=== PATIENT | male | born 1960 | race Caucasian/White ===

== ENCOUNTER 2024-12-07 17:51 | Emergency (ER) | payer OTHER, SELFPAY ==
--- NOTE | 2024-12-07 17:55 | ED_ITS ---
HPI - Dental/Oral General Chief complaint: Dental/Oral Stated complaint: tooth pain/face swollen/cough Time Seen by Provider: 12/07/24 17:55 Source: patient Mode of arrival: ambulatory Limitations: no limitations History of Present Illness HPI Narrative: Patient is a pleasant 64-year-old male presenting with complaint of left upper dental pain. Additional sx reported include swelling to the L. side of his neck, Lips, L. side of his face. He reports sudden onset yesterday with rapid progression. Tx initiated [employer]IEF includes [place] (prescribed for previous dx) without improvement in pain. Reports appt with dentist tomorrow morning. No additional complaints. Teeth map: 2 1. fracture, TTP Related Data Allergies Allergy/AdvReac Type Severity Reaction Status Date / Time Penicillins Allergy Unknown Verified 10/10/14 11:35 TAPE AdvReac Unknown Uncoded 07/02/15 08:12 Review of Systems 2 Review of Systems: All systems reviewed & are unremarkable except as noted in HPI and below PMFSH Family History Family History Father Malignant neoplasm of prostate Grandparent Family history of heart disease in male family member before age 55 Social History Social History Smoking status: Former smoker Smoking end date: 07/06/96 Alcohol intake: never Exam 2 Narrative: GENERAL: Well-appearing, well-nourished, and in no acute distress. HEAD: notable swelling with associated erythema to the L. mandible, L. cheek/L. maxillary sinus, L. anterior aspect of neck EYES: EOMI. No redness or drainage. Conjunctivae normal. ENT: Mucous membranes pink and moist. Nares clear. No rhinorrhea. TMs normal bilaterally. Throat normal. Uvula midline. there is no trismus. NECK: Normal AROM. Supple. CHEST: No respiratory distress. Clear to auscultation. HEART: Regular rate EXTREMITIES: Normal range of motion. No edema. SKIN: Warm, dry. Capillary refill normal. Normal skin turgor. NEURO: No focal deficits. Alert and oriented x3. Gait steady. PSYCH: Normal affect. No signs of depression or anxiety. Course Course Level of Care: Express Care Visit Vital Signs Vital signs: Vital Signs Temperature 99.3 F 12/07/24 18:04 Pulse Rate 96 12/07/24 18:04 Respiratory Rate 18 12/07/24 18:04 Blood Pressure 164/83 H 12/07/24 18:04 Pulse Oximetry 98 12/07/24 18:04 Oxygen Delivery Room Air 12/07/24 18:04 Temperature 99.3 F 12/07/24 18:04 Pulse Rate 96 12/07/24 18:04 Respiratory Rate 18 12/07/24 18:04 Blood Pressure 164/83 H 12/07/24 18:04 Pulse Oximetry 98 12/07/24 18:04 Oxygen Delivery Room Air 12/07/24 18:04 MDM - Dental/Oral MDM Narrative Medical decision making narrative: Given the patient's sudden onset and rapid progression of sx, I recommended he be transferred to ER via POV. Pt agreed and requested to be transferred to [place] [facility]. Differential Diagnosis Differential diagnosis: Likely gingival abscess, dental caries, toothache, dental abscess, fracture of tooth, aphthous ulcer and other (deep space infection) Medical Records Attestation: I reviewed the patient's medical records. Discharge Plan Discharge Clinical Impression: Toothache, Dental caries, Facial swelling, Neck swelling Patient Disposition: Acute Care Hospital Condition: Stable Instructions: Antibiotic Form Patient Language: Ukrainian Follow-up/Referrals: UNKNOWN,DOCTOR [Primary Care Provider] - Time of Disposition: 18:14
[2024-12-07 18:04] VITALS: BP 164/83; PULSE 96; RESP 18; TEMP 37.4; O2SAT 98
== END 2024-12-07 18:20 | disposition short-term general hospital (02) ==
PROVIDERS: Emergency Provider Registered Nurse
DX: K08.89 Other specified disorders of teeth and supporting structures (principal); K02.9 Dental caries, unspecified; R22.0 Localized swelling, mass and lump, head; R22.1 Localized swelling, mass and lump, neck; Z87.891 Personal history of nicotine dependence
CPT/HCPCS: 99212; G0463

== ENCOUNTER 2024-12-07 18:28 | Emergency (ER) | payer OTHER, SELFPAY ==
--- OUTSIDE RECORDS SUMMARY | 2024-12-07 18:30 | XMS_ITS | Data Portability ---
Author Organization [facility],, Main Office Address [address] [place] [address] [place] [phone] Assessment No assessment recorded. Plan of Treatment Reminders Order Date Submit Date Provider Last Modified By Organization Details Last Modified Time Details Appointments None record ed. Lab None record ed. Referral None record ed. Procedures None record ed. Surgeries None record ed. Imaging None record ed. Medication Orders None record ed. Patient TargetsNo targets recorded. Patient InstructionsNo instructions recorded. Reason for Referral None Reported. Problems Name Problem SNOMED Code Status Onset Date Resolution Date Notes Provider Name and Address Organization Details Recorded Time Pain of toe of left foot 5651118746669 08 Active 2021 Becky Shook DPM [address] [place] [address],[address] [place] [address], [phone], [facility], 2 16:48:18 Onycholysis 47303334 Active 2021 Becky Shook DPM [address] [place] [address],[address], [place], [address], [facility], 2 16:48:20 Onychomycos is of toenails 842368165 Active 2021 Becky Shook DPM [address] [facility],[address], [address], [facility], 2 16:48:20 Problem Notes None recorded. Procedures Surgical History Date Name Laterality Status Provider Name and Address Organization Details Recorded Time 2 Nail Avulsion completed Becky Shook, DPM [address] [facility],[address], [place], [address], [facility], 08/20/2021 16:47:25 colonoscopy completed [facility], 07/18/2021 09:59:25 procedure on ankle completed [facility], 07/18/2021 09:59:36 Foot Surgery completed [facility], 07/18/2021 09:59:42 Imaging Results None recorded. Procedure Notes None recorded. Medical Equipment None Reported. Allergies Allergen ID Allergen Name Allergen Category Reaction Reaction Severity Criticality Documentation Date Start Date Code Code System Note Provider Name and Address Organization Details Recorded Time 2508 Product containin g penicilli n (product) medicatio n Not available Not available Not available 07/18/2021 86220 8001 SNOMED [facility], 2 09:57:00 2509 Substance with sulfonami de structure and antibacte rial mechanism of action (substanc e) medicatio n Not available Not available Not available 07/18/2021 96166 8003 SNOMED [facility], 2 09:57:04 2510 lisinopri l medicatio n Not available Not available Not available 07/18/2021 78916 RxNorm [facility], 2 09:57:11 2511 adhesive tape environme nt,medica tion Not available Not available Not available 07/18/2021 52440 UNK [facility], 2 09:57:18 Medications Name Sig Start Date Stop Date Status Note LastModified by Organization Details LastModified Time prednisone 10 mg tablet 07/18 completed Not Available Not Available Not Available cetirizine 10 mg tablet TAKE 1 TABLET BY MOUTH ONCE DAILY active Not Available Not Available No t Available famotidine 40 mg tablet active Not Available Not Available No t Available prednisone 20 mg tablet 07/18 completed Not Available Not Available Not Available omeprazole 40 mg capsule,delay ed release active Not Available Not Available N ot Available tramadol 50 mg tablet 07/18 completed Not Available Not Available Not Available hydrocodone 7.5 mg-acetaminop hen 325 mg tablet 07/18 completed Not Available Not Available Not Available cephalexin 500 mg capsule 07/18 completed Not Available Not Available Not Available esomeprazole magnesium 40 mg capsule,delay ed release active Not Available Not Available N ot Available metoclopramid e 10 mg tablet active Not Available Not Available Not Available Trelegy Ellipta 200 mcg-62.5 mcg-25 mcg powder for inhalation active Not Available Not Available N ot Available Vitals Date Recorded Body height Body mass index (BMI) Body weight Heart rate Oxygen saturation Oxygen saturation in Arterial blood by Pulse oximetry Body temperature Systolic blood pressure Diastolic blood pressure Provider Name and Address Organization Details Last Updated DateTime 198.12 cm 34.1 kg/m2 630831. 75 g 108 /min 93 % 93 % 98.1 [degF] 149 mm[Hg] 94 mm[Hg] Ashlyeziyad Paris [facility], 09:56:30 Social History Question Answer Notes LastModified by [employer] ion Details LastModified Time Tobacco Smoking Status Former Smoker Ashley Paris [facility], 07/18/2021 09:59:16 What Was The Date Of Your Most Recent Tobacco Screening? 07/18/2021 [email or web address] Information not available 07/18/2021 At What Age Did You Start Smoking Tobacco? 20 Information not available 07/18/2021 Sex: Unknown Functional Status Question Answer Note LastModified by Organizat ion Details LastModified Time Do you or have you ever used any other forms of tobacco or nicotine? No [email or web address] Information not available 07/18/2021 What is your level of alcohol consumption? None [email or web address] Information not available 07/18/2021 Are you currently employed? Yes [email or web address] Information not available 07/18/2021 What is your occupation? [employer] [email or web address] Information not available 07/18/2021 Mental Status None recorded. Family History Relationship Description Onset Age of this Age Resolved Age Notes LastModified by Organization Details LastModified Time Unspecified Relation Arthritis [email or web address] Not available 09:58:17 Unspecified Relation Family history of malignant neoplasm [email or web address] Not available 07/06 09:58:24 Unspecified Relation Hypertensive disorder [email or web address] Not available 07/06 09:58:31 Unspecified Relation Heart disease [email or web address] Not available 07/06 09:58:37 Medical History Condition Response Coronary Artery Disease N Gout N Emphysema N Depression Y COPD N Lung Disease N Pacemaker N Edema N Deep Vein Thrombosis N Varicose Veins N Arthritis Y Restless Leg Syndrome Y Blood Clot N Cancer Y Stroke Y Leg or Foot Ulcers N Circulation Problems N Raynaud's Disease N High Cholesterol Y Liver Disease N Rheumatoid Arthritis N Fibromyalgia N Foot Deformity N Kidney Disease N Anxiety Y Artificial Joints N Thyroid Problems N Psoriatic Arthritis N Anemia N Back Pain Y Mental Illness Y Diabetes N Bleeding Disorder N Seizures/Epilepsy N AIDS/HIV N Asthma Y Allergies N Peripheral Vascular Disease N Artificial Heart Valve N Hepatitis N Neuropathy N Heart Disease Y Pulmonary Embolism N Hypertension Y Osteoporosis N Past Encounters Encounter ID Performer Location Encounter Start Date Encounter Closed Date Diagnosis/Indication Diagnosis SNOMED-CT Code Diagnosis ICD10 Code Diagnosis Note [id number] Becky Shook DPM Main Office [address] [place] [address],[facility] [address], [place] [address] 07/18/2021 09:26:55 07/18/2021 10:20:49 Pain of toe of left foot 7574058501 39705 M79.675 The toenail its etiology, options for care, treatment plan, and prognosis were discussed with the patient. In detail, I explained conservati ve and surgical options of care. The patient elected to have the toenail surgically corrected today and understand s the risks of procedure including, but not limited to recurrence of the ingrown toenail, infection, worsening of condition, loss of entire toenail, loss of digit. Answered all of patient's questions. Wound care directions were reviewed with the patient and a handout for post procedure care was dispensed. The patient voiced understand ing of the condition, home care, and expected healing, and was happy with this treatment plan and is to return to the office in 6 weeks or sooner as needed. Onycholysis 22681874 L60 .1 Onychomyco sis of toenails 221510749 B35.1 Health Concerns Section Related Observation LastModified by Organization Detai ls LastModified Time None Recorded Concern Status LastModified by Organization Details LastModified Time None Recorded Advance Directives Directive None Recorded Payers Encounter Date Sequence Insurance Name Policy Number Policy Mary Covered Member ID Mary Member ID Guarantor Name 07/18/2021 1 [employer] [id number] 1 Guicho Barnes [id number] Guicho Barnes Notes Date Note Type Note Provider Name and Address Organization Details Recorded Time 07/18/2021 text/html Patient presents to the office today for an painful fungal and loose nail to the left hallux which has not responded to self treatment including soaks, trimming at home, and local care. The toenail has been painful, red, and ingrown for several months. The pain is throbbing, aching and stabbing in nature and is worsened by shoe wear and direct pressure. They have had a similar condition previously treated. Outside reports reviewed: Office notes and historical medical records Becky Shook, DPM [address] [facility],[address], [place], [address], [facility], 08/20/2021 16:48:46
--- OUTSIDE RECORDS SUMMARY | 2024-12-07 18:30 | XMS_ITS | Continuity of Care Document ---
Author Organization [facility] Address [address] [place] [address] Phone Care Team Providers Care Degree Clerk Name Role Phone Unavailable Unavailable Unavailable Procedures Procedure Date Comprehensive Oral Evaluation-New/Est Pt Intra-Oral - Complete Series Of Radiogra phic Images Comprehensive Oral Evaluation-New/Est Pt Intra-Oral - Complete Series Of Radiogra phic Images Dental Panoramic Radiographic Image Surgical extr erupted tooth Advance Directives Directive Yes / No Effective Date File Name No Information Encounters Encounter Description Practice Location Reason(s) For Visit Diagnoses Date Provider Providers Copied on Encounter [facility], [address], [place], [place], [id number] , tel: [phone] [facility] Encounter for dental exam and cleaning w abnormal findings 0 No Information Referring Provider: Jose Juan French, [address], [place], [address] . tel:[phone] [facility], [address], [place], [place], [address] , tel: [phone] [facility] Encounter for dental exam and cleaning w abnormal findingsEncounter for dental exam and cleaning w/o abnormal findings 0 No Information [facility], [address], [place], [place], [id number] , tel: [phone] [facility] Encounter for dental exam and cleaning w abnormal findings 0 No Information Family History Family Member Type Diagnosis Age At Onset No Information Payers Payer name Insurance type Covered libertarian ID Rubi moreno(s) D [facility] Claims [id number] Social History Type Description Quantity Date Captured Comments Sex Male Smoking Status No Information Chief Complaint And Reason For Visit No Information Reason For Referral Reason For Referral No Information History Of Present Illness Encounter Date Complaint History Of Prese nt Illness No Information Functional Status Date Functional Assessmen t No Information Instructions Date Instruction Additional Infor mation No Information Assessments Type Assessment Date No Information Patient Care Teams Name Effective Dates (start - stop) Status Members No Information
--- OUTSIDE RECORDS SUMMARY | 2024-12-07 18:30 | XMS_ITS | Continuity of Care Document ---
Author Name [facility] Organization [facility] Care Team Providers Care Trick Rodeo Rider Name Role Phone [facility] Unavailable Unavailable Problems Combined list of problems from Department of Defense and [facility] Affairs facilities. It does not include entries that were removed or entered in error. Problem Status Onset Date Problem Type Date of Resolution Comments Source Acute non-ST segment elevation myocardial infarction Active Condition [facility] Anxiety disorder Active Condition Feb 26, 2016 Entered By: TANESHA GARCIA Comment: May complicate management [facility] Benign essential hypertension (SNOMED CT 5299303) Active Condition Feb 26, 2016 Entered By: TANESHA GARCIA Comment: CV risk factor. May complicate management [facility] Cerebral arteriosclerosis Active Condition Feb 25 6 Entered By: TANESHA GARCIA Comment: CV risk factor. May complicate management [facility] Chronic bipolar II disorder, most recent episode major depressive Active Condition [facility] Chronic pain Active Condition Feb 26, 2016 Entered By: TANESHA GARCIA Comment: Multiple sites. May be multifactorial. May complicate management [facility] Chronic post-traumatic stress disorder Active Condition [facility] Chronic sinusitis Active Condition [facility] Cough (SCT 95805200) Active Condition [facility] Erectile dysfunction Active Condition Feb 26, 2016 Entered By: TANESHA GARCIA Comment: May be multifactorial. CV risk factor. May complicate management [facility] Ex-tobacco user Active Condition Feb 26, 2016 Entered By: TANESHA GARCIA Comment: CV risk factor. May complicate management [facility] Exposure to potentially hazardous substance (SCT 612785149934193) Active Condition Oct 20 4 Entered By: CARRIE NAPOLES Comment: Entered automatically through [employer] Problem List documentation program [facility] Gastroesophageal reflux disease Active Condition Feb 26, 2016 Entered By: TANESHA GARCIA Comment: May complicate management [facility] Generalized anxiety disorder Active Condition [facility] Hearing loss ([facility] 76928996) - Unspecified hearing loss (ICD-9-CM 389.9) Active Condition Feb 26, 2016 Entered By: TANESHA GARCIA Comment: May complicate management [facility] History of alcohol abuse Active Condition Feb 26, 2016 Entered By: TANESHA GARCIA Comment: CV risk factor. May complicate management [facility] History of repair of inguinal hernia Active Condition [facility] History of repair of rotator cuff Active Condition [facility] Hyperlipidemia (SNOMED CT 30154083) Active Condition Feb 26, 2016 Entered By: TANESHA GARCIA Comment: CV risk factor. May complicate management [facility] Hypersomnia Active Condition Feb 26, 2016 Entered By: TANESHA GARCIA Comment: May complicate management [facility] Insomnia Active Condition Feb 25 16 Entered By: TANESHA GARCIA Comment: May complicate management [facility] Lack of exercise Active Condition Feb 26, 2016 Entered By: TANESHA GARCIA Comment: CV risk factor. May complicate management [facility] Obesity Active Condition Feb 25 Entered By: TANESHA GARCIA Comment: CV risk factor. May complicate management [facility] Obstructive sleep apnea syndrome Active Condition Feb 26, 2016 Entered By: TANESHA GARCIA Comment: CV risk factor. May complicate management [facility] Patellofemoral osteoarthritis Active Condition [facility] Recurrent major depression Active Condition Feb 26, 2016 Entered By: TANESHA GARCIA Comment: CV risk factor. May complicate management [facility] Sensorineural hearing loss of bilateral ears Active Condition [facility] Sensory symptoms Active Condition Feb 26, 2016 Entered By: TANESHA GARCIA Comment: Chanell. TIA v conversion disorder v factitious disorder v m [facility] Social anxiety disorder Active Condition Feb 26, 2016 Entered By: MITHEN,TANESHA A Comment: May complicate management [facility] Stereotypic movement disorder Active Condition Feb 25 Entered By: TANESHA GARCIA Comment: Told he has RLS, but he has no symptoms consistent with RLS [facility] TIA (SNOMED CT [id number]) Active Condition Oct 24, 2011 Entered By: PHILLIP CASTELLON Comment: Had 3 episodes in 2005, no residual symptomsFeb 26, 2016 Entered By: TANESHA GARCIA Comment: Possible. CV risk factor. May complicate management [facility] Vitamin D deficiency Active Condition Feb 26, 2016 Entered By: TANESHA GARCIA Comment: CV risk factor. May complicate management [facility] ACQ NOSE DEFORMITY Inactive Condition 10/24/2011 [facility] Allergic rhinitis due to other allergen (ICD-9-CM 477.8) Inactive Condition 02/25/2016 [facility] Cellulitis and abscess of unspecified sites (ICD-9-CM 682.9) Inactive Condition 10/24/2011 [facility] Diarrhea * (ICD-9-CM 787.91) Inactive Condition 10/24/2011 [facility] FOREIGN BODY HEAD Inactive Condition 10/24/2011 [facility] HEADACHE Inactive Condition 10/24/2011 [facility] JAW DISEASE NOS Inactive Condition 10/24/2011 [facility] LUMBAGO Inactive Condition 02/25/2016 [facility] NASAL SINUS DIS NEC Inactive Condition 10/24/2011 [facility] NON-HEALING SURGICAL WOUND Inactive Condition 10/24/2011 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 ORAL SOFT TISSUE DIS NEC Inactive Condition 10/24/2011 [facility] Other and unspecified disc disorder of lumbar region (ICD-9-CM 722.93) Inactive Condition 02/25/2016 Aug 28, 2011 Entered By: AUSTYN ANSARI Comment: HX OF SURGERY [facility] OTHER SP. PRE-OP EXAM Inactive Condition 10/24/2011 [facility] Personal History of Tobacco Use (ICD-9-CM V15.82) Inactive Condition 02/25/2016 Oct 23 Entered By: PHILLIP CASTELLON Comment: quit 12 years ago [facility] Prostatitis * (ICD-9-CM 601.9) Inactive Condition 02/25/2016 [facility] SKIN DISORDER NOS Inactive Condition 10/24/2011 [facility] Upper Respiratory Infections (ICD-9-CM 465.9) Inactive Condition 10/24/2011 [facility] Diagnosis: ICD-10-CM L82.1 Other seborrheic keratosis Active Diagnosis [facility] Diagnosis: ICD-10-CM M79.2 Neuralgia and neuritis, unspecified Active Diagnosis [facility] Diagnosis: ICD-10-CM Z02.9 Encounter for administrative examinations, unspecified Active Diagnosis [facility] Diagnosis: ICD-10-CM F51.02 Adjustment insomnia Active Diagnosis [facility] Diagnosis: ICD-10-CM R06.00 Dyspnea, unspecified Active Diagnosis [facility] Diagnosis: ICD-10-CM E66.9 Obesity, unspecified Active Diagnosis [facility] Diagnosis: ICD-10-CM I10 Essential (primary) hypertension Active Diagnosis [facility] Diagnosis: ICD-10-CM F33.41 Major depressive disorder, recurrent, in partial remission Active Diagnosis [facility] Diagnosis: ICD-10-CM L60.2 Onychogryphosis Active Diagnosis [facility] Diagnosis: ICD-10-CM Z56.9 Unspecified problems related to employment Active Diagnosis [facility] Diagnosis: ICD-10-CM L60.0 Ingrowing nail Active Diagnosis [facility] Diagnosis: ICD-10-CM I26.99 Other pulmonary embolism without acute cor pulmonale Active Diagnosis [facility] Diagnosis: ICD-10-CM Z01.818 Encounter for other preprocedural examination Active Diagnosis [facility] Diagnosis: ICD-10-CM Z71.2 Person consulting for explanation of exam or test findings Active Diagnosis [facility] Diagnosis: ICD-10-CM R22.1 Localized swelling, mass and lump, neck Active Diagnosis [facility] Luis Enrique [facility] Diagnosis: ICD-10-CM R29.898 Oth symptoms and signs involving the musculoskeletal system Active Diagnosis [facility] Diagnosis: ICD-10-CM G45.3 Amaurosis fugax Active Diagnosis [facility] Diagnosis: ICD-10-CM Z13.5 Encounter for screening for eye and ear disorders Active Diagnosis [facility] NATALIO [facility] Diagnosis: ICD-10-CM E66.811 Obesity, class 1 Active Diagnosis [facility] Diagnosis: ICD-10-CM H90.3 Sensorineural hearing loss, bilateral Active Diagnosis [facility] Diagnosis: ICD-10-CM J20.9 Acute bronchitis, unspecified Active Diagnosis [facility] Diagnosis: ICD-10-CM Z85.828 Personal history of other malignant neoplasm of skin Active Diagnosis [facility] Diagnosis: ICD-10-CM E78.5 Hyperlipidemia, unspecified Active Diagnosis [facility] Diagnosis: ICD-10-CM F40.10 Social phobia, unspecified Active Diagnosis [facility] Diagnosis: ICD-10-CM E66.8 Other obesity Active Diagnosis [facility] Diagnosis: ICD-10-CM D23.5 Other benign neoplasm of skin of trunk Active Diagnosis [facility] Medications Combined list of outpatient medications from Department of Defense and [facility] Affairs facilities.Medications provided include 1) outpatient medications from the last 15 months, and 2) patient-reported medications. Medication Details Route Status Patient Instructions Prescription Expires Prescription Number Last Dispense Date Ordering Provider Order Date Order Qty Source ALBUTEROL SO4 90MCG/ACTUA T (CFC-F) INHL,ORAL,8 .5GM INHALE 2 PUFFS BY ORAL INHALATI ON FOUR TIMES A DAY NEEDED SHAKE WELL. RINSE MOUTHPIE CE FREQUENT LY TO PREVENT CLOGGING . RESPIR ATORY (INHAL ATION) DISCONT INUED BY PROVIDE R 06/09/2025 [id number] 5 REJI LERMA 2023 3 [facility] AMLODIPINE BESYLATE 10MG TAB TAKE ONE TABLET BY MOUTH ONCE A DAY FOR HEART/BL OOD PRESSURE ORAL SUSPEND ED 06/09/2025 [id number] 5 REJI LERMA 2024 90 [facility] AMLODIPINE BESYLATE 10MG TAB TAKE ONE TABLET BY MOUTH ONCE A DAY FOR HEART/BL OOD PRESSURE ORAL DISCONT INUED 08/17/2024 [id number] 4 RODRIGO MOJICA 2023 90 [facility] APIXABAN 5MG TAB TAKE ONE TABLET BY MOUTH TWICE A DAY ORAL ACTIVE GAVIN MOLINA 2022 [facility] ARIPIPRAZOL E 5MG TAB TAKE ONE AND ONE-HALF TABLETS BY MOUTH ONCE A DAY FOR BIPOLAR DISORDER ORAL ACTIVE 10/07/2025 [id number] 5 MARIA GUADALUPE CESPEDES FRACISCO 2024 135 [facility] N ARIPIPRAZOL E 5MG TAB TAKE ONE AND ONE-HALF TABLETS BY MOUTH ONCE A DAY FOR BIPOLAR DISORDER ORAL DISCONT INUED 07/09/2025 [id number] 5 MARIA GUADALUPE CESPEDES FRACISCO 2024 135 [facility] DIVISIO N ARIPIPRAZOL E 5MG TAB TAKE ONE AND ONE-HALF TABLETS BY MOUTH ONCE A DAY FOR BIPOLAR DISORDER ORAL DISCONT INUED 12/15/2024 [id number] 4 MARIA GUADALUPE CESPEDES 2023 135 [facility] ATENOLOL 100MG TAB TAKE ONE-HALF TABLET BY MOUTH ONCE A DAY ORAL ACTIVE REJI LERMA 2023 [facility] ATORVASTATI N CA 40MG TAB TAKE ONE-HALF TABLET BY MOUTH EVERY EVENING ORAL ACTIVE 06/09/2025 [id number] 5 REJI LERMA 2023 45 [facility] AZITHROMYCI N 500MG TAB TAKE ONE TABLET BY MOUTH ONCE A DAY FOR COPD EXACERBA TION TAKE UNTIL GONE. DO NOT TAKE WITH ALUMINUM OR MAGNESIU M ANTACIDS . ORAL ACTIVE 12/25/2024 [id number] 5 JARAGEOVANNA Mercado M 2024 3 [facility] BENZONATATE 200MG CAP TAKE ONE CAPSULE BY MOUTH THREE TIMES A DAY NEEDED ORAL 07/18/2024 [id number] 4 REJI LERMA 2023 120 [facility] BUDESONIDE 160/GLYCOPY R 9/FORMOTER 4.8MCG/ACT INHL,ORAL,1 0.7GM INHALE 2 PUFFS INHALATI ON TWICE A DAY DIRECTED INHALA TION ACTIVE REJI LERMA 2023 [facility] BUPROPION 90MG/NALTRE XONE HCL 8MG TAB,SA TAKE 2 TABLETS BY MOUTH TWICE A DAY FOR WEIGHT LOSS ORAL DISCONT INUED BY PROVIDE R 05/11/2025 [id number] 5 HOLDEN DECKER IGNACIO 2024 120 [facility] DIVISIO N BUPROPION 90MG/NALTRE XONE HCL 8MG TAB,SA TAKE 1 TABLET BY MOUTH ONCE A DAY FOR 7 DAYS, THEN TAKE 1 TABLET TWICE A DAY FOR 7 DAYS, THEN TAKE 2 TABLETS EVERY MORNING AND TAKE 1 TABLET EVERY EVENING FOR 7 DAYS, THEN TAKE 2 TABLETS TWICE A DAY FOR WEIGHT LOSS ORAL DISCONT INUED 05/11/2025 [id number] 4 HOLDEN DECKER IGNACIO 2023 120 [facility] DIVISIO N BUSPIRONE HCL 15MG TAB TAKE TWO TABLETS BY MOUTH TWICE A DAY FOR ANXIETY DO NOT TAKE WITH GRAPEFRU IT JUICE ORAL ACTIVE 10/07/2025 [id number] 5 MARIA GUADALUPE CESPEDES 2024 360 [facility] DIVISIO N BUSPIRONE HCL 15MG TAB TAKE TWO TABLETS BY MOUTH TWICE A DAY FOR ANXIETY DO NOT TAKE WITH GRAPEFRU IT JUICE ORAL DISCONT INUED 12/15/2024 [id number] 5 MARIA GUADALUPE CESPEDES 2023 360 [facility] BUSPIRONE HCL 15MG TAB TAKE TWO TABLETS BY MOUTH THREE TIMES A DAY FOR ANXIETY DO NOT TAKE WITH GRAPEFRU IT JUICE ORAL DISCONT INUED (EDIT) 12/08/2024 [id number] 4 MARIA GUADALUPE CESPEDES 2023 540 [facility] BUSPIRONE HCL 15MG TAB TAKE TWO TABLETS BY MOUTH THREE TIMES A DAY FOR ANXIETY FOR ANXIETY DO NOT TAKE WITH GRAPEFRU IT JUICE ORAL DISCONT INUED 12/08/2024 [id number] 4 MARIA GUADALUPE CESPDEES 2023 180 [facility] CHOLECALCIF FAUSTINO 125MCG (5,000UNIT) CAP,ORAL TAKE 1 CAPSULE BY MOUTH ONCE A DAY ORAL ACTIVE MARYANN ALBRIGHT 2014 [facility] DIVISIO N CLOMIPHENE CITRATE 50MG TAB TAKE ONE TABLET BY MOUTH EVERY OTHER DAY ORAL ACTIVE GAVIN MOLINA 2022 [facility] CPD-NALTREX ONE 4.5MG (LOW DOSE) CAP TAKE 1 CAPSULE BY MOUTH ONCE A DAY FOR NEUROPAT HY ORAL ACTIVE 12/03/2025 [id number] 5 KEARA ROSE 2024 30 [facility] DIVISIO N CYANOCOBALA MIN 1000MCG TAB TAKE ONE TABLET BY MOUTH ONCE A DAY ORAL ACTIVE REJI LERMA 2023 [facility] DULOXETINE HCL 60MG CAP,EC TAKE TWO CAPSULES BY MOUTH AT BEDTIME FOR MOOD, ANXIETY AND PAIN ORAL SUSPEND ED 10/07/2025 [id number] 5 MARIA GUADALUPE CESPEDES 2024 180 [facility] DIVISIO N DULOXETINE HCL 60MG CAP,EC TAKE TWO CAPSULES BY MOUTH AT BEDTIME FOR MOOD, ANXIETY AND PAIN ORAL DISCONT INUED 02/02/2025 [id number] 5 MARIA GUADALUPE CESPEDES 2023 180 [facility] DIVISIO N DULOXETINE HCL 60MG CAP,EC TAKE TWO CAPSULES BY MOUTH AT BEDTIME FOR MOOD, ANXIETY AND PAIN ORAL DISCONT INUED 02/07/2024 [id number] 4 MARIA GUADALUPE CESPEDES 2022 180 [facility] DIVLISA N FAMOTIDINE 40MG TAB TAKE ONE TABLET BY MOUTH ONCE A DAY TO LOWER STOMACH ACID ORAL ACTIVE 06/09/2025 [id number] 5 REJI LERMA 2024 90 [facility] FAMOTIDINE 40MG TAB TAKE ONE TABLET BY MOUTH ONCE A DAY TO LOWER STOMACH ACID ORAL DISCONT INUED 08/17/2024 [id number] 4 RODRIGO MOJICA 2023 90 [facility] FERROUS SO4 325MG TAB TAKE ONE TABLET BY MOUTH ONCE A DAY FOR IRON SUPPLEME NTATION. ORAL SUSPEND ED 06/09/2025 [id number] 5 REJI LERMA 2023 100 [facility] FERROUS SO4 325MG TAB TAKE ONE TABLET BY MOUTH ONCE A DAY FOR IRON SUPPLEME NTATION. ORAL DISCONT INUED 06/12/2024 [id number] GAVIN MOLINA 2022 100 [facility] FINASTERIDE 5MG TAB TAKE ONE TABLET BY MOUTH ONCE A DAY FOR PROSTATE . SWALLOW WHOLE, DO NOT CRUSH, SPLIT, OR CHEW. ORAL ACTIVE 06/09/2025 [id number] 5 REJI LERMA 2024 90 [facility] FINASTERIDE 5MG TAB TAKE ONE TABLET BY MOUTH ONCE A DAY FOR PROSTATE . SWALLOW WHOLE, DO NOT CRUSH, SPLIT, OR CHEW. ORAL DISCONT INUED 08/17/2024 [id number] 4 RODRIGO MOJICA 2023 90 [facility] GABAPENTIN 100MG CAP TAKE 1 CAPSULE BY MOUTH EVERY EVENING ORAL ACTIVE GEOVANNA JARA M 2024 [facility] HYDROXYZINE HCL 50MG TAB TAKE 1-2 TABLETS BY MOUTH AT BEDTIME NEEDED FOR MIDDLE INSOMNIA *MAY CAUSE DROWSINE SS* OK TO TAKE ADDITION AL 50MG DOSE LATER IN THE NIGHT IF INSOMNIA PERSISTS ORAL ACTIVE 10/07/2025 [id number] 5 MARIA GUADALUPE CESPEDES 2024 180 [facility] DIV[facility] N HYDROXYZINE HCL 50MG TAB TAKE 1-2 TABLETS BY MOUTH AT BEDTIME NEEDED FOR MIDDLE INSOMNIA *MAY CAUSE DROWSINE SS* OK TO TAKE ADDITION AL 50MG DOSE LATER IN THE NIGHT IF INSOMNIA PERSISTS ORAL DISCONT INUED 02/02/2025 [id number] 5 MARIA GUADALUPE CESPEDES 2023 180 [facility] DIVISIO N HYDROXYZINE HCL 50MG TAB TAKE 1-2 TABLETS BY MOUTH AT BEDTIME NEEDED FOR MIDDLE INSOMNIA *MAY CAUSE DROWSINE SS* OK TO TAKE ADDITION AL 50MG DOSE LATER IN THE NIGHT IF INSOMNIA PERSISTS ORAL DISCONT INUED 04/10/2024 [id number] 4 MARIA GUADALUPE CESPEDES 2023 180 [facility] HYDROXYZINE HCL 50MG TAB TAKE 1-2 TABLETS BY MOUTH AT BEDTIME NEEDED FOR MIDDLE INSOMNIA *MAY CAUSE DROWSINE SS* OK TO TAKE ADDITION AL 50MG DOSE LATER IN THE NIGHT IF INSOMNIA PERSISTS ORAL DISCONT INUED 08/27/2024 [id number] 4 MARIA GUADALUPE CESPEDES 2023 60 [facility] LIDOCAINE 5% PATCH APPLY 1 PATCH TO SKIN SITE ONCE A DAY APPLY PATCH AND PRESS FIRMLY FOR 10-15 SECONDS. KEEP ON FOR 12 HOURS THEN REMOVE PATCH FOR 12 HOURS. TRANSD ERMAL ACTIVE 09/14/2025 [id number] 5 BRENDA GARCIA EI 2024 30 [facility] MODAFINIL 200MG TAB TAKE ONE TABLET BY MOUTH TWICE A DAY FOR ALERTNES S ORAL ACTIVE 04/08/2025 [id number] 5 MARIA GUADALUPE CESPEDES 2024 60 [facility] DIVISIO N MODAFINIL 200MG TAB TAKE ONE TABLET BY MOUTH TWICE A DAY FOR ALERTNES S ORAL DISCONT INUED 01/08/2025 [id number] 5 MARIA GUADALUPE CESPEDES 2024 60 [facility] DIVIS[facility] N MODAFINIL 200MG TAB TAKE ONE TABLET BY MOUTH TWICE A DAY FOR ALERTNES S ORAL DISCONT INUED 08/04/2024 [id number] 4 MARIA GUADALUPE CESPEDES 2023 60 [facility] DIVIS[facility] N MODAFINIL 200MG TAB TAKE ONE TABLET BY MOUTH TWICE A DAY FOR ALERTNES S ORAL 12/13/2023 [id number] 4 MARIA GUADALUPE CESPEDES 2022 60 [facility] N OLOPATADINE HCL 0.2% SOLN,OPH INSTILL 1 DROP IN BOTH EYES ONCE A DAY FOR ALLERGIC CONJUNCT IVITIS OPHTHA LMIC ACTIVE 08/06/2025 [id number] 5 TARAH PATRICIA 2024 7.5 [facility] DIV[facility] N PANTOPRAZOL E NA 40MG TAB,EC TAKE ONE TABLET BY MOUTH EVERY MORNING BEFORE A MEAL ORAL ACTIVE REJI LERMA 2023 [facility] PRAVASTATIN NA 40MG TAB TAKE ONE TABLET BY MOUTH EVERY EVENING FOR HIGH CHOLESTE ROL ORAL DISCONT INUED BY PROVIDE R 12/11/2024 [id number] REJI LERMA 2023 90 [facility] PRAZOSIN HCL 2MG CAP TAKE ONE CAPSULE BY MOUTH AT BEDTIME FOR NIGHTMAR ES MAY CAUSE DIZZINES S OR DROWSINE SS. ORAL ACTIVE 10/07/2025 [id number] 5 MARIA GUADALUPE CESPEDES 2024 90 [facility] DIVISIO N PRAZOSIN HCL 2MG CAP TAKE ONE CAPSULE BY MOUTH AT BEDTIME FOR NIGHTMAR ES MAY CAUSE DIZZINES S OR DROWSINE SS. ORAL DISCONT INUED 02/02/2025 [id number] 5 MARIA GUADALUPE CESPEDES 2023 90 [facility] DIVIS[facility] N PRAZOSIN HCL 2MG CAP TAKE ONE CAPSULE BY MOUTH AT BEDTIME FOR NIGHTMAR ES MAY CAUSE DIZZINES S OR DROWSINE SS. ORAL DISCONT INUED 02/07/2024 [id number] 4 MARIA GUADALUPE CESPEDES 2022 90 [facility] DIVIS[facility] N PREDNISONE 20MG TAB TAKE TWO TABLETS BY MOUTH EVERY MORNING FOR COPD EXACERBA TION TAKE WITH FOOD OR MILK. ORAL ACTIVE 12/25/2024 [id number] 5 GEOVANNA JARA M 2024 5 [facility] QUETIAPINE FUMARATE 100MG TAB TAKE TWO AND ONE-HALF TABLETS BY MOUTH AT BEDTIME ORAL DISCONT INUED BY PROVIDE R 11/23/2025 [id number] 5 MARIA GUADALUPE CESPEDES 2024 225 [facility] DIVISIO N QUETIAPINE FUMARATE 100MG TAB TAKE ONE TABLET BY MOUTH AT BEDTIME ORAL DISCONT INUED (EDIT) 09/22/2024 [id number] 4 MARIA GUADALUPE CESPEDES 2023 30 [facility] QUETIAPINE FUMARATE 200MG TAB TAKE ONE-HALF TABLET BY MOUTH AT BEDTIME ORAL DISCONT INUED (EDIT) 09/18/2024 [id number] 4 MARIA GUADALUPE CESPEDES 2023 15 [facility] QUETIAPINE FUMARATE 400MG TAB TAKE ONE-HALF TABLET BY MOUTH AT BEDTIME FOR BIPOLAR DISORDER ORAL DISCONT INUED (EDIT) 10/07/2025 [id number] 5 MARIA GUADALUPE CESPEDES 2024 45 [facility] N QUETIAPINE FUMARATE 400MG TAB TAKE ONE-HALF TABLET BY MOUTH AT BEDTIME FOR BIPOLAR DISORDER ORAL DISCONT INUED 02/03/2025 [id number] 5 MARIA GUADALUPE CESPEDES 2023 45 [facility] QUETIAPINE FUMARATE 400MG TAB TAKE ONE-HALF TABLET BY MOUTH AT BEDTIME ORAL DISCONT INUED (EDIT) 11/03/2024 [id number] 4 MARIA GUADALUPE CESPEDES 2023 15 [facility] QUETIAPINE FUMARATE 400MG TAB TAKE ONE-HALF TABLET BY MOUTH AT BEDTIME ORAL DISCONT INUED (EDIT) 09/15/2024 [id number] 4 MARIA GUADALUPE CESPEDES 2023 15 [facility] RAMELTEON 8MG TAB TAKE ONE TABLET BY MOUTH EVERY EVENING FOR INSOMNIA 30 MINUTES PRIOR TO BEDTIME ORAL ACTIVE 12/01/2025 [id number] 5 MARIA GUADALUPE CESPEDES 2024 30 [facility] ROSUVASTATI N CA 20MG TAB TAKE ONE-HALF TABLET BY MOUTH EVERY EVENING FOR HIGH CHOLESTE ROL ORAL DISCONT INUED BY THEO R 01/27/2025 [id number] 4 BRENDA GARCIA EI 2023 45 [facility] SEMAGLUTIDE (WT LOSS) 0.25MG/0.5M L INJ,SOLN,PE N,0.5ML INJECT 0.25MG UNDER THE SKIN EVERY WEEK FOR WEIGHT LOSS SUBCUT ANEOUS ACTIVE 11/12/2025 [id number] 5 HOLDEN DECKER IGNACIO 2024 4 [facility] DIVISIO N SEMAGLUTIDE (WT LOSS) 0.25MG/0.5M L INJ,SOLN,PE N,0.5ML INJECT 0.25MG UNDER THE SKIN EVERY WEEK FOR WEIGHT LOSS SUBCUT ANEOUS DISCONT INUED 10/30/2024 [id number] 5 HOLDEN DECKER IGNACIO 2024 4 [facility] DIVISIO N SEMAGLUTIDE (WT LOSS) 0.5MG/0.5ML INJ,SOLN,PE N,0.5ML INJECT 0.5MG UNDER THE SKIN EVERY WEEK FOR WEIGHT LOSS AFTER COMPLETI NG 0.25MG DOSE. CONTACT PROVIDER NEEDED FOR DOSE INCREASE SUBCUT ANEOUS DISCONT INUED (EDIT) 10/01/2025 [id number] 5 HOLDEN DECKER IGNACIO 2024 4 [facility] DIVISIO N SEMAGLUTIDE (WT LOSS) 1MG/0.5ML INJ,SOLN,PE N,0.5ML INJECT 1MG UNDER THE SKIN EVERY WEEK FOR WEIGHT LOSS CONTAC T PROVIDER NEEDED FOR DOSE INCREASE SUBCUT ANEOUS DISCONT INUED BY PROVIDE R 11/11/2025 [id number] 5 HOLDEN DECKER IGNACIO 2024 4 [facility] DIVISIO N SPIRONOLACT ONE 25MG TAB TAKE ONE TABLET BY MOUTH ONCE A DAY ORAL ACTIVE GAVIN MOLINA 2022 [facility] TADALAFIL 5MG TAB TAKE ONE TABLET BY MOUTH EVERY WEEK ORAL ACTIVE REJI LERMA 2023 [facility] TAMSULOSIN HCL 0.4MG CAP TAKE 1 CAPSULE BY MOUTH EVERY EVENING ORAL ACTIVE GAVIN MOLINA 2022 [facility] TRAZODONE HCL 100MG TAB TAKE THREE TABLETS BY MOUTH AT BEDTIME FOR MOOD OR SLEEP. ORAL DISCONT INUED BY PROVIDE R 08/13/2024 [id number] 4 MARIA GUADALUPE CESPEDES 2023 270 [facility] Allergies, Adverse Reactions, Alerts Combined list of allergies from Department of Defense and Veterans Affairs facilities. It does not include entries that were removed or entered in error. Substance Category Reaction Severity Reaction type Status Date Reported Comments Source ATORVASTATIN Propensity to adverse reactions to drug (finding) Joint pain active 4 [facility] BACTRIM Propensity to adverse reactions to drug (finding) Swelling, Itching active 9 [facility] LISINOPRIL Propensity to adverse reactions to drug (finding) Cough active 9 [facility] PENICILLIN Propensity to adverse reactions to drug (finding) SWELLING (NON-SPEC IFIC) active 6 [facility] PRAVASTATIN Propensity to adverse reactions to drug (finding) active 4 [facility] Immunizations Combined list of available immunizations from the Department of [facility] ([place], [place]) and [facility] Affairs facilities. Immunization Series Date Given Administered By Site Reaction Lot Number CVX Code Drug Co Op Status Comments Source COVID-19 (PFIZER), MRNA, LNP-S, PF, ROMEL-SUCROSE, 30 MCG/0.3 ML (AGES 12+ YEARS) 2023 WILIAM JOHNSON LEFT DELTO ID [id number] 309 complet ed ADMINISTE RED AT DC, [facility] INFLUENZA, SPLIT VIRUS, TRIVALENT, PF 1 2023 140 complet ed HISTORICA L INFORMATI ON - FROM OTHER REGISTRY, [facility] HEP A, ADULT 2 2022 52 complet ed HISTORICA L INFORMATI ON - FROM OTHER REGISTRY, [facility] INFLUENZA, UNSPECIFIED FORMULATION 2022 88 complet ed HISTORICA L INFORMATI ON - SOURCE UNSPECIFI ED, [facility] MMR 2 2022 03 complet ed HISTORICA L INFORMATI ON - FROM OTHER REGISTRY, [facility] N VARICELLA 2 2022 21 complet ed HISTORICA L INFORMATI ON - [facility] OTHER REGISTRY, [facility], [facility] 1 2022 52 complet ed HISTORICA L INFORMATI ON - FROM OTHER REGISTRY, [facility] HEP B, ADULT 1 2022 43 complet ed HISTORICA L INFORMATI ON - FROM OTHER REGISTRY, [facility] MMR 1 2022 03 complet ed HISTORICA L INFORMATI ON - FROM OTHER REGISTRY, [facility] VARICELLA 1 2022 21 complet ed HISTORICA L INFORMATI ON - FROM OTHER REGISTRY, [facility] N PNEUMOCOCCAL CONJUGATE PCV20, POLYSACCHARID E [id number] CONJUGATE, ADJUVANT, PF 1 2021 216 complet ed HISTORICA L INFORMATI ON - FROM OTHER REGISTRY, [facility] N COVID-19 (PFIZER), MRNA, LNP-S, PF, 30 MCG/0.3 ML DOSE 3 2020 208 complet ed PFR; [id number]; 2 [facility] INFLUENZA, UNSPECIFIED FORMULATION 2020 88 complet ed SHAE TD (ADULT), 2 LF TETANUS TOXOID, PRESERVATIVE FREE, ADSORBED 2020 09 complet ed [facility] COVID-19 (PFIZER), MRNA, LNP-S, PF, 30 MCG/0.3 ML DOSE 2 2020 208 complet ed SHAE COVID-19 (PFIZER), MRNA, LNP-S, PF, 30 MCG/0.3 ML DOSE 1 2019 208 complet ed SHAE ZOSTER RECOMBINANT 2 2018 187 complet ed [facility] INFLUENZA, UNSPECIFIED FORMULATION 2017 88 complet ed [facility] ZOSTER RECOMBINANT 1 2017 187 complet ed [facility] INFLUENZA, UNSPECIFIED FORMULATION 2016 88 complet ed [facility] INFLUENZA, UNSPECIFIED FORMULATION 2015 88 complet ed [facility] PNEUMOCOCCAL POLYSACCHARID E [id number] 2015 33 complet ed [facility] INFLUENZA, UNSPECIFIED FORMULATION 2014 88 complet ed [facility] INFLUENZA, UNSPECIFIED FORMULATION 2013 88 complet ed Records Pending [facility] HEP B, ADULT 2011 43 complet ed 2ND IN SERIES OF 3 INNOC [facility] HEP B, ADULT 2011 43 complet ed [facility] INFLUENZA, UNSPECIFIED FORMULATION 2010 88 complet ed [facility] TDAP 2010 115 complet ed [facility] OUT[facility] TETANUS (HISTORICAL) 1999 112 complet ed [facility] Results Combined list of recent chemistry, hematology and other laboratory results from Department of Defense and Veterans Affairs, ranging from 15 months to all on record, depending upon the facility. Order Name Results Value Reference Range Date Interpretation Specimen Comments Source B12 COBALAMIN (VITAMIN B12) [MASS/VOLUM E] IN SERUM OR PLASMA 1133 pg/mL 213 - 816 08/03 H Specimen Type: SERUM No comment entered. Ordering Provider: ANGELINE GARCIA Report Released Date/Time: Jul 21, 2024 06:47 PM Reporting Lab: [facility] [address] Performing Lab: [facility] [id number] [place] [address] HGA1C HEMOGLOBIN A1C/HEMOGLO BIN.TOTAL IN BLOOD 5.3 4.0 - 6.0 08/03 Specimen Type: BLOOD No comment entered. Ordering Provider: ANGELINE GARCIA Report Released Date/Time: Jul 21, 2024 06:47 PM Reporting Lab: [facility] [address] Performing Lab: [facility] [phone] [place] [address] FOLATE (STL-MA) FOLATE [MASS/VOLUM E] IN SERUM OR PLASMA 12.6 ng/mL 7 - 20 08/03 Specimen Type: SERUM No comment entered. Ordering Provider: ANGELINE GARCIA Report Released Date/Time: Jul 21, 2024 06:47 PM Reporting Lab: [facility] [address] Performing Lab: [facility] [id number] [place] [address] TSH (MA-PB) THYROTROPIN [UNITS/VOLU ME] IN SERUM OR PLASMA 0.754 u[IU]/ mL 0.470 - 5.000 08/03 Specimen Type: SERUM No comment entered. Ordering Provider: ANGELINE GARCIA Report Released Date/Time: Jul 21, 2024 06:47 PM Reporting Lab: [facility] [address] Performing Lab: [facility] [phone] [place] [address] COMPREHEN SIVE METABOLIC PANEL CREATININE [MASS/VOLUM E] IN SERUM OR PLASMA 1.25 mg/dL 0.70 - 1.30 08/03 Specimen Type: PLASMA Comment: No hemolysis noted. Ordering Provider: ANGELINE GARCIA Report Released Date/Time: Jul 21, 2024 06:47 PM Reporting Lab: [facility] [address] Performing Lab: [facility] [phone] [place] [address] COMPREHEN SIVE METABOLIC PANEL UREA NITROGEN [MASS/VOLUM E] IN SERUM OR PLASMA 16.1 mg/dL 9.0 - 25.0 08/03 Specimen Type: PLASMA Comment: No hemolysis noted. Ordering Provider: ANGELINE GARCIA Report Released Date/Time: Jul 21, 2024 06:47 PM Reporting Lab: [facility] [address] Performing Lab: [facility] [phone] COMPREHEN SIVE METABOLIC PANEL GLUCOSE [MASS/VOLUM E] IN SERUM OR PLASMA 119 mg/dL 72 - 99 08/03 H Specimen Type: PLASMA Comment: No hemolysis noted. Ordering Provider: ANGELINE GARCIA Report Released Date/Time: Jul 21, 2024 06:47 PM Reporting Lab: [facility] [address] Performing Lab: [facility] [phone] [place] [address] COMPREHEN SIVE METABOLIC PANEL SODIUM [MOLES/VOLU ME] IN SERUM OR PLASMA 142 meq/L 136 - 145 08/03 Specimen Type: PLASMA Comment: No hemolysis noted. Ordering Provider: ANGELINE GARCIA Report Released Date/Time: Jul 21, 2024 06:47 PM Reporting Lab: [facility] [address] Performing Lab: [facility] [phone] [place] [address] COMPREHEN SIVE METABOLIC PANEL POTASSIUM [MOLES/VOLU ME] IN SERUM OR PLASMA 4.2 meq/L 3.5 - 5.0 08/03 Specimen Type: PLASMA Comment: No hemolysis noted. Ordering Provider: ANGELINE GARCIA Report Released Date/Time: Jul 21, 2024 06:47 PM Reporting Lab: [facility] [address] Performing Lab: [facility] [phone] [facility] COMPREHEN SIVE METABOLIC PANEL CHLORIDE [MOLES/VOLU ME] IN SERUM OR PLASMA 110 meq/L 98 - 107 08/03 H Specimen Type: PLASMA Comment: No hemolysis noted. Ordering Provider: ANGELINE GARCIA Report Released Date/Time: Jul 21, 2024 06:47 PM Reporting Lab: [facility] [address] Performing Lab: [facility] [phone] [place] [address] COMPREHEN SIVE METABOLIC PANEL CARBON DIOXIDE, TOTAL [MOLES/VOLU ME] IN SERUM OR PLASMA 23 meq/L 22 - 31 08/03 Specimen Type: PLASMA Comment: No hemolysis noted. Ordering Provider: ANGELINE GARCIA Report Released Date/Time: Jul 21, 2024 06:47 PM Reporting Lab: [facility] [address] Performing Lab: [facility] [phone] [facility] COMPREHEN SIVE METABOLIC PANEL CALCIUM [MASS/VOLUM E] IN SERUM OR PLASMA 9.1 mg/dL 8.4 - 10.4 08/03 Specimen Type: PLASMA Comment: No hemolysis noted. Ordering Provider: ANGELINE GARCIA Report Released Date/Time: Jul 21, 2024 06:47 PM Reporting Lab: [facility] [address] Performing Lab: [facility] [address] [place], [place] [address] COMPREHEN SIVE METABOLIC PANEL PROTEIN [MASS/VOLUM E] IN SERUM OR PLASMA 6.0 g/dL 6.0 - 8.6 08/03 Specimen Type: PLASMA Comment: No hemolysis noted. Ordering Provider: ANGELINE GARCIA Report Released Date/Time: Jul 21, 2024 06:47 PM Reporting Lab: [facility] [place] [address] Performing Lab: [facility] COMPREHEN SIVE METABOLIC PANEL ALBUMIN [MASS/VOLUM E] IN SERUM OR PLASMA 4.1 g/dL 3.4 - 5.0 08/03 Specimen Type: PLASMA Comment: No hemolysis noted. Ordering Provider: ANGELINE GARCIA Report Released Date/Time: Jul 21, 2024 06:47 PM Reporting Lab: [facility] [place] [address] Performing Lab: [facility] COMPREHEN SIVE METABOLIC PANEL BILIRUBIN.T OTAL [MASS/VOLUM E] IN SERUM OR PLASMA 0.4 mg/dL 0.2 - 1.2 08/03 Specimen Type: PLASMA Comment: No hemolysis noted. Ordering Provider: ANGELINE GARCIA Report Released Date/Time: Jul 21, 2024 06:47 PM Reporting Lab: [facility] [place] [address] Performing Lab: [facility] COMPREHEN SIVE METABOLIC PANEL ALKALINE PHOSPHATASE [ENZYMATIC ACTIVITY/VO LUME] IN SERUM OR PLASMA 79 U/L 40 - 150 08/03 Specimen Type: PLASMA Comment: No hemolysis noted. Ordering Provider: ANGELINE GARCIA Report Released Date/Time: Jul 21, 2024 06:47 PM Reporting Lab: [facility] [place] [address] Performing Lab: [facility] [phone] [place] [address] COMPREHEN SIVE METABOLIC PANEL ASPARTATE AMINOTRANSF ERASE [ENZYMATIC ACTIVITY/VO LUME] IN SERUM OR PLASMA 22 U/L 5 - 34 08/03 Specimen Type: PLASMA Comment: No hemolysis noted. Ordering Provider: ANGELINE GARCIA Report Released Date/Time: Jul 21, 2024 06:47 PM Reporting Lab: [facility] [address] Performing Lab: [facility] COMPREHEN SIVE METABOLIC PANEL ALANINE AMINOTRANSF ERASE [ENZYMATIC ACTIVITY/VO LUME] IN SERUM OR PLASMA 19 U/L 8 - 40 08/03 Specimen Type: PLASMA Comment: No hemolysis noted. Ordering Provider: ANGELINE GARCIA Report Released Date/Time: Jul 21, 2024 06:47 PM Reporting Lab: [facility] [address] Performing Lab: [facility] [address] COMPREHEN SIVE METABOLIC PANEL GLOMERULAR FILTRATION RATE/1.73 SQ M.PREDICTED [VOLUME RATE/AREA] IN SERUM, PLASMA OR BLOOD BY CREATININE- BASED FORMULA (CKD-EPI 2020) 65.11 60 08/03 Specimen Type: PLASMA Comment: No hemolysis noted. Ordering Provider: ANGELINE GARCIA Report Released Date/Time: Jul 21, 2024 06:47 PM Reporting Lab: [facility] [address] Performing Lab: [facility] TESTOSTER ONE, FREE PANEL TESTOSTERON E [MASS/VOLUM E] IN SERUM OR PLASMA 499 ng/dL 250 - 1100 07/08 Specimen Type: SERUM Comment: Men with clinically significant hypogonadal symptoms and testosteron e values repeatedly in the range of the 200-300 ng/dL or less, may benefit from testosteron e treatment after adequate risk and benefits counseling. For additional information , please refer to http://myseekit/faq/ TotalTestos teroneLCMSM [email or web address] (This link is being provided for information al/ educational purposes only.) This test was developed and its analytical performance characteris tics have been determined by [employer] [place], [place]. It has not been cleared or approved by the U.S. Food and Drug Administrat ion. This assay has been validated pursuant to the CLIA regulations and is used for clinical purposes. Test Performed by [employer], [address] [place] [address] Alexis Kuo M.D., Ph.D., Director of Laboratorie s , CLIA [id number] Ordering Provider: SANTOSH DECKER Report Released Date/Time: May 31, 2024 01:48 PM Reporting Lab: [facility] [address] [facility] [address] Performing Lab: [facility] [id number] [place] [place] [address] [facility] TESTOSTER ONE, FREE PANEL ALBUMIN [MASS/VOLUM E] IN SERUM OR PLASMA 4.0 g/dL 3.6 - 5.1 07/08 Specimen Type: SERUM Comment: Men with clinically significant hypogonadal symptoms and testosteron e values repeatedly in the range of the 200-300 ng/dL or less, may benefit from testosteron e treatment after adequate risk and benefits counseling. For additional information , please refer to http://myseekit/faq/ TotalTestos teroneLCMSM [id number] (This link is being provided for information al/ educational purposes only.) This test was developed and its analytical performance characteris tics have been determined by [employer] [place], [place]. It has not been cleared or approved by the U.S. Food and Drug Administrat ion. This assay has been validated pursuant to the CLIA regulations and is used for clinical purposes. Test Performed by [facility] [place], [address] [place] [address] Alexis Kuo M.D., Ph.D., Director of Laboratorie s , CLIA [id number] Ordering Provider: SANTOSH DECKER Report Released Date/Time: May 31, 2024 01:48 PM Reporting Lab: [address] [address] Performing Lab: [address] [facility] TESTOSTER ONE, FREE PANEL TESTOSTERON E FREE [MASS/VOLUM E] IN SERUM OR PLASMA 43.1 pg/mL 46.0 - 224.0 07/08 L Specimen Type: SERUM Comment: Men with clinically significant hypogonadal symptoms and testosteron e values repeatedly in the range of the 200-300 ng/dL or less, may benefit from testosteron e treatment after adequate risk and benefits counseling. For additional information , please refer to [email or web address] [email or web address] .OrSense/faq/ TotalTestos teroneLCMSM [id number] (This link is being provided for information al/ educational purposes only.) This test was developed and its analytical performance characteris tics have been determined by [employer] [place], [place]. It has not been cleared or approved by the U.S. Food and Drug Administrat ion. This assay has been validated pursuant to the CLIA regulations and is used for clinical purposes. Test Performed by [employer] [facility], [facility] [place], [address] [place] [address] Alexis Kuo M.D., Ph.D., Director of Laboratorie s , CLIA [id number] Ordering Provider: SANTOSH DECKER Report Released Date/Time: May 31, 2024 01:48 PM Reporting Lab: [address] [address] Performing Lab: [address] [facility] TESTOSTER ONE, FREE PANEL TESTOSTERON E.FREE+WEAK LY BOUND [MASS/VOLUM E] IN SERUM OR PLASMA 79.2 ng/dL 110.0 - 575.0 07/08 L Specimen Type: SERUM Comment: Men with clinically significant hypogonadal symptoms and testosteron e values repeatedly in the range of the 200-300 ng/dL or less, may benefit from testosteron e treatment after adequate risk and benefits counseling. For additional information , please refer to http://myseekit/faq/ TotalTestos teroneLCMSM [id number] (This link is being provided for information al/ educational purposes only.) This test was developed and its analytical performance characteris tics have been determined by [employer] [place]. It has not been cleared or approved by the U.S. Food and Drug Administrat ion. This assay has been validated pursuant to the CLIA regulations and is used for clinical purposes. Test Performed by [facility], [facility], [address] [place] [address] Alexis Kuo M.D., Ph.D., Director of Laboratorie s , CLIA [id number] Ordering Provider: SANTOSH DECKER Report Released Date/Time: May 31, 2024 01:48 PM Reporting Lab: [facility] [address] [place] [address] Performing Lab: [facility] [id number] [place] [address] [facility] TESTOSTER ONE, FREE PANEL SEX HORMONE BINDING GLOBULIN [MOLES/VOLU ME] IN SERUM OR PLASMA 56 nmol/L 22 - 77 07/08 Specimen Type: SERUM Comment: Men with clinically significant hypogonadal symptoms and testosteron e values repeatedly in the range of the 200-300 ng/dL or less, may benefit from testosteron e treatment after adequate risk and benefits counseling. For additional information , please refer to [email or web address] .OrSense/faq/ TotalTestos teroneLCMSM [email or web address] (This link is being provided for information al/ educational purposes only.) This test was developed and its analytical performance characteris tics have been determined by [employer] [place], [place]. It has not been cleared or approved by the U.S. Food and Drug Administrat ion. This assay has been validated pursuant to the CLIA regulations and is used for clinical purposes. Test Performed by [facility], [facility], [address] [place], [place] Alexis Kuo M.D., Ph.D., Director of Laboratorie s , CLIA [id number] Ordering Provider: SANTOSH DECKER Report Released Date/Time: May 31, 2024 01:48 PM Reporting Lab: [facility] [address] [place] [address] Performing Lab: [facility] [address] [facility] PROST. SPECIFIC AG.(PB-ST L) PROSTATE SPECIFIC AG [MASS/VOLUM E] IN SERUM OR PLASMA 0.106 ng/mL 0.000 - 4.000 05/17 Specimen Type: SERUM Comment: The listed sex of this patient may not be a typical indication for this test. Therefore, reference ranges or interpretiv e criteria listed may not be valid. Clinical correlation suggested. Ordering Provider: SANTOSH DECKER Report Released Date/Time: May 10, 2024 01:15 PM Reporting Lab: [facility] [address] Performing Lab: [facility] [address] [facility] CBC LEUKOCYTES [#/VOLUME] IN BLOOD BY AUTOMATED COUNT 6.7 10*3/u L 3.6 - 11.2 05/17 Specimen Type: BLOOD No comment entered. Ordering Provider: SANTOSH DECKER Report Released Date/Time: May 10, 2024 01:15 PM Reporting Lab: [facility] [address] Performing Lab: [facility] [address] CBC ERYTHROCYTE S [#/VOLUME] IN BLOOD BY AUTOMATED COUNT 4.20 10*6/u L 4.10 - 5.70 05/17 Specimen Type: BLOOD No comment entered. Ordering Provider: SANTOSH DECKER Report Released Date/Time: May 10, 2024 01:15 PM Reporting Lab: [facility] [place] [address] Performing Lab: [facility] CBC HEMOGLOBIN [MASS/VOLUM E] IN BLOOD 12.0 g/dL 13.1 - 16.8 05/17 L Specimen Type: BLOOD No comment entered. Ordering Provider: SANTOSH DECKER Report Released Date/Time: May 10, 2024 01:15 PM Reporting Lab: [facility] [place] [address] Performing Lab: [facility] CBC HEMATOCRIT [VOLUME FRACTION] OF BLOOD 37.3 38.2 - 48.4 05/17 L Specimen Type: BLOOD No comment entered. Ordering Provider: SANTOSH DECKER Report Released Date/Time: May 10, 2024 01:15 PM Reporting Lab: [facility] [place] [address] Performing Lab: [facility] CBC MCV [ENTITIC VOLUME] BY AUTOMATED COUNT 88.8 fL 80.0 - 100.0 05/17 Specimen Type: BLOOD No comment entered. Ordering Provider: SANTOSH DECKER Report Released Date/Time: May 10, 2024 01:15 PM Reporting Lab: [facility] [place] [address] Performing Lab: [facility] [phone] DIVISION CBC MCH [ENTITIC MASS] BY AUTOMATED COUNT 28.6 pg 27.0 - 34.0 05/17 Specimen Type: BLOOD No comment entered. Ordering Provider: SANTOSH DECKER Report Released Date/Time: May 10, 2024 01:15 PM Reporting Lab: [facility] [place] [address] Performing Lab: [facility] DIVISION CBC MCHC [MASS/VOLUM E] BY AUTOMATED COUNT 32.2 g/dL 33.0 - 36.0 05/17 L Specimen Type: BLOOD No comment entered. Ordering Provider: SANTOSH DECKER Report Released Date/Time: May 10, 2024 01:15 PM Reporting Lab: [facility] [place] [address] Performing Lab: [facility] CBC PLATELETS [#/VOLUME] IN BLOOD BY AUTOMATED COUNT 497 10*3/u L 150 - 400 05/17 H Specimen Type: BLOOD No comment entered. Ordering Provider: SANTOSH DECKER Report Released Date/Time: May 10, 2024 01:15 PM Reporting Lab: [facility] [place] [address] Performing Lab: [facility] CBC PLATELET MEAN VOLUME [ENTITIC VOLUME] IN BLOOD BY AUTOMATED COUNT 9.2 fL 7.5 - 11.2 05/17 Specimen Type: BLOOD No comment entered. Ordering Provider: SANTOSH DECKER Report Released Date/Time: May 10, 2024 01:15 PM Reporting Lab: [facility] [address] Performing Lab: [facility] [phone] [facility]ISION CBC ERYTHROCYTE DISTRIBUTIO N WIDTH [RATIO] BY AUTOMATED COUNT 15.2 11.8 - 15.1 05/17 H Specimen Type: BLOOD No comment entered. Ordering Provider: SANTOSH DECKER Report Released Date/Time: May 10, 2024 01:15 PM Reporting Lab: [facility] [address] Performing Lab: [facility] DIVISION CBC LYMPHOCYTES /100 LEUKOCYTES IN BLOOD BY AUTOMATED COUNT 18 05/17 Specimen Type: BLOOD No comment entered. Ordering Provider: SANTOSH DECKER Report Released Date/Time: May 10, 2024 01:15 PM Reporting Lab: [facility] [address] Performing Lab: [facility] [facility] DIVISION CBC MONOCYTES/1 00 LEUKOCYTES IN BLOOD BY AUTOMATED COUNT 7 05/17 Specimen Type: BLOOD No comment entered. Ordering Provider: SANTOSH DECKER Report Released Date/Time: May 10, 2024 01:15 PM Reporting Lab: [facility] [address] Performing Lab: [facility] [id number] [place] [address] DIVISION CBC NEUTROPHILS /100 LEUKOCYTES IN BLOOD BY AUTOMATED COUNT 69 05/17 Specimen Type: BLOOD No comment entered. Ordering Provider: SANTOSH DECKER Report Released Date/Time: May 10, 2024 01:15 PM Reporting Lab: [facility] [place] [address] Performing Lab: [facility] [place] [id number] CBC EOSINOPHILS /100 LEUKOCYTES IN BLOOD BY AUTOMATED COUNT 4 05/17 Specimen Type: BLOOD No comment entered. Ordering Provider: SANTOSH DECKER Report Released Date/Time: May 10, 2024 01:15 PM Reporting Lab: [facility] [place] [address] Performing Lab: [facility] DIVISION CBC BASOPHILS/1 00 LEUKOCYTES IN BLOOD BY AUTOMATED COUNT 1 05/17 Specimen Type: BLOOD No comment entered. Ordering Provider: SANTOSH DECKER Report Released Date/Time: May 10, 2024 01:15 PM Reporting Lab: [facility] [place] [address] Performing Lab: [facility] CBC LYMPHOCYTES [#/VOLUME] IN BLOOD BY AUTOMATED COUNT 1.24 10*3/u L 0.77 - 4.50 05/17 Specimen Type: BLOOD No comment entered. Ordering Provider: SANTOSH DECKER Report Released Date/Time: May 10, 2024 01:15 PM Reporting Lab: [facility] [place] [address] Performing Lab: [facility] CBC MONOCYTES [#/VOLUME] IN BLOOD BY AUTOMATED COUNT 0.50 10*3/u L 0.19 - 0.80 05/17 Specimen Type: BLOOD No comment entered. Ordering Provider: SANTOSH DECKER Report Released Date/Time: May 10, 2024 01:15 PM Reporting Lab: [facility] [place] [address] Performing Lab: [facility] CBC NEUTROPHILS [#/VOLUME] IN BLOOD BY AUTOMATED COUNT 4.62 10*3/u L 2.10 - 8.00 05/17 Specimen Type: BLOOD No comment entered. Ordering Provider: SANTOSH DECKER Report Released Date/Time: May 10, 2024 01:15 PM Reporting Lab: [facility] [place] [address] Performing Lab: [facility] CBC EOSINOPHILS [#/VOLUME] IN BLOOD BY AUTOMATED COUNT 0.25 10*3/u L 0.00 - 0.60 05/17 Specimen Type: BLOOD No comment entered. Ordering Provider: SANTOSH DECKER Report Released Date/Time: May 10, 2024 01:15 PM Reporting Lab: [facility] [place] [address] Performing Lab: [facility] CBC BASOPHILS [#/VOLUME] IN BLOOD BY AUTOMATED COUNT 0.08 10*3/u L 0.00 - 0.20 05/17 Specimen Type: BLOOD No comment entered. Ordering Provider: SANTOSH DECKER Report Released Date/Time: May 10, 2024 01:15 PM Reporting Lab: [facility] [place] [address] Performing Lab: [facility] TESTOSTER ONE, FREE PANEL TESTOSTERON E [MASS/VOLUM E] IN SERUM OR PLASMA 574 ng/dL 250 - 1100 05/17 Specimen Type: SERUM Comment: Men with clinically significant hypogonadal symptoms and testosteron e values repeatedly in the range of the 200-300 ng/dL or less, may benefit from testosteron e treatment after adequate risk and benefits counseling. For additional information , please refer to http://educ GREE International.Celletra .OrSense/faq/ TotalTestos teroneLCMSM [id number] (This link is being provided for information al/ educational purposes only.) This test was developed and its analytical performance characteris tics have been determined by [facility] [place], [place]. It has not been cleared or approved by the U.S. Food and Drug Administrat ion. This assay has been validated pursuant to the CLIA regulations and is used for clinical purposes. Test Performed by [facility] [place], [address] [place] [address] Alexis Kuo M.D., Ph.D., Director of Laboratorie s , CLIA [id number] Ordering Provider: SANTOSH DECKER Report Released Date/Time: May 10, 2024 01:15 PM Reporting Lab: [facility] [address] [place] [phone] Performing Lab: [facility] [id number] [place] [place] [address] [facility] TESTOSTER ONE, FREE PANEL ALBUMIN [MASS/VOLUM E] IN SERUM OR PLASMA 4.2 g/dL 3.6 - 5.1 05/17 Specimen Type: SERUM Comment: Men with clinically significant hypogonadal symptoms and testosteron e values repeatedly in the range of the 200-300 ng/dL or less, may benefit from testosteron e treatment after adequate risk and benefits counseling. For additional information , please refer to http://Plug.dj.Celletra .OrSense/faq/ TotalTestos teroneLCMSM [id number] (This link is being provided for information al/ educational purposes only.) This test was developed and its analytical performance characteris tics have been determined by [facility] [place], [place]. It has not been cleared or approved by the U.S. Food and Drug Administrat ion. This assay has been validated pursuant to the CLIA regulations and is used for clinical purposes. Test Performed by [facility] [place], [address] [place], [place] Alexis Kuo M.D., Ph.D., Director of Laboratorie s , CLIA [id number] Ordering Provider: SANTOSH DECKER Report Released Date/Time: May 10, 2024 01:15 PM Reporting Lab: [facility] [address] [address] Performing Lab: [address] [facility] TESTOSTER ONE, FREE PANEL TESTOSTERON E FREE [MOLES/VOLU ME] IN SERUM OR PLASMA 47.6 pg/mL 46.0 - 224.0 05/17 Specimen Type: SERUM Comment: Men with clinically significant hypogonadal symptoms and testosteron e values repeatedly in the range of the 200-300 ng/dL or less, may benefit from testosteron e treatment after adequate risk and benefits counseling. For additional information , please refer to http://educ ation.Celletra .com/faq/ TotalTestos teroneLCMSM [email or web address] (This link is being provided for information al/ educational purposes only.) This test was developed and its analytical performance characteris tics have been determined by [facility] [place]. It has not been cleared or approved by the U.S. Food and Drug Administrat ion. This assay has been validated pursuant to the CLIA regulations and is used for clinical purposes. Test Performed by [facility], [facility], [address] [place] [address] Alexis Kuo M.D., Ph.D., Director of Laboratorie s , CLIA [id number] Ordering Provider: SANTOSH DECKER Report Released Date/Time: May 10, 2024 01:15 PM Reporting Lab: [address] [address] Performing Lab: [address] [facility] TESTOSTER ONE, FREE PANEL TESTOSTERON E.FREE+WEAK LY BOUND [MASS/VOLUM E] IN SERUM OR PLASMA 91.7 ng/dL 110.0 - 575.0 05/17 L Specimen Type: SERUM Comment: Men with clinically significant hypogonadal symptoms and testosteron e values repeatedly in the range of the 200-300 ng/dL or less, may benefit from testosteron e treatment after adequate risk and benefits counseling. For additional information , please refer to http://myseekit/faq/ TotalTestos teroneLCMSM [email or web address] (This link is being provided for information al/ educational purposes only.) This test was developed and its analytical performance characteris tics have been determined by [facility] [place], [place]. It has not been cleared or approved by the U.S. Food and Drug Administrat ion. This assay has been validated pursuant to the CLIA regulations and is used for clinical purposes. Test Performed by [facility], [facility] [place], [address] [place] [address] Alexis Kuo M.D., Ph.D., Director of Laboratorie s , CLIA [id number] Ordering Provider: SANTOSH DECKER Report Released Date/Time: May 10, 2024 01:15 PM Reporting Lab: [facility] [address] [place] [phone] Performing Lab: [facility] [address] [place] [address] [facility] TESTOSTER ONE, FREE PANEL SEX HORMONE BINDING GLOBULIN [MOLES/VOLU ME] IN SERUM OR PLASMA 59 nmol/L 22 - 77 05/17 Specimen Type: SERUM Comment: Men with clinically significant hypogonadal symptoms and testosteron e values repeatedly in the range of the 200-300 ng/dL or less, may benefit from testosteron e treatment after adequate risk and benefits counseling. For additional information , please refer to http://myseekit/faq/ TotalTestos teroneLCMSM [email or web address] (This link is being provided for information al/ educational purposes only.) This test was developed and its analytical performance characteris tics have been determined by [facility] [place], [place]. It has not been cleared or approved by the U.S. Food and Drug Administrat ion. This assay has been validated pursuant to the CLIA regulations and is used for clinical purposes. Test Performed by [facility], [facility], [address] [place], [place] Alexis Kuo M.D., Ph.D., Director of Laboratorie s , CLIA [id number] Ordering Provider: SANTOSH DECKER Report Released Date/Time: May 10, 2024 01:15 PM Reporting Lab: [facility] [address] [address] Performing Lab: [facility] [address] [facility] Vital Signs Combined list of inpatient and outpatient Vital Signs from Department of Defense and Veterans Affairs, ranging from 12 months to all on record, depending upon the facility. Vital Sign Value Date Comments Source WEIGHT 278.4 12/05/2024 09:30:17 [facility] BMI 32 kg/m2 12/05/2024 09:30:17 [facility] SYSTOLIC BLOOD PRESSURE 133 12/03/19 25 09:02:29 [facility] DIASTOLIC BLOOD PRESSURE 72 025 09:02:29 [facility] PULSE OXIMETRY 95 12/02/2024 09:02:29 [facility] PAIN 8 12/02/2024 09:02:29 [facility] TEMPERATURE 98.5 12/02/2024 09:02:29 [facility] PULSE 80 12/02/2024 09:02:29 [facility] RESPIRATION 20 12/02/2024 09:02:29 [facility] SYSTOLIC BLOOD PRESSURE 132 11/26/19 25 13:06:08 [facility] DIASTOLIC BLOOD PRESSURE 60 025 13:06:08 [facility] PULSE OXIMETRY 95 11/25/2024 13:06:08 [facility] WEIGHT 283.4 11/25/2024 13:06:08 [facility] BMI 33 kg/m2 11/25/2024 13:06:08 [facility] PAIN 8 11/25/2024 13:06:08 [facility] TEMPERATURE 98.4 11/25/2024 13:06:08 [facility] PULSE 75 11/25/2024 13:06:08 [facility] RESPIRATION 18 11/25/2024 13:06:08 [facility] WEIGHT 273 11/16/2024 10:32:45 [facility] BMI 32 kg/m2 11/16/2024 10:32:45 [facility] WEIGHT 283 11/09/2024 14:16:14 [facility] BMI 33 kg/m2 11/09/2024 14:16:14 [facility] Encounters Combined list of: 1) Encounters from Department of Veterans Affairs facilities going backup to the last 18 months, not all [place] inpatient encounters are included; 2) Encounters from the Department of Defense facilities going backup to 280 months. Location Location Details Encounter Type Encounter Number Reason For Visit Attending Provider ADM Date DC Date Status Disposition Source [facility] OFFICE O/P EST MOD 30-39 MIN [id number] Diagnos is: ICD-10- CM F33.41 Major depress lety disorde r, recurre nt, in partial remissi on WALKER,SEP IE 06/12 [facility] OFFICE O/P EST LOW 20-29 MIN [id number] Diagnos is: ICD-10- CM I10 Essenti al (primar y) hyperte nsion JOLEEN GARCIA I 06/12 [facility] Outpatient Encounter [id number] GERHARD LUJAN 06/18 [facility] OFFICE O/P EST LOW 20-29 MIN [id number] Diagnos is: ICD-10- CM 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 DEVONMATTI Hernandez 06/30 [facility] Outpatient Encounter [id number] RADHAJOLEEN Diez 07/01 [facility] [place] [id number] Diagnos is: ICD-10- CM E66.8 Other obesity ALICJA CASTRO 07/07 [facility] Outpatient Encounter [id number] RENAN IZAGUIRRE 08/13 [facility] En[facility] [id number] GERHADR LUJAN 08/17 [facility] Outpatient Encounter [id number] GERHARD LUJAN 08/18 [facility] Outpatient Encounter [id number] RENAN IZAGUIRRE 08/27 [facility] OFF[facility] O/P EST MOD 30 MIN [id number] Diagnos is: ICD-10- CM F40.10 Social phobia, unspeci fied ANNA CESPEDES 09/14 [facility] Encounter [id number] 09/15 [facility] Encounter [id number] RENAN IZAGUIRRE 09/17 [facility] Outpatient Encounter [id number] 09/20 [facility] Outpatient Encounter [id number] ALICJA CASTRO R 09/24 [facility] NUTRITION INDIV SUBSEQ [id number] Diagnos is: ICD-10- CM E66.9 Obesity , unspeci fied ALICJA CASTRO R 09/24 [facility] Outpatient Encounter [id number] RENAN IZAGUIRRE 10/04 [facility] OFFICE O/P EST MOD 30 MIN [id number] Diagnos is: ICD-10- CM F40.10 Social phobia, unspeci fied WALKER,ANNA IE 11/02 [facility] Out[facility] Encounter [id number] RENAN IZAGUIRRE 12/02 [facility] Outpatient Encounter [id number] RENAN IZAGUIRRE 12/07 [facility] Outpatient Encounter [id number] JESSICA JOHNSON I 12/08 [facility] OFFICE O/P EST HI 40 MIN [id number] Diagnos is: ICD-10- CM E78.5 Hyperli pidemia , unspeci fied JOLEEN GARCIA I 12/10 [facility] NUTRITION INDIV SUBSEQ [id number] Diagnos is: ICD-10- CM E66.9 Obesity , unspeci fied MATTHEWJAYNE FIGUEROAEdelmira Y R 12/10 [facility] Outpatient Encounter [id number] 12/20 [facility] Outpatient Encounter [id number] 01/03 [facility] OFFICE O/P EST LOW 20 MIN [id number] Diagnos is: ICD-10- CM L82.1 Other seborrh eic keratos is Chary EDWARDS 01/04 [facility] Outpatient Encounter [id number] EDUARDO,SHE LBY L 01/04 [facility] Outpatient Encounter [id number] 01/04 [facility] NUTRITION INDIV SUBSEQ [id number] Diagnos is: ICD-10- CM E66.9 Obesity , unspeci fied ALICJA CASTRO Y R 01/21 [facility] Outpatient Encounter [id number] GERHARD LUJAN M 01/25 [facility] Outpatient Encounter [id number] GERHARD LUJAN M 01/26 [facility] N [facility] PSYTX W PT 30 MINUTES [id number] [id number] Diagnos is: ICD-10- CM F33.41 Major depress lety disorde r, recurre nt, in partial remissi on EDUARDO,SHE LBY L 01/27 [facility] OFFICE O/P EST MOD 30 MIN [id number] Diagnos is: ICD-10- CM F33.41 Major depress lety disorde r, recurre nt, in partial remissi on WALKER,MAR IE 02/01 [facility] GROUP PSYCHOTHER APY [id number] Diagnos is: ICD-10- CM F33.41 Major depress lety disorde r, recurre nt, in partial remissi on EDUARDO,SHE LBY L 02/02 [facility] Outpatient Encounter [id number] UTE AVILA A 02/02 [facility] HC PRO PHONE CALL 11-20 MIN [id number] [id number] Diagnos is: ICD-10- CM Z56.9 Unspeci fied problem s related to employm ent THOMAS MADRID EN 02/03 [facility] GROUP PSYCHOTHER APY [id number] Diagnos is: ICD-10- CM F33.41 Major depress lety disorde r, recurre nt, in partial remissi on EDUARDO,SHE LBY L 02/09 [facility] GROUP PSYCHOTHER APY [id number] Diagnos is: ICD-10- CM F33.41 Major depress lety disorde r, recurre nt, in partial remissi on EDUARDO,SHE LBY L 02/16 [facility] SUPPORTED EMPLOY, PER 15 MIN [id number]. [id number] Diagnos is: ICD-10- CM Z56.9 Unspeci fied problem s related to employm THOMAS Glover EN 02/17 [facility] GROUP PSYCHOTHER APY [id number] Diagnos is: ICD-10- CM F33.41 Major depress lety disorde r, recurre nt, in partial remissi on EDUARDO,SHE LBY L 02/23 [facility] GROUP PSYCHOTHER APY [id number] Diagnos is: ICD-10- CM F33.41 Major depress lety disorde r, recurre nt, in partial remissi on EDUARDO,SHE LBY L 03/09 [facility] CASE MANAGEMENT [id number] Diagnos is: ICD-10- CM F33.41 Major depress lety disorde r, recurre nt, in partial remissi on EDUARDO,SHE LBY L 03/16 [facility] Out[facility] Encounter [id number] 03/22 [facility] Outpatient Encounter [id number] 03/30 [facility] Outpatient Encounter [id number] 03/30 [facility] OFFICE O/P EST MOD 30 MIN [id number] Diagnos is: ICD-10- CM F33.41 Major depress lety disorde r, recurre nt, in partial remissi on WALKER,MAR IE 04/05 [facility] Outpatient Encounter [id number] 04/06 [facility] R E [facility] MED NUTRITION INDIV SUBSEQ [id number] Diagnos is: ICD-10- CM E66.811 Obesity , class 1 MATTHEW,STAC Y R 04/14 [facility] Outpatient Encounter [id number] 04/15 [facility] HEARING AID REPAIR/MOD IFYING [id number] [id number] Diagnos is: ICD-10- CM H90.3 Sensori neural hearing loss, bilater SEHILA Burks E 04/29 [facility] OFF/OP CNSLTJ NEW/EST MOD 40 [id number] Diagnos is: ICD-10- CM E66.9 Obesity , unspeci fied JERONIMO,MEHD IA 05/03 [facility] QNHP OL DIG ASSMT&MGMT 5-10 [id number] Diagnos is: ICD-10- CM E66.9 Obesity , unspeci fied RONNIE,CLA RE R 05/10 [facility] OFFICE O/P EST SF 10 MIN [id number] Diagnos is: ICD-10- CM E66.9 Obesity , unspeci fied JERONIMO,MEHD IA 05/10 [facility] En[facility] [id number] LEGERHARD Mercado 05/13 [facility] QNHP OL DIG ASSMT&MGMT 5-10 [id number] [id number] Diagnos is: ICD-10- CM E66.9 Obesity , unspeci fied SCHMEES,NA NCY GEENA 05/17 [facility] OFFICE O/P EST LOW 20 MIN [id number] Diagnos is: ICD-10- CM Z85.828 Persona l history of other maligna nt neoplas m of skin Chary EDWARDS 06/06 [facility] Outpatient Encounter [id number] JESSICA JOHNSON I 06/07 [facility] Outpatient Encounter [id number] 06/08 [facility] OFFICE O/P EST HI 40 MIN [id number] Diagnos is: ICD-10- CM J20.9 Acute bronchi tis, unspeci fied RADHAKIRSTENSAVANA I 06/08 [facility] HEARING AID REPAIR/MOD IFYING [id number] [id number] Diagnos is: ICD-10- CM H90.3 Sensori neural hearing loss, bilater al LAM BLOOM 06/15 [facility] Outpatient Encounter [id number] LEGERHARD Mercado 07/07 [facility] Encounter [id number] 07/08 [facility] OFF[facility] O/P EST MOD 30 MIN [id number] Diagnos is: ICD-10- CM F33.41 Major depress lety disorde r, recurre nt, in partial remissi on ANNA CESPEDES IE 07/08 [facility] Outpatient Encounter [id number] [id number] GERHARD LUJAN M 07/21 [facility] Outpatient Encounter [id number] GERHARD LUJAN M 07/22 [facility] MED NUTRITION INDIV SUBSEQ [id number] Diagnos is: ICD-10- CM E66.811 Obesity , class 1 MATTHEW,STAC Y R 07/29 [facility] OFFICE O/P EST MOD 30 MIN [id number] Diagnos is: ICD-10- CM E66.9 Obesity , unspeci fied JERONIMO,MEHD IA 08/02 [facility] Outpatient Encounter [id number] 08/02 [facility] IMG RTA DETCJ/MNTR DS STAFF [id number] [id number] Diagnos is: ICD-10- CM Z13.5 Encount er for screeni ng for eye and ear disorde SA LEANDER Raza 08/02 [facility] Outpatient Encounter [id number] Diagnos is: ICD-10- CM Z13.5 Encount er for screeni ng for eye and ear disorde rs Rogelio PATRICIARICIA 08/02 [facility] OFFICE O/P NEW MOD 45 MIN [id number] [id number] Diagnos is: ICD-10- CM G45.3 Amauros is fugRogelio DeniseRICIA 08/05 [facility] Outpatient Encounter [id number] Rogelio PATRICIARICIA 08/17 [facility] OFF/OP EST NOVEMBER X REQ PHY/QHP [id number] [id number] Diagnos is: ICD-10- CM R29.898 Oth symptom s and signs involvi ng the musculo skeleta l system GERHARD LUJAN 08/23 [facility] [id number] [id number] Diagnos is: ICD-10- CM I26.99 Other pulmona ry embolis m without acute cor pulmona brandie JAMILAFLAKO 08/24 [facility] OFFICE O/P EST MOD 30 MIN [id number] [id number] Diagnos is: ICD-10- CM E66.9 Obesity , unspeci fied JERONIMO,MEHD IA 08/24 [facility] Outpatient Encounter [id number] Diagnos is: ICD-10- CM R22.1 Localiz ed swellin g, mass and lump, neck SERBAN,RAD U 08/25 [facility] PH1 ASSMT&MGMT NQHP 5-10 37078-6.65 [id number] 3 Diagnos is: ICD-10- CM Z71.2 Person consult ing for explana tion of exam or test finding NEYMAR Rojas A 08/25 [facility] Outpatient Encounter [id number] GERHARD LUJAN M 08/26 [facility] THERAPEUTI C EXERCISES 32021-1.65 [id number] Diagnos is: ICD-10- CM I26.99 Other pulmona ry embolis m without acute cor pulmona FLAKO Stern 08/29 [facility] THERAPEUTI C EXERCISES 15750-2.65 [id number] Diagnos is: ICD-10- CM I26.99 Other pulmona ry embolis m without acute cor pulmona FLAKO Stern 09/02 [facility] THERAPEUTI C EXERCISES 84036-0.65 [id number] Diagnos is: ICD-10- CM I26.99 Other pulmona ry embolis m without acute cor pulmona FLAKO Stern 09/05 [facility] PH1 ASSMT&MGMT NQHP 5-10 16027-4.65 [id number] 3 Diagnos is: ICD-10- CM Z01.818 Encount er for other preproc edural examina tion LILIAITZEL Rogelio 09/05 [facility] THERAPEUTI C EXERCISES 82278-7.65 [id number] Diagnos is: ICD-10- CM I26.99 Other pulmona ry embolis m without acute cor pulmona FLAKO Stern 09/[address] [facility] Out[facility] Encounter [id number] EL REA 09/12 [facility] Outpatient Encounter [id number] EGRHARD LUJAN 09/12 [facility] OFFICE O/P EST LOW 20 MIN [id number] [id number] Diagnos is: ICD-10- CM L60.0 Ingrowi ng nail JOLEEN GARCIA I 09/13 [facility] OFF/OP EST MAY X REQ PHY/QHP [id number] [id number] Diagnos is: ICD-10- CM L60.0 Ingrowi ng GERHARD Lowry 09/14 [facility] PH1 ASSMT&MGMT NQHP 11-20 86651-1.65 [id number] Diagnos is: ICD-10- CM Z56.9 Unspeci fied problem s related to employm THOMAS Glover 09/15 [facility] Outpatient Encounter [id number] [id number] 09/29 [facility] OFF/OP CNSLTJ NEW/EST MOD 40 [id number] [id number] Diagnos is: ICD-10- CM L60.2 Onychog ryphosi s OCTAVIANO GALVEZ 09/29 [facility] OFFICE O/P EST MOD 30 MIN [id number] [id number] Diagnos is: ICD-10- CM E66.9 Obesity , unspeci fied JERONIMO,MEHD IA 09/29 [facility]. [place] [facility] NQHP OL DIG ASSMT&MGMT 5-10 [id number] [id number] Diagnos is: ICD-10- CM E66.9 Obesity , unspeci fied DAIVDSON LARA 09/30 [facility] OFFICE O/P EST MOD 30 MIN 91158-8.65 [id number] Diagnos is: ICD-10- CM F33.41 Major depress lety disorde r, recurre nt, in partial remissi on WALKER,MAR IE 10/06 [facility] EDU&TRN PT SELF-MGMT NQHP 1 98261-2.65 [id number] Diagnos is: ICD-10- CM I10 Essenti al (primar y) hyperte FLAKO Gonzalez 10/10 [facility] ASSMT&MGMT NQHP 5-10 39185-7.65 [id number] Diagnos is: ICD-10- CM E66.9 Obesity , unspeci fied KIRBY,SHAZIA ADLER M 10/12 [facility] N [facility] MED NUTRITION INDIV SUBSEQ [id number] [id number] Diagnos is: ICD-10- CM E66.9 Obesity , unspeci fied ZENY,WHI TNEY N 10/24 [facility] PH1 ASSMT&MGMT NQHP 5-10 [id number] [id number] Diagnos is: ICD-10- CM E66.9 Obesity , unspeci fied KIRBY,SHAZIA ADLER M 11[facility] Outpatient Encounter [id number] [id number] GERHARD LUJAN 11/04 [facility] Outpatient Encounter [id number] [id number] RENAN IZAGUIRRE 11/07 [facility] Outpatient Encounter [id number] [id number] JANENE BRUNNER AM H 11/11 [facility] Outpatient Encounter [id number] [id number] JESSICA JOHNSON I 11/22 [facility] Outpatient Encounter [id number] [id number] 11/25 [facility] OFFICE O/P EST MOD 30 MIN [id number] [id number] Diagnos is: ICD-10- CM R06.00 Dyspnea , unspeci fied JOLEEN GARCIA I 11/25 [facility] Outpatient Encounter [id number] [id number] UTE AVILA PEARL A 11/29 [facility] Outpatient Encounter [id number] [id number] AUSTINJOSHUAPio KANG A 11/29 [facility] NQHP OL DIG ASSMT&MGMT 5-10 74915-5.65 [id number] Diagnos is: ICD-10- CM F51.02 Adjustm ent insomni a ROBERT BUCKNER 11/30 [facility] NQHP OL DIG ASSMT&MGMT 5-10 69226-4.65 [id number] Diagnos is: ICD-10- CM Z02.9 Encount er for adminis trative examina tions, unspeci fied JANENE BRUNNER AM H 11/30 [facility] OFFICE O/P NEW MOD 45 MIN 70946-8.65 [id number] Diagnos is: ICD-10- CM M79.2 Neuralg ia and neuriti s, unspeci fied MANJULA ROSE J 12/02 [facility] NQHP OL DIG ASSMT&MGMT 5-10 56721-5.65 [id number] Diagnos is: ICD-10- CM M79.2 Neuralg ia and neuriti s, unspeci fied ASHLYSYLVIA HY D 12/02 [facility] OFFICE O/P EST LOW 20 MIN [id number] [id number] Diagnos is: ICD-10- CM L82.1 Other seborrh eic keratos is JULITA EDEN 12/05 [facility] Outpatient Encounter [id number] [id number] 458 12/07 [facility] Social History Combined list of available smoking, tobacco, and other social history from [facility] of Defense and [facility] facilities. Social History Type Response Date Comment Source Tobacco smoking status SCIS [facility] USE FORMER CIGARETTES 11/25/2024 [facility] History of tobacco use VA-TOBACCO NEVER USED OTHER TYPE 11/25/2024 [facility] History of tobacco use VA-TOBACCO QUIT 15 YRS OR MORE 12/11/2023 [facility] History of tobacco use VA-TOBACCO FORMER USER 10/17/2022 [facility] History of tobacco use VA-TOBACCO FORMER USER 09/06/2021 [facility] History of tobacco use VA-TOBACCO NEVER USED 08/28/2020 [facility] History of tobacco use VA-TOBACCO NEVER USED 03/28/2019 [facility] History of tobacco use VA-TOBACCO FORMER USER 07/08/2018 [facility] History of tobacco use QUIT TOBACCO >7 YEARS AGO 11/11/2017 [facility] History of tobacco use QUIT TOBACCO >7 YEARS AGO 07/27/2017 [facility] History of tobacco use QUIT TOBACCO >7 YEARS AGO 02/11/2017 [facility] History of tobacco use QUIT TOBACCO >7 YEARS AGO 09/30/2016 [facility] History of tobacco use QUIT TOBACCO >7 YEARS AGO 12/13/2015 [facility] History of tobacco use QUIT TOBACCO >7 YEARS AGO 03/01/2015 [facility] History of tobacco use QUIT TOBACCO >7 YEARS AGO 10/24/2011 [facility] History of tobacco use CURRENT NON-TOBACCO USER-HX OF USE 08/07/2000 quit 3 yrs. ago. [facility] History of tobacco use CURRENT NON-TOBACCO USER-HX OF USE 06/04/2000 STOPPED 3 YEARS AGO [facility] History of tobacco use CURRENT NON-TOBACCO USER-HX OF USE 03/05/2000 QUIT 3 YEARS AGO. [facility] History of tobacco use PREVIOUS SMOKER 06/24/1999 [facility] Plan of Care List of future care activities from [facility] facilities. Additional future care activities may be listed in the Assessment and Plan section. Date/Time Care Activity Care Activity Detail Facili ty 12/08/2024 AMBULATORY - SURGERY AMBULATORY - SURGERY [facility] Advance Directives List of completed, amended, or rescinded Advance Directives on record at [facility] facilities. An actual copy of the Directive is not included. Date Advance Directive Provider Source 08/15/1997 ADVANCE DIRECTIVE DESIRAE WILKERSON [facility]
--- OUTSIDE RECORDS SUMMARY | 2024-12-07 18:30 | XMS_ITS | Encounter Summary ---
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 smoker. Quit smoking GREATER THAN OR EQUAL to 15 years. The patient has never used other types of tobacco. /fabien/ WILIAM JOHNSON LPN LICENSED PRACTICAL NURSE Signed: 11/25/2024 13:14 WILIAM JOHNSON [facility]
[2024-12-07 18:31] VITALS: BP 174/86; PULSE 101; RESP 16; TEMP 36.8; O2SAT 97
--- OUTSIDE RECORDS SUMMARY | 2024-12-07 18:31 | XMS_ITS | Encounter Summary ---
Author Name [facility] [place] [facility] [place] Address [address] [place] [address] Care Team Providers Care Pouncer Machine Name Role Phone INGRID GARCIA Primary Care [...] Name Patient's Relationship to Policy Mary BCBS IN EXCLUSIVE PROVIDER ORGANIZAT ION TJY HEALT H Jul 06, 2019 [id number] [phone] MIHIR OWEN PATIENT [employer] (INGENIO RX) PRESCRIPT ION RX PLAN Jul 06, 2019 [id number] MIHIR OWEN PATIENT [employer]IOR[employer] MENTAL HEALTH [facility] HEALT HCARE Jul 06, 2016 [id number] [phone] MIHIR OWEN PATIENT MEDIMPACT RX PRESCRIPT ION MHM SUPPO RT SERVI IJEOMA Jul 06, 2019 [id number] [phone] MIHIR OWEN PATIENT [employer] [facility] MENTAL HEALTH [place] GORAN KAUR NGE May 06, 2024 ILONEX [id number] [phone] MIHIR OWEN PATIENT Selected Encounter This section includes the information on record at [place] for the Encounter. Date/Time Encounter Type Encounter Description Reason Provider Source Sep 13, 2024 02:30 PM OFFICE O/P EST LOW 20 MIN PRIMARY CARE/MEDICINE ICD-10-CM L60.0 Ingrowing nail JOLEEN GARCIAChary Aneta Encounter Template Text not used by [place] Assessments - Encounter Diagnoses This section includes the primary and secondary diagnoses documented for the Encounter. Date/Time Primary/Secondary Diagnosis Diagnosis Name Provider Source Sep 13, 2024 03:14 PM PRIMARY In[facility] Plan of Treatment: Future Appointments (+ 6 months) and Future Tests (+/- 45 days) The Plan of Treatment section includes future care activities for the patient from all [place] treatmentfacilities. This section includes future appointments and future orders which are active, pending or scheduled. Future Appointments This section includes appointments that were scheduled to occur 6 months from the date of the Encounter, up to a maximum of 20 appointments. The data comes from all [place] treatment facilities. Appointment Date/Time Appointment Type Appointme nt Facility Name Sep 29, 2024 07:30 AM AMBULATORY - SURGERY [facility] Sep 29, 2024 08:00 AM AMBULATORY - MEDICINE [facility] Oct 06, 2024 08:00 AM AMBULATORY - PSYCHIATRY [facility] Oct 24, 2024 01:00 PM AMBULATORY - NONE [facility] November 25, 2024 01:00 PM AMBULATORY - MEDICINE [facility] December 02, 2024 09:00 AM [facility] Dec 05, 2024 09:15 AM AMBULATORY - MEDICINE [facility] Dec 08, 2024 09:40 AM AMBULATORY - SURGERY [facility] Jan 05, 2025 08:00 AM AMBULATORY - MEDICINE [facility] Jan 19, 2025 01:00 PM AMBULATORY - NONE [facility] Feb 06, 2025 08:00 AM AMBULATORY - PSYCHIATRY [facility] Mar 07, 2025 03:30 PM AMBULATORY - REHAB MEDICIN E [facility] Active, Pending, and Scheduled Orders This section includes a listing of several types of active, pending, and scheduled orders, including clinic medications orders, diagnostic test orders, procedure orders and consult orders; where the start date of the order is 45 days before the date of the Encounter or 45 days after the date of theEncounter. The data comes from all [place] treatment facilities. Test Date/Time Test Type Test Details Facility Name Sep 06, 2024 08:57 AM Consult Order [facility] ENT SURGERY Cons Spark Plug Assembler's Choice [facility] Vital Signs: All taken on the encounter date This section contains inpatient and outpatient Vital Signs collected on the date of the Encounter. Date/Time Temperature Pulse Blood Pressure Respiratory Rate SP02 Pain Height Weight Body Mass Index Source Sep 13, 2024 02:15 PM 7 [facility] Sep 13, 2024 02:13 PM 98.2 75 123/68 20 96 7 293.6 34 [facility] Social History: Smoking Status (Most current) and Tobacco Use (All prior to encounter date) This section includes the most current, and the historical, smoking and tobacco- related health factors from the [place] facility where the Encounter took place. Current Smoking Status This section includes the most current smoking, or tobacco-related health factor, from the [place] facility where the Encounter took place. Date/Time Current Smoking Status Comment Romelia ity Dec 11, 2023 08:15 AM VA-TOBACCO QUIT 15 YRS OR MORE [facility] Tobacco Use History This section includes a history of the smoking, or tobacco-related health factors, that were collected on or before the date of the Encounter. The data comes from the [place] facility where the Encounter took place. Date/Time Smoking Status/Tobacco Use Comment F acility Dec 11, 2023 08:15 AM VA-TOBACCO QUIT 15 YRS OR MORE [facility] Oct 17, 2022 08:30 AM VA-TOBACCO FORMER USER [facility] Oct 17, 2022 08:30 AM VA-TOBACCO QUIT 15 YRS OR MORE [facility] Sep 06, 2021 01:00 PM VA-TOBACCO FORMER USER [facility] Sep 06, 2021 01:00 PM VA-TOBACCO QUIT 15 YRS OR MORE [facility] Aug 28, 2020 03:00 PM VA-TOBACCO NEVER USED [facility] Mar 28, 2019 09:43 AM VA-TOBACCO NEVER USED [facility] Jul 27, 2017 08:24 AM QUIT TOBACCO >7 YEARS AGO [facility] Feb 11, 2017 07:51 AM QUIT TOBACCO >7 YEARS AGO [facility] Sep 30, 2016 07:54 AM QUIT TOBACCO >7 YEARS AGO [facility] Advance Directives: All historical and current Section Date Range: From patient's date of to the date document was created. This section includes ALL of a patient's completed or amended [place] Advance and Rescinded Directives. The entries below indicate that a directive exists for the patient, but an actual copy is not included with this document. The data comes from all [place] facilities. Date Advance Directives Provider Source Aug 15, 1997 ADVANCE DIRECTIVE DESIRAE WILKERSON [facility] Radiology Reports: +/- 30 days of the encounter Radiology Reports For cases when an order for radiology services may have been completed prior to the date of the Encounter, the report list includes the Radiology Reports that were completed up to 30 days before dateof the Encounter. For cases when an order for radiology services may have been completed after the date of the Encounter, the report list also includes the Radiology Reports that were completed up to30 days after date of the Encounter. The data comes from all [place] treatment facilities. Date/Time Radiology Report Provider Source Sep 06, 2024 11:08 AM BIOPSY, SOFT TISSU E, PERCUTANEOUS NEEDLE: MIHIR OWEN [id number] -1960 M Exm Date: SEP 06, 2024@11:08 Req Phys: FERMIN DECKER Loc: VICKI-IR E-CONSULT (Req'g Loc) Img Loc: VICKI-ANGIO/INTERVENTIONAL Service: [facility], [address] [address] (Case [id number] COMPLETE) BIOPSY,THYROID(CORE)(SURGI MALA COD(ANI Detailed) CPT:29161 CPT Modifiers : 53 DISCONTINUED PROCEDURE Reason for Study: Right Side Neck Mass Clinical History: see econsult Report Status: Verified Date Reported: SEP 08, 2024 Date Verified: SEP 08, 2024 Sales And Service Consultant E-Sig:/ES/GONZALO DAMICO Report: CASE: [id number] INDICATION: Patient with suspicious right submandibular palpable nodule PROCEDURE: Limited ultrasound of right submandibular region OPERATORS: 1. Gnozalo Damico M.D., IR attending ANESTHESIA: 1. Local - 5 mL of 1% Lidocaine FINDINGS: The procedure, risks, benefits, and potential for nondiagnostic study were explained to the patient in detail, and informed consent was obtained. The patient was placed in a supine position on the examination table. On the CT scan from 09/01/24, no neck mass identified. We performed a limited right neck US in the IR suite and identified a normal-appearing right submandibular gland without any mass in that region. Tip of the INSPIRE catheter (for sleep apnea) was seen terminating at the superiomedial aspect of right submandibular gland. A palpable nodularity was present at the medial aspect of submandibular gland, which may correspond to fibrotic changes around the INSPIRE catheter tip. Biopsy was NOT performed as we could not identify any mass. Impression: Limited ultrasound of the right neck does not demonstrate a lesion/mass. I, Dr. Gonzalo Damico M.D., was present and supervised/performed the procedure. Primary Interpreting Staff: GONZALO DAMICO, INTERVENTIONAL RADIOLOGIST (Sales And Service Consultant) /XRP GONZALO DAMICO [facility] Sep 01, 2024 09:[address] NECK SOFT TISSU E W/CONT: MIHIR OWEN ELIZABETH [id number] -1960 Exm Date: SEP 01, 2024@09:57 Req Phys: FERMIN DECKER Loc: VICKI-ENDOCRINOLOGY 1 (Realeja'mauricio Dudley Img Loc: VICKI-CT IMAGING VICKI Service: Unknown [facility] [address] [place] [address] (Case [id number] COMPLETE) CT NECK SOFT TISSUE W/CONT (CT Detailed) CPT:71849 Contrast Media : Non-ionic Iodinated Reason for Study: evaluate 3.6 cm right sided neck mass found on US neck Clinical History: Responsible Attending: Charissa Attending Contact Number: [id number] Resident Contact Number: 64 year old male with a progressively enlarging right sided neck mass, present for the past 2 months. Neck US showed 3.6 cm right sided solid neck mass. Allergies listed in CPRS chart: PENICILLIN, BACTRIM, LISINOPRIL, PRAVASTATIN, ATORVASTATIN Creatinine: CREATININE 1.25 mg/dL 08/03/2024 11:01 /eGFR: STL EGFR (within one year). CREATININE 1.25 mg/dL (08/03/24 11:01) Wt: 295.2 lb [133.90 kg] (08/02/2024 08:41) History of: Renal failure, chronic or acute renal disease: NO Report Status: Verified Date Reported: SEP 01, 2024 Date Verified: SEP 01, 2024 Sales And Service Consultant E-Sig:/ES/ANDREA MACHADO MD Report: Spiral axial imaging through the neck was performed with IV contrast. Comparison: none Findings: No cervical adenopathy is present. The major and minor salivary glands are normal. Fat planes are well maintained. No infiltrating masses are present. True vocal cords are normal. Radiopaque tubular structure in the subcutaneous soft tissues extending along the right anterior subcutaneous neck into the upper chest, inferior tip not visible. The structure begins near the submandibular gland on the right, favored identity is some kind of radiopaque catheter. Clinical correlation recommended Impression: Tubular radiopaque foreign body in the right neck may be a catheter, clinical correlation recommended. No visible mass or adenopathy. Perhaps the perceived mass represents the normal submandibular gland Primary Interpreting Staff: ANDREA MACHADO MD, Radiologist (Sales And Service Consultant) /[facility] ANDREA MACHADO [facility] Aug 23, 2024 07:03 AM US THYROID (NECK SOFT-TISSUE): MIHIR OWEN [id number] -1960 M Exm Date: AUG 23, 2024@07:03 Req Phys: FERMIN DECKER Loc: VICKI-ENDOCRINOLOGY 1 (Req'mauricio Dudley Img Loc: [facility]-ULTRASOUND Service: Unknown [facility] [address] [place], [place] [id number] (Case [id number] COMPLETE) US THYROID (NECK SOFT-TISSUE) (US Detailed) CPT:78045 Reason for Study: lymphadenopathy x 2 month Clinical History: has right sided submandibular lymphadenopahy x 2 months, feels lymph node is enlarging Report Status: Verified Date Reported: AUG 23, 2024 Date Verified: AUG 23, 2024 Sales And Service Consultant E-Sig:/FABIEN/TERRI PATTERSON Report: Exam: US THYROID (NECK SOFT-TISSUE) Case: [id number] History:Lymphadenopathy x2 months Focused ultrasound in the area of clinical concern in the right submandibular region. There is a 3.4 x 1.5 x 3.6 cm mildly heterogeneous but predominantly mildly hyperechoic mass in the area of clinical concern. Internal vascularity demonstrated. This is a nonspecific solid mass. Would suggest further evaluation with CT to assess the mass and look for other potential abnormalities in the neck. Tissue diagnosis would be necessary for further characterization. Impression: 3.4 x 1.5 x 3.6 cm mildly heterogeneous but predominantly mildly hyperechoic solid mass in the area of clinical concern. Further evaluation with a neck CT and tissue diagnosis for specific characterization recommended. Primary Interpreting Staff: TERRI PATTERSON, RADIOLOGIST (Sales And Service Consultant) /TERRI KIM [facility] Encounter Notes: All associated encounter notes This section contains the clinical notes associated to the Encounter. Date/Time Encounter Note(s) Provider Source Sep 14, 2024 08:33 AM ADDENDUM: LOCAL TITLE: Addendum STANDARD TITLE: ADDENDUM DATE OF NOTE: SEP 14, 2024@08:33:58 ENTRY DATE: SEP 14, 2024@08:33:59 AUTHOR: INGRID GARCIA EXP COSIGNER: URGENCY: STATUS: COMPLETED Please let patient know of podiatry comment Consult placed for ingrowing nail however per chart review no signs of paronychia or signs of infection and consult appears to be for routine foot care of thickened nail. Noted patient has had unsuccessful removal twice. Podiatry does not recommend third removal as thickened nails often return after removal and there is no medical necessity at this time per chart review. Please notify patient Podiatry does not recommend removal however can see for one time education for nail care if patient agrees. thanks. /fabien/ Ingrid Garcia MD PhD Staff Physician Signed: 09/14/2024 08:34 Receipt Acknowledged By: 09/14/2024 14:48 /yamil LUJAN REGISTERED NURSE --- Original Document --- 09/13/24 PRIMARY CARE PROVIDER ESTABLISHED VISIT STL: REASON FOR VISIT/CHIEF COMPLAINT: in grown nail HPI: Mr. Owen is a 64 MALE with PMHx HTN, anxiety/depression, obesity, Factor V mutation and hx PE on eliquis, CHRISSY, OA, asthma, HLD who presents to clinic with chief complaint of ingrown toenail. Patient states that he has had a recurrent ingrown toenails in the left big toe, and had the nail removed x 2 with private director vaccine. Most recent toenail removal was about a year ago. Now the nail has grown back, and is growing into the surrounding skin and causing pain. Foot examination: No erythema or swelling. Pulse present. Monofilament test with absent sensation in multiple toes of the left foot, but intact in the right foot. Left big toenail was thickened. No erythema/swelling/drainage noticed. tenderness with palpitation. deviated left fifth toe noticed SOURCE(S) OF HISTORY: Patient and CPRS Known Allergies as noted: PENICILLIN, BACTRIM, LISINOPRIL, PRAVASTATIN, ATORVASTATIN Recent Labs: HGB A1C (last):HGA1C 5.3 % 08/03/2024 11:01 LDL(DIRECT):____ HDL:26 mg/dL L (10/17/22 09:25) Cholesterol: CHOLESTEROL 85 mg/dL 10/17/2022 09:25 Triglycerides:90 mg/dL (10/17/22 09:25) PSA: PROST. SPECIFIC AG.(PB-STL) 0.106 ng/mL 05/17/2024 [...] mentioned in HPI PHYSICAL EXAMINATION: Vital Signs: Temperature: 98.2 F [36.8 C] (09/13/2024 14:13) Blood Pressure: 123/68 (09/13/2024 14:13) Pulse: 75 (09/13/2024 14:13) Respirations: 20 (09/13/2024 14:13) Weight: 293.6 lb [133.17 kg] (09/13/2024 14:13) See HPI ASSESSMENT/PLAN: Recurrent ingrown toenails -Will refer to podiatry RTC as previously scheduled SUMMARY STATEMENT: Plan of care has been discussed with including expected therapeutic benefits and potential side effects of prescribed medication and treatments. [place] verbalizes understanding and is in agreement with the plan of care. Patient was instructed to keep all scheduled appointments and contact windows application administrator for any additional problems. /fabien/ Ingrid Garcia MD PhD Staff Physician Signed: 09/13/2024 15:14 09/14/2024 ADDENDUM STATUS: UNSIGNED You may not VIEW this UNSIGNED Addendum. INGRID GARCIA [facility] Sep 13, 2024 02:14 PM NURSING NOTE: LOCAL TITLE: V15 PACT FACE TO FACE NOTE STL STANDARD TITLE: NURSING NOTE DATE OF NOTE: SEP 13, 2024@14:14 ENTRY DATE: SEP 13, 2024@14:14:55 AUTHOR: WILIAM JOHNSON EXP COSIGNER: URGENCY: STATUS: COMPLETED Provider Visit: Patient Identifiers : Full Name Date of Reason for visit: Established Follow-Up Mode of Arrival: Ambulatory Allergy Review: PENICILLIN, BACTRIM, LISINOPRIL, PRAVASTATIN, ATORVASTATIN Allergy list reviewed and remains current. Recent Vital Signs: Temperature: 98.2 F [36.8 C] (09/13/2024 14:13) Pulse: 75 (09/13/2024 14:13) Respiration: 20 (09/13/2024 14:13) B/P: 123/68 (09/13/2024 14:13) Pain: 7 (09/13/2024 14:13) Wt: 293.6 lb [133.17 kg] (09/13/2024 14:13) Ht: 78 in [198.1 cm] (08/02/2024 08:41) BMI: 34.0 POX: 96% (09/13/2024 14:13) Would you like to discuss any personal problem, family problem, alcohol use, drug use, or a mental or emotional illness? No My [facility] ([facility]), please select appointment type: Face to face: Yes- Done Pain Interview Verbal patient Pain Rating Score: 7 Plan of Care: Will inform physician/provider of patient's pain. Contact provided Primary Care phone number and encouraged to call if any questions or concerns. Review that after hours nurse line ext.[phone] and emergency room are available 26/01 for patient use. Contact verbalized good understanding. No notification required for this note. /fabien/ WILIAM JOHNSON LPN LICENSED PRACTICAL NURSE Signed: 09/13/2024 14:16 WILIAM JOHNSON [facility] Sep 13, 2024 11:22 AM PRIMARY CARE NOTE: LOCAL TITLE: PRIMARY CARE PROVIDER ESTABLISHED VISIT [facility] STANDARD TITLE: PRIMARY CARE NOTE DATE OF NOTE: SEP 13, 2024@11:22 ENTRY DATE: SEP 13, 2024@11:22:33 AUTHOR: INGRID GARCIA EXP COSIGNER: URGENCY: STATUS: COMPLETED PRIMARY CARE PROVIDER ESTABLISHED VISIT ST Has ADDENDA REASON FOR VISIT/CHIEF COMPLAINT: in grown nail HPI: Mr. Owen is a 64 MALE with PMHx HTN, anxiety/depression, obesity, Factor V mutation and hx PE on eliquis, CHRISSY, OA, asthma, HLD who presents to clinic with chief complaint of ingrown toenail. Patient states that he has had a recurrent ingrown toenails in the left big toe, and had the nail removed x 2 with private director vaccine. Most recent toenail removal was about a year ago. Now the nail has grown back, and is growing into the surrounding skin and causing pain. Foot examination: No erythema or swelling. Pulse present. Monofilament test with absent sensation in multiple toes of the left foot, but intact in the right foot. Left big toenail was thickened. No erythema/swelling/drainage noticed. tenderness with palpitation. deviated left fifth toe noticed SOURCE(S) OF HISTORY: Patient and CPRS Known Allergies as noted: PENICILLIN, BACTRIM, LISINOPRIL, PRAVASTATIN, ATORVASTATIN Recent Labs: HGB A1C (last):HGA1C 5.3 % 08/03/2024 11:01 LDL(DIRECT):____ HDL:26 mg/dL L (10/17/22 09:25) Cholesterol: CHOLESTEROL 85 mg/dL 10/17/2022 09:25 Triglycerides:90 mg/dL (10/17/22 09:25) PSA: PROST. SPECIFIC AG.(PB-STL) 0.106 ng/mL 05/17/2024 [...] mentioned in HPI PHYSICAL EXAMINATION: Vital Signs: Temperature: 98.2 F [36.8 C] (09/13/2024 14:13) Blood Pressure: 123/68 (09/13/2024 14:13) Pulse: 75 (09/13/2024 14:13) Respirations: 20 (09/13/2024 14:13) Weight: 293.6 lb [133.17 kg] (09/13/2024 14:13) See HPI ASSESSMENT/PLAN: Recurrent ingrown toenails -Will refer to podiatry RTC as previously scheduled SUMMARY STATEMENT: Plan of care has been discussed with including expected therapeutic benefits and potential side effects of prescribed medication and treatments. verbalizes understanding and is in agreement with the plan of care. Patient was instructed to keep all scheduled appointments and contact windows application administrator for any additional problems. /yamil Garcia MD PhD Staff Physician Signed: 09/13/2024 15:14 09/14/2024 ADDENDUM STATUS: COMPLETED Please let patient know of podiatry comment Consult placed for ingrowing nail however per chart review no signs of paronychia or signs of infection and consult appears to be for routine foot care of thickened nail. Noted patient has had unsuccessful removal twice. Podiatry does not recommend third removal as thickened nails often return after removal and there is no medical necessity at this time per chart review. Please notify patient Podiatry does not recommend removal however can see for one time education for nail care if patient agrees. thanks. /yamil Garcia MD PhD Staff Physician Signed: 09/14/2024 08:34 Receipt Acknowledged By: 09/14/2024 14:48 /yamil LUJAN REGISTERED NURSE 09/14/2024 ADDENDUM STATUS: COMPLETED Patient Contacted, See 09/14/24 V15 PACT Telephone Contact Note /yamil ULJAN REGISTERED NURSE Signed: 09/14/2024 14:49 INGRID GARCIA [facility]
--- OUTSIDE RECORDS SUMMARY | 2024-12-07 18:31 | XMS_ITS | Encounter Summary ---
Author Organization [facility] Facility Care Team Providers Care Adult Remedial Education Instructor Name Role Phone Hope Mauro MD Unavailable [phone] Francoise Cruz OT Unavailable + [phone] Jayshree Salinas OT Unavailable +[phone] Barry Mcmillan DPT Unavailable Unavail able Nitin Martinez PROCESS MANUFACTURING ENGINEER Unavailable + Miguelito Bergeron MD Primary Care Provider + [phone] Marian Myrick PROCESS MANUFACTURING ENGINEER Unavailable + Sheryl Hightower MD Primary Care Provider + Lynsey Chavez DPT Unavailable + Sabrina Meade Primary Care Provider + Bren Lopez MD Primary Care Provider + Sabrina Meade Primary Care Provider + Bren Lopez MD Primary Care Provider + [phone] Sultan Cristo Flores MD Unavailable [phone] Sabrina Meade Primary Care Provider + Bren Lopez MD Primary Care Provider + Bren Lopez MD Primary Care Provider [phone] Encounter Details Date Type Department Care Team (Latest Contact Info) Description 04/05/2018 Orders Only MMG CLINCONV Provider, MD James [address] [place] [address] Social History Tobacco Use Types Packs/Day Years Used Date Smoking Tobacco: Former Smokeless Tobacco: Former Comments:quit 1999 Alcohol Use Standard Drinks/Week Comments Not Asked 0 (1 standard drink = 0.6 oz pur e alcohol) quit 2003 Sex and Gender Information Value Date Recorded Sex Assigned at Not on file 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 Historical Provider CV CARDIAC SERVICES [facility] RADHA Final Result documented in this encounter Visit Diagnoses Not on filedocumented in this encounter Care Teams Adult Remedial Education Instructor Relationship Specialty Start Date End Date Miguelito Bergeron MD 3009 [facility] 102 [place] [address] PCP - General 02/13/18 05/11/18 Sheryl Hightower MD [address] [address] PCP - General Internal Medicine 05/12/18 08/12/18 Sabrina Meade PA [facility] [address] PCP - General 10/04/18 12/02/18 Bren Lopez MD [address] [place] [address] PCP - General 12/03/18 12/06/18 Sabrina Meade PA [address] [place] [address] PCP - General 12/07/18 01/13/19 Bren Lopez MD [address] [place] [address] PCP - General 01/14/19 04/19/19 Sabrina Meade PA [address] [place] [address] PCP - General Internal Medicine 04/20/19 04/21/19 Bren Lopez MD [address] [place] [address] PCP - General 08/13/18 10/03/18 Bren Lopez MD [address] [place] [address] PCP - General 04/22/19 Hope Mauro MD Consulting Physician Trauma Surgery 12/17/17 Francoise Cruz, OT [address] [address] Occupational Therapist Occupational Therapy 12/18/17 Jayshree Salinas OT 4921 [facility] [address] [place] [address] Occupational Therapist Occupational Therapy 12/18/17 Barry Mcmillan, DPT Physical Therapist Physical Therapy 01/18/18 06/29/18 Nitin Martinez, PROCESS MANUFACTURING ENGINEER [address] [place] [address] Poker Dealer Physical Therapy 01/22/18 08/17/18 Marian Myrikc, PROCESS MANUFACTURING ENGINEER 4240 [facility] [address] [place] [address] Poker Dealer Physical Therapy 02/19/18 08/17/18 Lynsey Chavez DPT [address] [facility] [address] [place] [address] Physical Therapist Physical Therapy 06/30/18 08/17/18 Sultan Cristo Flores MD [address] [facility] [address] [address] Nightman Cardiology 03/02/19 documented as of this encounter
--- OUTSIDE RECORDS SUMMARY | 2024-12-07 18:31 | XMS_ITS | Encounter Summary ---
Author Organization [facility] Facility Care Team Providers Care Medical Insurance Coder Name Role Phone Hope Mauro MD Unavailable [phone] Francoise Cruz OT Unavailable + [phone] Jayshree Salinas OT Unavailable +[phone] Barry Mcmillan DPT Unavailable Unavail able Nitin Martinez LOAN EXAMINER Unavailable + Miguelito Bergeron MD Primary Care Provider + [phone] Marian Myrick LOAN EXAMINER Unavailable + Sheryl Hightower MD Primary Care [...] Bren Lopez MD Primary Care Provider [phone] Encounter Details Date Type Department Care Team (Latest Contact Info) Description 04/01/2018 Orders Only MMG CLINCONV Provider, MD James [address] [place] [address] Social History Tobacco Use Types Packs/Day Years Used Date Smoking Tobacco: Former Smokeless Tobacco: Former Comments:quit 1999 Alcohol Use Standard Drinks/Week Comments Not Asked 0 (1 standard drink = 0.6 oz pur e alcohol) quit 2003 Sex and Gender Information Value Date Recorded Sex Assigned at Not on file 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 Historical Provider CV CARDIAC SERVICES [facility] RADHA Final Result documented in this encounter Visit Diagnoses Not on filedocumented in this encounter Care Teams Medical Insurance Coder Relationship Specialty Start Date End Date Miguelito Bergeron MD 3009 [facility] 102 [place] [address] PCP - General 02/13/18 05/11/18 Sheryl Hightower MD [address] [address] PCP - General Internal Medicine 05/12/18 08/12/18 Sabrina Meade PA [facility] [address] PCP - General 10/04/18 12/02/18 Bren Lopez MD [address] [place] [address] PCP - General 12/03/18 12/06/18 Sabrina Meade PA [address] [place] [address] PCP - General 12/07/18 01/13/19 Bren Lopez MD [address] [place] [address] PCP - General 01/14/19 04/19/19 Sabrina Meade PA [address] [place] [address] PCP - General Internal Medicine 04/20/19 04/21/19 Bren Lopez MD [address] [place] [address] PCP - General 08/13/18 10/03/18 Bren Lopez MD [address] [place] [address] PCP - General 04/22/19 Hope Mauro MD Consulting Physician Trauma Surgery 12/17/17 Francoise Cruz, OT [address] [address] Occupational Therapist Occupational Therapy 12/18/17 Jayshree Salinas OT 4921 [facility] [address] [place] [address] Occupational Therapist Occupational Therapy 12/18/17 Barry Mcmillan, DPT Physical Therapist Physical Therapy 01/18/18 06/29/18 Nitin Martinez, LOAN EXAMINER [address] [place] [address] Under Water Assistant Physical Therapy 01/22/18 08/17/18 Marian Myrick, LOAN EXAMINER 4240 [facility] [address] [place] [address] Under Water Assistant Physical Therapy 02/19/18 08/17/18 Lynsey Chavez DPT [address] [facility] [address] [place] [address] Physical Therapist Physical Therapy 06/30/18 08/17/18 Sultan Cristo Flores MD [address] [facility] [address] [address] Quarter Backer Cardiology 03/02/19 documented as of this encounter
--- OUTSIDE RECORDS SUMMARY | 2024-12-07 18:31 | XMS_ITS | Encounter Summary ---
Author Organization [facility] Facility Care Team Providers Care Miter Cutter Name Role Phone Hope Mauro MD Unavailable [phone] Francoise Cruz OT Unavailable + [phone] Jayshree Salinas OT Unavailable +[phone] Barry Mcmillan DPT Unavailable Unavail able Nitin Martinez LONE LEAD LINEMAN Unavailable + Miguelito Bergeron MD Primary Care Provider + [phone] Marian Myrick LONE LEAD LINEMAN Unavailable + Sheryl Hightower MD Primary Care [...] Bren Lopez MD Primary Care Provider [phone] Encounter Details Date Type Department Care Team (Latest Contact Info) Description 04/16/2018 Orders Only MMG CLINCONV Provider, MD James [address] [place] [address] Social History Tobacco Use Types Packs/Day Years Used Date Smoking Tobacco: Former Smokeless Tobacco: Former Comments:quit 1999 Alcohol Use Standard Drinks/Week Comments Not Asked 0 (1 standard drink = 0.6 oz pur e alcohol) quit 2003 Sex and Gender Information Value Date Recorded Sex Assigned at Not on file 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 Historical Provider CV CARDIAC SERVICES [facility] RADHA Final Result documented in this encounter Visit Diagnoses Not on filedocumented in this encounter Care Teams Miter Cutter Relationship Specialty Start Date End Date Miguelito Bergeron MD 3009 [facility] 102 [place] [address] PCP - General 02/13/18 05/11/18 Sheryl Hightower MD [address] [address] PCP - General Internal Medicine 05/12/18 08/12/18 Sabrnia Meade PA [facility] [address] PCP - General 10/04/18 12/02/18 Bren Lopez MD [address] [place] [address] PCP - General 12/03/18 12/06/18 Sabrina Meade PA [address] [place] [address] PCP - General 12/07/18 01/13/19 Bren Lopez MD [address] [place] [address] PCP - General 01/14/19 04/19/19 Sabrina Meade PA [address] [place] [address] PCP - General Internal Medicine 04/20/19 04/21/19 Bren Lopez MD [address] [place] [address] PCP - General 08/13/18 10/03/18 Bren Lopez MD [address] [place] [address] PCP - General 04/22/19 Hope Mauro MD Consulting Physician Trauma Surgery 12/17/17 Francoise Cruz, OT [address] [address] Occupational Therapist Occupational Therapy 12/18/17 Jayshree Salinas OT 4921 [facility] [address] [place] [address] Occupational Therapist Occupational Therapy 12/18/17 Barry Mcmillan, DPT Physical Therapist Physical Therapy 01/18/18 06/29/18 Nitin Martinez, LONE LEAD LINEMAN [address] [place] [address] Roll Capper Physical Therapy 01/22/18 08/17/18 Marian Myrick, LONE LEAD LINEMAN 4240 [facility] [address] [place] [address] Roll Capper Physical Therapy 02/19/18 08/17/18 Lynsey Chavez DPT 4600 [facility] [address] [place] [address] Physical Therapist Physical Therapy 06/30/18 08/17/18 Sultan Cristo Flores MD 46[address] [facility] [address] [address] Friction Saw Operator Cardiology 03/02/19 documented as of this encounter
--- OUTSIDE RECORDS SUMMARY | 2024-12-07 18:31 | XMS_ITS | Encounter Summary ---
Author Organization [facility] Facility Care Team Providers Care Marketing Operations Analyst Name Role Phone Hope Mauro MD Unavailable [phone] Francoise Cruz OT Unavailable + [phone] Jayshree Salinas OT Unavailable +[phone] Barry Mcmillan DPT Unavailable Unavail able Nitin Martinez TOOL ENGINEER Unavailable + Miguelito Bergeron MD Primary Care Provider + [phone] Marian Myrick TOOL ENGINEER Unavailable + Sheryl Hightower MD Primary [...] Bren Lopez MD Primary Care Provider [phone] Encounter Details Date Type Department Care Team (Latest Contact Info) Description 03/31/2018 Orders Only MMG CLINCONV Provider, MD James [address] [place] [address] Social History Tobacco Use Types Packs/Day Years Used Date Smoking Tobacco: Former Smokeless Tobacco: Former Comments:quit 1999 Alcohol Use Standard Drinks/Week Comments Not Asked 0 (1 standard drink = 0.6 oz pur e alcohol) quit 2003 Sex and Gender Information Value Date Recorded Sex Assigned at Not on file 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 Historical Provider CV CARDIAC SERVICES [facility] RADHA Final Result documented in this encounter Visit Diagnoses Not on filedocumented in this encounter Care Teams Marketing Operations Analyst Relationship Specialty Start Date End Date Miguelito eBrgeron MD 3009 [facility] 102 [place] [address] PCP - General 02/13/18 05/11/18 Sheryl Hightower MD [address] [address] PCP - General Internal Medicine 05/12/18 08/12/18 Sabrina Meade PA [facility] [address] PCP - General 10/04/18 12/02/18 Bren Lopez MD [address] [place] [address] PCP - General 12/03/18 12/06/18 Sabrina Meade PA [address] [place] [address] PCP - General 12/07/18 01/13/19 Bren Lopez MD [address] [place] [address] PCP - General 01/14/19 04/19/19 Sabrina Meade PA [address] [place] [address] PCP - General Internal Medicine 04/20/19 04/21/19 Bren Lopez MD [address] [place] [address] PCP - General 08/13/18 10/03/18 Bren Lopez MD [address] [place] [address] PCP - General 04/22/19 Hope Mauro MD Consulting Physician Trauma Surgery 12/17/17 Francoise Cruz, OT [address] [address] Occupational Therapist Occupational Therapy 12/18/17 Jayshree Salinas OT 4921 [facility] [address] [place] [address] Occupational Therapist Occupational Therapy 12/18/17 Barry Mcmillan, DPT Physical Therapist Physical Therapy 01/18/18 06/29/18 Nitin Martinez, TOOL ENGINEER [address] [place] [address] Sales Professional Physical Therapy 01/22/18 08/17/18 Marian Myrick, TOOL ENGINEER 4240 [facility] [address] [place] [address] Sales Professional Physical Therapy 02/19/18 08/17/18 Lynsey Chavez DPT [address] [facility] [address] [place] [address] Physical Therapist Physical Therapy 06/30/18 08/17/18 Sultan Cristo Flores MD [address] [facility] [address] [address] Lumber Loader Cardiology 03/02/19 documented as of this encounter
--- OUTSIDE RECORDS SUMMARY | 2024-12-07 18:31 | XMS_ITS | Encounter Summary ---
Author Organization [facility] Facility Care Team Providers Care Construction Equipment Technician Name Role Phone Hope Mauro MD Unavailable [phone] Francoise Cruz OT Unavailable + [phone] Jayshree Salinas OT Unavailable +[phone] Barry Mcmillan DPT Unavailable Unavail able Nitin Martinez HEAD ANIMAL KEEPER Unavailable + Miguelito Bergeron MD Primary Care Provider + [phone] Marian Myrick HEAD ANIMAL KEEPER Unavailable + Sheryl Hightower MD Primary Care [...] Bren Lopez MD Primary Care Provider [phone] Encounter Details Date Type Department Care Team (Latest Contact Info) Description 04/23/2018 Orders Only MMG CLINCONV Provider, MD Jamse [address] [place] [address] Social History Tobacco Use Types Packs/Day Years Used Date Smoking Tobacco: Former Smokeless Tobacco: Former Comments:quit 1999 Alcohol Use Standard Drinks/Week Comments Not Asked 0 (1 standard drink = 0.6 oz pur e alcohol) quit 2003 Sex and Gender Information Value Date Recorded Sex Assigned at Not on file 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 Historical Provider CV [facility] RADHA Final Result documented in this encounter Visit Diagnoses Not on filedocumented in this encounter Care Teams Construction Equipment Technician Relationship Specialty Start Date End Date Miguelito Bergeron MD 3009 [facility] 102 [place] [address] PCP - General 02/13/18 05/11/18 Sheryl Hightower MD [address] [address] PCP - General Internal Medicine 05/12/18 08/12/18 Sabrina Meade PA [facility] [address] PCP - General 10/04/18 12/02/18 Bren Lopez MD [address] [place] [address] PCP - General 12/03/18 12/06/18 Sabrina Meade PA [address] [place] [address] PCP - General 12/07/18 01/13/19 Bren Lopez MD [address] [place] [address] PCP - General 01/14/19 04/19/19 Sabrina Meade PA [address] [place] [address] PCP - General Internal Medicine 04/20/19 04/21/19 Bren Lopez MD [address] [place] [address] PCP - General 08/13/18 10/03/18 Bren Lopez MD [address] [place] [address] PCP - General 04/22/19 Hope Mauro MD Consulting Physician Trauma Surgery 12/17/17 Francoise Cruz, OT [address] [address] Occupational Therapist Occupational Therapy 12/18/17 Jayshree Salinas OT 4921 [facility] [address] [place] [address] Occupational Therapist Occupational Therapy 12/18/17 Barry Mcmillan, DPT Physical Therapist Physical Therapy 01/18/18 06/29/18 Nitin Martinez, HEAD ANIMAL KEEPER [address] [place] [address] Sample Body Builder Physical Therapy 01/22/18 08/17/18 Marian Myrick, HEAD ANIMAL KEEPER 4240 [facility] [address] [place] [address] Sample Body Builder Physical Therapy 02/19/18 08/17/18 Lynsey Chavez DPT 46[address] [facility] [address] [place] [address] Physical Therapist Physical Therapy 06/30/18 08/17/18 Sultan Cristo Flores MD [address] [facility] [address] [address] Therapeutic Recreation Director Cardiology 03/02/19 documented as of this encounter
--- OUTSIDE RECORDS SUMMARY | 2024-12-07 18:31 | XMS_ITS | Encounter Summary ---
Author Organization [facility] Facility Care Team Providers Care Lockstitch Machine Operator Name Role Phone Hope Mauro MD Unavailable [phone] Francoise Cruz OT Unavailable + [phone] Jayshree Salinas OT Unavailable +[phone] Barry Mcmillan DPT Unavailable Unavail able Nitin Martinez CASUALTY CLAIMS SUPERVISOR Unavailable + Miguelito Bergeron MD Primary Care Provider + [phone] Marian Myrick CASUALTY CLAIMS SUPERVISOR Unavailable + Sheryl Hightower MD Primary Care [...] Bren Lopez MD Primary Care Provider [phone] Encounter Details Date Type Department Care Team (Latest Contact Info) Description 04/13/2018 Orders Only MMG CLINCONV Provider, MD James [address] [place] [address] Social History Tobacco Use Types Packs/Day Years Used Date Smoking Tobacco: Former Smokeless Tobacco: Former Comments:quit 1999 Alcohol Use Standard Drinks/Week Comments Not Asked 0 (1 standard drink = 0.6 oz pur e alcohol) quit 2003 Sex and Gender Information Value Date Recorded Sex Assigned at Not on file 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 Historical Provider CV CARDIAC SERVICES [facility] RADHA Final Result documented in this encounter Visit Diagnoses Not on filedocumented in this encounter Care Teams Lockstitch Machine Operator Relationship Specialty Start Date End Date Miguelito Bergeron MD 3009 [facility] 102 [place] [address] PCP - General 02/13/18 05/11/18 Sheryl Hightower MD [address] [address] PCP - General Internal Medicine 05/12/18 08/12/18 Sabrina Meade PA [facility] [address] PCP - General 10/04/18 12/02/18 Bren Lopez MD [address] [place] [address] PCP - General 12/03/18 12/06/18 Sabrina Meade PA [address] [place] [address] PCP - General 12/07/18 01/13/19 Bren Lopez MD [address] [place] [address] PCP - General 01/14/19 04/19/19 Sabrina Meade PA [address] [place] [address] PCP - General Internal Medicine 04/20/19 04/21/19 Bren Lopez MD [address] [place] [address] PCP - General 08/13/18 10/03/18 Bren Lopez MD [address] [place] [address] PCP - General 04/22/19 Hope Mauro MD Consulting Physician Trauma Surgery 12/17/17 Francoise Cruz, OT [address] [address] Occupational Therapist Occupational Therapy 12/18/17 Jayshree Salinas OT 4921 [facility] [address] [place] [address] Occupational Therapist Occupational Therapy 12/18/17 Barry Mcmillan, DPT Physical Therapist Physical Therapy 01/18/18 06/29/18 Nitin Martinez, CASUALTY CLAIMS SUPERVISOR [address] [place] [address] Quantitative Strategy Analyst Physical Therapy 01/22/18 08/17/18 Marian Myrick, CASUALTY CLAIMS SUPERVISOR 4240 [facility] [address] [place] [address] Quantitative Strategy Analyst Physical Therapy 02/19/18 08/17/18 Lynsey Chavez DPT 4600 [facility] [address] [place] [address] Physical Therapist Physical Therapy 06/30/18 08/17/18 Sultan Cristo Flores MD 4600 [facility] [address] [address] Mold Mover Cardiology 03/02/19 documented as of this encounter
--- OUTSIDE RECORDS SUMMARY | 2024-12-07 18:31 | XMS_ITS | Encounter Summary ---
Author Organization [facility] Facility Care Team Providers Care Loss Prevention Coordinator Name Role Phone Hope Mauro MD Unavailable [phone] Francoise Cruz OT Unavailable + [phone] Jayshree Salinas OT Unavailable +[phone] Barry Mcmillan DPT Unavailable Unavail able Nitin Martinez SALES AND SERVICE CHANGE LEADER Unavailable + Miguelito Bergeron MD Primary Care Provider + [phone] Marian yMrick SALES AND SERVICE CHANGE LEADER Unavailable + Sheryl Hightower MD Primary Care [...] Bren Lopez MD Primary Care Provider [phone] Encounter Details Date Type Department Care Team (Latest Contact Info) Description 04/20/2018 Orders Only MMG CLINCONV Provider, MD James [address] [place] [address] Social History Tobacco Use Types Packs/Day Years Used Date Smoking Tobacco: Former Smokeless Tobacco: Former Comments:quit 1999 Alcohol Use Standard Drinks/Week Comments Not Asked 0 (1 standard drink = 0.6 oz pur e alcohol) quit 2003 Sex and Gender Information Value Date Recorded Sex Assigned at Not on file 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 EXCEPTIONAL STUDENT EDUCATION AIDE Gender Identity Not on file Sexual Orientation [...] unspecified provider. Historical Provider CV CARDIAC SERVICES [facility] RADHA Final Result documented in this encounter Visit Diagnoses Not on filedocumented in this encounter Care Teams Loss Prevention Coordinator Relationship Specialty Start Date End Date Miguelito Bergeron MD 3009 [facility] 102 [place] [address] PCP - General 02/13/18 05/11/18 Sheryl Hightower MD [address] [address] PCP - General Internal Medicine 05/12/18 08/12/18 Sabrina Meade PA [facility] [address] PCP - General 10/04/18 12/02/18 Bren Lopez MD [address] [place] [address] PCP - General 12/03/18 12/06/18 Sabrina Meade PA [address] [place] [address] PCP - General 12/07/18 01/13/19 Bren Lopez MD [address] [place] [address] PCP - General 01/14/19 04/19/19 Sabrina Meade PA [address] [place] [address] PCP - General Internal Medicine 04/20/19 04/21/19 Bren Lopez MD [address] [place] [address] PCP - General 08/13/18 10/03/18 Bren Lopez MD [address] [place] [address] PCP - General 04/22/19 Hope Mauro MD Consulting Physician Trauma Surgery 12/17/17 Francoise Cruz, OT [address] [address] Occupational Therapist Occupational Therapy 12/18/17 Jayshree Salinas OT 4921 [facility] [address] [place] [address] Occupational Therapist Occupational Therapy 12/18/17 Barry Mcmillan, DPT Physical Therapist Physical Therapy 01/18/18 06/29/18 Nitin Martinez, SALES AND SERVICE CHANGE LEADER [address] [place] [address] Milk Deliverer Physical Therapy 01/22/18 08/17/18 Marian Myrick, SALES AND SERVICE CHANGE LEADER 4240 [facility] [address] [place] [address] Milk Deliverer Physical Therapy 02/19/18 08/17/18 Lynsey Chavez DPT [address] [facility] [address] [place] [address] Physical Therapist Physical Therapy 06/30/18 08/17/18 Sultan Cristo Flores MD [address] [facility] [address] [address] Bowling Ball Patcher Cardiology 03/02/19 documented as of this encounter
--- OUTSIDE RECORDS SUMMARY | 2024-12-07 18:31 | XMS_ITS | Encounter Summary ---
Author Organization [facility] Facility Care Team Providers Care Landscape Architecture Teacher Name Role Phone Hope Mauro MD Unavailable [phone] Francoise Cruz OT Unavailable + [phone] Jayshree Salinas OT Unavailable +[phone] Barry Mcmillan DPT Unavailable Unavail able Nitin Martinez FLOTATION TENDER HELPER Unavailable + Miguelito Bergeron MD Primary Care Provider + [phone] Marian Myrick FLOTATION TENDER HELPER Unavailable + Sheryl Hightower MD Primary Care [...] Bren Lopez MD Primary Care Provider [phone] Encounter Details Date Type Department Care Team (Latest Contact Info) Description 04/17/2018 Orders Only MMG CLINCONV Provider, MD James [address] [place] [address] Social History Tobacco Use Types Packs/Day Years Used Date Smoking Tobacco: Former Smokeless Tobacco: Former Comments:quit 1999 Alcohol Use Standard Drinks/Week Comments Not Asked 0 (1 standard drink = 0.6 oz pur e alcohol) quit 2003 Sex and Gender Information Value Date Recorded Sex Assigned at Not on file 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 Historical Provider CV CARDIAC SERVICES [facility] RADHA Final Result documented in this encounter Visit Diagnoses Not on filedocumented in this encounter Care Teams Landscape Architecture Teacher Relationship Specialty Start Date End Date Miguelito Bergeron MD [address] [facility] 102 [place] [address] PCP - General 02/13/18 05/11/18 Sheryl Hightower MD [address] [address] PCP - General Internal Medicine 05/12/18 08/12/18 Sabrina Meade PA [facility] [address] [address] PCP - General 10/04/18 12/02/18 Bren Lopez MD [address] [place] [address] PCP - General 12/03/18 12/06/18 Sabrina Meade PA [address] [place] [address] PCP - General 12/07/18 01/13/19 Bren Lopez MD [address] [place] [address] PCP - General 01/14/19 04/19/19 Sabrina Meade PA [address] [place] [address] PCP - General Internal Medicine 04/20/19 04/21/19 Bren Lopez MD [address] [place] [address] PCP - General 08/13/18 10/03/18 Bren Lopez MD [address] [place] [address] PCP - General 04/22/19 Hope Mauro MD Consulting Physician Trauma Surgery 12/17/17 Francoise Cruz, OT [address] [address] Occupational Therapist Occupational Therapy 12/18/17 Jayshree Salinas OT 4921 [facility] [address] [place] [address] Occupational Therapist Occupational Therapy 12/18/17 Barry Mcmillan, DPT Physical Therapist Physical Therapy 01/18/18 06/29/18 Nitin Martinez, FLOTATION TENDER HELPER [address] [place] [address] Non Destructive Evaluation Technician Physical Therapy 01/22/18 08/17/18 Marian Myrick, FLOTATION TENDER HELPER 4240 [facility] [address] [place] [address] Non Destructive Evaluation Technician Physical Therapy 02/19/18 08/17/18 Lynsey Chavez DPT [address] [facility] [address] [place] [address] Physical Therapist Physical Therapy 06/30/18 08/17/18 Sultan Cristo Flores MD [address] [facility] [address] [address] R&D Engineer Cardiology 03/02/19 documented as of this encounter
--- OUTSIDE RECORDS SUMMARY | 2024-12-07 18:31 | XMS_ITS | Encounter Summary ---
Author Organization [facility] Facility Care Team Providers Care Flight Operations Engineer Name Role Phone Hope Mauro MD Unavailable [phone] Francoise Cruz OT Unavailable + [phone] Jayshree Salinas OT Unavailable +[phone] Barry Mcmillan DPT Unavailable Unavail able Nitin Martinez FRANCHISE SALES MANAGER Unavailable + Miguelito Bergeron MD Primary Care Provider + [phone] Marian Myrick FRANCHISE SALES MANAGER Unavailable + Sheryl Hightower MD Primary Care [...] Bren Lopez MD Primary Care Provider [phone] Encounter Details Date Type Department Care Team (Latest Contact Info) Description 04/11/2018 Orders Only MMG CLINCONV Provider, MD James [address] [place] [address] Social History Tobacco Use Types Packs/Day Years Used Date Smoking Tobacco: Former Smokeless Tobacco: Former Comments:quit 1999 Alcohol Use Standard Drinks/Week Comments Not Asked 0 (1 standard drink = 0.6 oz pur e alcohol) quit 2003 Sex and Gender Information Value Date Recorded Sex Assigned at Not on file 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 RANGE EXAMINER Gender Identity Not on file Sexual Orientation Not on file documented as of this encounter Plan of Treatment Not on file documented as of this encounter Procedures Procedure Name Priority Date/Time Associated Diagnosis Comments CARDIOLOGY REPORT 04/16/2018 12: 00 AM CDT documented in this encounter Results * CARDIOLOGY REPORT (04/16/2018 12:00 AM CDT) Anatomical Region Laterality Modality Other Narrative 04/16/2018 12:00 AM CDT Ordered by an unspecified provider. Historical Provider CV CARDIAC SERVICES [facility] RADHA Final Result documented in this encounter Visit Diagnoses Not on filedocumented in this encounter Care Teams Flight Operations Engineer Relationship Specialty Start Date End Date Miguelito Bergeron MD 3009 [facility] 102 [place] [address] PCP - General 02/13/18 05/11/18 Sheryl Hightower MD [address] [address] PCP - General Internal Medicine 05/12/18 08/12/18 Sabrina Meade PA [facility] [address] PCP - General 10/04/18 12/02/18 Bren Lopez MD [address] [place] [address] PCP - General 12/03/18 12/06/18 Sabrina Meade PA [address] [place] [address] PCP - General 12/07/18 01/13/19 Bren Lopez MD [address] [place] [address] PCP - General 01/14/19 04/19/19 Sabrina Meade PA [address] [place] [address] PCP - General Internal Medicine 04/20/19 04/21/19 Bren Lopez MD [address] [place] [address] PCP - General 08/13/18 10/03/18 Bren Lopez MD [address] [place] [address] PCP - General 04/22/19 Hope Mauro MD Consulting Physician Trauma Surgery 12/17/17 Francoise Cruz, OT [address] [address] Occupational Therapist Occupational Therapy 12/18/17 Jayshree Salinas OT 49[address] [facility] [address] [place] [address] Occupational Therapist Occupational Therapy 12/18/17 Barry Mcmillan, DPT Physical Therapist Physical Therapy 01/18/18 06/29/18 Nitin Martinez, FRANCHISE SALES MANAGER [address] [place] [address] Retail Sales Lead Physical Therapy 01/22/18 08/17/18 Marian Myrick, FRANCHISE SALES MANAGER 4240 [facility] [address] [place] [address] Retail Sales Lead Physical Therapy 02/19/18 08/17/18 Lynsey Chavez DPT 4600 [facility] [address] [place] [address] Physical Therapist Physical Therapy 06/30/18 08/17/18 Sultan Cristo Flores MD 4600 [facility] [address] [address] Military Administrative Technician Cardiology 03/02/19 documented as of this encounter
--- OUTSIDE RECORDS SUMMARY | 2024-12-07 18:31 | XMS_ITS | Encounter Summary ---
Author Organization [facility] Facility Care Team Providers Care Paraprofessional Aide Teacher Name Role Phone Hope Mauro MD Unavailable [phone] Francoise Cruz OT Unavailable + [phone] Jayshree Salinas OT Unavailable +[phone] Barry Mcmillan DPT Unavailable Unavail able Nitin Martinez DROSS PULLER Unavailable + Miguelito Bergeron MD Primary Care Provider + [phone] Marian Myrick DROSS PULLER Unavailable + Sheryl Hightower MD Primary Care [...] Bren Lopez MD Primary Care Provider [phone] Encounter Details Date Type Department Care Team (Latest Contact Info) Description 04/18/2018 Orders Only MMG CLINCONV Provider, MD James [address] [place] [address] Social History Tobacco Use Types Packs/Day Years Used Date Smoking Tobacco: Former Smokeless Tobacco: Former Comments:quit 1999 Alcohol Use Standard Drinks/Week Comments Not Asked 0 (1 standard drink = 0.6 oz pur e alcohol) quit 2003 Sex and Gender Information Value Date Recorded Sex Assigned at Not on file 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 LEGAL MANAGER Gender Identity Not on file Sexual Orientation Not on file documented as of this encounter Plan of Treatment Not on file documented as of this encounter Procedures Procedure Name Priority Date/Time Associated Diagnosis Comments CARDIOLOGY REPORT 04/22/2018 12: 00 AM CDT documented in this encounter Results * CARDIOLOGY REPORT (04/22/2018 12:00 AM CDT) Anatomical Region Laterality Modality Other Narrative 04/22/2018 12:00 AM CDT Ordered by an unspecified provider. Historical Provider CV CARDIAC SERVICES [facility] RADHA Final Result documented in this encounter Visit Diagnoses Not on filedocumented in this encounter Care Teams Paraprofessional Aide Teacher Relationship Specialty Start Date End Date Miguelito Bergeron MD 3009 [facility] 102 [place] [address] PCP - General 02/13/18 05/11/18 Sheryl Hightower MD [address] [address] PCP - General Internal Medicine 05/12/18 08/12/18 Sabrina Meade PA [facility] [address] PCP - General 10/04/18 12/02/18 Bren Lopez MD [address] [place] [address] PCP - General 12/03/18 12/06/18 Sabrina Meade PA [address] [place] [address] PCP - General 12/07/18 01/13/19 Bren Lopez MD [address] [place] [address] PCP - General 01/14/19 04/19/19 Sabrina Meade PA [address] [place] [address] PCP - General Internal Medicine 04/20/19 04/21/19 Bren Lopez MD [address] [place] [address] PCP - General 08/13/18 10/03/18 Bren Lopez MD [address] [place] [address] PCP - General 04/22/19 Hope Mauro MD Consulting Physician Trauma Surgery 12/17/17 Francoise Cruz, OT [address] [address] Occupational Therapist Occupational Therapy 12/18/17 Jayshree Salinas OT 4921 [facility] [address] [place] [address] Occupational Therapist Occupational Therapy 12/18/17 Barry Mcmillan, DPT Physical Therapist Physical Therapy 01/18/18 06/29/18 Nitin Martinez, DROSS PULLER [address] [place] [address] Insurance Job Titles Physical Therapy 01/22/18 08/17/18 Marian Myrick, DROSS PULLER 4240 [facility] [address] [place] [address] Insurance Job Titles Physical Therapy 02/19/18 08/17/18 Lynsey Chavez DPT [address] [facility] [address] [place] [address] Physical Therapist Physical Therapy 06/30/18 08/17/18 Sultan Cristo Flores MD [address] [facility] [address] [address] Machine Tool Mechanic Cardiology 03/02/19 documented as of this encounter
--- OUTSIDE RECORDS SUMMARY | 2024-12-07 18:31 | XMS_ITS | Encounter Summary ---
Author Organization [facility]/Health system Facility Care Team Providers Care Lap Cutter Name Role Phone Hope Mauro MD Unavailable [phone] Francoise Cruz OT Unavailable + [phone] Jayshree Salinas OT Unavailable +[phone] Barry Mcmillan DPT Unavailable Unavail able Nitin Martinez ROCKET ENGINE MECHANIC Unavailable + Miguelito Bergeron MD Primary Care Provider + [phone] Marian Myrick ROCKET ENGINE MECHANIC Unavailable + Sheryl Hightower MD Primary Care [...] Bren Lopez MD Primary Care Provider [phone] Encounter Details Date Type Department Care Team (Latest Contact Info) Description 04/09/2018 Orders Only MMG CLINCONV Provider, MD James [address] [place] [address] Social History Tobacco Use Types Packs/Day Years Used Date Smoking Tobacco: Former Smokeless Tobacco: Former Comments:quit 1999 Alcohol Use Standard Drinks/Week Comments Not Asked 0 (1 standard drink = 0.6 oz pur e alcohol) quit 2003 Sex and Gender Information Value Date Recorded Sex Assigned at Not on file 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 DIRECTOR OF OCCUPATIONAL THERAPY Gender Identity Not on file Sexual Orientation Not on file documented as of this encounter Plan of Treatment Not on file documented as of this encounter Procedures Procedure Name Priority Date/Time Associated Diagnosis Comments CARDIOLOGY REPORT 04/15/2018 12: 00 AM CDT documented in this encounter Results * CARDIOLOGY REPORT (04/15/2018 12:00 AM CDT) Anatomical Region Laterality Modality Other Narrative 04/15/2018 12:00 AM CDT Ordered by an unspecified provider. Historical Provider CV CARDIAC SERVICES [facility] RADHA Final Result documented in this encounter Visit Diagnoses Not on filedocumented in this encounter Care Teams Lap Cutter Relationship Specialty Start Date End Date Miguelito Bergeron MD 3009 [facility] 102 [place] [address] PCP - General 02/13/18 05/11/18 Sheryl Hightower MD [address] [address] PCP - General Internal Medicine 05/12/18 08/12/18 Sabrina Meade PA [facility] [address] PCP - General 10/04/18 12/02/18 Bren Lopez MD [address] [place] [address] PCP - General 12/03/18 12/06/18 Sabrina Meade PA [address] [place] [address] PCP - General 12/07/18 01/13/19 Bren Lopez MD [address] [place] [address] PCP - General 01/14/19 04/19/19 Sabrina Meade PA [address] [place] [address] PCP - General Internal Medicine 04/20/19 04/21/19 Bren Lopez MD [address] [place] [address] PCP - General 08/13/18 10/03/18 Bren Lopez MD [address] [place] [address] PCP - General 04/22/19 Hope Mauro MD Consulting Physician Trauma Surgery 12/17/17 Francoise Cruz, OT [address] [address] Occupational Therapist Occupational Therapy 12/18/17 Jayshree Salinas OT 4921 [facility] [address] [place] [address] Occupational Therapist Occupational Therapy 12/18/17 Barry Mcmillan, DPT Physical Therapist Physical Therapy 01/18/18 06/29/18 Nitin Martinez, ROCKET ENGINE MECHANIC [address] [place] [address] Phlebotomy Technologist Physical Therapy 01/22/18 08/17/18 Marian Myrick, ROCKET ENGINE MECHANIC 4240 [facility] [address] [place] [address] Phlebotomy Technologist Physical Therapy 02/19/18 08/17/18 Lynsey Chavez DPT [address] [facility] [address] [place] [address] Physical Therapist Physical Therapy 06/30/18 08/17/18 Sultan Cristo Flores MD [address] [facility] [address] [address] [address] Cardiology 03/02/19 documented as of this encounter
--- OUTSIDE RECORDS SUMMARY | 2024-12-07 18:31 | XMS_ITS | Encounter Summary ---
Author Organization [facility] Facility Care Team Providers Care Physics Instructor Name Role Phone Hope Mauro MD Unavailable [phone] Francoise Cruz OT Unavailable + [phone] Jayshree Salinas OT Unavailable +[phone] Barry Mcmillan DPT Unavailable Unavail able Nitin Martinez CHUCK WAGON DRIVER Unavailable + Miguelito Bergeron MD Primary Care Provider + [phone] Marian Myrick CHUCK WAGON DRIVER Unavailable + Sheryl Hightower MD Primary Care [...] Bren Lopez MD Primary Care Provider [phone] Encounter Details Date Type Department Care Team (Latest Contact Info) Description 03/29/2018 Orders Only MMG CLINCONV Provider, MD James [address] [place] [address] Social History Tobacco Use Types Packs/Day Years Used Date Smoking Tobacco: Former Smokeless Tobacco: Former Comments:quit 1999 Alcohol Use Standard Drinks/Week Comments Not Asked 0 (1 standard drink = 0.6 oz pur e alcohol) quit 2003 Sex and Gender Information Value Date Recorded Sex Assigned at Not on file 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 Historical Provider CV CARDIAC SERVICES [facility] RADHA Final Result documented in this encounter Visit Diagnoses Not on filedocumented in this encounter Care Teams Physics Instructor Relationship Specialty Start Date End Date Miguelito Bergeron MD 3009 [facility] 102 [place] [address] PCP - General 02/13/18 05/11/18 Sheryl Hightower MD [address] [address] PCP - General Internal Medicine 05/12/18 08/12/18 Sabrina Meade PA [facility] [address] PCP - General 10/04/18 12/02/18 Bern Lopez MD [address] [place] [address] PCP - General 12/03/18 12/06/18 Sabrina Meade PA [address] [place] [address] PCP - General 12/07/18 01/13/19 Bren Lopez MD [address] [place] [address] PCP - General 01/14/19 04/19/19 Sabrina Meade PA [address] [place] [address] PCP - General Internal Medicine 04/20/19 04/21/19 Bren Lopez MD [address] [place] [address] PCP - General 08/13/18 10/03/18 Bren Lopez MD [address] [place] [address] PCP - General 04/22/19 Hope Mauro MD Consulting Physician Trauma Surgery 12/17/17 Francoise Cruz, OT [address] [address] Occupational Therapist Occupational Therapy 12/18/17 Jayshree Salinas OT 4921 [facility] [address] [place] [address] Occupational Therapist Occupational Therapy 12/18/17 Barry Mcmillan, DPT Physical Therapist Physical Therapy 01/18/18 06/29/18 Nitin Martinez, CHUCK WAGON DRIVER [address] [place] [address] Circus Laborer Physical Therapy 01/22/18 08/17/18 Marian Myrick, CHUCK WAGON DRIVER 4240 [facility] [address] [place] [address] Circus Laborer Physical Therapy 02/19/18 08/17/18 Lynsey Chavez DPT 4600 [facility] [address] [place] [address] Physical Therapist Physical Therapy 06/30/18 08/17/18 Sultan Cristo Flores MD 4600 [facility] [address] [address] Accounts Administrator Cardiology 03/02/19 documented as of this encounter
--- OUTSIDE RECORDS SUMMARY | 2024-12-07 18:31 | XMS_ITS | Encounter Summary ---
Author Organization [facility] Facility Care Team Providers Care Clinical Account Executive Name Role Phone Hope Mauro MD Unavailable [phone] Francoise Cruz OT Unavailable + [phone] Jayshree Salinas OT Unavailable +[phone] Barry Mcmillan DPT Unavailable Unavail able Nitin Martinez BARREL RIFLER OPERATOR Unavailable + Miguelito Bergeron MD Primary Care Provider + [phone] Marian Myrick BARREL RIFLER OPERATOR Unavailable + Sheryl Hightower MD Primary Care [...] Bren Lopez MD Primary Care Provider [phone] Encounter Details Date Type Department Care Team (Latest Contact Info) Description 04/03/2018 Orders Only MMG CLINCONV Provider, MD James [address] [place] [address] Social History Tobacco Use Types Packs/Day Years Used Date Smoking Tobacco: Former Smokeless Tobacco: Former Comments:quit 1999 Alcohol Use Standard Drinks/Week Comments Not Asked 0 (1 standard drink = 0.6 oz pur e alcohol) quit 2003 Sex and Gender Information Value Date Recorded Sex Assigned at Not on file 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 RN ONCOLOGY CLINICAL Gender Identity Not on file Sexual Orientation Not on file documented as of this encounter Plan of Treatment Not on file documented as of this encounter Procedures Procedure Name Priority Date/Time Associated Diagnosis Comments CARDIOLOGY REPORT 04/07/2018 12: 00 AM CDT documented in this encounter Results * CARDIOLOGY REPORT (04/07/2018 12:00 AM CDT) Anatomical Region Laterality Modality Other Narrative 04/07/2018 12:00 AM CDT Ordered by an unspecified provider. Historical Provider CV CARDIAC SERVICES [facility] Final Result documented in this encounter Visit Diagnoses Not on filedocumented in this encounter Care Teams Clinical Account Executive Relationship Specialty Start Date End Date Miguelito Bergeron MD [address] [facility] [address] [place] [address] PCP - General 02/13/18 05/11/18 Sheryl Hightower MD [address] [address] PCP - General Internal Medicine 05/12/18 08/12/18 Sabrina Meade PA [facility] [address] PCP - General 10/04/18 12/02/18 Bren Lopez MD [address] [place] [address] PCP - General 12/03/18 12/06/18 Sabrina Meade PA [address] [place] [address] PCP - General 12/07/18 01/13/19 Bren Lopez MD [address] [place] [address] PCP - General 01/14/19 04/19/19 Sabrina Meade PA [address] [place] [address] PCP - General Internal Medicine 04/20/19 04/21/19 Bren Lopez MD [address] [place] [address] PCP - General 08/13/18 10/03/18 Bren Lopez MD [address] [place] [address] PCP - General 04/22/19 Hope Mauro MD Consulting Physician Trauma Surgery 12/17/17 Francoise Cruz, OT [address] [address] Occupational Therapist Occupational Therapy 12/18/17 Jayshree Salinas OT [address] [facility] [address] [place] [address] Occupational Therapist Occupational Therapy 12/18/17 Barry Mcmillan, DPT Physical Therapist Physical Therapy 01/18/18 06/29/18 Nitin Martinez, BARREL RIFLER OPERATOR [address] [place] [address] Candle Cutter Physical Therapy 01/22/18 08/17/18 Marian Myrick, BARREL RIFLER OPERATOR [facility] [facility] [address] [place] [address] Candle Cutter Physical Therapy 02/19/18 08/17/18 Lynsey Chavez DPT [address] [facility] [address] [place] [address] Physical Therapist Physical Therapy 06/30/18 08/17/18 Sultan Cristo Flores MD [address] [facility] [address] [address] Coding And Reimbursement Specialist Cardiology 03/02/19 documented as of this encounter
--- OUTSIDE RECORDS SUMMARY | 2024-12-07 18:31 | XMS_ITS | Encounter Summary ---
Author Name [facility] Organization [facility] [facility] [place] Address [address] [place] [address] Care Team Providers Care Anatomical Embalmer Name Role Phone ANGELINE GARCIA Primary Care Provider Unavailabl e Insurance [...] Name Patient's Relationship to Policy Mary [place] EXCLUSIVE PROVIDER ORGANIZAT [facility]IMI [facility] H Jul 06, 2019 [id number] [phone] MIHIR OWEN PATIENT [employer]ARK (INGENIO RX) PRESCRIPT ION RX PLAN Jul 06, 2019 [id number] MIHIR OWEN PATIENT [employer] [facility] MENTAL HEALTH [facility] HE[facility] HCARE Jul 06, 2016 [id number] [phone] MIHIR OWEN PATIENT MEDIMPACT RX PRESCRIPT ION MHM SUPPO RT SERVI IJEOMA Jul 06, 2019 [id number] [phone] MIHIR OWEN PATIENT [facility] MENTAL HE[facility] [place] GORAN KAUR NGE May 06, 2024 ILONEX [id number] [phone] MIHIR OWEN PATIENT Selected Encounter This section includes the information on record at [place] for the Encounter. Date/Time Encounter Type Encounter Description Reason Provider Source December 02, 2024 10:47 AM NQHP OL DIG ASSMT&MGMT 5-10 CLINICAL PHARMACY ICD-10-CM M79.2 Neuralgia and neuritis, unspecified KARSON CALL [facility] Encounter Template Text not used by [place] Assessments - Encounter Diagnoses This section includes the primary and secondary diagnoses documented for the Encounter. Date/Time Primary/Secondary Diagnosis Diagnosis Name Provider Source December 02, 2024 10:57 AM PRIMARY Neuralgia and neuritis, unspecified K[facility]SON CALL [facility] Plan of Treatment: Future Appointments (+ 6 months) and Future Tests (+/- 45 days) The Plan of Treatment section includes future care activities for the patient from all [place] treatmentfacilities. This section includes future appointments and future orders which are active, pending or scheduled. Future Appointments This section includes appointments that were scheduled to occur 6 months from the date of the Encounter, up to a maximum of 20 appointments. The data comes from all [place] treatment facilities. Appointment Date/Time Appointment Type Appointme nt Facility Name Dec 05, 2024 09:15 AM AMBULATORY - MEDICINE [facility] Dec 08, 2024 09:40 AM AMBULATORY - SURGERY [facility] Jan 05, 2025 08:00 AM AMBULATORY - MEDICINE [facility] Jan 19, 2025 01:00 PM AMBULATORY - NONE [facility] Feb 06, 2025 08:00 AM AMBULATORY - PSYCHIATRY [facility] Mar 07, 2025 03:30 PM AMBULATORY - REHAB [facility] Social History: Smoking Status (Most current) and Tobacco Use (All prior to encounter date) This section includes the most current, and the historical, smoking and tobacco- related health factors from the [facility] facility where the Encounter took place. Current Smoking Status This section includes the most current smoking, or tobacco-related health factor, from the [place] facility where the Encounter took place. Date/Time Current Smoking Status Comment Romelia avery November 11, 2017 01:35 AM QUIT TOBACCO >7 YEARS AGO [facility] Tobacco Use History This section includes a history of the smoking, or tobacco-related health factors, that were collected on or before the date of the Encounter. The data comes from the [place] facility where the Encounter took place. Date/Time Smoking Status/Tobacco Use Comment F acility Dec 13, 2015 09:47 AM QUIT TOBACCO >7 YEARS AGO [facility] Mar 01, 2015 10:15 AM QUIT TOBACCO >7 YEARS AGO [facility] Oct 24, 2011 09:33 AM QUIT TOBACCO >7 YEARS AGO [facility] Aug 07, 2000 12:59 PM CURRENT NON-TOBACC O USER-HX OF USE quit 3 yrs. ago. [facility] Jun 04, 2000 08:44 AM CURRENT NON-TOBACC O USER-HX OF USE STOPPED 3 YEARS AGO [facility] Mar 05, 2000 08:49 AM CURRENT NON-TOBACC O USER-HX OF USE QUIT 3 YEARS AGO. [facility] Jun 24, 1999 10:05 AM PREVIOUS SMOKER Severity= MINIMAL [facility] Advance Directives: All historical and current Section Date Range: From patient's date of to the date document was created. This section includes ALL of a patient's completed or amended [place] Advance and Rescinded Directives. The entries below indicate that a directive exists for the patient, but an actual copy is not included with this document. The data comes from all [facility]. Date Advance Directives Provider Source Aug 15, 1997 ADVANCE DIRECTIVE [facility] Encounter Notes: All associated encounter notes This section contains the clinical notes associated to the Encounter. Date/Time Encounter Note(s) Provider Source December 02, 2024 10:51 AM PHARMACY CONSULT: LOCAL TITLE: PHARMACY PRIOR APPROVAL CONSULT [facility] STANDARD TITLE: PHARMACY CONSULT DATE OF NOTE: DECEMBER 02, 2024@10:51 ENTRY DATE: DECEMBER 02, 2024@10:51:26 AUTHOR: KARSON CALL COSIGNER: URGENCY: STATUS: COMPLETED The medical record has been reviewed with regard to this prior authorization drug request. Medication requested: CPD-NALTREXONE 4.5MG (LOW DOSE) CAP Medication indication: neuralgia Medical history relevant to this request: New request (X) Renewal request () Medication: naltrexone Strength: 4.5 mg Si capsule qday Quantity: 30 Refills: 3 A/P: Pt is a 64 year old MALE with LLE neuropathy who has trialed formulary agents including gabapentin, pregabalin, duloxetine, and capsaicin. Will approve and process for mail. The request is approved - A documented therapeutic failure of the preferred formulary alternative(s) exists TIME REVIEWING CHART:10. (minutes) /fabien/ Karson Call PharmD, BCPS Clinical Hris Coordinator - Pain Management Signed: 12/02/2024 10:58 [facility] CALL [facility]
--- OUTSIDE RECORDS SUMMARY | 2024-12-07 18:31 | XMS_ITS | Encounter Summary ---
Author Organization [facility] Facility Care Team Providers Care Advertising Copywriter Name Role Phone Hope Mauro MD Unavailable [phone] Francoise Cruz OT Unavailable + [phone] Jayshree Salinas OT Unavailable [phone] Barry Mcmillan DPT Unavailable Unavail able Nitin Martinez ANTIQUER Unavailable + Miguelito Bergeron MD Primary Care Provider + [phone] Marian Myrick ANTIQUER Unavailable + Sheryl Hightower MD Primary Care [...] Bren Lopez MD Primary Care Provider [phone] Encounter Details Date Type Department Care Team (Latest Contact Info) Description 04/12/2018 Orders Only MMG CLINCONV Provider, MD James [address] [place] [address] Social History Tobacco Use Types Packs/Day Years Used Date Smoking Tobacco: Former Smokeless Tobacco: Former Comments:quit 1999 Alcohol Use Standard Drinks/Week Comments Not Asked 0 (1 standard drink = 0.6 oz pur e alcohol) quit 2003 Sex and Gender Information Value Date Recorded Sex Assigned at Not on file 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 Historical Provider CV CARDIAC SERVICES [facility] Final Result documented in this encounter Visit Diagnoses Not on filedocumented in this encounter Care Teams Advertising Copywriter Relationship Specialty Start Date End Date Miguelito Bergeron MD [address] [facility] [address] [place] [address] PCP - General 02/13/18 05/11/18 Sheryl Hightower MD [address] [address] PCP - General Internal Medicine 05/12/18 08/12/18 Sabrina Meade PA [facility] [address] PCP - General 10/04/18 12/02/18 Bren Lopez MD [address] [place] [address] PCP - General 12/03/18 12/06/18 Sabrina Meade PA [address] [place] [address] PCP - General 12/07/18 01/13/19 Bren Lopez MD [address] [place] [address] PCP - General 01/14/19 04/19/19 Sabrina Meade PA [address] [place] [address] PCP - General Internal Medicine 04/20/19 04/21/19 Bren Lopez MD [address] [place] [address] PCP - General 08/13/18 10/03/18 Bren Lopez MD [address] [place] [address] PCP - General 04/22/19 Hope Mauro MD Consulting Physician Trauma Surgery 12/17/17 Francoise Cruz, OT [address] [address] Occupational Therapist Occupational Therapy 12/18/17 Jayshree Salinas OT [address] [facility] [address] [place] [address] Occupational Therapist Occupational Therapy 12/18/17 Barry Mcmillan, DPT Physical Therapist Physical Therapy 01/18/18 06/29/18 Nitin Martinez, ANTIQUER [address] [place] [address] Blueprint Tracer Physical Therapy 01/22/18 08/17/18 Marian Myrick, ANTIQUER [facility] [facility] [address] [place] [address] Blueprint Tracer Physical Therapy 02/19/18 08/17/18 Lynsey Chavez DPT [address] [facility] [address] [place] [address] Physical Therapist Physical Therapy 06/30/18 08/17/18 Sultan Cristo Flores MD [address] [facility] [address] [address] Safety Investigator Cardiology 03/02/19 documented as of this encounter
--- OUTSIDE RECORDS SUMMARY | 2024-12-07 18:31 | XMS_ITS | Encounter Summary ---
Author Organization [facility] Care Team Providers Care [employer] Principal Name Role Phone Hope Mauro MD Unavailable [phone] Francoise Cruz OT Unavailable + [phone] Jayshree Salinas OT Unavailable [phone] Barry Mcmillan DPT Unavailable Unavail able Nitin Martinez BONDED STRUCTURES REPAIRER Unavailable + Miguelito Bergeron MD Primary Care Provider + [phone] Marian Myrick BONDED STRUCTURES REPAIRER Unavailable + Sheryl Hightower MD Primary Care [...] Bren Lopez MD Primary Care Provider [phone] Encounter Details Date Type Department Care Team (Latest Contact Info) Description 03/30/2018 Orders Only MMG CLINCONV Provider, MD James [address] [place] [address] Social History Tobacco Use Types Packs/Day Years Used Date Smoking Tobacco: Former Smokeless Tobacco: Former Comments:quit 1999 Alcohol Use Standard Drinks/Week Comments Not Asked 0 (1 standard drink = 0.6 oz pur e alcohol) quit 2003 Sex and Gender Information Value Date Recorded Sex Assigned at Not on file 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 Historical Provider CV CARDIAC SERVICES [facility] Final Result documented in this encounter Visit Diagnoses Not on filedocumented in this encounter Care Teams [employer] Principal Relationship Specialty Start Date End Date Miguelito Bergeron MD [address] [facility] [address] [place] [address] PCP - General 02/13/18 05/11/18 Sheryl Hightower MD [address] [address] PCP - General Internal Medicine 05/12/18 08/12/18 Sabrina Meade PA [facility] [address] [address] PCP - General 10/04/18 12/02/18 Bren Lopez MD [address] [place] [address] PCP - General 12/03/18 12/06/18 Sabrina Meade PA [address] [place] [address] PCP - General 12/07/18 01/13/19 Bren Lopez MD [address] [place] [address] PCP - General 01/14/19 04/19/19 Sabrina Meade PA [address] [place] [address] PCP - General Internal Medicine 04/20/19 04/21/19 Bren Lopez MD [address] [place] [address] PCP - General 08/13/18 10/03/18 Bren Lopez MD [address] [place] [address] PCP - General 04/22/19 Hope Mauro MD Consulting Physician Trauma Surgery 12/17/17 Francoise Cruz, OT [address] [address] Occupational Therapist Occupational Therapy 12/18/17 Jayshree Salinas OT [address] [facility] [address] [place] [address] Occupational Therapist Occupational Therapy 12/18/17 Barry Mcmillan, DPT Physical Therapist Physical Therapy 01/18/18 06/29/18 Nitin Martinez, BONDED STRUCTURES REPAIRER [address] [place] [address] Dolly Driver Physical Therapy 01/22/18 08/17/18 Marian Myrick, BONDED STRUCTURES REPAIRER [address] [facility] [address] [place] [address] Dolly Driver Physical Therapy 02/19/18 08/17/18 Lynsey Chavez DPT [address] [facility] [address] [place] [address] Physical Therapist Physical Therapy 06/30/18 08/17/18 Sultan Cristo Flores MD [address] [facility] [address] [address] Community Sports Coordinator Cardiology 03/02/19 documented as of this encounter
--- OUTSIDE RECORDS SUMMARY | 2024-12-07 18:31 | XMS_ITS | Clinical Summary ---
Author Organization [facility] al Address [address] [place] [address] Care Team Providers Care Grave Digger Name Role Phone Hope Mauro MD Unavailable [phone] Francoise Cruz OT Unavailable [phone] Sultan Cristo Flores MD Unavailable [phone] Bren Lopez MD Primary Care Provider [phone] Allergies Active Allergy Reactions Criticality Noted Date Comments Adhesive Tape-Silicones Blisters High 11/15/2015 Surgical tape causes blisters Sulfamethoxazole-Trimet hoprim Rash Medium 09/07/2018 Lisinopril Cough Low 09/07/2018 Penicillin G Sodium Unknown 10/21/2018 Penicillins Anaphylaxis,Swelling High 11/15/2015 Medications amLODIPine (NORVASC) 5 mg tabletIndication s:hypertension Take 5 mg by mouth daily. Active finasteride (PROSCAR) 5 mg tabletIndication s:benign prostatic hyperplasia with lower urinary tract sx Take 5 mg by mouth daily. Active busPIRone (BUSPAR) 30 mg tablet Take 30 mg by mouth. Active diclofenac sodium (VOLTAREN) 1 % gel Apply 4 g topically. Active tadalafil (CIALIS) 5 mg tablet Take 5 mg by mouth. Active traZODone (DESYREL) 100 mg tabletIndication s:major depressive disorder Take 150 mg by mouth nightly Active albuterol HFA (PROVENTIL HFA,VENTOLIN HFA,PROAIR HFA) 90 mcg/actuation inhaler Inhale 2 puffs every 6 hours. Active fluticasone (FLONASE) 50 mcg/actuation nasal spray Administer 1 spray into each nostril. Active meloxicam (MOBIC) 7.5 mg tablet Take 7.5 mg by mouth. Active omeprazole (PriLOSEC) 20 mg capsule Take 20 mg by mouth. Active ARIPiprazole (ABILIFY) 5 mg tablet Take 5 mg by mouth. Active prazosin (MINIPRESS) 2 mg capsuleIndicatio ns:hypertension Take 2 mg by mouth nightly Active propranolol (INDERAL) 10 mg tablet Take 10 mg by mouth 3 times daily. Active modafinil (PROVIGIL) 100 mg tablet Take 100 mg by mouth daily. Active naproxen (NAPROSYN) 500 mg tabletIndication s:Pain Take 500 mg by mouth 2 (two) times a day as needed for pain. Indications: Pain Active aspirin 81 mg enteric coated tablet 81 mg daily Active DULoxetine DR (CYMBALTA) 60 mg capsule 60 mg 2 (two) times a day Active atenolol (TENORMIN) 25 mg tablet Take 1 tablet (25 mg total) by mouth daily 90 tablet 3 9 Active oxybutynin XL (DITROPAN-XL) 5 mg 24 hr tablet TK 1 T PO D 0 9 Active methocarbamol (ROBAXIN) 500 mg tablet TK 1 T PO QID PRN 0 9 Active phenazopyridine (PYRIDIUM) 100 mg tablet TK 1 T PO TID 0 9 Active atorvastatin (LIPITOR) 80 mg tablet Take 80 mg by mouth daily 0 Active cetirizine (ZyrTEC) 10 mg tablet Take 10 mg by mouth daily 0 Active simethicone (MYLICON) 80 mg chewable tablet Take 80 mg by mouth 0 Active ramelteon (ROZEREM) 8 mg tablet 8 mg = 1 tab, Tab, Oral, QHS PRN, 30 tab, 0 Refill(s), for sleep, Print Requisition 8 Active nitroglycerin (NITROSTAT) 0.[address] 0.4 mg under the tongue every 5 minutes as needed 0 Active melatonin tablet 3 mg = 1 tab, Tab, Oral, QHS, 30 tab, 0 Refill(s), Print Requisition 8 Active HYDROcodone-acet aminophen (NORCO) 5-325 mg per tablet Take 1 tablet by mouth every 4 (four) hours as needed 0 Active gabapentin (NEURONTIN) 300 mg capsule Take 300 mg by mouth 2 (two) times a day 8 Active Active Problems Problem Noted Date Diagnosed Date At risk for impaired ability to perform caretaki ng 09/14/2019 At risk for impaired ability to perform caretaki ng 09/14/2019 Cognitive attention deficit 09/14/2019 Impairment of balance 09/14/2019 Benign prostatic hyperplasia with incomplete bladder emptying 09/13/2019 Hx of adenomatous colonic polyps 08/16/2019 Overview (09/14/2019): Colonoscopy 08/2019: tubular adenoma, sessile serrated adenoma, and serrated polyps (4). Follow up screening colonoscopy 3 year. CHRISSY (obstructive sleep apnea) 07/15/2019 GERD (gastroesophageal reflux disease) 9 Assessment & Plan (03/16/2019 9:03 AM CDT): Controlled on omeprazole - has taken drug holiday in the past and symptoms reoccurred BMI 33.0-33.9,adult 12/28/2018 Assessment & Plan (03/16/2019 9:02 AM CDT): Recommend a diet high in fruits, vegetables, legumes and low in processed foods. Recommend regular physical activity as patient's condition allows. Discussed benefits of bmi below 30 Neural foraminal stenosis of cervical spine 12/05 Disc disease, degenerative, cervical 12/28/2018 Overview (12/28/2018): C3-C4 disc spur on CT 12/2018 Status post cardiac catheterization 10/22/2018 Assessment & Plan (03/10/2019 4:16 PM CDT): Acute non-STEMI November 2017. Went to the [facility]. Cardiac catheterization showed normal coronary arteries. Assessment & Plan (10/22/2018 1:02 PM CDT): Acute non-STEMI November 2017. Went to the [facility]. Cardiac catheterization showed normal coronary arteries. Coronary artery disease 10/21/2018 Assessment & Plan (03/10/2019 4:14 PM CDT): Acute non-STEMI November 2017. Went to the [facility]. Cardiac catheterization 11/11/2017 showed normal coronary arteries. No intervention. Assessment & Plan (10/22/2018 12:56 PM CDT): Acute non-STEMI November 2017. Went to the [facility]. Cardiac catheterization 11/11/2017 showed normal coronaries. No intervention. HLD (hyperlipidemia) 10/21/2018 Assessment & Plan (03/16/2019 9:01 AM CDT): Follow step 1 low cholesterol diet. Report if having problems with daily nausea or extreme muscle aches and weaknesses throughout the body. Monitor lipids annually or on a regular basis. Recommend to continue with current medication. - check lab Acute pain of right shoulder 10/21/2018 Assessment & Plan (10/21/2018 11:52 AM CDT): Continue naproxen. Rest and ice and be sure to do shoulder exercises to avoid frozen shoulder. Will be seen by Ortho on Thursday for further workup Hyperglycemia 09/13/2018 Assessment & Plan (03/16/2019 9:03 AM CDT): Check lab Hypertensive heart disease without heart failure 03/25/2018 Assessment & Plan (03/16/2019 8:28 AM CDT): Follow low sodium DASH Diet. Exercise regularly for CV health and weight loss. Achieve or Maintain normal BMI/Weight. Take medications as prescribed. Report if having porblems with the medication or if develops Chest pains. Monitor BP occly and record. Report if BP consistently over 160/90 or under 90/60 and dizzy and LH. BP is controlled and stable. Assessment & Plan (03/11/2019 12:35 PM CDT): Blood pressure 130/72. Salt restriction. Continue the current regimen. Assessment & Plan (10/22/2018 12:57 PM CDT): Blood pressure 140/80. Continue the amlodipine 5 mg p.o. Daily . Continue salt restriction. Bipolar affective disorder 03/15/2018 Assessment & Plan (03/16/2019 9:02 AM CDT): Condition controlled. Continue current treatment. Primary narcolepsy without cataplexy 03/15/2018 Assessment & Plan (03/11/2019 12:38 PM CDT): On Provigil. Post concussion syndrome 03/15/2018 Kidney disease 03/15/2018 Overview (10/21/2018): polynephrosis-infancy Depression with anxiety 03/15/2018 Cancer of skin 03/15/2018 Asthma 03/15/2018 Arthritis 03/15/2018 History of asthma 03/15/2018 Mood disorder 02/11/2018 Assessment & Plan (03/16/2019 9:01 AM CDT): Condition controlled. Continue current treatment. Assessment & Plan (02/11/2018 8:49 PM CDT): - Continue home abilify 5mg daily, prazosin 2mg qhs, duloxetine 60mg BID, buspar 30mg BID, trazodone 150mg qhs PRN Resolved Problems Problem Noted Date Diagnosed Date Resolved Date Status post cardiac catheterization 10/22/2018 10/22/2018 Left foot infection 10/21/2018 03/16/20 Assessment & Plan (10/21/2018 11:57 AM CDT): Continue following with dr. Saenz and Dr. Nye. Report if any changes Concussion with loss of consciousness 05/11/2018 10/21/2018 Status post myocardial infarction 03/25/2018 10/21/2018 Overview (10/19/2018): November 2017. Went to the [facility]. No significant coronary artery disease by cath. Heart disease 03/15/2018 10/21/2018 Overview (10/21/2018): Patient states catheterization was normal, had a stress heart attack HCAP (healthcare-associated pneumonia) 02/11/2018 10/21/2018 Assessment & Plan (02/13/2018 9:03 AM CDT): - Started on Aztreonam, Moxifloxocin, vancomycin - When he got to the floor, restarted on meropenem 1g q8hrs, Vanc 1500 mg q12hrs, yesterday received dose of azithro for + legionella - Monitor vitals q4hrs - Strict I+Os - Switch to PO levaquin today and d/c home Hand trauma, right, sequela 01/13/2018 10/21/2018 Immunizations Immunization Administration Dates Next Due Influenza, Quadrivalent, Spl it, Preservative Free, Intramuscular 04/17/2018 Influenza, Trivalent, IM (MDV) 05/25/2019,2013 Tdap 11/03/2017 ZOSTER Recombinant 07/15/2019,12/04/2017 Surgical History Surgery Date Site/Laterality Comments RHINOPLASTY 07/06/1996 - 07/05/1997 N/A LUMBAR FUSION 07/06/1993 - 07/05/1994 ORIF TOE FRACTURE 07/06/2010 - 07/05/2011 Right CHOLECYSTECTOMY 07/06/2015 - 07/05/2016 HIATAL HERNIA REPAIR 07/06/2016 - 07/05/2017 KNEE SURGERY FRACTURE SURGERY KNEE SURGERY Bilateral GALLBLADDER SURGERY HERNIA REPAIR URINARY SURGERY 02/03/2019 - 03/05/2019 urolift Medical History Medical History Date Comments Arthritis Asthma HTN (hypertension) PTSD (post-traumatic stress disorder) TIA (transient ischemic attack) Blood clot associated with v ein wall inflammation HLD (hyperlipidemia) CHRISSY (obstructive sleep apnea) Bipolar disease, chronic (HCC) Anxiety and depression Coronary artery disease Compartment syndrome Kidney disease HCAP (healthcare-associated pneumonia) 02/11/2018 Heart disease 03/15/2018 Patient states c atheterization was normal, had a stress heart attack Status post myocardial infarction 03/25/2018. Went to the [facility]. No significant coronary artery disease by cath. Syncope 03/25/2018 Hand trauma, right, sequela 01/13/2018 Concussion with loss of consciousness 05/11/2018 PIC line (peripherally inser donte central catheter) flush Left foot infection 10/21/2018 Depression with anxiety Family History Medical History Relation Name Comments Broken bones Father Cancer. Hx prostate cancer Father Cancer Mother Relation Name Status Comments Father Mother Social History Tobacco Use Types Packs/Day Years Used Date Smoking Tobacco: Former Cigarettes Q uit: 1996 Smokeless Tobacco: Never Comments:quit 1999 Alcohol Use Standard Drinks/Week Comments Not Currently 0 (1 standard drink = 0.6 oz pur e alcohol) quit 2003 AUDIT-C Answer Date Recorded Frequency of Alcohol Consumption Never 10/21/2018 Average Number of Drinks Not on file 019 Frequency of Binge Drinking Not on file 10/04 PHQ-2 Answer Date Recorded PHQ-2 Score 0 02/25/2019 Personal Safety Answer Date Recorded Getting School Help Needed Not on file 09/18 Sex and Gender Information Value Date Recorded Sex Assigned at Not on file 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 Gender Identity Not on file Sexual Orientation Not on file Obstetrics History Last Filed Vital Signs Vital Sign Reading Time Taken Comments Blood Pressure 161/94 04/22/2019 4:18 PM CDT Pulse 72 04/22/2019 4:18 PM CDT Temperature 36.6 C (97.8 F) 04/22/2019 4:18 PM CDT Respiratory Rate 18 11/04/2018 9:10 AM CDT Oxygen Saturation 96% 04/22/2019 4:18 PM CDT Inhaled Oxygen Concentration - - Weight 131.6 kg (290 lb 2.1 oz) 04/22/2019 4:18 PM CDT Height 198.1 cm (6' 6) 04/22/2019 4:18 PM CDT Body Mass Index 33.53 04/22/2019 4:18 PM CDT Plan of Treatment Health Maintenance Due Date Last Done Comments Hepatitis C Screening 1960 Regular Well Visit/Exam 18-64 01/25/1980 Depression Screening 03/16/2020 03/16/2019, 12/28/2018, 10/21/2018, Additional history exists Prostate Cancer Screening-PSA 12/07/2020 12/07/2018 Covid-19 Vaccine (4 - 2023-2 5 season) 2024 05/17/2021, 07/16/2020, 06/25/2020 Influenza Vaccine (Season Ended) 2025 05/06/2023, 03/26/2021, 05/25/2019, Additional history exists Colon Cancer Screening-Colonoscopy 12/28/2025 12/29/2015 DTaP/Tdap/Td Vaccine (4 - Td or Tdap) 08/28/2030 08/28/2020, 11/03/2017, 12/08/2010 Colon Cancer Screening-CT Colonography Discontinued 12/29/2015 Colon Cancer Screening-DNA Stool Discontinued 12/29/19 16 Colon Cancer Screening-FIT Discontinued 12/29/2015 Colon Cancer Screening-Sigmoidoscopy Discontinued 12/29/2015 Zoster Vaccine Completed 07/15/2019, 10/2018, 12/28/2017, Additional history exists Pneumococcal vaccine <65 Completed 12/09/2021, 09/05 Hepatitis B Screening Completed 11/07/2022 , 12/08/2011, 11/05/2011 Procedures Procedure Name Priority Date/Time Associated Diagnosis Comments PSA DIAGNOSTIC Routine 12/07/2018 8:56 AM CDT COLONOSCOPY Routine 12/29/2015 from Last 3 Months or Most Recently Relevant to Health Maintenance Results * PSA diagnostic (12/07/2018 8:56 AM CDT) [facility] PSA,TOTAL DIAGNOSTIC 0.2 0.0 - 3.9 ng/mL [facility] Comment: Method: ECLIA Values obtained by different assay methods cannot be used interchangeably. Use sequential testing to confirm baseline if assay method changed during patient monitoring. 12/07/2018 8:56 AM CDT 12/07/2018 9:49 AM CDT Narrative Resulting Agency Comment CLI us Miguelito Helton MD LAB BLOOD ORDERABLES Mare salguero Result [facility] [address] [place] [address], [facility] [phone] * COLONOSCOPY (12/29/2015) [facility] Colonoscopy Unknown us Historical Provider HEALTH MAINTENANCE Final Result from Last 3 Months or Most Recently Relevant to Health Maintenance Insurance [facility] [place] [facility] [employer] Advance Directives For more information, please contact: [phone] * Full Code (Latest Code Status on File) Date Activated Date Inactivated Comments 02/11/2018 7:10 PM 02/13/2018 3:56 PM Care Teams Grave Digger Relationship Specialty Start Date End Date Bren Lopez MD [address] [place] [address] PCP - General 04/22/19 Hope Mauro MD Consulting Physician Trauma Surgery 12/17/17 Francoise Cruz OT [address] [address] Occupational Therapist Occupational Therapy 12/18/17 Sultan Cristo Flores MD [address] [address] Potato Spotter Cardiology 03/02/19
--- OUTSIDE RECORDS SUMMARY | 2024-12-07 18:31 | XMS_ITS | Encounter Summary ---
Author Organization [facility] Facility Care Team Providers Care Ios Programmer Name Role Phone Hope Mauro MD Unavailable [phone] Francoise Cruz OT Unavailable [phone] Jayshree Salinas OT Unavailable [phone] Barry Mcmillan DPT Unavailable Unavail able Nitin Martinez QA INTERNSHIP Unavailable + Miguelito Bergeron MD Primary Care Provider + [phone] Marian Myrick QA INTERNSHIP Unavailable + Sheryl Hightower MD Primary Care [...] Bren Lopez MD Primary Care Provider [phone] Encounter Details Date Type Department Care Team (Latest Contact Info) Description 04/15/2018 Orders Only [facility] CLINCONV Provider, MD James [address] [place] [address] Social History Tobacco Use Types Packs/Day Years Used Date Smoking Tobacco: Former Smokeless Tobacco: Former Comments:quit 1999 Alcohol Use Standard Drinks/Week Comments Not Asked 0 (1 standard drink = 0.6 oz pur e alcohol) quit 2003 Sex and Gender Information Value Date Recorded Sex Assigned at Not on file 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 Historical Provider [facility] Final Result documented in this encounter Visit Diagnoses Not on filedocumented in this encounter Care Teams Ios Programmer Relationship Specialty Start Date End Date Miguelito Bergeron MD [address] [facility] [address] [place] [address] PCP - General 02/13/18 05/11/18 Sheryl Hightower MD [address] [address] PCP - General Internal Medicine 05/12/18 08/12/18 Sabrina Meade PA [facility] [address] PCP - General 10/04/18 12/02/18 Bren Lopez MD [address] [place] [address] PCP - General 12/03/18 12/06/18 Sabrina Meade PA [address] [place] [address] PCP - General 12/07/18 01/13/19 Bren Lopez MD [address] [place] [address] PCP - General 01/14/19 04/19/19 Sabrina Meade PA [address] [place] [address] PCP - General Internal Medicine 04/20/19 04/21/19 Bren Lopez MD [address] [place] [address] PCP - General 08/13/18 10/03/18 Bren Lopez MD [address] [place] [address] PCP - General 04/22/19 Hpoe Mauro MD Consulting Physician Trauma Surgery 12/17/17 Francoise Cruz, OT [address] [address] Occupational Therapist Occupational Therapy 12/18/17 Jayshree Salinas OT [address] [facility] [address] [place] [address] Occupational Therapist Occupational Therapy 12/18/17 Barry Mcmillan, DPT Physical Therapist Physical Therapy 01/18/18 06/29/18 Nitin Martinez, QA INTERNSHIP [address] [place] [address] Car Refinisher Physical Therapy 01/22/18 08/17/18 Marian Myrick, QA INTERNSHIP [address] [facility] [address] [place] [address] Car Refinisher Physical Therapy 02/19/18 08/17/18 Lynsey Chavez DPT [address] [facility] [address] [place] [address] Physical Therapist Physical Therapy 06/30/18 08/17/18 Sultan Cristo Flores MD [address] [facility] [address] [address] Athletic Director Cardiology 03/02/19 documented as of this encounter
--- OUTSIDE RECORDS SUMMARY | 2024-12-07 18:31 | XMS_ITS | Encounter Summary ---
Author Organization [facility] Facility Care Team Providers Care Adoption Services Manager Name Role Phone Miguelito Bergeron MD Primary Care Provider + [phone] Hope Mauro MD Unavailable [phone] Francoise Cruz OT Unavailable + Jayshree Salinas OT Unavailable + Diandra Easley DPT Unavailable [phone] Barry Mcmillan DPT Unavailable Unavail able Nitin Martinez LOGISTICS DIRECTOR Unavailable + No, Physician Primary Care Provider + Miguelito Bergeron MD Primary Care Provider + [phone] Marian Myrick LOGISTICS DIRECTOR Unavailable + Sheryl Hightower MD Primary Care Provider + Lynsey Chavez DPT Unavailable + Sabrina Meade Primary Care Provider + Bren Lopez MD Primary Care Provider + Sabrina Meade Primary Care Provider + Bren Lopez MD Primary Care Provider + Sultan Cristo Flores MD Unavailable [phone] Sabrina Meade Primary Care Provider [phone] Bren Lopez MD Primary Care Provider [phone] Bren Lopez MD Primary Care Provider + Encounter Details Date Type Department Care Team (Latest Contact Info) Description 2018 Orders Only [facility] CLINCONV ProviderJames MD [facility] [address] Social History Tobacco Use Types Packs/Day Years Used Date Smoking Tobacco: Former Smokeless Tobacco: Former Alcohol Use Standard Drinks/Week Comments No 0 (1 standard drink = 0.6 oz pur e alcohol) Sex and Gender Information Value Date Recorded Sex Assigned at Not on file 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 Historical Provider [facility]EL[facility] GARC[facility] Final Result documented in this encounter Visit Diagnoses Not on filedocumented in this encounter Care Teams Adoption Services Manager Relationship Specialty Start Date End Date Miguelito Bergeron MD [address] [address] PCP - General Neurology 12/02/17 02/11/18 No, Physician PCP - General 02/12/18 02/12/18 Miguelito Bergeron MD [address] [address] PCP - General 02/13/18 05/11/18 Sheryl Hightower MD [address] [address] PCP - General Internal Medicine 05/12/18 08/12/18 Sabrina Meade PA [address] [place] [address] PCP - General 10/04/18 12/02/18 Bren Lopez MD [facility] [address] PCP - General 12/03/18 12/06/18 Sabrina Meade PA [address] [place] [address] PCP - General 12/07/18 01/13/19 Bren Lopez MD [address] [place] [address] PCP - General 01/14/19 04/19/19 Sabrina Meade PA [address] [place] [address] PCP - General Internal Medicine 04/20/19 04/21/19 Bren Lopez MD [facility] [address] PCP - General 08/13/18 10/03/18 Bren Lopez MD [facility] [address] PCP - General 04/22/19 Hope Mauro MD [address] [facility] [address] [place], [place] [address] Consulting Physician Trauma Surgery 12/17/17 Francoise Cruz, OT [address] [facility] [address] [place] [address] Occupational Therapist Occupational Therapy 12/18/17 Jayshree Salinas, OT [address] [facility] [address] [place] [address] Occupational Therapist Occupational Therapy 12/18/17 Diandra Easley, DPT [address] [facility] [address] [place] [address] Physical Therapist Physical Therapy 12/28/17 03/24/18 Barry Mcmillan, DPT Physical Therapist Physical Therapy 01/18/18 06/29/18 Nitin Martinez, LOGISTICS DIRECTOR [address] [facility] [address] [place] [address] Control Analyst Physical Therapy 01/22/18 08/17/18 Marian Myrick, LOGISTICS DIRECTOR 4[address] [facility] [address] [facility] [address] [place] [address] Control Analyst Physical Therapy 02/19/18 08/17/18 Lynsey Chavez, DPT [address] [facility] [address] [place] [address] Physical Therapist Physical Therapy 06/30/18 08/17/18 Sultan Cristo Flores MD [address] [facility] [address] [place] [address] Rheostat Assembler Cardiology 03/02/19 documented as of this encounter
--- OUTSIDE RECORDS SUMMARY | 2024-12-07 18:31 | XMS_ITS | CONTINUITY OF CARE DOCUMENT ---
Author Name lupis baugh Address Unknown Organization [facility] Address [address] [place] [address] Phone [phone] Care Team Providers Care Mechanical Maintenance Name Role Phone Mahesh FERGUSON, Gamal Unavailable [phone] WILBUR FERGUSON, RUNDA Unavailable WILBUR FERGUSON, RUNDA Unavailable PROBLEMS Condition Status Date Provider Notes TIA-09/11 CAROTID NEG active ? Diego Anderson RN CHEST PAIN-05/12 CATH NEG active ? Diego Anderson RN PALPITATIONS-09/11 HOLTER SVT HR 64-161 active ? Diego Anderson RN HYPERCHOLESTEROLEMIA active ? Josr Jon MD CHEST PAIN-05/12 RT STRESS NEG completed - Georgia Aragon MD CAD-09/11 NUC NEG completed - Gamal Aragon MD Obstructive sleep apnea - On CPAP active Khadar Aragon MD Restless leg syndrome active Gamal Aragon MD ENCOUNTERS Date Type Provider Location Encounter Diag nosis - In-person encounter Office Visit Gamal Aragon MD [facility] [place] Office CHEST PAIN-05/12 RT STRESS NEGCAD-09/11 NUC NEGObstructive sleep apnea - On CPAPRestless leg syndrome - In-person encounter Office Visit Josr Jon MD [facility] TIA-09/11 CAROTID NEGCHEST PAIN-05/12 CATH NEGPALPITATIONS-09/11 HOLTER SVT HR 64-161HYPERCHOLESTEROL EMIA VITAL SIGNS Date Observation Value Provider blood pressure, diastolic, left arm 70 mm [Hg] Pau Agudelo blood pressure, systolic, left arm 132 mm [Hg] Pau Agudelo blood pressure, diastolic, right arm 80 m m[Hg] Pau Agudelo blood pressure, systolic, right arm 130 m m[Hg] Pau Agudelo blood pressure, diastolic 82 mm[Hg] José Agudelo blood pressure, systolic 130 mm[Hg] America Agudleo pulse rate 76 /min Pau Agudelo oxygen saturation, oximetry 97 % Pau Agudelo respiratory rate E&M 18 /min Pau Agudelo Body Mass Index (Ratio) 32.95 kg/m2 Eleazar Garzonby weight E&M 285.2 [lb_av] Pau Agudelo height E&M 78 [in_i] Pau Garzonby blood pressure, diastolic 86 mm[Hg] Jimbo Anderson RN blood pressure, systolic 138 mm[Hg] Diego Anderson RN pulse rate 96 /min Diego Anderson RN oxygen saturation, oximetry 98 % Diego Anderson RN respiratory rate E&M 16 /min Diego tejeda RN weight E&M 246 [lb_av] Diego Anderson RN HISTORY OF MEDICATION USE Medication Status Instructions Dates Provider Indications Com ments PROPANOLOL active one tablet by mouth once daily Pau Garzonby ATORVASTATIN CALCIUM 80 MG ORAL TABLET active one tablet by mouth once daily Pau Garzonby NEXIUM 20 MG active one tablet twice daily Pau Erie HYDROCHLOROTHIAZIDE 12.5 MG ORAL TABLET active one tablet by mouth once daily Pau Garzonby VITAMIN D 3 5000 IU active one tablet b y mouth once daily Pau Garzonby B-12 2500 MCG ORAL TABLET active one tablet by mouth once daily Pau Erie CALCIUM 600 MG active twice daily Pau Jammie CIALIS 5 MG ORAL TABLET active one tablet by mouth once daily Pau Jammie TRAZODONE HCL 100 MG ORAL TABLET active 1-2 at night Pau Garzonby METOPROLOL TARTRATE 25 MG ORAL TABLET active 1.5 Tablet Twice Daily Gamal Aragon MD FINASTERIDE 5 MG ORAL TABLET active once daily Pau Garzonby ASPIRIN 81 MG ORAL TABLET active ONE TAB. DAILY Diego Anderson RN PREVACID 30 MG ORAL CAPSULE DELAYED RELEASE completed ONE TAB. DAILY - Pau Garzonby CYMBALTA 60 MG CPEP (DULOXETINE HCL CPEP) active twice daily Pau Agudelo MIRAPEX 0.25 MG ORAL TABLET active twice daily Pau GARZONPAR TABS 150 MG (BUSPIRONE HCL TABS) active twice daily Pau Agudelo LISINOPRIL 10 MG ORAL TABLET completed ONE TAB. DAILY - Pau Garzonby SOCIAL HISTORY Date Observation Value Provider physical exercise, frequency, days per week yes Gamal Aragon MD alcohol use, average drinks per day none Gamal Aragon MD caffeine use, averag e drinks per day yes Gamal Aragon MD smoking/tobacco cess ation, patient education and counseling yes Gamal Aragon MD smoking status Current every day smoker M venkta Aragon MD social history reviewed E&M revi mercedesed - no changes required Gamal Aragon MD number of grandchildren Gamal Agudelo social history E&M Marital Statu s: L ayaz with family/friends E thnicity: CaucasianMarital Status: L ayaz with family/friends E thnicity: Josr Jon MD caffeine use, averag e drinks per day yes Diego Anderson RN alcohol use, average drinks per day no Diego Anderson RN smoking status Non-Smoker Diego Anderson RN social history reviewed E&M reviewed Diego Anderson RN physical exercise, frequency, days per week yes [employer] caffeine use, averag e drinks per day yes [employer] alcohol use, average drinks per day none [employer] smoking status Non-smoker [employer] FUNCTIONAL STATUS Date Observation Value Provider HRA, CV Assess/Plan, Angina (inactive) Management Plan continue current therapy Gamal Aragon MD MENTAL STATUS Date Observation Value Provider assessment of judgme nt and insight E&M Alert and oriented to time, place and person. Mood and affect are normal. Diego Anderson RN INSURANCE PROVIDERS Payer name Policy type / Coverage type Karan red democrat ID [facility] [id number] TREATMENT PLAN Date Name Performer Cardiology:On Statin . Gamal Aragon MD Cardiology:Previous cath and stress test were negative. Will obtain further information from last hospital admission. Gamal Aragon MD Cardiology:Blood pressure contro l is satisfactory. Gamal Aragon MD Cardiology:On medications and sy mptoms controlled. Gamal Aragon MD Cardiology:Compliant. Gamal miranda MD Cardiology:He compla in of fluttering in his chest which last for 30-40 seconds. Not associated with any symptoms and is on sudden onset which resolves spontaneously. He had an episode of AFIB while as an inpatient. Will give him tele monitor and increase his Metoprolol to 25mg 1.5 tablets twice daily. Gamal Aragon MD chest pain: B P today: 138/86 Prior BP: / () Josr Jon MD chest pain: H is updated medication list for this problem includes: Lisinopril 10 Mg Tabs (Lisinopril) ..... One tab. daily Buspar Tabs (Buspirone hcl tabs) ..... 2.5mg twice daily Aspirin 81 Mg Tabs (Aspirin) ..... One tab. daily BP today: 138/86 Prior BP: / () oJsr Jon MD chest pain: H is updated medication list for this problem includes: Lisinopril 10 Mg Tabs (Lisinopril) ..... One tab. daily Aspirin 81 Mg Tabs (Aspirin) ..... One tab. daily BP today: 138/86 Prior BP: / () Orders: E KG (CPT-[id number]) S tress Test - Nuclear (42974) Josr Jon MD chest pain: H is updated medication list for this problem includes: Aspirin 81 Mg Tabs (Aspirin) ..... One tab. daily Orders: C arotid Duplex Bilateral (CPT-[id number]) Josr Jon MD Date Name Mobile Cardiac Tele Carotid Duplex Bilat eral Holter Monitor 24 Hr Stress Test - Nuclea r Complete Echo HISTORY OF PROCEDURES Procedure Date Procedure Name Provider Procedure Notes S tatus SNOMED-CT: 713532173 Smoking Cessation Counseling Gamal Aragon MD completed SNOMED-CT: 10335603 Physical Exam, Performed: Pulse Exam of Foot Gamal Aragon MD completed EKG Gamal Aragon MD complet ed SNOMED-CT: 331196910 498447 Current Medications Documented Gamal Aragon MD completed EKG Josr Jon MD completed
--- OUTSIDE RECORDS SUMMARY | 2024-12-07 18:31 | XMS_ITS | Encounter Summary ---
Author Organization [facility] Facility Care Team Providers Care Front End Specialist Name Role Phone Hope Mauro MD Unavailable [phone] Francoise Cruz OT Unavailable + [phone] Jayshree Salinas OT Unavailable [phone] Barry Mcmillan DPT Unavailable Unavail able Nitin Martinez POWER PLANT OPERATOR Unavailable + Miguelito Bergeron MD Primary Care Provider [phone] Marian Myrick POWER PLANT OPERATOR Unavailable + Sheryl Hightower MD Primary [...] Bren Lopez MD Primary Care Provider [phone] Encounter Details Date Type Department Care Team (Latest Contact Info) Description 04/07/2018 Orders Only MMG CLINCONV Provider, MD James [address] [place] [address] Social History Tobacco Use Types Packs/Day Years Used Date Smoking Tobacco: Former Smokeless Tobacco: Former Comments:quit 1999 Alcohol Use Standard Drinks/Week Comments Not Asked 0 (1 standard drink = 0.6 oz pur e alcohol) quit 2003 Sex and Gender Information Value Date Recorded Sex Assigned at Not on file 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 Historical Provider [facility] RAD[facility] Final Result documented in this encounter Visit Diagnoses Not on filedocumented in this encounter Care Teams Front End Specialist Relationship Specialty Start Date End Date Miguelito Bergeron MD [address] [facility] [address] [place] [address] PCP - General 02/13/18 05/11/18 Sheryl Hightower MD [address] [address] PCP - General Internal Medicine 05/12/18 08/12/18 Sabrina Meade PA [facility] [address] PCP - General 10/04/18 12/02/18 Bren Lopez MD [address] [place] [address] PCP - General 12/03/18 12/06/18 Sabrina Meade PA [address] [place] [address] PCP - General 12/07/18 01/13/19 Bren Lopez MD [address] [place] [address] PCP - General 01/14/19 04/19/19 Sabrina Meade PA [address] [place] [address] PCP - General Internal Medicine 04/20/19 04/21/19 Bren Lopez MD [address] [place] [address] PCP - General 08/13/18 10/03/18 Bren Lopez MD [address] [place] [address] PCP - General 04/22/19 Hope Mauro MD Consulting Physician Trauma Surgery 12/17/17 Francoise Cruz, OT [address] [address] Occupational Therapist Occupational Therapy 12/18/17 Jayshree Salinas OT [address] [facility] [address] [place] [address] Occupational Therapist Occupational Therapy 12/18/17 Barry Mcmillan, DPT Physical Therapist Physical Therapy 01/18/18 06/29/18 Nitin Martinez, POWER PLANT OPERATOR [address] [place] [address] Client Services Assistant Physical Therapy 01/22/18 08/17/18 Marian Myrick, POWER PLANT OPERATOR [address] [facility] [address] [place] [address] Client Services Assistant Physical Therapy 02/19/18 08/17/18 Lynsey Chavez DPT [address] [facility] [address] [place] [address] Physical Therapist Physical Therapy 06/30/18 08/17/18 Sultan Cristo Flores MD [address] [facility] [address] [address] Deputy Brand Inspector Cardiology 03/02/19 documented as of this encounter
--- OUTSIDE RECORDS SUMMARY | 2024-12-07 18:31 | XMS_ITS | Encounter Summary ---
Author Organization [facility] Facility Care Team Providers Care Entry Level Lab Technician Name Role Phone Hope Mauro MD Unavailable [phone] Francoise Cruz OT Unavailable + [phone] Jayshree Salinas OT Unavailable [phone] Barry Mcmillan DPT Unavailable Unavail able Nitin Martinez JET OPERATOR Unavailable + Miguelito Bergeron MD Primary Care Provider [phone] Marian Myrick JET OPERATOR Unavailable + Sheryl Hightower MD Primary [...] Bren Lopez MD Primary Care Provider [phone] Encounter Details Date Type Department Care Team (Latest Contact Info) Description 04/19/2018 Orders Only MMG CLINCONV Provider, MD James [address] [place] [address] Social History Tobacco Use Types Packs/Day Years Used Date Smoking Tobacco: Former Smokeless Tobacco: Former Comments:quit 1999 Alcohol Use Standard Drinks/Week Comments Not Asked 0 (1 standard drink = 0.6 oz pur e alcohol) quit 2003 Sex and Gender Information Value Date Recorded Sex Assigned at Not on file 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 Historical Provider CV [facility] RADHA Final Result documented in this encounter Visit Diagnoses Not on filedocumented in this encounter Care Teams Entry Level Lab Technician Relationship Specialty Start Date End Date Miguelito Bergeron MD [address] [facility] [address] [place] [address] PCP - General 02/13/18 05/11/18 Sheryl Hightower MD [address] [address] PCP - General Internal Medicine 05/12/18 08/12/18 Sabrina Meade PA [facility] [address] PCP - General 10/04/18 12/02/18 Bren Lopez MD [address] [place] [address] PCP - General 12/03/18 12/06/18 Sabrina Meade PA [address] [place] [address] PCP - General 12/07/18 01/13/19 Bren Lopez MD [address] [place] [address] PCP - General 01/14/19 04/19/19 Sabrina Meade PA [address] [place] [address] PCP - General Internal Medicine 04/20/19 04/21/19 Bren Lopez MD [address] [place] [address] PCP - General 08/13/18 10/03/18 Bren Lopez MD [address] [place] [address] PCP - General 04/22/19 Hope Mauro MD Consulting Physician Trauma Surgery 12/17/17 Francoise Cruz, OT [address] [address] Occupational Therapist Occupational Therapy 12/18/17 Jayshree Salinas OT [address] [facility] [address] [place] [address] Occupational Therapist Occupational Therapy 12/18/17 Barry Mcmillan, DPT Physical Therapist Physical Therapy 01/18/18 06/29/18 Nitin Martinez, JET OPERATOR [address] [place] [address] Inspector Advanced Composite Physical Therapy 01/22/18 08/17/18 Marian Myrick, JET OPERATOR [address] [facility] [address] [place] [address] Inspector Advanced Composite Physical Therapy 02/19/18 08/17/18 Lynsey Chavez DPT [address] [facility] [address] [place] [address] Physical Therapist Physical Therapy 06/30/18 08/17/18 Sultan Cristo Flores MD [address] [facility] [address] [address] Development Analyst Cardiology 03/02/19 documented as of this encounter
--- OUTSIDE RECORDS SUMMARY | 2024-12-07 18:31 | XMS_ITS | Encounter Summary ---
Author Organization [facility] Facility Care Team Providers Care Welding Production Supervisor Name Role Phone Hope Mauro MD Unavailable [phone] Francoise Cruz OT Unavailable + [phone] Jayshree Salinas OT Unavailable [phone] Barry Mcmillan DPT Unavailable Unavail able Nitin Martinez FORENSIC MATERIALS ENGINEER Unavailable + Miguelito Bergeron MD Primary Care Provider [phone] Marina Myrick FORENSIC MATERIALS ENGINEER Unavailable + Sheryl Hightower MD Primary [...] Bren Lopez MD Primary Care Provider [phone] Encounter Details Date Type Department Care Team (Latest Contact Info) Description 04/10/2018 Orders Only MMG CLINCONV Provider, MD James [address] [place] [address] Social History Tobacco Use Types Packs/Day Years Used Date Smoking Tobacco: Former Smokeless Tobacco: Former Comments:quit 1999 Alcohol Use Standard Drinks/Week Comments Not Asked 0 (1 standard drink = 0.6 oz pur e alcohol) quit 2003 Sex and Gender Information Value Date Recorded Sex Assigned at Not on file 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 Historical Provider CV [facility] RADHA Final Result documented in this encounter Visit Diagnoses Not on filedocumented in this encounter Care Teams Welding Production Supervisor Relationship Specialty Start Date End Date Miguelito Bergeron MD [address] [facility] [address] [place] [address] PCP - General 02/13/18 05/11/18 Sheryl Hightower MD [address] [address] PCP - General Internal Medicine 05/12/18 08/12/18 Sabrina Meade PA [facility] [address] PCP - General 10/04/18 12/02/18 Bren Lopez MD [address] [place] [address] PCP - General 12/03/18 12/06/18 Sabrina Meade PA [address] [place] [address] PCP - General 12/07/18 01/13/19 Bren Lopez MD [address] [place] [address] PCP - General 01/14/19 04/19/19 Sabrina Meade PA [address] [place] [address] PCP - General Internal Medicine 04/20/19 04/21/19 Bren Lopez MD [address] [place] [address] PCP - General 08/13/18 10/03/18 Bren Lopez MD [address] [place] [address] PCP - General 04/22/19 Hope Mauro MD Consulting Physician Trauma Surgery 12/17/17 Francoise Cruz, OT [address] [address] Occupational Therapist Occupational Therapy 12/18/17 Jayshree Salinas OT [address] [facility] [address] [place] [address] Occupational Therapist Occupational Therapy 12/18/17 Barry Mcmillan, DPT Physical Therapist Physical Therapy 01/18/18 06/29/18 Nitin Martinez, FORENSIC MATERIALS ENGINEER [address] [place] [address] Manager Of Application Development Physical Therapy 01/22/18 08/17/18 Marian Myrick, FORENSIC MATERIALS ENGINEER [address] [facility] [address] [place] [address] Manager Of Application Development Physical Therapy 02/19/18 08/17/18 Lynsey Chavez DPT [address] [facility] [address] [place] [address] Physical Therapist Physical Therapy 06/30/18 08/17/18 Sultan Cristo Flores MD [address] [facility] [address] [address] Automatic Washer Mechanic Cardiology 03/02/19 documented as of this encounter
--- OUTSIDE RECORDS SUMMARY | 2024-12-07 18:31 | XMS_ITS | Referral Summary ---
Author Organization [facility] al Address [address] [place] [address] Care Team Providers Care Follow Up Rep Name Role Phone Hope Mauro MD Unavailable [phone] Francoise Cruz OT Unavailable [phone] Sultan Cristo Flores MD Unavailable [phone] Bren Lopez MD Primary Care Provider [phone] Allergies Active Allergy Reactions Criticality Noted Date [...] Acute non-STEMI November 2017. Went to the [facility]. Cardiac catheterization showed normal coronary arteries. Assessment & Plan (10/22/2018 1:02 PM CDT): Acute non-STEMI November 2017. Went to the [facility]. Cardiac catheterization showed normal coronary arteries. Coronary artery disease 10/21/2018 Assessment & Plan (03/10/2019 4:14 PM CDT): Acute non-STEMI November 2017. Went to the [facility]. Cardiac catheterization 11/11/2017 showed normal coronary arteries. No intervention. Assessment & Plan (10/22/2018 12:56 PM CDT): Acute non-STEMI November 2017. Went to the [facility]. Cardiac catheterization 11/11/2017 showed normal coronaries. No [...] Overview (10/19/2018): November 2017. Went to the [facility]. No significant coronary artery disease by cath. 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 Gender Identity Not on file Sexual Orientation Not on file Last Filed Vital Signs Vital Sign Reading [...] 04/22/2019 4:18 PM CDT Plan of Treatment Not on file Procedures Procedure Name Priority Date/Time Associated Diagnosis Comments PSA DIAGNOSTIC Routine 12/07/2018 8:56 AM CDT HM COLONOSCOPY Routine 12/29/2015 from Last 3 Months or Most Recently Relevant to Health Maintenance Results * PSA diagnostic (12/07/2018 8:56 AM CDT) PSA,TOTAL DIAGNOSTIC 0.2 0.0 - 3.9 ng/mL [facility] Comment: Method: ECLIA Values obtained by different assay methods cannot be used interchangeably. Use sequential testing to confirm baseline if assay method changed during patient monitoring. 12/07/2018 8:56 AM CDT 12/07/2018 9:49 AM CDT Narrative Resulting Agency Comment CLI Miguelito Helton MD LAB BLOOD ORDERABLES Mare salguero Result [facility] [address] [phone] * COLONOSCOPY (12/29/2015) HM Colonoscopy Unknown James Provider HEALTH MAINTENANCE Final Result from Last 3 Months or Most Recently Relevant to Health Maintenance Insurance [employer] Address: [facility] [id number] [place] [address] [employer] Address: [facility] [address] [place] [address] [employer] DIS[employer] Advance Directives For more information, please contact: [phone] * Full Code (Latest Code Status on File) Date Activated Date Inactivated Comments 02/11/2018 7:10 PM 02/13/2018 3:56 PM Care Teams Follow Up Rep Relationship Specialty Start Date End Date Bren Lopez MD [address] [place] [address] PCP - General 04/22/19 Hope Mauro MD Consulting Physician Trauma Surgery 12/17/17 Francoise Cruz OT [address] [address] Occupational Therapist Occupational Therapy 12/18/17 Sultan Cristo Flores MD [address] [facility] [address] [address] Construction Quality Control Manager Cardiology 03/02/19
--- OUTSIDE RECORDS SUMMARY | 2024-12-07 18:31 | XMS_ITS | Encounter Summary ---
Author Organization [facility] Facility Care Team Providers Care Cement Truck Driver Name Role Phone Hope Mauro MD Unavailable [phone] Francoise Cruz OT Unavailable + [phone] Jayshree Salinas OT Unavailable +[phone] Barry Mcmillan DPT Unavailable Unavail able Nitin Martinez MIXER WHIPPED TOPPING Unavailable + Miguelito Bergeron MD Primary Care Provider + [phone] Marian Myrick MIXER WHIPPED TOPPING Unavailable + Sheryl Hightower MD Primary Care [...] Bren Lopez MD Primary Care Provider [phone] Encounter Details Date Type Department Care Team (Latest Contact Info) Description 04/08/2018 Orders Only [facility] CLINCONV Provider, MD James [address] [place] [address] Social History Tobacco Use Types Packs/Day Years Used Date Smoking Tobacco: Former Smokeless Tobacco: Former Comments:quit 1999 Alcohol Use Standard Drinks/Week Comments Not Asked 0 (1 standard drink = 0.6 oz pur e alcohol) quit 2003 Sex and Gender Information Value Date Recorded Sex Assigned at Not on file 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 Historical Provider [facility] RADHA Final Result documented in this encounter Visit Diagnoses Not on filedocumented in this encounter Care Teams Cement Truck Driver Relationship Specialty Start Date End Date Miguelito Bergeron MD 300[address] [facility] [address] [place] [address] PCP - General 02/13/18 05/11/18 Sheryl Hightower MD [address] [address] PCP - General Internal Medicine 05/12/18 08/12/18 Sabrina Meade PA [facility] [address] PCP - General 10/04/18 12/02/18 Bren Lopez MD [address] [place] [address] PCP - General 12/03/18 12/06/18 Sabrina Meade PA [address] [place] [address] PCP - General 12/07/18 01/13/19 Bren Lopez MD [address] [place] [address] PCP - General 01/14/19 04/19/19 Sabrina Meade PA [address] [place] [address] PCP - General Internal Medicine 04/20/19 04/21/19 Bren Lopez MD [address] [place] [address] PCP - General 08/13/18 10/03/18 Bren Lopez MD [address] [place] [address] PCP - General 04/22/19 Hope Mauro MD Consulting Physician Trauma Surgery 12/17/17 Francoise Cruz, OT [address] [address] Occupational Therapist Occupational Therapy 12/18/17 Jayshree Salinas OT [address] [facility] [address] [place] [address] Occupational Therapist Occupational Therapy 12/18/17 Barry Mcmillan, DPT Physical Therapist Physical Therapy 01/18/18 06/29/18 Nitin Martinez, MIXER WHIPPED TOPPING [address] [place] [address] Grain Elevator Agent Physical Therapy 01/22/18 08/17/18 Marian Myrick, MIXER WHIPPED TOPPING [facility] [facility] [address] [place] [address] Grain Elevator Agent Physical Therapy 02/19/18 08/17/18 Lynsey Chavez DPT [address] [facility] [address] [place] [address] Physical Therapist Physical Therapy 06/30/18 08/17/18 Sultan Cristo Flores MD [address] [facility] [address] [address] Classics Professor Cardiology 03/02/19 documented as of this encounter
--- OUTSIDE RECORDS SUMMARY | 2024-12-07 18:31 | XMS_ITS | Encounter Summary ---
Author Organization [facility] Facility Care Team Providers Care Multimedia Project Manager Name Role Phone Hope Mauro MD Unavailable [phone] Francoise Cruz OT Unavailable + [phone] Jayshree Salinas OT Unavailable [phone] Barry Mcmillan DPT Unavailable Unavail able Nitin Martinez INTERNET ARCHITECT Unavailable + Miguelito Bergeron MD Primary Care Provider + [phone] Marian Myrick INTERNET ARCHITECT Unavailable + Sheryl Hightower MD Primary Care [...] Bren Lopez MD Primary Care Provider [phone] Encounter Details Date Type Department Care Team (Latest Contact Info) Description 04/14/2018 Orders Only MMG CLINCONV Provider, MD James [address] [place] [address] Social History Tobacco Use Types Packs/Day Years Used Date Smoking Tobacco: Former Smokeless Tobacco: Former Comments:quit 1999 Alcohol Use Standard Drinks/Week Comments Not Asked 0 (1 standard drink = 0.6 oz pur e alcohol) quit 2003 Sex and Gender Information Value Date Recorded Sex Assigned at Not on file 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 Historical Provider CV [facility] RADHA Final Result documented in this encounter Visit Diagnoses Not on filedocumented in this encounter Care Teams Multimedia Project Manager Relationship Specialty Start Date End Date Miguelito Bergeron MD 3009 [facility] [address] [place] [address] PCP - General 02/13/18 05/11/18 Sheryl Hightower MD [address] [address] PCP - General Internal Medicine 05/12/18 08/12/18 Sabrina Meade PA [facility] [address] [address] PCP - General 10/04/18 12/02/18 Bren Lopez MD [address] [place] [address] PCP - General 12/03/18 12/06/18 Sabrina Meade PA [address] [place] [address] PCP - General 12/07/18 01/13/19 Bren Lopez MD [address] [place] [address] PCP - General 01/14/19 04/19/19 Sabrina Meade PA [address] [place] [address] PCP - General Internal Medicine 04/20/19 04/21/19 Bren Lopez MD [address] [place] [address] PCP - General 08/13/18 10/03/18 Bren Lopez MD [address] [place] [address] PCP - General 04/22/19 Hope Mauro MD Consulting Physician Trauma Surgery 12/17/17 Francoise Cruz, OT [address] [address] Occupational Therapist Occupational Therapy 12/18/17 Jayshree Salinas OT [address] [facility] [address] [place] [address] Occupational Therapist Occupational Therapy 12/18/17 Barry Mcmillan, DPT Physical Therapist Physical Therapy 01/18/18 06/29/18 Nitin Martinez, INTERNET ARCHITECT [address] [place] [address] Data Collection Interviewer Physical Therapy 01/22/18 08/17/18 Marian Myrick, INTERNET ARCHITECT [facility] [facility] [address] [place] [address] Data Collection Interviewer Physical Therapy 02/19/18 08/17/18 Lynsey Chavez DPT [address] [facility] [address] [place] [address] Physical Therapist Physical Therapy 06/30/18 08/17/18 Sultan Cristo Flores MD [address] [facility] [address] [address] Laborer Brooder Farm Cardiology 03/02/19 documented as of this encounter
--- OUTSIDE RECORDS SUMMARY | 2024-12-07 18:31 | XMS_ITS | Encounter Summary ---
Author Organization [facility] Facility Care Team Providers Care Honey Extractor Name Role Phone Hope Mauro MD Unavailable [phone] Francoise Cruz OT Unavailable + [phone] Jayshree Salinas OT Unavailable [phone] Barry Mcmillan DPT Unavailable Unavail able Nitin Martinez HIGH SCHOOL COUNSELOR Unavailable + Miguelito Bergeron MD Primary Care Provider + [phone] Marian Myrick HIGH SCHOOL COUNSELOR Unavailable + Sheryl Hightower MD Primary Care [...] Bren Lopez MD Primary Care Provider [phone] Encounter Details Date Type Department Care Team (Latest Contact Info) Description 03/28/2018 Orders Only MMG CLINCONV Provider, MD James [address] [place] [address] Social History Tobacco Use Types Packs/Day Years Used Date Smoking Tobacco: Former Smokeless Tobacco: Former Comments:quit 1999 Alcohol Use Standard Drinks/Week Comments Not Asked 0 (1 standard drink = 0.6 oz pur e alcohol) quit 2003 Sex and Gender Information Value Date Recorded Sex Assigned at Not on file 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 Historical Provider [facility] RADHA Final Result documented in this encounter Visit Diagnoses Not on filedocumented in this encounter Care Teams Honey Extractor Relationship Specialty Start Date End Date Miguelito Bergeron MD 3009 [facility] [address] [place] [address] PCP - General 02/13/18 05/11/18 Sheryl Hightower MD [address] [address] PCP - General Internal Medicine 05/12/18 08/12/18 Sabrina Meade PA [facility]8 [address] [address] PCP - General 10/04/18 12/02/18 Bren Lopez MD [address] [place] [address] PCP - General 12/03/18 12/06/18 Sabrina Meade PA [address] [place] [address] PCP - General 12/07/18 01/13/19 Bren Lopez MD [address] [place] [address] PCP - General 01/14/19 04/19/19 Sabrina Meade PA [address] [place] [address] PCP - General Internal Medicine 04/20/19 04/21/19 Bren Lopez MD [address] [place] [address] PCP - General 08/13/18 10/03/18 Bren Lopez MD [address] [place] [address] PCP - General 04/22/19 Hope Mauro MD Consulting Physician Trauma Surgery 12/17/17 Francoise Cruz, OT [address] [address] Occupational Therapist Occupational Therapy 12/18/17 Jayshree Salinas OT [address] [facility] [address] [place] [address] Occupational Therapist Occupational Therapy 12/18/17 Barry Mcmillan, DPT Physical Therapist Physical Therapy 01/18/18 06/29/18 Nitin Martinez, HIGH SCHOOL COUNSELOR [address] [place] [address] Salvation [employer] Officer Physical Therapy 01/22/18 08/17/18 Marian Myrick, HIGH SCHOOL COUNSELOR [address] [facility] [address] [place] [address] Salvation [employer] Officer Physical Therapy 02/19/18 08/17/18 Lynsey Chavez DPT [address] [facility] [address] [place] [address] Physical Therapist Physical Therapy 06/30/18 08/17/18 Sultan Cristo Flores MD [address] [facility] [address] [address] Binder Stripper Machine Cardiology 03/02/19 documented as of this encounter
--- OUTSIDE RECORDS SUMMARY | 2024-12-07 18:31 | XMS_ITS | Encounter Summary ---
Author Organization [facility] Facility Care Team Providers Care Shell Coremaker Name Role Phone Hope Mauro MD Unavailable [phone] Francoise Cruz OT Unavailable + [phone] Jayshree Salinas OT Unavailable +[phone] Barry Mcmillan DPT Unavailable Unavail able Nitin Martinez BEHAVIORAL CONSULTANT Unavailable + Miguelito Bergeron MD Primary Care Provider + [phone] Marian Myrick BEHAVIORAL CONSULTANT Unavailable + Sheryl Hightower MD Primary Care [...] Bren Lopez MD Primary Care Provider [phone] Encounter Details Date Type Department Care Team (Latest Contact Info) Description 04/26/2018 Orders Only MMG CLINCONV Provider, MD James [address] [place] [address] Social History Tobacco Use Types Packs/Day Years Used Date Smoking Tobacco: Former Smokeless Tobacco: Former Comments:quit 1999 Alcohol Use Standard Drinks/Week Comments Not Asked 0 (1 standard drink = 0.6 oz pur e alcohol) quit 2003 Sex and Gender Information Value Date Recorded Sex Assigned at Not on file 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 Historical Provider CV [facility] RADHA Final Result documented in this encounter Visit Diagnoses Not on filedocumented in this encounter Care Teams Shell Coremaker Relationship Specialty Start Date End Date Miguelito Bergeron MD 300[address] [facility] [address] [place] [address] PCP - General 02/13/18 05/11/18 Sheryl Hightower MD [address] [address] PCP - General Internal Medicine 05/12/18 08/12/18 Sabrina Meade PA [facility] [address] [address] PCP - General 10/04/18 12/02/18 Bren Lopez MD [address] [place] [address] PCP - General 12/03/18 12/06/18 Sabrina Meade PA [address] [place] [address] PCP - General 12/07/18 01/13/19 Bren Lopez MD [address] [place] [address] PCP - General 01/14/19 04/19/19 Sabrina Meade PA [address] [place] [address] PCP - General Internal Medicine 04/20/19 04/21/19 Bren Lopez MD [address] [place] [address] PCP - General 08/13/18 10/03/18 Bren Lopez MD [address] [place] [address] PCP - General 04/22/19 Hope Mauro MD Consulting Physician Trauma Surgery 12/17/17 Francoise Cruz, OT [address] [address] Occupational Therapist Occupational Therapy 12/18/17 Jayshree Salinas OT [address] [facility] [address] [place] [address] Occupational Therapist Occupational Therapy 12/18/17 Barry Mcmillan, DPT Physical Therapist Physical Therapy 01/18/18 06/29/18 Nitin Martinez, BEHAVIORAL CONSULTANT [address] [place] [address] Export Administrator Physical Therapy 01/22/18 08/17/18 Marian Myrick, BEHAVIORAL CONSULTANT [address] [facility] [address] [place] [address] Export Administrator Physical Therapy 02/19/18 08/17/18 Lynsey Chavez DPT [address] [facility] [address] [place] [address] Physical Therapist Physical Therapy 06/30/18 08/17/18 Sultan Cristo Flores MD [address] [facility] [address] [address] Taker Off Hemp Fiber Cardiology 03/02/19 documented as of this encounter
--- OUTSIDE RECORDS SUMMARY | 2024-12-07 18:31 | XMS_ITS | Encounter Summary ---
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 HCARE Jul 06, 2016 [id number] [phone] MIHIR BARNES PATIENT MEDIMPACT RX PRESCRIPT ION MHM SUPPO RT SERVI IJEOMA Jul 06, 2019 [id number] [phone] MIHIR BARNES PATIENT [facility] [place] GORAN PRINCEA NGE May 06, 2024 ILONEX [id number] [phone] MIHIR BARNES PATIENT Selected Encounter This section includes the information on record at MD for the Encounter. Date/Time Encounter Type Encounter Description Reason Provider Source Aug 24, 2024 03:28 PM OFFICE O/P EST MOD 30 MIN ENDOCRINOLOGY ICD-10-CM E66.9 Obesity, unspecified CHARISSA,MEHDIA IHE Encounter Template Text not used by MD Assessments - Encounter Diagnoses This section includes the primary and secondary diagnoses documented for the Encounter. Date/Time Primary/Secondary Diagnosis Diagnosis Name Provider Source Sep 02, 2024 10:21 AM PRIMARY Obesity, unspecified CHARISSA,MEHDIA [facility] Plan of Treatment: Future Appointments (+ 6 months) and Future Tests (+/- 45 days) The Plan of Treatment section includes future care activities for the patient from all MD treatmentfacilities. This section includes future appointments and future orders which are active, pending or scheduled. Future Appointments This section includes appointments that were scheduled to occur 6 months from the date of the Encounter, up to a maximum of 20 appointments. The data comes from all MD treatment facilities. Appointment Date/Time Appointment Type Appointme nt Facility Name Aug 29, 2024 10:30 AM AMBULATORY - REHAB MEDICIN E [facility] Sep 01, 2024 10:30 AM AMBULATORY - NONE [facility] Sep 02, 2024 10:30 AM AMBULATORY - REHAB MEDICIN E [facility] Sep 05, 2024 10:30 AM AMBULATORY - REHAB MEDICIN E [facility] Sep 06, 2024 11:30 AM AMBULATORY - NONE [facility] Sep 07, 2024 10:30 AM AMBULATORY - REHAB MEDICIN E [facility] Sep 13, 2024 02:30 PM AMBULATORY - MEDICINE [facility] Sep 29, 2024 07:30 AM AMBULATORY - SURGERY [facility] Sep 29, 2024 08:00 AM AMBULATORY - MEDICINE [facility] Oct 06, 2024 08:00 AM AMBULATORY - PSYCHIATRY [facility] Oct 24, 2024 01:00 PM AMBULATORY - NONE [facility] November 25, 2024 01:00 PM AMBULATORY - MEDICINE [facility] December 02, 2024 09:00 AM AMBULATORY - REHAB MEDICIN E [facility] Dec 05, 2024 09:15 AM AMBULATORY - MEDICINE [facility] Dec 08, 2024 09:40 AM AMBULATORY - SURGERY [facility] Jan 05, 2025 08:00 AM AMBULATORY - MEDICINE [facility] Jan 19, 2025 01:00 PM AMBULATORY - NONE [facility] Feb 06, 2025 08:00 AM AMBULATORY - PSYCHIATRY [facility] Active, Pending, and Scheduled Orders This section includes a listing of several types of active, pending, and scheduled orders, including clinic medications orders, diagnostic test orders, procedure orders and consult orders; where the start date of the order is 45 days before the date of the Encounter or 45 days after the date of theEncounter. The data comes from all MD treatment facilities. Test Date/Time Test Type Test Details Facility Name Sep 06, 2024 08:57 AM Consult Order [facility] SURGERY Cons Easement Worker's Choice [facility] Lab Results: +/- 30 days of the encounter This section includes the Chemistry and Hematology Lab Results on record with [facility] for the patient. Radiology Reports and Pathology Reports are provided separately, in subsequent sections. Lab Results This section contains the Chemistry/Hematology Results that were resulted 30 days before or 30 daysafter the date of the Encounter. Date/Time Source Result Type Result - Unit Interpretation Reference Range Specimen Type Comment Aug 03, 2024 11:01 AM [facility] B12 SERUM Specimen Type: SERUM No comment entered. Ordering Provider: ANGELINE GARCIA Report Released Date/Time: Jul 21, 2024 06:47 PM Reporting Lab: [facility] [id number] Performing Lab: [facility] [address] B12 1133 pg/mL H 213-816 Aug 03, 2024 11:01 AM [facility] HGA1C BLOOD Specimen Type: BLOOD No comment entered. Ordering Provider: ANGELINE GARCIA Report Released Date/Time: Jul 21, 2024 06:47 PM Reporting Lab: [facility] [address] Performing Lab: [facility] [address] HGA1C 5.3 4.0-6.0 Aug 03, 2024 11:01 AM [facility] FOLATE (STL-MA) SERUM Specimen Type: SERUM No comment entered. Ordering Provider: ANGELINE GARCIA Report Released Date/Time: Jul 21, 2024 06:47 PM Reporting Lab: [facility] [phone] Performing Lab: [facility] [id number] FOLATE (STL-MA) 12.6 ng/mL 7-20 Aug 03, 2024 11:01 AM [facility] TSH (MA-PB) SERUM Specimen Type: SERUM No comment entered. Ordering Provider: ANGELINE GARCIA Report Released Date/Time: Jul 21, 2024 06:47 PM Reporting Lab: [facility] [id number] Performing Lab: [facility] [address] TSH 0.754 u[IU]/mL 0.470-5.000 Aug 03, 2024 11:01 AM [facility] COMPREHENSIVE METABOLIC PANEL PLASMA Specimen Type: PLASMA Comment: No hemolysis noted. Ordering Provider: ANGELINE GARCIA Report Released Date/Time: Jul 21, 2024 06:47 PM Reporting Lab: [facility] [phone] Performing Lab: [facility] [id number] CREATININE 1.25 mg/dL 0.70-1.30 UREA NITROGEN 16.1 mg/dL 9.0-25.0 GLUCOSE 119 mg/dL H 72-99 SODIUM 142 meq/L 136-145 POTASSIUM 4.2 meq/L 3.5-5.0 CHLORIDE 110 meq/L H 98-107 CARBON DIOXIDE 23 meq/L 22-31 CALCIUM 9.1 mg/dL 8.4-10.4 PROTEIN 6.0 g/dL 6.0-8.6 ALBUMIN 4.1 g/dL 3.4-5.0 TOTAL BILIRUBIN 0.4 mg/dL 0.2-1.2 ALKALINE PHOSPHATASE 79 U/L 40-150 AST/SGOT 22 U/L 5-34 ALT/SGPT 19 U/L 8-40 EGFR (CKD-EPI 2020) 65.11 >60 Social History: Smoking Status (Most current) and Tobacco Use (All prior to encounter date) This section includes the most current, and the historical, smoking and tobacco- related health factors from the MD facility where the Encounter took place. Current Smoking Status This section includes the most current smoking, or tobacco-related health factor, from the MD facility where the Encounter took place. Date/Time Current Smoking Status Comment Romelia avery November 11, 2017 01:35 AM QUIT TOBACCO >7 YEARS AGO [facility] Tobacco Use History This section includes a history of the smoking, or tobacco-related health factors, that were collected on or before the date of the Encounter. The data comes from the MD facility where the Encounter took place. Date/Time Smoking Status/Tobacco Use Comment Walker rebolledo Dec 13, 2015 09:47 AM QUIT TOBACCO >7 YEARS AGO [facility] Mar 01, 2015 10:15 AM QUIT TOBACCO >7 YEARS AGO [facility] Oct 24, 2011 09:33 AM QUIT TOBACCO >7 YEARS AGO [facility] Aug 07, 2000 12:59 PM CURRENT NON-TOBACC O USER-HX OF USE quit 3 yrs. ago. [facility] Jun 04, 2000 08:44 AM CURRENT NON-TOBACC O USER-HX OF USE STOPPED 3 YEARS AGO [facility] Mar 05, 2000 08:49 AM CURRENT NON-TOBACC O USER-HX OF USE QUIT 3 YEARS AGO. [facility] Jun 24, 1999 10:05 AM PREVIOUS SMOKER Severity= MINIMAL [facility] Advance Directives: All historical and current Section Date Range: From patient's date of to the date document was created. This section includes ALL of a patient's completed or amended MD Advance and Rescinded Directives. The entries below indicate that a directive exists for the patient, but an actual copy is not included with this document. The data comes from all MD facilities. Date Advance Directives Provider Source Aug 15, 1997 ADVANCE DIRECTIVE DESIRAE WILKERSON Wayne [facility] Radiology Reports: +/- 30 days of the [...] the Encounter. The data comes from all MD treatment facilities. Date/Time Radiology Report Provider Source Sep 06, 2024 11:08 AM BIOPSY, SOFT TISSU E, PERCUTANEOUS NEEDLE: MIHIR BARNES [id number] -1960 M Ex Date: SEP 06, 2024@11:08 Req Phys: YESSY CARRINGTON Loc: [facility]-IR E-CONSULT (Req'g Loc) Img Loc: [facility]-ANGIO/INTERVENTIONAL Service: Unknown [address] [address] (Case [id number] COMPLETE) BIOPSY,THYROID(CORE)(SURGI MALA COD(ANI Detailed) CPT:45456 CPT Modifiers : 53 DISCONTINUED PROCEDURE Reason for Study: Right Side Neck Mass Clinical History: see econsult Report Status: Verified Date Reported: SEP 08, 2024 Date Verified: SEP 08, 2024 Lobster Man E-Sig:/ES/GONZALO DAMICO Report: CASE: [id number] INDICATION: Patient with suspicious right submandibular palpable nodule PROCEDURE: Limited ultrasound of right submandibular region OPERATORS: 1. Gonzalo Damico M.D., IR attending ANESTHESIA: 1. Local [...] Primary Interpreting Staff: GONZALO DAMICO, INTERVENTIONAL RADIOLOGIST (Lobster Man) /XRP GONZALO DAMICO [facility] Sep 01, 2024 09:[address] NECK SOFT TISSU E W/CONT: MIHIR BARNES [id number] -1960 M Exm Date: SEP 01, 2024@09:57 Req Phys: YESSY CARRINGTON Loc: [facility]-ENDOCRINOLOGY 1 (Req'g L Img Loc: [facility]-CT IMAGING [facility] Service: [facility], [place], operated [facility], [address] [address] (Case [id number] COMPLETE) CT NECK SOFT TISSUE W/CONT (CT Detailed) CPT:01593 Contrast Media : Non-ionic Iodinated Reason for Study: evaluate 3.6 cm right sided neck mass found on US neck Clinical History: Responsible Attending: Charissa Attending Contact Number: [id number] Resident Contact Number: 64 year old male [...] 01, 2024 Date Verified: SEP 01, 2024 Lobster Man E-Sig:/ES/ANDREA MACHADO MD Report: Spiral axial imaging [...] Primary Interpreting Staff: ANDREA MACHADO MD, Radiologist (Lobster Man) /ANDREA OLEA [facility] Aug 23, 2024 07:03 AM US THYROID (NECK SOFT-TISSUE): MIHIR BARNES [id number] -1960 M Exm Date: AUG 23, 2024@07:03 Req Phys: YESSY CARRINGTON Loc: [facility]-ENDOCRINOLOGY 1 (Req'g L Img Loc: [facility]-ULTRASOUND Service: Unknown [facility] [address] [place] [address] (Case [id number] COMPLETE) US THYROID (NECK SOFT-TISSUE) (US Detailed) CPT:50185 Reason for Study: lymphadenopathy x 2 month Clinical History: has right sided submandibular lymphadenopahy x 2 months, feels lymph node is enlarging Report Status: Verified Date Reported: AUG 23, 2024 Date Verified: AUG 23, 2024 Lobster Man E-Sig:/ES/TERRI PATTERSON Report: Exam: US THYROID (NECK SOFT-TISSUE) Case: [id number] History:Lymphadenopathy x2 months Focused ultrasound in the [...] recommended. Primary Interpreting Staff: TERRI PATTERSON, RADIOLOGIST (Lobster Man) /TERRI KIM [facility] Aug 03, 2024 11:11 AM US CAROTID BILATER AL: MIHIR BARNES [id number] -1960 Ex Date: AUG 03, 2024@11:11 Req Phys: ANGELINE GARCIA Pat Loc: [facility] PACT STAR RES 4 (Req'g Img Loc: [facility]-ULTRASOUND Service: Unknown [address] [id number] (Case [id number] COMPLETE) US CAROTID BILATERAL (US Detailed) CPT:79409 Reason for Study: r/o carotid stenosis Clinical History: Report Status: Verified Date Reported: AUG 03, 2024 Date Verified: AUG 03, 2024 Lobster Man E-Sig:/ES/Estella Lawrence MD Report: Case #[id number] Bilateral extracranial carotid ultrasound examination. History:r/o carotid stenosis Comparison: Ultrasound 10/23/2015 Technique: Real-time, spectral Doppler, and color Doppler ultrasound examination of the extracranial right and left carotid circulation was obtained in transverse and longitudinal projections. The vertebral arteries were imaged in longitudinal projection. Findings: Right CCA peak systolic velocity: 126 cm/sec. Right ICA peak systolic velocity: 93 cm/sec. Right internal/common carotid ratio: 0.7 . Right internal carotid: No evidence of hemodynamically significant stenosis. Right external carotid artery: 131 cm/s Right vertebral artery: Patent, with antegrade flow signal. Left CCA peak systolic velocity: 99 cm/sec. Left ICA peak systolic velocity: 116 cm/sec. Left internal/common carotid ratio: 1.2 . Left internal carotid: No evidence of hemodynamically significant stenosis. Left external carotid artery: 125 cm/s Left vertebral artery: Patent, with antegrade flow signal. Mild atherosclerosis in the visualized carotid systems with less than 50% stenosis. Impression: Mild atherosclerosis in the carotid bulb regions, but no hemodynamically significant stenosis in either carotid artery based on images and flow velocities obtained above. Dictated by Amaury Bocanegra I, Estella Lawrence, have reviewed the images and report and concur with these findings. Primary Interpreting Staff: Estella Lawrence MD, Radiologist (Lobster Man) Primary Interpreting Resident: AMAURY LEDBETTER, /ESTELLA LUJAN [facility] Encounter Notes: All associated encounter notes This section contains the clinical notes associated to the Encounter. Date/Time Encounter Note(s) Provider Source Sep 06, 2024 08:57 AM ENDOCRINOLOGY TELE PHONE ENCOUNTER NOTE: LOCAL TITLE: ENDOCRINOLOGY TELEPHONE NOTE STL STANDARD TITLE: ENDOCRINOLOGY TELEPHONE ENCOUNTER NOTE DATE OF NOTE: SEP 06, 2024@08:57 ENTRY DATE: SEP 06, 2024@08:57:57 AUTHOR: YESSY CARRINGTON EXP COSIGNER: URGENCY: STATUS: COMPLETED I called Mr. Barnes to discuss CT neck findings as below: CT neck: Impression: Tubular radiopaque foreign body in the right neck may be a catheter, clinical correlation recommended. No visible mass or adenopathy. Perhaps the perceived mass represents the normal submandibular gland He denies ever having any type of surgical procedures or catheter placements to the neck. Will consult surgery to see if it foreign mass can be removed. /fabien/ Yessy Carrington MD STAFF PSYCHOLOGY FELLOW MD Signed: 09/06/2024 08:59 YESSY CARRINGTON [facility] Aug 24, 2024 03:28 PM ENDOCRINOLOGY TELE PHONE ENCOUNTER NOTE: LOCAL TITLE: ENDOCRINOLOGY TELEPHONE NOTE STL STANDARD TITLE: ENDOCRINOLOGY TELEPHONE ENCOUNTER NOTE DATE OF NOTE: AUG 24, 2024@15:28 ENTRY DATE: AUG 24, 2024@15:28:45 AUTHOR: YESSY CARRINGTON EXP COSIGNER: URGENCY: STATUS: COMPLETED I called Mr. Barnes to discuss neck ultrasound results which was initially ordered because he had complaints of right sided neck enlargement x 2 months. Neck US 08/2024: History:Lymphadenopathy x2 months Focused ultrasound in the [...] and tissue diagnosis for specific characterization recommended. Will order CT neck and also refer to IR for biopsy. [place] agreed with the plan. /fabien/ Yessy Carrington MD STAFF PSYCHOLOGY FELLOW Signed: 08/24/2024 15:30 YESSY CARRINGTON [facility]
--- OUTSIDE RECORDS SUMMARY | 2024-12-07 18:32 | XMS_ITS | Encounter Summary ---
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 Name Role Phone RADHAJOLEENChary Primary Care Provider [...] Name Patient's Relationship to Policy Mary BCBS MS EXCLUSIVE PROVIDER ORGANIZAT YEIMI SPENCERY HEALT H Jul 06, 2019 [id number] [phone] MIHIR OWEN PATIENT CAREMARK (INGEN[employer] RX) PRESCRIPT ION RX PLAN Jul 06, 2019 [id number] MIHIR OWEN PATIENT [employer] [facility] [facility] [facility] HEALT HCARE Jul 06, 2016 [id number] MIHIR OWEN PATIENT MEDIMPACT RX PRESCRIPT ION MHM SUPPO RT SERVI IJEOMA Jul 06, 2019 [id number] MIHIR OWEN PATIENT [facility] [place] GORAN KAUR NGE May 06, 2024 ILONEX [id number] [phone] MIHIR OWEN PATIENT Selected Encounter This section includes the information on record at [place] for the Encounter. Date/Time Encounter Type Encounter Description Reason Provider Source Aug 05, 2024 01:00 PM OFFICE O/P NEW MOD 45 MIN OPTOMETRY ICD-10-CM G45.3 Amaurosis fugax CHIVETTA,TARAH CRUZ IHE Encounter Template Text not used by [place] Assessments - Encounter Diagnoses This section includes the primary and secondary diagnoses documented for the Encounter. Date/Time Primary/Secondary Diagnosis Diagnosis Name Provider Source Aug 12, 2024 08:31 AM PRIMARY Amaurosis fugax CHIVETTA,TARAH CRUZ [facility] Aug 12, 2024 08:31 AM SECONDARY Age-related nuclear cataract, bilateral [facility] Aug 12, 2024 08:31 AM SECONDARY Other chronic allergic conjunctivitis [facility] Aug 12, 2024 08:31 AM SECONDARY [facility]by[facility] Plan of Treatment: Future Appointments (+ [...] Appointment Type Appointme nt Facility Name Aug 23, 2024 07:30 AM AMBULATORY - NONE [facility] Aug 24, 2024 02:00 PM AMBULATORY - REHAB MEDICIN E [facility] Aug 29, 2024 10:30 AM AMBULATORY - REHAB MEDICIN E [facility] Sep 01, 2024 10:30 AM AMBULATORY - NONE [facility] Sep 02, 2024 10:30 AM AMBULATORY - REHAB MEDICIN E [facility] Sep 05, 2024 10:30 AM AMBULATORY - REHAB MEDICIN E [facility] Sep 06, 2024 11:30 AM AMBULATORY - NONE . CASSY Thornton [facility] Sep 07, 2024 10:30 AM AMBULATORY - REHAB MEDICIN E [facility] Sep 13, 2024 02:30 PM AMBULATORY - MEDICINE [facility] Sep 29, 2024 07:30 AM AMBULATORY - SURGERY . Luis Enrique [facility] Sep 29, 2024 08:00 AM AMBULATORY - MEDICINE [facility] Oct 06, 2024 08:00 AM AMBULATORY - PSYCHIATRY [facility] Oct 24, 2024 01:00 PM AMBULATORY - NONE [facility] November 25, 2024 01:00 PM AMBULATORY - MEDICINE [facility] December 02, 2024 09:00 AM AMBULATORY - REHAB MEDICIN E [facility] Dec 05, 2024 09:15 AM AMBULATORY - MEDICINE [facility] Dec 08, 2024 09:40 AM AMBULATORY - SURGERY ST Luis Enrique [facility] Jan 05, 2025 08:00 AM AMBULATORY - MEDICINE [facility] Jan 19, 2025 01:00 PM AMBULATORY - NONE [facility] Active, Pending, and Scheduled Orders This section includes a listing of several types of active, pending, and scheduled orders, including clinic medications orders, diagnostic test orders, procedure orders and consult orders; where the start date of the order is 45 days before the date of the Encounter or 45 days after the date of theEncounter. The data comes from all [place] treatment facilities. Test Date/Time Test Type Test Details Facility Name Sep 06, 2024 08:57 AM Consult Order [facility] E[facility]GERY Cons Manager Cancer's Choice [facility] Lab Results: +/- 30 days of [...] Type Comment Aug 03, 2024 11:01 AM [facility] B12 SERUM Specimen Type: SERUM No comment entered. Ordering Provider: ANGELINE GARCIA Report Released Date/Time: Jul 21, 2024 06:47 PM Reporting Lab: [facility] [address] Performing Lab: [facility] [address] B12 1133 pg/mL H 213-816 Aug 03, 2024 11:01 AM [facility] HGA1C BLOOD Specimen Type: BLOOD No comment entered. Ordering Provider: ANGELINE GARCIA Report Released Date/Time: Jul 21, 2024 06:47 PM Reporting Lab: [facility] [address] Performing Lab: [facility] [address] HGA1C 5.3 4.0-6.0 Aug 03, 2024 11:01 AM [facility] FOLATE (STL-MA) SERUM Specimen Type: SERUM No comment entered. Ordering Provider: ANGELINE GARCIA Report Released Date/Time: Jul 21, 2024 06:47 PM Reporting Lab: [facility] [address] Performing Lab: [facility] [address] FOLATE (STL-MA) 12.6 ng/mL 7-20 Aug 03, 2024 11:01 AM [facility] TSH (MA-PB) SERUM Specimen Type: SERUM No comment entered. Ordering Provider: ANGELINE GARCIA Report Released Date/Time: Jul 21, 2024 06:47 PM Reporting Lab: [facility] [address] Performing Lab: [facility] [address] TSH 0.754 u[IU]/mL 0.470-5.000 Aug 03, 2024 11:01 AM [facility] COMPREHENSIVE METABOLIC PANEL PLASMA Specimen Type: PLASMA Comment: No hemolysis noted. Ordering Provider: ANGELINE GARCIA Report Released Date/Time: Jul 21, 2024 06:47 PM Reporting Lab: [facility] [address] Performing Lab: [facility] [address] CREATININE 1.25 mg/dL 0.70-1.30 UREA NITROGEN 16.1 [...] U/L 8-40 EGFR (CKD-EPI 2020) 65.11 >60 Jul 08, 2024 11:15 AM [facility] TESTOSTERONE, FREE PANEL SERUM Specimen Type: SERUM Comment: Men with clinically significant hypogonadal symptoms and testosterone values repeatedly in the range of the 200-300 ng/dL or less, may benefit from testosterone treatment after adequate risk and benefits counseling. For additional information, please refer to http://education.Medstro.Daz 3d/faq/ YcjpiVwbldktmxjddRGAISCJLT232 (This link is being provided for informational/ educational purposes only.) This test was developed and its analytical performance characteristics have been determined by [employer] [place], [place]. It has not been cleared or approved by the U.S. Food and Drug Administration. This assay has been validated pursuant to the CLIA regulations and is used for clinical purposes. Test Performed by Adelina Reyes, [facility], [address] [place] [address], [place] Alexis Kuo M.D., Ph.D., Director of Laboratories , [facility] [id number] Ordering Provider: FERMIN DECKER Report Released Date/Time: May 31, 2024 01:48 PM Reporting Lab: [facility] [address] [facility] [address] Performing Lab: [facility] [id number] [facility] TESTOSTERONE, TOTAL 499 ng/dL 250-1100 ALBUMIN (PB-sendout) 4.0 g/dL 3.6-5.1 TESTOSTERONE,FREE (sendout) 43.1 pg/mL L 4 6.0-224.0 TESTOSTERONE,BIOAVAILABLE (MA-PB-SO 79.2 ng/dL L 110.0-575.0 SEX HORMONE BINDING GLOBULIN 56 nmol/L 2 2-77 Social History: Smoking Status (Most current) and Tobacco Use (All prior to encounter date) This section includes the most current, and the historical, smoking and tobacco- related health factors from the [place] facility where the Encounter took place. Current Smoking Status This section includes the most current smoking, or tobacco-related health factor, from the [place] facility where the Encounter took place. Date/Time Current Smoking Status Comment Romelia avery Jul 08, 2018 09:04 AM [place]-TOBAC[place] FORMER USER [facility] Tobacco Use History This section includes a history of the smoking, or tobacco-related health factors, that were collected on or before the date of the Encounter. The data comes from the [place] facility where the Encounter took place. Date/Time Smoking Status/Tobacco Use Comment F amaury Jul 08, 2018 09:04 AM [place]-TOBACCO QUIT 15 YRS OR MORE [facility] Advance Directives: All historical and current Section Date Range: From patient's date of to the date document was created. This section includes ALL of a patient's completed or amended [place] Advance and Rescinded Directives. The entries below indicate that a directive exists for the patient, but an actual copy is not included with this document. The data comes from all [place] facilities. Date Advance Directives Provider Source Aug 15, 1997 ADVANCE DIRECTIVE DESIRAE [address] [facility] Radiology Reports: +/- 30 days of [...] the Encounter. The data comes from all [place] treatment facilities. Date/Time Radiology Report Provider Source Sep 01, 2024 09:[address] NECK SOFT TISSU E W/CONT: MIHIR OWEN [id number] -1960 M Exm Date: SEP 01, 2024@09:57 Req Phys: FERMIN DECKER Loc: [facility]ENDOCRINOLOGY 1 (Req'g L Img Loc: [facility]CT IMAGING [facility] Service: Unknown [facility], [address] [address] (Case [id number] COMPLETE) CT NECK SOFT TISSUE W/CONT (CT Detailed) CPT:29854 Contrast Media : Non-ionic Iodinated Reason for Study: evaluate 3.6 cm right sided neck mass found on US neck Clinical History: Responsible Attending: Charissa Attending Contact Number: [id number] Resident Contact Number: 64 year old male [...] 01, 2024 Date Verified: SEP 01, 2024 Chocolate Packer E-Sig:/ES/ANDREA MACHADO MD Report: Spiral axial imaging [...] Primary Interpreting Staff: ANDREA MACHADO MD, Radiologist (Chocolate Packer) /ANDREA OLEA [facility] Aug 23, 2024 07:03 AM US THYROID (NECK SOFT-TISSUE): MIHIR OWEN [id number] -1960 M Exm Date: AUG 23, 2024@07:03 Req Phys: FERMIN DECKER Loc: [facility]-ENDOCRINOLOGY 1 (Req'g L Img Loc: [facility]-ULTRASOUND Service: Unknown [facility], [address] [place] [address] (Case [id number] COMPLETE) US THYROID (NECK SOFT-TISSUE) (US Detailed) CPT:90188 Reason for Study: lymphadenopathy x 2 month Clinical History: has right sided submandibular lymphadenopahy x 2 months, feels lymph node is enlarging Report Status: Verified Date Reported: AUG 23, 2024 Date Verified: AUG 23, 2024 Chocolate Packer E-Sig:/ES/TERRI PATTERSON Report: Exam: US THYROID (NECK SOFT-TISSUE) Case: [id number] History:Lymphadenopathy x2 months Focused ultrasound in the [...] recommended. Primary Interpreting Staff: TERRI PATTERSON, RADIOLOGIST (Chocolate Packer) /TERRI KIM [facility] Aug 03, 2024 11:11 AM US CAROTID BILATER AL: MIHIR OWEN [id number] -1960 M Exm Date: AUG 03, 2024@11:11 Req Phys: RADHAKIRSTENSEBASTIAN Pat Loc: [facility]-MAN PACT STAR RES 4 (Req'g Img Loc: [facility]-ULTRASOUND Service: Unknown [facility], [address] [place] [address] (Case [id number] COMPLETE) US CAROTID BILATERAL (US Detailed) CPT:70125 Reason for Study: r/o carotid stenosis Clinical History: Report Status: Verified Date Reported: AUG 03, 2024 Date Verified: AUG 03, 2024 Chocolate Packer E-Sig:/ES/Estella Lawrence MD Report: Case #[id number] Bilateral extracranial carotid ultrasound examination. History:r/o carotid [...] and flow velocities obtained above. Dictated by Estella Villarreal M.D., have reviewed the images and report and concur with these findings. Primary Interpreting Staff: Estella Lawrence MD, Radiologist (Chocolate Packer) Primary Interpreting Resident: AMAURY LEDBETTER, Resident /ESTELLA LUJAN [facility] Encounter Notes: All associated encounter notes This section contains the clinical notes associated to the Encounter. Date/Time Encounter Note(s) Provider Source Aug 05, 2024 12:54 PM OPTOMETRY NOTE: LOCAL TITLE: OPTOMETRY NOTE STANDARD TITLE: OPTOMETRY NOTE DATE OF NOTE: AUG 05, 2024@12:54 ENTRY DATE: AUG 05, 2024@12:54:59 AUTHOR: TARAH PATRICIA EXP COSIGNER: URGENCY: STATUS: COMPLETED Last seen initial [facility] Reason for visit: CC: 1. blurry vision dist ou with current specs near is ok 2. 3 episodes of vision turning black OS since early jul Each episode vision blacks out completely and has a strong DIXON, lasts about 5 min then returns. Denies weakness/tingling in face/extremeties. [facility] CUS 08/03 (no results visible in VISTA or CPRS) SONIA glasses from [facility], exam in summer 2023 'baby cataracts' Ocular meds: pataday PRN Ocular ROS: (+)trauma - 1988 - metallic FB OD (-)laser/sugery Family OcHX: (-) blindness (-) glaucoma (-) AMD (-) RD Cardiovascular ROS: no change from problem & medication lists CPRS Problem list, medications and allergies reviewed: CPRS Serology for Diabetes GLUCOSE 119 H mg/dL 08/03/2024 11:01 HGA1C 5.3 % 08/03/2024 11:01 Cardiovascular BP: 110/65 (08/02/2024 08:41) Pulse: 81 (08/02/2024 08:41) Neuro: Orientation: Normal Psych: Mood/Affect: Normal Depression/suicide ideation: NO VISUAL ACUITY With correction Distance Visual Acuity OD 20/20 - OS 20/20- Pupils PERRL OU (-)APD Confrontation: FTFC OU Extra-Ocular Muscles Full OU (-)pain (-)diplopia Externals/adnexa: DMC c hooding OU auto -1.25-710p312 -0.75-0.48h271 lensometry -0.75DS -0.25DS add +2.00 Refraction: 08/05/24 OD -1.25DS 20/20- OS -1.00DS 20/20- Add: + 2.25 *longer WD PAL c transitions; AR coating pt does NOT like cyl SLIT LAMP EXAMINATION Lids/Lashes/Lacrimal 1+ blepharitis OU, scattered papillomas Conjunctiva/Sclera 1+ inj/papillae/quiet OU Cornea tr guttata OU Ant Chamber Deep and quiet OU Iris Normal, (-)NVI OU Lens 1+ NS cataract OU Intraocular Pressures (Goldmann) 1 gtt fluress Date OD OS Time 08/05/24 20 18 1314 RETINAL EVALUATION 1 phenyleph 2.5%, 1 trop 1% OU DFE Dilated retinal exam Optic Nerve OD: 0.45 CDR Flat, pink, distinct (-)NVD, sloped OS: 0.50 CDR Flat, pink, distinct (-)NVD, sloped Vessels: 2/3 OU, mild tortuosity Macula: OD: Flat, intact (-)CSME OS: Flat, intact (-)CSME Posterior Pole: OD: (-)hemes (-)CWS (-)NVE OS: (-)hemes (-)CWS (-)NVE Periphery: OD: (-)holes, tears, RDs 360 OS: (-)holes, tears, RDs 360 Vitreous: No PVD OU Assessment/Plan 08/05/24 1. Suspected Amaurosis fugax OS 3 episodes since 07/07/24 Ocular exam today unremarkable - no e/o HHP, hemes/retinopathy (+) HTN, HLD, h/o TIA, CHRISSY, former tobacco user PCP ordered CUS - performed 129 but results not yet available Pt ed on to continue all meds and systemic f/u as directed Ed to go to ED STAT with any further recurrance of TIA/CVA/amaurosis fugax 2. Ocular allergies pt reports eye itching fair/poor compliance c tahir pt ed on etiology, improved compliance Order olopatadine 0.2% qday OU - rx to be mailed RTC if symptoms worsen or do not improve 3. Cataracts OU not yet visually significant Defer cataract extraction until signs/sx indicate 4. 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 pt on all findings RTC in 1 year or PRN /es/ TARAH PATRICIA, OD Staff Physician, Optometry Signed: 08/05/2024 13:43 TARAH PATRICIA [facility]
--- OUTSIDE RECORDS SUMMARY | 2024-12-07 18:32 | XMS_ITS | Encounter Summary ---
Author Name [facility] [place] Organization [facility] [place] Address [address] [place] [address] Care Team Providers Care Security Incident Response Specialist Name Role Phone RADHAJOLEENChary Primary Care Provider [...] Name Patient's Relationship to Policy Mary [place]BS [place] EXCLUSIVE PROVIDER ORGANIZAT YEIMI [facility] H Jul 06, 2019 [id number] [phone] MIHIR OWEN PATIENT CAREMARK (INGENIO RX) PRESCRIPT ION RX PLAN Jul 06, 2019 [id number] MIHIR OWEN PATIENT [employer] [facility]IOR[facility] MENTAL [facility] HCARE Jul 06, 2016 [id number] [phone] MIHIR OWEN PATIENT MEDIMPACT RX PRESCRIPT ION MHM SUPPO RT SERVI IJEOMA Jul 06, 2019 [id number] [phone] MIHIR OWEN PATIENT [facility] MENTAL HEALTH [place] GORAN PRINCEA NGE May 06, 2024 ILONEX [id number] [phone] MIHIR OWEN PATIENT Selected Encounter This section includes the information on record at [place] for the Encounter. Date/Time Encounter Type Encounter Description Reason Provider Source Aug 02, 2024 09:00 AM OFFICE O/P EST MOD 30 MIN ENDOCRINOLOGY ICD-10-CM E66.9 Obesity, unspecified CHARISSA,MEHDIA IHE Encounter Template Text not used by [place] Assessments - Encounter Diagnoses This section includes the primary and secondary diagnoses documented for the Encounter. Date/Time Primary/Secondary Diagnosis Diagnosis Name Provider Source Aug 10, 2024 09:01 AM PRIMARY Obesity, unspecified CHARISSA,HDIA [facility] Aug 10, 2024 09:01 AM SECONDARY [facility] Plan of Treatment: Future Appointments (+ 6 months) and Future Tests (+/- 45 days) The Plan of Treatment section includes future care activities for the patient from [facility]. This section includes future appointments and future orders which are active, pending or scheduled. Future Appointments This section includes appointments that were scheduled to occur 6 months from the date of the Encounter, up to a maximum of 20 appointments. The data comes from all [place] treatment facilities. Appointment Date/Time Appointment Type Appointme nt Facility Name Aug 03, 2024 12:30 PM AMBULATORY - NONE [facility] Aug 05, 2024 01:00 PM AMBULATORY - SURGERY [facility] Aug 23, 2024 07:30 AM AMBULATORY - NONE [facility] Aug 24, 2024 02:00 PM AMBULATORY - REHAB MEDICIN E [facility] Aug 29, 2024 10:30 AM AMBULATORY - REHAB MEDICIN E [facility] Sep 01, 2024 10:30 AM AMBULATORY - NONE [facility] Sep 02, 2024 10:30 AM AMBULATORY - REHAB MEDICIN E [facility] Sep 05, 2024 10:30 AM AMBULATORY - REHAB MEDICIN E [facility] Sep 06, 2024 11:30 AM AMBULATORY - NONE [facility] Sep 07, 2024 10:30 AM AMBULATORY - REHAB MEDICIN E [facility] Sep 13, 2024 02:30 PM AMBULATORY - MEDICINE [facility] Sep 29, 2024 07:30 AM AMBULATORY - SURGERY . L [facility] Sep 29, 2024 08:00 AM AMBULATORY - MEDICINE [facility] Oct 06, 2024 08:00 AM AMBULATORY - PSYCHIATRY [facility] Oct 24, 2024 01:00 PM AMBULATORY - NONE [facility] November 25, 2024 01:00 PM AMBULATORY - MEDICINE [facility] December 02, 2024 09:00 AM AMBULATORY - REHAB MEDICIN E [facility] Dec 05, 2024 09:15 AM AMBULATORY - MEDICINE [facility] Dec 08, 2024 09:40 AM AMBULATORY - SURGERY [email or web address] Luis Enrique [facility] Jan 05, 2025 08:00 AM AMBULATORY - MEDICINE [facility] Active, Pending, and Scheduled Orders This section includes a listing of several types of active, pending, and scheduled orders, including clinic medications orders, diagnostic test orders, procedure orders and consult orders; where the start date of the order is 45 days before the date of the Encounter or 45 days after the date of theEncounter. The data comes from all [place] treatment facilities. Test Date/Time Test Type Test Details Facility Name Sep 06, 2024 08:57 AM Consult Order [facility] ENT SURGERY Cons Form Raiser's Choice [facility] Lab Results: +/- 30 days [...] Type Comment Aug 03, 2024 11:01 AM [facility] B12 SERUM Specimen Type: SERUM No comment entered. Ordering Provider: ANGELINE GARCIA Report Released Date/Time: Jul 21, 2024 06:47 PM Reporting Lab: [facility] [address] Performing Lab: [facility] [address] B12 1133 pg/mL H 213-816 Aug 03, 2024 11:01 AM [facility] HGA1C BLOOD Specimen Type: BLOOD No comment entered. Ordering Provider: ANGELINE GARCIA Report Released Date/Time: Jul 21, 2024 06:47 PM Reporting Lab: [facility] [address] Performing Lab: [facility] [address] HGA1C 5.3 4.0-6.0 Aug 03, 2024 11:01 AM [facility] FOLATE (STL-MA) SERUM Specimen Type: SERUM No comment entered. Ordering Provider: ANGELINE GARCIA Report Released Date/Time: Jul 21, 2024 06:47 PM Reporting Lab: [facility] [address] Performing Lab: [facility] [address] FOLATE (STL-MA) 12.6 ng/mL 7-20 Aug 03, 2024 11:01 AM [facility] TSH (MA-PB) SERUM Specimen Type: SERUM No comment entered. Ordering Provider: ANGELINE GARCIA Report Released Date/Time: Jul 21, 2024 06:47 PM Reporting Lab: [facility] [address] Performing Lab: [facility] [address] TSH 0.754 u[IU]/mL 0.470-5.000 Aug 03, 2024 11:01 AM [facility] COMPREHENSIVE METABOLIC PANEL PLASMA Specimen Type: PLASMA Comment: No hemolysis noted. Ordering Provider: ANGELINE GARCIA Report Released Date/Time: Jul 21, 2024 06:47 PM Reporting Lab: [facility] [address] Performing Lab: [facility] [address] CREATININE 1.25 mg/dL 0.70-1.30 UREA NITROGEN 16.1 [...] 65.11 >60 Jul 08, 2024 11:[address] [facility] TESTOSTERONE, FREE PANEL SERUM Specimen Type: SERUM Comment: Men with clinically significant hypogonadal symptoms and testosterone values repeatedly in the range of the 200-300 ng/dL or less, may benefit from testosterone treatment after adequate risk and benefits counseling. For additional information, please refer to http://education.[employer]faq/ MemfxRyiqxrnflygaBRMDTRWZH860 (This link is being provided for informational/ educational purposes only.) This test was developed and its analytical performance characteristics have been determined by [employer] [place], [place]. It has not been cleared or approved by the U.S. Food and Drug Administration. This assay has been validated pursuant to the CLIA regulations and is used for clinical purposes. Test Performed by [facility], [email or web address], [address] [place], [place] Alexis Kuo M.D., Ph.D., Director of Laboratories , CLIA [id number] Ordering Provider: YESSY CARRINGTON Report Released Date/Time: May 31, 2024 01:48 PM Reporting Lab: [facility] [address] [facility] [address] Performing Lab: [facility] [address] [facility] TESTOSTERONE, TOTAL 499 ng/dL 250-1100 ALBUMIN (PB-sendout) 4.0 g/dL 3.6-5.1 TESTOSTERONE,FREE (sendout) 43.1 pg/mL L 4 6.0-224.0 TESTOSTERONE,BIOAVAILABLE (MA-PB-SO 79.2 ng/dL L 110.0-575.0 SEX HORMONE BINDING GLOBULIN 56 nmol/L 2 2-77 Vital Signs: All taken on the encounter date This section contains inpatient and outpatient Vital Signs collected on the date of the Encounter. Date/Time Temperature Pulse Blood Pressure Respiratory Rate SP02 Pain Height Weight Body Mass Index Source Aug 02, 2024 08:41 AM 98.1 81 110/65 [address] [facility] Social History: Smoking Status (Most current) and Tobacco Use (All prior to encounter date) This section includes the most current, and the historical, smoking and tobacco- related health factors from the [place] facility where the Encounter took place. Current Smoking Status This section includes the most current smoking, or tobacco-related health factor, from the [place] facility where the Encounter took place. Date/Time Current Smoking Status Comment Romelia avery November 11, 2017 01:35 AM QUIT TOBACCO >7 YEARS AGO [facility] Tobacco Use History This section includes a history of the smoking, or tobacco-related health factors, that were collected on or before the date of the Encounter. The data comes from the [place] facility where the Encounter took place. Date/Time Smoking Status/Tobacco Use Comment F acility Dec 13, 2015 09:47 AM QUIT TOBACCO >7 YEARS AGO [facility] Mar 01, 2015 10:15 AM QUIT TOBACCO >7 YEARS AGO [facility] Oct 24, 2011 09:33 AM QUIT TOBACCO >7 YEARS AGO [facility] Aug 07, 2000 12:59 PM CURRENT NON-TOBACC O USER-HX OF USE quit 3 yrs. ago. [facility] Jun 04, 2000 08:44 AM CURRENT NON-TOBACC O USER-HX OF USE STOPPED 3 YEARS AGO [facility] Mar 05, 2000 08:49 AM CURRENT NON-TOBACC O USER-HX OF USE QUIT 3 YEARS AGO. [facility] Jun 24, 1999 10:05 AM PREVIOUS SMOKER Severity= MINIMAL [facility] Advance Directives: All historical and current Section Date Range: From patient's date of to the date document was created. This section includes ALL of a patient's completed or amended [place] Advance and Rescinded Directives. The entries below indicate that a directive exists for the patient, but an actual copy is not included with this document. The data comes from all [place] facilities. Date Advance Directives Provider Source Aug 15, 1997 ADVANCE DIRECTIVE DESIRAE WILKERSON Wayne [facility] Radiology Reports: +/- 30 days of the [...] the Encounter. The data comes from all [place] treatment facilities. Date/Time Radiology Report Provider Source Sep 01, 2024 09:[address] NECK SOFT TISSU E W/CONT: MIHIR OWEN [id number] -1960 M Exm Date: SEP 01, 2024@09:57 Req Phys: YESSY CARRINGTON Loc: [facility]-ENDOCRINOLOGY 1 (Req'g L Img Loc: [facility]-CT IMAGING [facility] Service: Unknown [facility] [address] [place] [address] (Case [id number] COMPLETE) CT NECK SOFT TISSUE W/CONT (CT Detailed) CPT:39611 Contrast Media : Non-ionic Iodinated Reason for Study: evaluate 3.6 cm right sided neck mass found on US neck Clinical History: Responsible Attending: Charissa Attending Contact Number: [phone] Resident Contact Number: 64 year old male [...] 01, 2024 Date Verified: SEP 01, 2024 Coffee Blender E-Sig:/ES/ANDREA MACHADO MD Report: Spiral axial imaging [...] Primary Interpreting Staff: ANDREA MACHADO MD, Radiologist (Coffee Blender) /[facility] ANDREA MACHADO [facility] Aug 23, 2024 07:03 AM US THYROID (NECK SOFT-TISSUE): MIHIR OWEN [id number] -1960 M Exm Date: AUG 23, 2024@07:03 Req Phys: YESSY CARRINGTON Loc: [facility]-ENDOCRINOLOGY 1 (Diana'mauricio Dudley Img Loc: [facility]-ULTRASOUND Service: Unknown [facility] [address] [place] [address] (Case [id number] COMPLETE) US THYROID (NECK SOFT-TISSUE) (US Detailed) CPT:86070 Reason for Study: lymphadenopathy x 2 month Clinical History: has right sided submandibular lymphadenopahy x 2 months, feels lymph node is enlarging Report Status: Verified Date Reported: AUG 23, 2024 Date Verified: AUG 23, 2024 Coffee Blender E-Sig:/ES/TERRI PATTERSON Report: Exam: US THYROID (NECK SOFT-TISSUE) Case: [id number] History:Lymphadenopathy x2 months Focused ultrasound in the [...] recommended. Primary Interpreting Staff: TERRI PATTERSON, RADIOLOGIST (Coffee Blender) /TERRI KIM [facility] Aug 03, 2024 11:11 AM US CAROTID BILATER AL: MIHIR OWEN [id number] -1960 M Ex Date: AUG 03, 2024@11:11 Req Phys: ANGELINE GARCIA Pat Loc: [facility]-MAN PACT STAR RES 4 (Req'g Im Loc: [facility]-ULTRASOUND Service: Unknown [facility], [address] [address] (Case [id number] COMPLETE) US CAROTID BILATERAL (US Detailed) CPT:76950 Reason for Study: r/o carotid stenosis Clinical History: Report Status: Verified Date Reported: AUG 03, 2024 Date Verified: AUG 03, 2024 Coffee Blender E-Sig:/ES/Estella Lawrence MD Report: Case #[id number] Bilateral extracranial carotid ultrasound examination. History:r/o carotid [...] Primary Interpreting Staff: Estella Lawrence MD, Radiologist (Coffee Blender) Primary Interpreting Resident: AMAURY LEDBETTER, /ESTELLA LUJAN [facility] Encounter Notes: All associated encounter notes This section contains the clinical notes associated to the Encounter. Date/Time Encounter Note(s) Provider Source Aug 02, 2024 09:06 AM [facility] NOTE: LOCAL TITLE: ENDOCRINOLOGY OUTPATIENT FOLLOW UP [facility] STANDARD TITLE: ENDOCRINOLOGY OUTPATIENT NOTE DATE OF NOTE: AUG 02, 2024@09:06 ENTRY DATE: AUG 02, 2024@09:06:10 AUTHOR: YESSY CARRINGTON EXP COSIGNER: URGENCY: STATUS: COMPLETED Follow up: weight management HPI: 64 year old male with a medical history of heart disease, prior [place] 2017, prior stroke around 2009, obesity, depression, hld, ptsd who presents for follow up for weight management. He was started on contrave in 04/2024, tolerating well however gained 20 lbs on it. he follows up with cardiology at [facility] he follows with nutrition he has implemented dietary and lifestyle changes he also reports that he was told he has a low testosterone. on clomid x 1 year for had colonoscopy 1 year ago, was found to have 15 polyps, non-cancerous has nikko, has the inspie device ROS: 10 point ros done and negative except as per HPI Allergies: PENICILLIN, BACTRIM, LISINOPRIL, PRAVASTATIN, ATORVASTATIN Medications: Active Outpatient Medications (excluding Supplies): Issue Date Status Last Fill Active Outpatient Medications Refills Expiration 1) ALBUTEROL 90MCG (CFC-F) 200D ORAL INHL Qty: ACTIVE (S) Issue: 06/08/24 3 for 90 days Sig: INHALE 2 PUFFS BY ORAL Refills: 2 Last : 08/27/24 INHALATION FOUR TIMES A DAY NEEDED SHAKE Expr : 06/09/25 WELL. RINSE MOUTHPIECE FREQUENTLY TO PREVENT CLOGGING. Indication: FOR ASTHMA 2) AMLODIPINE BESYLATE 10MG TAB Qty: 90 for 90 ACTIVE (S) Issue: 06/08/24 days Sig: TAKE ONE TABLET BY MOUTH ONCE A Refills: 3 Last : 08/16/24 DAY FOR HEART/BLOOD PRESSURE Expr : 06/09/25 3) ARIPIPRAZOLE 5MG TAB Qty: 135 for 90 days ACTIVE (S) Issue: 07/08/24 Sig: TAKE ONE AND ONE-HALF TABLETS BY MOUTH Refills: 3 Last : 09/03/24 ONCE A DAY Expr : 07/09/25 Indication: FOR BIPOLAR DISORDER 4) ATORVASTATIN CALCIUM 40MG TAB Qty: 45 for 90 ACTIVE (S) Issue: 06/08/24 days Sig: TAKE ONE-HALF TABLET BY MOUTH Refills: 2 Last : 08/27/24 EVERY EVENING Expr : 06/09/25 Indication: FOR HIGH CHOLESTEROL 5) BUPROPION 90MG/NALTREXONE HCL 8MG SA TAB ACTIVE Issue: 05/10/24 Qty: 120 for 30 days Sig: TAKE 1 TABLET BY Refills: 2 Last : 05/17/24 MOUTH ONCE A DAY FOR 7 DAYS, THEN TAKE 1 Expr : 05/11/25 TABLET TWICE A DAY FOR 7 DAYS, THEN TAKE 2 TABLETS EVERY MORNING AND TAKE 1 TABLET EVERY EVENING FOR 7 DAYS, THEN TAKE 2 TABLETS TWICE A DAY Indication: FOR WEIGHT LOSS 6) BUSPIRONE HCL 15MG TAB Qty: 360 for 90 days ACTIVE Issue: 12/15/23 Sig: TAKE TWO TABLETS BY MOUTH TWICE A DAY Refills: 1 Last : 08/13/24 FOR ANXIETY DO NOT TAKE WITH GRAPEFRUIT Expr : 12/15/24 JUICE 7) DULOXETINE HCL 60MG EC CAP Qty: 180 for 90 ACTIVE Issue: 02/02/24 days Sig: TAKE TWO CAPSULES BY MOUTH AT Refills: 2 Last : 07/04/24 BEDTIME FOR MOOD, ANXIETY AND PAIN Expr : 02/02/25 8) FAMOTIDINE 40MG TAB Qty: 90 for 90 days Sig: ACTIVE Issue: 06/08/24 TAKE ONE TABLET BY MOUTH ONCE A DAY TO LOWER Refills: 3 Last : 08/13/24 STOMACH ACID Expr : 06/09/25 9) FERROUS SULFATE 325MG TAB Qty: 100 for 90 ACTIVE (S) Issue: 06/08/24 days Sig: TAKE ONE TABLET BY MOUTH ONCE A Refills: 2 Last : 08/27/24 DAY FOR IRON SUPPLEMENTATION. Expr : 06/09/25 10) FINASTERIDE 5MG TAB Qty: 90 for 90 days Sig: ACTIVE Issue: 06/08/24 TAKE ONE TABLET BY MOUTH ONCE A DAY FOR Refills: 3 Last : 08/13/24 PROSTATE. SWALLOW WHOLE, DO NOT CRUSH, Expr : 06/09/25 SPLIT, OR CHEW. 11) HYDROXYZINE HCL 50MG TAB Qty: 180 for 90 ACTIVE (S) Issue: 02/02/24 days Sig: TAKE 1-2 TABLETS BY MOUTH AT Refills: 1 Last : 09/17/24 BEDTIME NEEDED FOR MIDDLE INSOMNIA *MAY Expr : 02/02/25 CAUSE DROWSINESS* OK TO TAKE ADDITIONAL 50MG DOSE LATER IN THE NIGHT IF INSOMNIA PERSISTS 12) MODAFINIL 200MG TAB Qty: 60 for 30 days Sig: ACTIVE Issue: 07/08/24 TAKE ONE TABLET BY MOUTH TWICE A DAY Refills: 3 Last : 07/25/24 Indication: FOR ALERTNESS Expr : 01/08/25 13) PRAZOSIN HCL 2MG CAP Qty: 90 for 90 days ACTIVE (S) Issue: 02/02/24 Sig: TAKE ONE CAPSULE BY MOUTH AT BEDTIME Refills: 1 Last : 08/21/24 FOR NIGHTMARES MAY CAUSE DIZZINESS OR Expr : 02/02/25 DROWSINESS. 14) QUETIAPINE FUMARATE 400MG TAB Qty: 45 for 90 ACTIVE Issue: 02/03/24 days Sig: TAKE ONE-HALF TABLET BY MOUTH AT Refills: 1 Last : 07/30/24 BEDTIME Expr : 02/03/25 Indication: FOR BIPOLAR DISORDER Start Date Active Non-VA Medications Status Stop Date 1) Non-VA APIXABAN 5MG TAB SiMG BY MOUTH ACTIVE TWICE A DAY Indication: FOR ANTICOAGULATION 2) Non-VA ATENOLOL 100MG TAB SiMG BY MOUTH ACTIVE ONCE A DAY Indication: FOR HIGH BLOOD PRESSURE 3) Non-VA BREZTRI 160/9/4.8MCG/ACT 120D ORAL ACTIVE INHL Si PUFFS INHALATION TWICE A DAY DIRECTED Indication: FOR COPD 4) Non-VA CHOLECALCIF 125MCG (D3-5,000UNIT) CAP ACTIVE SiUNIT BY MOUTH ONCE A DAY 5) Non-VA CLOMIPHENE CITRATE 50MG TAB SiMG ACTIVE BY MOUTH EVERY OTHER DAY 6) Non-VA CYANOCOBALAMIN 1000MCG TAB Sig: ACTIVE 1000MCG BY MOUTH ONCE A DAY Indication: FOR VITAMIN B12 SUPPLEMENTATION 7) Non-VA PANTOPRAZOLE NA 40MG EC TAB SiMG ACTIVE BY MOUTH EVERY MORNING BEFORE A MEAL Indication: FOR GASTROESOPHAGEAL REFLUX DISEASE 8) Non-VA PRAMIPEXOLE DIHYDROCHLORIDE 0.5MG TAB ACTIVE Si.25MG BY MOUTH AT BEDTIME Indication: FOR RESTLESS LEG SYNDROME 9) Non-VA SPIRONOLACTONE 25MG TAB SiMG BY ACTIVE MOUTH ONCE A DAY Indication: FOR HIGH BLOOD PRESSURE 10) Non-VA TADALAFIL 5MG TAB SiMG BY MOUTH ACTIVE EVERY WEEK Indication: FOR ERECTILE DYSFUNCTION 11) Non-VA TAMSULOSIN HCL 0.4MG CAP Si.4MG ACTIVE BY MOUTH EVERY EVENING Indication: FOR BENIGN PROSTATIC HYPERPLASIA 25 Total Medications Past Medical History: 1) Benign essential hypertension (SNOMED CT 5903171) 2) Hyperlipidemia (SNOMED CT 07007456) 3) TIA (SNOMED CT 891570476) 4) Hearing loss (SCT 21464787) - Unspecified hearing loss (ICD-9-CM 389.9) 5) Recurrent major depression 6) Social anxiety disorder 7) Patellofemoral osteoarthritis 8) Anxiety disorder 9) Obstructive sleep apnea syndrome 10) Sensory symptoms 11) Ex-tobacco user 12) Erectile dysfunction 13) Obesity 14) Lack of exercise 15) Vitamin D deficiency 16) Cerebral arteriosclerosis 17) History of alcohol abuse 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 19) Chronic pain 20) Gastroesophageal reflux disease 21) Insomnia 22) Hypersomnia 23) Chronic bipolar II disorder, most recent episode major depressive 24) Chronic sinusitis 25) Generalized anxiety disorder 26) Cough (SCT 79374864) 27) Chronic post-traumatic stress disorder 28) Exposure to potentially hazardous substance ([facility] [id number]) 29) History of repair of rotator cuff 30) History of repair of inguinal hernia 31) Sensorineural hearing loss of bilateral ears PHYSICAL EXAM: Vital Signs: Temperature: 98.1 F [36.7 C] (08/02/2024 08:41) Blood Pressure: 110/65 (08/02/2024 08:41) Pulse: 81 (08/02/2024 08:41) Respirations: 20 (08/02/2024 08:41) Weight: 295.2 lb [133.90 kg] (08/02/2024 08:41) Patient Weight History - Last Four 1. 295.2 lbs. / 133.9 kg. on AUG 02, 2024@08:41:35 2. 273.0 lbs. / 123.8 kg. on JUN 08, 2024@09:37 3. 279.3 lbs. / 126.7 kg. on MAY 03, 2024@14:56:51 4. 271.8 lbs. / 123.3 kg. on DEC 11, 2023@08:19:41 BMI: 34.2 GENERAL: No acute distress, Well developed, well nourished HEENT: EOMI, PERRL, sclera anicteric NECK: Supple, no cervical LAD, no thyromegaly CV: RRR, S1 S2, no S3, S4, murmur, no edema bilaterally RESP: regular, unlabored, clear to auscultation bilaterally GI: soft, non-tender, non-distended, +BS NEURO: strength equal bilaterally, patellar & Achilles reflex 2+ bilaterally PSYCH: pleasant, appropriate LABS: Comprehensive Metabolic Panel Results: SODIUM 142 mEq/L 10/17/2022 09:25 POTASSIUM 4.3 mEq/L 10/17/2022 09:25 CHLORIDE 110 H mEq/L 10/17/2022 09:25 UREA NITROGEN 17 mg/dL 10/17/2022 09:25 CREATININE 1.24 mg/dL 10/17/2022 09:25 CALCIUM 9.7 mg/dL 10/17/2022 09:25 PROTEIN 6.4 g/dL 10/17/2022 09:25 ALBUMIN 4.3 g/dL 10/17/2022 09:25 ALKALINE PHOSPHATASE 74 U/L 10/17/2022 09:25 ALT/SGPT 21 U/L 10/17/2022 09:25 AST/SGOT 22 U/L 10/17/2022 09:25 TOTAL BILIRUBIN 0.6 mg/dL 10/17/2022 09:25 CARBON DIOXIDE 25 mEq/L 10/17/2022 09:25 GLUCOSE 111 H mg/dL 10/17/2022 09:25 EGFR (CKD-EPI 2020) 66.6 10/17/2022 09:25 Hemoglobin: HGB 12.0 L g/dL 05/17/2024 09:03 Hematocrit: HCT 37.3 L % 05/17/2024 09:03 Vitamin D: VITAMIN D, 25-HYDROXY 36.7 ng/mL 10/17/2022 09:25 Phosphorus: No PHOSPHOROUS data found TSH: TSH 0.702 uIU/mL 10/17/2022 09:25 ____ Total T3: 0 ng/dl PSA: PROST. SPECIFIC AG.(PB-STL) 0.106 ng/mL 05/17/2024 09:03 ALBUMIN (PB-sendout) 4.0 g/dL 07/08/2024 11:15 TESTOSTERONE,BIOAVAILABLE (MA-PB-SO 79.2 L ng/dL 07/08/2024 11:15 TESTOSTERONE,FREE (sendout) 43.1 L pg/mL 07/08/2024 11:15 SEX HORMONE BINDING GLOBULIN 56 nmol/L 07/08/2024 11:15 TESTOSTERONE, TOTAL 499 ng/dL 07/08/2024 11:15 No PROLACTIN EO data found LH: ____ Glucose: GLUCOSE 111 H mg/dL 10/17/2022 09:25 Hemoglobin A1C: HGA1C 5.2 % 10/17/2022 09:25 HGA1C 4.9 % 09/12/2019 12:25 Microalb/creat ratio: No MICRAL/CREAT RATIO (STL) data found Lipid Panel: TRIGLYCERIDE 90 mg/dL 10/17/2022 09:25 CHOLESTEROL 85 mg/dL 10/17/2022 09:25 HDL(New) 26 L mg/dL 10/17/2022 09:25 CALCULATED LDL 41 mg/dL 10/17/2022 09:25 Assessment and plan: 64 year old male with a medical history of heart disease, prior [place] 2017, prior stroke around 2009, obesity, depression, hld, ptsd who presents for follow up for weight management. 1. Obesity - with prior history of [place] 2017, prior CVA around 2009 and heart failure (followed by [facility] cardiology) - started on contrave in 04/2024, tolerating well however gained 20 lbs on it. - current vmi 34 - current weight is 295 lbs - follows up with cardiology at [facility] - follows with nutrition - has implemented dietary and lifestyle changes - has nikko, has the inspire device - no mtc or pancreatitis P: - given prior cardiovascular history will place pharmacy consult for wegovy - risk and side effects discussed 2. Evaluation for hypogonadism - reports that he was told he has a low testosterone. - on clomid x 1 year through outside provider - main symptom is fatigue - clomid was held x 1 month, testosterone checked after 1 month was 499 P: - for now, stop clomid. repeat total T in 3 months, if low, then work up for hypogonadism 3. Hypothyroidism - on levothyroxine 125 mcg daily through outside provider - last tsh wnl - repeat in 3 months Questions answered. Verbalizes understanding. RTC 2 months /es/ Yessy Carrington MD STAFF DIVING COACH Signed: 08/02/2024 09:46 YESSY CARRINGTON [facility]
--- OUTSIDE RECORDS SUMMARY | 2024-12-07 18:32 | XMS_ITS | Encounter Summary ---
Author Organization [facility] Facility Care Team Providers Care Warehouse Receiver Name Role Phone Hope Mauro MD Unavailable [phone] Francoise Cruz OT Unavailable [phone] Jayshree Salinas OT Unavailable [phone] Barry Mcmillan DPT Unavailable Unavail able Nitin Martinez GOLF COURSE MANAGER Unavailable + Miguelito Bergeron MD Primary Care Provider [phone] Marian Myrick GOLF COURSE MANAGER Unavailable + Sheryl Hightower MD Primary [...] Bren Lopez MD Primary Care Provider [phone] Encounter Details Date Type Department Care Team (Latest Contact Info) Description 03/27/2018 Orders Only [facility] CLINCONV Provider, MD James [address] [place] [address] Social History Tobacco Use Types Packs/Day Years Used Date Smoking Tobacco: Former Smokeless Tobacco: Former Comments:quit 1999 Alcohol Use Standard Drinks/Week Comments Not Asked 0 (1 standard drink = 0.6 oz pur e alcohol) quit 2003 Sex and Gender Information Value Date Recorded Sex Assigned at Not on file 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 GRAB JACK MAN Gender Identity Not on file Sexual Orientation Not on file documented as of this encounter Plan of Treatment Not on file documented as of this encounter Procedures Procedure Name Priority Date/Time Associated Diagnosis Comments CARDIOLOGY REPORT 03/29/2018 12: 00 AM CDT documented in this encounter Results * CARDIOLOGY REPORT (03/29/2018 12:00 AM CDT) Anatomical Region Laterality Modality Other Narrative 03/29/2018 12:00 AM CDT Ordered by an unspecified provider. Historical Provider [facility] Final Result documented in this encounter Visit Diagnoses Not on filedocumented in this encounter Care Teams Warehouse Receiver Relationship Specialty Start Date End Date Miguelito Bergeron MD [address] [facility] [address] [place] [address] PCP - General 02/13/18 05/11/18 Sheryl Hightower MD [address] [address] PCP - General Internal Medicine 05/12/18 08/12/18 Sabrina Meade PA [facility] [address] PCP - General 10/04/18 12/02/18 Bren Lopez MD [address] [place] [address] PCP - General 12/03/18 12/06/18 Sabrina Meade PA [address] [place] [address] PCP - General 12/07/18 01/13/19 Bren Lopez MD [address] [place] [address] PCP - General 01/14/19 04/19/19 Sabrina Meade PA [address] [place] [address] PCP - General Internal Medicine 04/20/19 04/21/19 Bren Lopez MD [address] [place] [address] PCP - General 08/13/18 10/03/18 Bren Lopez MD [address] [place] [address] PCP - General 04/22/19 Hope Mauro MD Consulting Physician Trauma Surgery 12/17/17 Francoise Cruz, OT [address] [address] Occupational Therapist Occupational Therapy 12/18/17 Jayshree Salinas OT [address] [facility] [address] [place] [address] Occupational Therapist Occupational Therapy 12/18/17 Barry Mcmillan, DPT Physical Therapist Physical Therapy 01/18/18 06/29/18 Nitin Martinez, GOLF COURSE MANAGER [address] [place] [address] [employer] Physical Therapy 01/22/18 08/17/18 Marian Myrick, GOLF COURSE MANAGER [address] [facility] [address] [place] [address] [employer] Physical Therapy 02/19/18 08/17/18 Lynsey Chavez DPT [address] [facility] [address] [place] [address] Physical Therapist Physical Therapy 06/30/18 08/17/18 Sultan Cristo Flores MD [address] [facility] [address] [address] Living Specialist Cardiology 03/02/19 documented as of this encounter
--- OUTSIDE RECORDS SUMMARY | 2024-12-07 18:32 | XMS_ITS | Clinical Summary ---
Author Organization [facility] Address [address] [place] [address] Care Team Providers Care Healthcare Representative Name Role Phone Ashley Perdue MD Primary Care Provider Source Comments [facility],non-owned Affiliates and Associated Physician Practices is amultiple site organization consisting of ambulatory clinics and hospital sitesin [place], [place], [place] and [place]. This disclosure is being madepursuant to the Care Everywhere program and may not contain all information available regarding this patient. Last updated 18.[facility] Allergies Active Allergy Reactions Criticality Noted Date Comments Adhesive Sensitivity 11/15/2015 Surgical tape causes blisters Penicillins Anaphylaxis,Swelling High 11/15/2015 Medications * Be aware that medications may not be up to date on this document. Alwaysverify current medications with the patient. diclofenac sodium (VOLTAREN) 1 % gel Apply 4 g to affected area as needed (to knees) Active DULoxetine (CYMBALTA) 30 MG capsule Take 60 mg by mouth 2 times daily Active busPIRone (BUSPAR) 30 MG tablet Take 30 mg by mouth 2 times daily Active atorvastatin (LIPITOR) 40 MG tablet Take 40 mg by mouth once daily Active traZODone (DESYREL) 100 MG tablet Take 100 mg by mouth at bedtime Active metoprolol tartrate (LOPRESSOR) 25 MG tablet Take 25 mg by mouth 2 times daily Active fluticasone propionate (FLONASE) 50 MCG/ACT nasal spray Kenner 1 Kenner into each nostril 2 times daily Active tadalafil (CIALIS) 5 MG tablet Take 5 mg by mouth once as needed Active tamsulosin (FLOMAX) 0.4 MG capsule Take 0.4 mg by mouth once daily Take 30 minutes after a meal at the same time each day. Active hydrochlorothia zide (MICROZIDE) 12.5 MG capsule Take 12.5 mg by mouth once daily Active prazosin (MINIPRESS) 1 MG capsule Take 1 mg by mouth at bedtime Active aspirin EC (ECOTRIN) 81 MG tablet Take 1 Tab by mouth once daily 0 11/16/2015 Active Family History Medical History Relation Name Comments Cancer Other Relation Name Status Comments Other Social History Tobacco Use Types Packs/Day Years Used Date Smoking Tobacco: Former Smokeless Tobacco: Former Quit: 11/14/1997 Alcohol Use Standard Drinks/Week Comments No 0 (1 standard drink = 0.6 oz pur e alcohol) Sex and Gender Information Value Date Recorded Sex Assigned at Not on file Legal Sex Male 11:29 AM CDT Gender Identity Not on file Sexual Orientation Not on file Last Filed Vital Signs Vital Sign Reading Time Taken Comments Blood Pressure 120/73 11/16/2015 3:55 PM CDT Pulse 73 11/16/2015 3:55 PM CDT Temperature 36.3 C (97.4 F) 11/16/2015 3:55 PM CDT Respiratory Rate 18 11/16/2015 3:55 PM CDT Oxygen Saturation 95% 11/16/2015 3:55 PM CDT Inhaled Oxygen Concentration - - Weight 132 kg (291 lb) 11/15/2015 11:44 AM CDT Height 198.1 cm (6' 6) 11/15/2015 11:44 AM CDT Body Mass Index 33.63 11/15/2015 11:44 AM CDT Plan of Treatment Health Maintenance Due Date Last Done Comments COLOGUARD (AGES 45-75) - COL ON CA SCREENING 1962 COLON MONITORING 1962 COLONOSCOPY - COLON CA SCREENING 1962 CT COLONOGRAPHY - COLON CA SCREENING 1962 Colorectal Cancer Screening 1962 FIT - COLON CA SCREENING 1962 FLEX SIG - COLON CA SCREENING 1962 HIV SCREENING 1977 HEPATITIS C SCREENING 01/20/1980 DTAP/TDAP/TD VACCINES (1 - Tdap) 1981 PNEUMOCOCCAL VACCINE 50+ (1 of 1 - PCV) 01/25/2012 ZOSTER VACCINE (1 of 2) 01/25/2012 COVID-19 VACCINE (2023-2 5 season) 2024 DEPRESSION SCREENING 07/06/2024 INFLUENZA VACCINE (Season Ended) 2025 Respiratory Syncytial Virus (RSV) Vaccine Pt: or over 60 yrs (1 - 1-dose 75+ series) 2037 HEPATITIS B VACCINE Aged Out No longe r eligible based on patient's age to complete this topic HIB VACCINE Aged Out No longer eligi ble based on patient's age to complete this topic HPV VACCINE Aged Out No longer eligi ble based on patient's age to complete this topic MENINGOCOCCAL (Group B) VACC INE SHARED DECISION-MAKING Aged Out No longer eligibl e based on patient's age to complete this topic MENINGOCOCCAL GROUPS A/C/Y/W VACCINE Aged Out No longer eligible b ased on patient's age to complete this topic Insurance ANTH Advance Directives * Full Code (Latest Code Status on File) Date Activated Date Inactivated Comments 11/15/2015 5:29 PM 11/16/2015 6:06 PM Care Teams Healthcare Representative Relationship Specialty Start Date End Date Ashley Perdue MD [address] [place] [address] [address] [place] [address] PCP - General Family Medicine 11/15/15
--- OUTSIDE RECORDS SUMMARY | 2024-12-07 18:32 | XMS_ITS ---
Author Name [facility] [place] [facility] Address [address] [place] [address] Care Team Providers Care Occupational Therapy Specialist Name Role Phone RADHAJOLEENChary Primary Care [...] Policy Mary BCBS IN EXCLUSIVE PROVIDER ORGANIZAT [facility] H Jul 06, 2019 [id number] [phone] MIHIR OWEN PATIENT [employer] (INGENIO RX) PRESCRIPT ION RX PLAN Jul 06, 2019 [id number] MIHIR OWEN PATIENT [employer] [facility] [facility] HE[facility] HCARE Jul 06, 2016 [id number] MIHIR OWEN PATIENT MEDIMPACT RX PRESCRIPT ION MHM SUPPO RT SERVI IJEOMA Jul 06, 2019 [id number] [phone] MIHIR OWEN PATIENT [facility] [place] GORAN KAUR NGE May 06, 2024 [id number] [phone] MIHIR OWEN PATIENT Selected Encounter This section includes the information on record at [place] for the Encounter. Date/Time Encounter Type Encounter Description Reason Provider Source Dec 05, 2024 09:15 AM OFFICE O/P EST LOW 20 MIN DERMATOLOGY ICD-10-CM L82.1 Other seborrheic keratosis TIAGO EDEN Encounter Template Text not used by [place] Assessments - Encounter Diagnoses This section includes the primary and secondary diagnoses documented for the Encounter. Date/Time Primary/Secondary Diagnosis Diagnosis Name Provider Source Dec 05, 2024 09:27 AM PRIMARY Other seborrheic keratosis David SMITH [facility] Dec 05, 2024 09:27 AM SECONDARY Epidermal cyst David SMITH [facility] Dec 05, 2024 09:27 AM SECONDARY Melanocytic nevi, unspecified David SMITH [facility] Dec 05, 2024 09:27 AM SECONDARY Other melanin hyperpigmentation David SMITH [facility] Dec 05, 2024 09:27 AM SECONDARY Personal history of other malignant neoplasm of skin David SMITH [facility] Plan of Treatment: Future Appointments (+ 6 months) and Future Tests (+/- 45 days) The Plan of Treatment section includes future care activities for the patient from all [place] treatmentfacilities. This section includes future appointments and future orders which are active, pending or scheduled. Future Appointments This section includes appointments that were scheduled to occur 6 months from the date of the Encounter, up to a maximum of 20 appointments. The data comes from all [place] treatment facilities. Appointment Date/Time Appointment Type Appointme nt Facility Name Dec 08, 2024 09:40 AM AMBULATORY - SURGERY . [facility] Jan 05, 2025 08:00 AM AMBULATORY - MEDICINE [facility] Jan 19, 2025 01:00 PM AMBULATORY - NONE [facility] Feb 06, 2025 08:00 AM AMBULATORY - PSYCHIATRY [facility] Mar 07, 2025 03:30 PM AMBULATORY - REHAB MEDICIN E [facility] Vital Signs: All taken on the encounter date This section contains inpatient and outpatient Vital Signs collected on the date of the Encounter. Date/Time Temperature Pulse Blood Pressure Respiratory Rate SP02 Pain Height Weight Body Mass Index Source Dec 05, 2024 09:30 AM 278.4 32 [facility] Social History: Smoking Status (Most current) and Tobacco Use (All prior to encounter date) This section includes the most current, and the historical, smoking and tobacco- related health factors from the [place] facility where the Encounter took place. Current Smoking Status This section includes the most current smoking, or tobacco-related health factor, from the [place] facility where the Encounter took place. Date/Time Current Smoking Status Comment Romelia ity November 11, 2017 01:35 AM QUIT TOBACCO >7 YEARS AGO [facility] Tobacco Use History This section includes a history of the smoking, or tobacco-related health factors, that were collected on or before the date of the Encounter. The data comes from the [place] facility where the Encounter took place. Date/Time Smoking Status/Tobacco Use Comment F acility Dec 13, 2015 09:47 AM QUIT TOBACCO >7 YEARS AGO [facility] Mar 01, 2015 10:15 AM QUIT TOBACCO >7 YEARS AGO [facility] Oct 24, 2011 09:33 AM QUIT TOBACCO >7 YEARS AGO [facility] Aug 07, 2000 12:59 PM CURRENT NON-TOBACC O USER-HX OF USE quit 3 yrs. ago. [facility] Jun 04, 2000 08:44 AM CURRENT NON-TOBACC O USER-HX OF USE STOPPED 3 YEARS AGO [facility] Mar 05, 2000 08:49 AM CURRENT NON-TOBACC O USER-HX OF USE QUIT 3 YEARS AGO. [facility] Jun 24, 1999 10:05 AM PREVIOUS SMOKER Severity= MINIMAL [facility] Advance Directives: All historical and current Section Date Range: From patient's date of to the date document was created. This section includes ALL of a patient's completed or amended [place] Advance and Rescinded Directives. The entries below indicate that a directive exists for the patient, but an actual copy is not included with this document. The data comes from all [place] facilities. Date Advance Directives Provider Source Aug 15, 1997 ADVANCE DIRECTIVE DESIRAE WILKERSON [facility] Encounter Notes: All associated encounter notes This section contains the clinical notes associated to the Encounter. 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 No skin concerns today. ALLERGIES PENICILLIN, BACTRIM, LISINOPRIL REVIEW OF SYSTEMS No non-healing sores --------- OBJECTIVE --------- Physical Examination - Firm, mobile subcutaneous nodule with central punctum on left upper back - Dome-shaped yellowish papules on cheeks, forehead - waxy brown stuck-on papules trunk, extremities - homogenous brown macules and papules trunk, extremities - WHSS L preauricular cheek, R faith, upper back, L forehead Otherwise: General Appearance: Well Appearing MALE, NAD Mood/Affect: pleasant/appropriate Face: WNL Ears: WNL Nose: WNL Forehead: WNL Scalp, Hair: WNL Neck: WNL Chest: WNL Abd: WNL Back: WNL Upper Extremities: WNL Lower Extremities: WNL Nails/Hair: WNL ASSESSMENT AND PLAN Epidermal cyst - Left upper back - Benign, reassured - Discussed treatment, pt declined at this time Sebaceous hyperplasia - benign, reassurance Seborrheic keratoses - benign, reassurance Benign melanocytic nevi Solar lentigines - benign, reassurance - ABCDEs reviewed - regular self skin exams - yearly MD skin exams - photoprotection History of NMSC Most recently SCCIS R cheek s/p EDC 12/2022 - No evidence of recurrence or new primaries today - Counseled on sun protection strategies and skin cancer warning signs RTC 1 year /fabien/ DAVON SMITH Concrete Boom Operator Signed: 12/05/2024 09:27 /fabien/ TIAGO EDEN MD DERMATOLOGY & DERMATOPATHOLOGY Cosigned: 12/05/2024 09:30 12/05/2024 ADDENDUM STATUS: COMPLETED Reviewed documented history and physical examination and agree with assessment and plan. I was immediately available during entire visit and procedures. /fabien/ TIAGO EDEN MD DERMATOLOGY & DERMATOPATHOLOGY Signed: 12/05/2024 09:30 DAVON SMITH [facility]
--- OUTSIDE RECORDS SUMMARY | 2024-12-07 18:32 | XMS_ITS | Continuity of Care Document ---
Author Organization Merged with [facility] Address [address] [place] [address] [address] [place] [address] Phone Care Team Providers Care Beer Coil Cleaner Name Role Phone Juan Leblanc Unavailable Unavailable Procedures Procedure Date Eye Exam, New Patient Advance Directives Directive Yes / No Effective Date File Name No Information Encounters Encounter Description Practice Location Reason(s) For Visit Diagnoses Date Provider Providers Copied on Encounter [facility], [address] [place] [address] [address], [place], [place], [id number], [place] tel:[phone] SEC [facility] [place] No Information [phone] Benji Martinez. [address] , [address], [place], [address], [place]. tel:[phone] Family History Family Member Type Diagnosis Age At Onset No Information Payers Payer name Insurance type Covered constitution party ID Authoriza tion(s) [employer] [id number] Social History Type Description Quantity Date Captured [...]
--- OUTSIDE RECORDS SUMMARY | 2024-12-07 18:32 | XMS_ITS | Encounter Summary ---
Author Name [facility] [place] [facility] [place] [facility] [facility] [place] Address [address] [place] [address] Care Team Providers Care Director Of Professional Services Name Role Phone ANGELINE GARCIA Primary Care [...] YEIMI KAUFMAN HEALT H Jul 06, 2019 [id number] [phone] MIHIR OWEN PATIENT [facility] ([facility]) PRESCRIPT ION RX PLAN Jul 06, 2019 [id number] MIHIR OWEN PATIENT [facility] HEALT HCARE Jul 06, 2016 [id number] MIHIR OWEN PATIENT MEDIMPA[facility] RX PRESCRIPT ION MHM SUPPO RT SERVI IJEOMA Jul 06, 2019 [id number] [phone] MIHIR OWEN PATIENT [facility] MENTAL HEALTH [place] GORAN KAUR NGE May 06, 2024 ILONEX [id number] [phone] MIHIR OWEN PATIENT Selected Encounter This section includes the information on record at [place] for the Encounter. Date/Time Encounter Type Encounter Description Reason Provider Source Sep 29, 2024 07:30 AM OFF/OP CNSLTJ NEW/EST MOD 40 PODIATRY ICD-10-CM L60.2 Onychogryphosis [facility] Encounter Template Text not used by [place] Assessments - Encounter Diagnoses This section includes the primary and secondary diagnoses documented for the Encounter. Date/Time Primary/Secondary Diagnosis Diagnosis Name Provider Source Sep 29, 2024 08:31 AM PRIMARY Onychogryphosis [facility] Sep 29, 2024 08:31 AM SECONDARY Congenital pes cavus, left foot [facility] Sep 29, 2024 08:31 AM SECONDARY Congenital pes cavus, right foot [facility] Sep 29, 2024 08:31 AM SECONDARY Edema, unspecified [facility] Sep 29, 2024 08:31 AM SECONDARY Post-traumatic osteoarthritis, left ankle and foot [facility] Sep 29, 2024 08:31 AM SECONDARY Tinea unguium [facility] Plan of Treatment: Future Appointments (+ 6 months) and Future Tests (+/- 45 days) The Plan of Treatment section includes future care activities for the patient from all [place] treatmentfacilities. This section includes future appointments and future orders which are active, pending or scheduled. Future Appointments This section includes appointments that were scheduled to occur 6 months from the date of the Encounter, up to a maximum of 20 appointments. The data comes from all [place] treatment facilities. Appointment Date/Time Appointment Type Appointme nt Facility Name Oct 06, 2024 08:00 AM AMBULATORY - PSYCHIATRY [facility] Oct 24, 2024 01:00 PM AMBULATORY - NONE [facility] November 25, 2024 01:00 PM AMBULATORY - MEDICINE [facility] December 02, 2024 09:00 AM AMBULATORY - REHAB MEDICIN E [facility] Dec 05, 2024 09:15 AM AMBULATORY - MEDICINE [facility] Dec 08, 2024 09:40 AM AMBULATORY - SURGERY . Luis Enrique [facility] Jan 05, 2025 08:00 AM AMBULATORY - MEDICINE [facility] Jan 19, 2025 01:00 PM AMBULATORY - NONE [facility] Feb 06, 2025 08:00 AM AMBULATORY - PSYCHIATRY [facility] Mar 07, 2025 03:30 PM AMBULATORY - REHAB MEDICIN E [facility] Active, Pending, and Scheduled Orders This section includes a listing of several types of active, pending, and scheduled orders, including clinic medications orders, diagnostic test orders, procedure orders and consult orders; where the start date of the order is 45 days before the date of the Encounter or 45 days after the date of theEncounter. The data comes from all [place] treatment facilities. Test Date/Time Test Type Test Details Facility Name Sep 06, 2024 08:57 AM Consult Order [facility]GERY Cons Patient Access Manager's Choice [facility] Vital Signs: All taken on the encounter date This section contains inpatient and outpatient Vital Signs collected on the date of the Encounter. Date/Time Temperature Pulse Blood Pressure Respiratory Rate SP02 Pain Height Weight Body Mass Index Source Sep 29, 2024 08:16 AM 97.9 82 126/70 20 96 7 78 293.4 34 [facility] Social History: Smoking Status (Most current) and Tobacco Use (All prior to encounter date) This section includes the most current, and the historical, smoking and tobacco- related health factors from the [place] facility where the Encounter took place. Current Smoking Status This section includes the most current smoking, or tobacco-related health factor, from the [place] facility where the Encounter took place. Date/Time Current Smoking Status Sebastian avery November 11, 2017 01:35 AM QUIT TOBACCO >7 YEARS AGO [facility] Tobacco Use History This section includes a history of the smoking, or tobacco-related health factors, that were collected on or before the date of the Encounter. The data comes from the [place] facility where the Encounter took place. Date/Time Smoking Status/Tobacco Use Comment F acility Dec 13, 2015 09:47 AM QUIT TOBACCO >7 YEARS AGO [facility] Mar 01, 2015 10:15 AM QUIT TOBACCO >7 YEARS AGO [facility] Oct 24, 2011 09:33 AM QUIT TOBACCO >7 YEARS AGO [facility] Aug 07, 2000 12:59 PM CURRENT NON-TOBACC O USER-HX OF USE quit 3 yrs. ago. [facility] Jun 04, 2000 08:44 AM CURRENT NON-TOBACC O USER-HX OF USE STOPPED 3 YEARS AGO [facility] Mar 05, 2000 08:49 AM CURRENT NON-TOBACC O USER-HX OF USE QUIT 3 YEARS AGO. [facility] Jun 24, 1999 10:05 AM PREVIOUS SMOKER Severity= MINIMAL [facility] Advance Directives: All historical and current Section Date Range: From patient's date of to the date document was created. This section includes ALL of a patient's completed or amended [place] Advance and Rescinded Directives. The entries below indicate that a directive exists for the patient, but an actual copy is not included with this document. The data comes from all [facility]. Date Advance Directives Provider Source Aug 15, 1997 ADVANCE DIRECTIVE DESIRAE WILKERSON [facility] Radiology Reports: +/- 30 days of the [...] the Encounter. The data comes from all [place] treatment facilities. Date/Time Radiology Report Provider Source Sep 06, 2024 11:08 AM BIOPSY, SOFT TISSU E, PERCUTANEOUS NEEDLE: MIHIR OWEN [id number] -[id number] M Ex Date: SEP 06, 2024@11:08 Req Phys: FERMIN DECKER Loc: [facility]ICKI-IR E-CONSULT (Req'g Loc) Img Loc: VICKI-ANGIO/INTERVENTIONAL Service: Unknown [facility] [address] [place] [address] (Case [id number] COMPLETE) BIOPSY,THYROID(CORE)(SURGI MALA COD(ANI Detailed) CPT:88703 CPT Modifiers : 53 DISCONTINUED PROCEDURE Reason for Study: Right Side Neck Mass Clinical History: see econsult Report Status: Verified Date Reported: SEP 08, 2024 Date Verified: SEP 08, 2024 Linux Network Administrator E-Sig:/ES/GONZALO DAMICO Report: CASE: [id number] INDICATION: Patient with suspicious right submandibular palpable [...] Primary Interpreting Staff: GONZALO DAMICO, INTERVENTIONAL RADIOLOGIST (Linux Network Administrator) /GONZALO TODD [facility] Sep 01, 2024 09:[address] NECK SOFT TISSU E W/CONT: MIHIR OWEN [id number] -1960 M Exm Date: SEP 01, 2024@09:57 Req Phys: FERMIN DECKER Miley Loc: VICKI-ENDOCRINOLOGY 1 (Realeja'mauricio Dudley Img Loc: VICKI-CT IMAGING VICKI Service: Unknown [facility], [address] [place] [address] (Case [id number] COMPLETE) CT NECK SOFT TISSUE W/CONT (CT Detailed) CPT:93330 Contrast Media : Non-ionic Iodinated Reason for Study: evaluate 3.6 cm right sided neck mass found on US neck Clinical History: Responsible Attending: Charissa Attending Contact Number: [phone] Resident Contact Number: 64 year old male [...] 01, 2024 Date Verified: SEP 01, 2024 Linux Network Administrator E-Sig:/ES/ANDREA MACHADO MD Report: Spiral axial imaging [...] Primary Interpreting Staff: ANDREA MACHADO MD, Radiologist (Linux Network Administrator) /ANDREA OLEA [facility] Encounter Notes: All associated encounter notes This section contains the clinical notes associated to the Encounter. Date/Time Encounter Note(s) Provider Source Sep 29, 2024 07:31 AM PODIATRY CONSULT: LOCAL TITLE: PODIATRY CONSULT [facility] STANDARD TITLE: PODIATRY CONSULT DATE OF NOTE: SEP 29, 2024@07:31 ENTRY DATE: SEP 29, 2024@07:32:03 AUTHOR: OCTAVIANO GALVEZ COSIGNER: URGENCY: STATUS: COMPLETED S: PT PRESENTS TO CLINIC TODAY WITH CHIEF COMPLAINT OF MALFORMED NAIL ON THE LEFT GREAT TOE. HAS HAD IT REMOVED TWICE WITHOUT SUCESS. HE DENEIS ANY SIGNS OF INFECTION OR PAIN. PT DENIES ANY RECENT TRAUMA. PT IS FOLLOWED BY HIS PCP FOR HIS GENERAL HEALHT ISSUES. PT IS COOPERATIVE AND PLEASANT UPON EXAM. HE IS ON A BLOOD THINNER. SYMPTOMS WORSENDED BY: NO DEBRIDEMENT AND PRESSURE. SYMTOMS IMPROVED BY: DEBRIDEMENT. PAIN SCALE: 0/10. HEIGHT:78 in [198.1 cm] (08/02/2024 08:41) WEIGHT:293.6 lb [133.17 kg] (09/13/2024 14:13) FAMILY HISTORY: HE STATES MOTHER AND GRANDMOTHER HAD DM HOWEVER NO AMPUTATIONS, NO LUPUS, AND NO RH. HGA1C:HGA1C 5.3 % 08/03/2024 11:01 ROS: CARDIAC: HE GIVES HX OF CAD. VASCULAR: HE DENIES ANY PROBLEMS WITH BLOOD FLOW TO THE FEET OR LEGS. MUS/SK: PT DENIES ANY PROBLEMS WITH MUSCLES OR BONE PAIN. KIDNEY: PT DENIES ANY KIDNEY ISSUES. SKIN: PT DENIES ANY SLOW OR NON-HEALLING WOUNDS. OTHER: HE HAD HEART ATTACK AND PE. HE HAS HAD 3 TIA'S 20. HE HAD SKIN CANCER. ALLERGIES:PENICILLIN, BACTRIM, LISINOPRIL, PRAVASTATIN, ATORVASTATIN SOCIAL HISTORY: PT DENIES DRUG AND MARIJUANA USE. PT DENIES ANY TOBOACCO USE. PT SMOKED ONE PACK PER DAY FOR 10 YEARS. PT STATES HE USED HEAVILY DURING . PT IS LIVING AT HOME WITH FAMILY. PT IS NO LONGER WORKING. RELEVANT PAST SURGICAL HISTORY: PT GIVES HX OF LEFT LEG SUGERY AT TIB AND FIB ON THE LEFT AND LEFT GREAT TOE NAIL REMOVAL X 2. BACK SURGERY, B/L KNEE SURGERY AND RIGHT 5TH MET FRACTURE WITH HARDWARE IN 2008. PAST MEDICAL HISTORY: 1) Benign essential hypertension (SNOMED CT 2848591) 2) Hyperlipidemia (SNOMED CT 80052356) 3) TIA (SNOMED CT 716251648) 4) Hearing loss (SCT 02844412) - Unspecified hearing loss (ICD-9-CM 389.9) 5) [...] 25) Generalized anxiety disorder 26) Cough (SCT 52473817) 27) Chronic post-traumatic stress disorder 28) Exposure to potentially hazardous substance ([facility] [id number]) 29) History of repair of rotator cuff 30) History of repair of inguinal hernia 31) Sensorineural hearing loss of bilateral ears CURRENT MEDICATIONS: Active Outpatient Medications (including Supplies): Active Outpatient Medications Status 1) ALBUTEROL 90MCG (CFC-F) 200D ORAL INHL INHALE 2 PUFFS BY ACTIVE (S) ORAL INHALATION FOUR TIMES A DAY NEEDED SHAKE WELL. RINSE MOUTHPIECE FREQUENTLY TO PREVENT CLOGGING. Indication: FOR ASTHMA 2) AMLODIPINE BESYLATE 10MG TAB TAKE ONE TABLET BY MOUTH ONCE A ACTIVE (S) DAY FOR HEART/BLOOD PRESSURE 3) ARIPIPRAZOLE 5MG TAB TAKE ONE AND ONE-HALF TABLETS BY MOUTH ACTIVE (S) ONCE A DAY Indication: FOR BIPOLAR DISORDER 4) ATORVASTATIN CALCIUM 40MG TAB TAKE ONE-HALF TABLET BY MOUTH ACTIVE (S) EVERY EVENING Indication: FOR HIGH CHOLESTEROL 5) BUPROPION 90MG/NALTREXONE HCL 8MG SA TAB TAKE 2 TABLETS BY ACTIVE MOUTH TWICE A DAY Indication: FOR WEIGHT LOSS 6) BUSPIRONE HCL 15MG TAB TAKE TWO TABLETS BY MOUTH TWICE A DAY ACTIVE (S) FOR ANXIETY DO NOT TAKE WITH GRAPEFRUIT JUICE 7) DULOXETINE HCL 60MG EC CAP TAKE TWO CAPSULES BY MOUTH AT ACTIVE (S) BEDTIME FOR MOOD, ANXIETY AND PAIN 8) FAMOTIDINE 40MG TAB TAKE ONE TABLET BY MOUTH ONCE A DAY TO ACTIVE (S) LOWER STOMACH ACID 9) FERROUS SULFATE 325MG TAB TAKE ONE TABLET BY MOUTH ONCE A ACTIVE (S) DAY FOR IRON SUPPLEMENTATION. 10) FINASTERIDE 5MG TAB TAKE ONE TABLET BY MOUTH ONCE A DAY FOR ACTIVE (S) PROSTATE. SWALLOW WHOLE, DO NOT CRUSH, SPLIT, OR CHEW. 11) HYDROXYZINE HCL 50MG TAB TAKE 1-2 TABLETS BY MOUTH AT ACTIVE (S) BEDTIME NEEDED FOR MIDDLE INSOMNIA *MAY CAUSE DROWSINESS* OK TO TAKE ADDITIONAL 50MG DOSE LATER IN THE NIGHT IF INSOMNIA PERSISTS 12) LIDOCAINE 5% PATCH APPLY 1 PATCH TO SKIN SITE ONCE A DAY ACTIVE APPLY PATCH AND PRESS FIRMLY FOR 10-15 SECONDS. KEEP ON FOR 12 HOURS THEN REMOVE PATCH FOR 12 HOURS. Indication: FOR LOCAL ANESTHESIA 13) MODAFINIL 200MG TAB TAKE ONE TABLET BY MOUTH TWICE A DAY ACTIVE (S) Indication: FOR ALERTNESS 14) OLOPATADINE HCL 0.2% OPH SOLN INSTILL 1 DROP IN BOTH EYES ACTIVE (S) ONCE A DAY Indication: FOR ALLERGIC CONJUNCTIVITIS 15) PRAZOSIN HCL 2MG CAP TAKE ONE CAPSULE BY MOUTH AT BEDTIME ACTIVE (S) FOR NIGHTMARES MAY CAUSE DIZZINESS OR DROWSINESS. 16) QUETIAPINE FUMARATE 400MG TAB TAKE ONE-HALF TABLET BY MOUTH ACTIVE (S) AT BEDTIME Indication: FOR BIPOLAR DISORDER Active Non-VA Medications Status 1) Non-VA APIXABAN [...] 7) Non-VA PANTOPRAZOLE NA 40MG EC TAB 40MG BY MOUTH EVERY ACTIVE MORNING BEFORE A MEAL Indication: FOR GASTROESOPHAGEAL REFLUX DISEASE 8) Non-VA PRAMIPEXOLE DIHYDROCHLORIDE 0.5MG TAB 0.25MG BY MOUTH ACTIVE AT BEDTIME Indication: FOR RESTLESS LEG SYNDROME 9) Non-VA SPIRONOLACTONE 25MG TAB 25MG BY MOUTH ONCE A DAY ACTIVE Indication: FOR HIGH BLOOD PRESSURE 10) Non-VA TADALAFIL 5MG TAB 5MG BY MOUTH EVERY WEEK ACTIVE Indication: FOR ERECTILE DYSFUNCTION 11) Non-VA TAMSULOSIN HCL 0.4MG CAP 0.4MG BY MOUTH EVERY EVENING ACTIVE Indication: FOR BENIGN PROSTATIC HYPERPLASIA 27 Total Medications O: PT IS ALERT AND ORIENTED X 3 AND IN NAD. HE IS AMBULATING WITHOUT ASSISTANCE. HE IS WEARING HIS PERSONAL SHOES ON EXAM. VASC: PALPABLE PULSES, NO ISCHEMIC CHANGES NOTED ON EXAM. CAPP REFILL LESS THAN 3 SECONDS. NO DIGITAL HAIR GROWTH NOTED. FEET ARE WARM TO TOUCH. EDEMA NOTED B/L AND GREATER ON THE LEFT LIMB. NEURO: GROSSLY INTACT, PROTECTIVE LIGHT SENSATION INTACT PER SEMMES LILIA 5.07 MONOFILAMENT TO ALL SITES TESTED B/L EXCEPT THE LEFT GREAT TOE AND THE LEFT 2ND TOE. DERM: NAILS TRIMMED TOO SHORT BY PATIENT EXCEPT THE LEFT GREAT TOE NAIL WHICH IS MALFORMED AND THICK AND IS DYSTROPHIC AND MYCOTIC WITH SIGNFICANT SUBUNGAL DEBRIES. NO PAIN WITH PRESSURE ON EXAM AND NO PRULENCE REDNES OR HEAT IS NOTED ON EXAM. NO ASCENDING CELLULITIS. NO ERYTHAMA, NO DRAINAGE, AND NO OPEN WOUNDS NOTED ON EXAM. MUS/SK: GOOD MUSCLE STRENGTH IN ALL 4 QUADRANTS ON THE LEFT AND THE RIGHT HOWEVER LOSS OF MOTION AT THE ANKLE AND STJ ON THE LEFT. NO PAIN WITH PALPATION OR WITH ROM OR ON STANCE. PES CAVUS FOOT TYPE IS NOTED ON STANCE. NO DELL NOTED IN THE ACHILLES. LEF HALLUX IPJ FUSED HOWEVER NO PAIN AT SITE. A/P 1 ONYCHOMYCOSIS WITH ONYCHOGRYPHOSIS LEFT GREAT TOE/ MANUALLY DEBRIDED X 1 IN ORDER TO PREVENT POSSIBLE SECONDARY INFECTION. BETADINE APPLIED ROUTINELY. PT TO FILE SITE. 2 IDOEPATHIC NEUROPATHY/ PT EDUCATION. PT TO F/U WITH PCP. PT SENT FOR RX SHOES AND INSERTS WITH PRECAUTIONS. 3 PES CAVUS B/L/ PT SENT FOR RX SHOES AND INSERTS WITH PRECAUTIONS. 4 LEFT ANKLE TRAUMA WITH DECREASED ROM AND ARTHRITIS/ PT SENT FOR RX SHOES AND INSERTS. WILL REQUEST ROCKER BOTTOM SHOES. 5 EDEMA/ PT SENT FOR RX SHOES AND INSERTS WITH PRECAUTIONS. TIME SPENT: 45 MIN. DUE TO LOSS OF SENSATION AND PREVIOUS TRAUMA WILL SEE AGAIN AND REPEAT MONOFILAMENT AND ORDER PROSTHETIC ITEMS. PT TO F/U IN 12 MONTHS. DISCUSSED TREATMENT OPTIONS WITH PATIENT AND PATIENT ADVISED TO GO TO THE ER IF ANY INCREASE IN PAIN REDNESS OR ERYTHEMA IS NOTED. PT STATES UNDERSTANDING. MEDICATION/RECONCILLIATION: REVIEWED AND RECONCILLED ALL PODIATRIC GENERATED MEDICATIONS. PER [place] PODIDATRY DIRECTIVE 1122 PT IS CONSIDERED TO BE MODERATE RISK FOR PODIATRY. /fabien/ OCTAVIANO GALVEZ Staff Physician, Podiatry Signed: 09/29/2024 08:35 OCTAVIANO GALVEZ [facility]
--- OUTSIDE RECORDS SUMMARY | 2024-12-07 18:32 | XMS_ITS | Encounter Summary ---
Author Name [facility] Organization [facility] Address [address] [place] [address] Care Team Providers Care Staff Trainer Name Role Phone RADHAJOLEENChary Primary Care Provider [...] Name Patient's Relationship to Policy Mary BCBS AR EXCLUSIVE PROVIDER ORGANIZAT YEIMI [facility] H Jul 06, 2019 [id number] [phone] MIHIR OWEN PATIENT [employer]ARK ([facility]EN[employer] RX) PRESCRIPT ION RX PLAN Jul 06, 2019 [id number] MIHIR OWEN PATIENT [employer] [facility]IOR[facility] MENTAL HEALTH [facility] HEALT HCARE Jul 06, 2016 [id number] [phone] MIHIR OWEN PATIENT MEDIMPACT RX PRESCRIPT ION MHM SUPPO RT SERVI IJEOMA Jul 06, 2019 [id number] [phone] MIHIR OWEN PATIENT [employer] [facility] MENTAL HEALTH [place] GORAN KAUR NGE May 06, 2024 ILONEX [id number] [phone] MIHIR OWEN PATIENT Selected Encounter This section includes the information on record at OR for the Encounter. Date/Time Encounter Type Encounter Description Reason Provider Source Jul 08, 2024 09:00 AM OFFICE O/P EST MOD 30 MIN [facility] - IND ICD-10-CM F33.41 Major depressive disorder, recurrent, in partial remission JORDAN CESPEDES Aneta Encounter Template Text not used by OR Assessments - Encounter Diagnoses This section includes the primary and secondary diagnoses documented for the Encounter. Date/Time Primary/Secondary Diagnosis Diagnosis Name Provider Source Jul 08, 2024 11:01 AM PRIMARY Major depressive disorder, recurrent, in partial remission [facility] Jul 08, 2024 11:01 AM SECONDARY Insomnia, unspecified RUBINAJORDAN [facility] Jul 08, 2024 11:01 AM SECONDARY Post-traumatic stress disorder, unspecified RUBINAJORDAN [facility] Plan of Treatment: Future Appointments (+ 6 months) and Future Tests (+/- 45 days) The Plan of Treatment section includes future care activities for the patient from all OR treatmentfaadventhealthities. This section includes future appointments and future orders which are active, pending or scheduled. Future Appointments This section includes appointments that were scheduled to occur 6 months from the date of the Encounter, up to a maximum of 20 appointments. The data comes from all OR treatment facilities. Appointment Date/Time Appointment Type Appointme nt Facility Name Jul 29, 2024 01:00 PM AMBULATORY - NONE [facility] Aug 02, 2024 09:00 AM AMBULATORY - MEDICINE [facility] Aug 02, 2024 10:00 AM AMBULATORY - NONE [facility] Aug 03, 2024 12:30 PM AMBULATORY - NONE [facility] Aug 05, 2024 01:00 PM AMBULATORY - SURGERY [facility] Aug 23, 2024 07:30 AM AMBULATORY - NONE [facility] Aug 24, 2024 02:00 PM AMBULATORY - REHAB MEDICIN E [facility] Aug 29, 2024 10:30 AM AMBULATORY - REHAB MEDICIN E [facility] Sep 01, 2024 10:30 AM AMBULATORY - NONE [facility] Sep 02, 2024 10:30 AM AMBULATORY - REHAB MEDICIN E [facility] Sep 05, 2024 10:30 AM AMBULATORY - REHAB MEDICIN E [facility] Sep 06, 2024 11:30 AM AMBULATORY - NONE [facility] Sep 07, 2024 10:30 AM AMBULATORY - REHAB MEDICIN E [facility] Sep 13, 2024 02:30 PM AMBULATORY - MEDICINE [facility] Sep 29, 2024 07:30 AM AMBULATORY - SURGERY [facility] Sep 29, 2024 08:00 AM AMBULATORY - MEDICINE [facility] Oct 06, 2024 08:00 AM AMBULATORY - PSYCHIATRY [facility] Oct 24, 2024 01:00 PM AMBULATORY - NONE [facility] November 25, 2024 01:00 PM AMBULATORY - MEDICINE [facility] December 02, 2024 09:00 AM AMBULATORY - REHAB MEDICIN E [facility] Lab Results: +/- 30 days of the encounter This section includes the Chemistry and Hematology Lab Results on record with OR for the patient. Radiology Reports and Pathology Reports are provided separately, in subsequent sections. Lab Results This section contains the Chemistry/Hematology Results that were resulted 30 days before or 30 daysafter the date of the Encounter. Date/Time Source Result Type Result - Unit Interpretation Reference Range Specimen Type Comment Aug 03, 2024 11:01 AM [facility] B12 SERUM Specimen Type: SERUM No comment entered. Ordering Provider: ANGELINE GARCIA Report Released Date/Time: Jul 21, 2024 06:47 PM Reporting Lab: [facility] [id number] Performing Lab: [facility] [address] B12 1133 pg/mL H 213-816 Aug 03, 2024 11:01 AM [facility] HGA1C BLOOD Specimen Type: BLOOD No comment entered. Ordering Provider: ANGELINE GARCIA Report Released Date/Time: Jul 21, 2024 06:47 PM Reporting Lab: [facility] [address] Performing Lab: [facility] [address] HGA1C 5.3 4.0-6.0 Aug 03, 2024 11:01 AM [facility] FOLATE (STL-MA) SERUM Specimen Type: SERUM No comment entered. Ordering Provider: ANGELINE GARCIA Report Released Date/Time: Jul 21, 2024 06:47 PM Reporting Lab: [facility] [phone] Performing Lab: [facility] [address] FOLATE (STL-MA) 12.6 ng/mL 7-20 Aug 03, 2024 11:01 AM [facility] TSH (MA-PB) SERUM Specimen Type: SERUM No comment entered. Ordering Provider: ANGELINE GARCIA Report Released Date/Time: Jul 21, 2024 06:47 PM Reporting Lab: [facility] [address] Performing Lab: [facility] [address] TSH 0.754 u[IU]/mL 0.470-5.000 Aug 03, 2024 11:01 AM [facility] COMPREHENSIVE METABOLIC PANEL PLASMA Specimen Type: PLASMA Comment: No hemolysis noted. Ordering Provider: ANGELINE GARCIA Report Released Date/Time: Jul 21, 2024 06:47 PM Reporting Lab: [facility] [phone] Performing Lab: [facility] [address] CREATININE 1.25 mg/dL 0.70-1.30 UREA NITROGEN 16.1 [...] 65.11 >60 Jul 08, 2024 11:15 AM [facility] TESTOSTERONE, FREE PANEL SERUM Specimen Type: SERUM Comment: Men with clinically significant hypogonadal symptoms and testosterone values repeatedly in the range of the 200-300 ng/dL or less, may benefit from testosterone treatment after adequate risk and benefits counseling. For additional information, please refer to http://education.Amiato/faq/ [email or web address] (This link is being provided for informational/ educational purposes only.) This test was developed and its analytical performance characteristics have been determined by [facility] [place], [place]. It has not been cleared or approved by the U.S. Food and Drug Administration. This assay has been validated pursuant to the CLIA regulations and is used for clinical purposes. Test Performed by [facility], [facility], [address] [place], [place] Alexis Kuo M.D., Ph.D., Director of Laboratories , CLIA [id number] Ordering Provider: FERMIN DECKER Report Released Date/Time: May 31, 2024 01:48 PM Reporting Lab: [facility] [address] [facility] [address] Performing Lab: [facility] [address] [facility] TESTOSTERONE, TOTAL 499 ng/dL 250-1100 ALBUMIN (PB-sendout) 4.0 g/dL 3.6-5.1 TESTOSTERONE,FREE (sendout) 43.1 pg/mL L 4 6.0-224.0 TESTOSTERONE,BIOAVAILABLE (MA-PB-SO 79.2 ng/dL L 110.0-575.0 SEX HORMONE BINDING GLOBULIN 56 nmol/L 2 2-77 Social History: Smoking Status (Most current) and Tobacco Use (All prior to encounter date) This section includes the most current, and the historical, smoking and tobacco- related health factors from the OR facility where the Encounter took place. Current Smoking Status This section includes the most current smoking, or tobacco-related health factor, from the OR facility where the Encounter took place. Date/Time Current Smoking Status Comment Facil ity Jul 08, 2018 09:04 AM OR-TOBACCO FORMER USER [facility] Tobacco Use History This section includes a history of the smoking, or tobacco-related health factors, that were collected on or before the date of the Encounter. The data comes from the OR facility where the Encounter took place. Date/Time Smoking Status/Tobacco Use Comment F acility Jul 08, 2018 09:04 AM OR-TOBACCO QUIT 15 YRS OR MORE [facility] Advance Directives: All historical and current Section Date Range: From patient's date of to the date document was created. This section includes ALL of a patient's completed or amended OR Advance and Rescinded Directives. The entries below indicate that a directive exists for the patient, but an actual copy is not included with this document. The data comes from all [facility]. Date Advance Directives Provider Source Aug 15, 1997 ADVANCE DIRECTIVE DESIRAE WILKERSON [facility] Radiology Reports: +/- 30 days of [...] the Encounter. The data comes from all OR treatment facilities. Date/Time Radiology Report Provider Source Aug 03, 2024 11:11 AM US CAROTID BILATER AL: MIHIR OWEN [id number] -1960 Rogelio Exm Date: AUG 03, 2024@11:11 Req Phys: ANGELINE GARCIA Pat Loc: VICKI-MAN PACT STAR RES 4 (Req'g Img Loc: [facility]-ULTRASOUND Service: Unknown [facility], [address] [place] [address] (Case [id number] COMPLETE) US CAROTID BILATERAL (US Detailed) CPT:48155 Reason for Study: r/o carotid stenosis Clinical History: Report Status: Verified Date Reported: AUG 03, 2024 Date Verified: AUG 03, 2024 Brick Grader E-Sig:/ES/Estella Lawrence MD Report: Case #[id number] Bilateral extracranial carotid ultrasound examination. History:r/o carotid [...] Primary Interpreting Staff: Estella Lawrence MD, Radiologist (Brick Grader) Primary Interpreting Resident: AMAURY LEDBETTER, /ESTELLA LUJAN [facility] Encounter Notes: All associated encounter notes This section contains the clinical notes associated to the Encounter. Date/Time Encounter Note(s) Provider Source Jul 08, 2024 09:00 AM PSYCHIATRY NOTE: LOCAL TITLE: PSYCHIATRY [facility] STANDARD TITLE: PSYCHIATRY NOTE DATE OF NOTE: JUL 08, 2024@09:00 ENTRY DATE: JUL 08, 2024@09:00:36 AUTHOR: JORDAN CESPEDESIGNER: URGENCY: STATUS: COMPLETED [facility] - MEDICATION MANAGEMENT Name..................ARTURO Wilhelm,MIHIR GRACIA Age...................64 Sex...................MALE SSN...................[id number] Service Connection....Service Connected: Yes (60%) THIS WAS A [facility] APPOINTMENT and the below were completed prior to our exam: * Consent*: Obtained/confirmed verbal consent for telehealth * Address: Confirmed the location and address of the patient to ensure they are in a safe place and for use in case of an emergency. * Phone Numbers:* Confirmed on chart Confirmed patient's current phone number - for use if disconnected. Emergency contact's phone number was confirmed. * Surveyed the environment and identify all participants * Locked the virtual conference room once all participants have joined. ALLERGIES: PENICILLIN, BACTRIM, LISINOPRIL, PRAVASTATIN, ATORVASTATIN OUTPATIENT MEDICATIONS: Active Outpatient Medications (excluding Supplies): Active Outpatient Medications (excluding Supplies): Issue Date Status Last Fill Active Outpatient Medications Refills Expiration 1) AMLODIPINE BESYLATE 10MG TAB Qty: 90 ACTIVE Issu:08-17-23 for 90 days Sig: TAKE ONE TABLET BY Refills: 0 Last:05-18-24 MOUTH ONCE A DAY FOR HEART/BLOOD Expr:08-17-24 PRESSURE 2) ARIPIPRAZOLE 5MG TAB Qty: 135 for 90 ACTIVE Issu:12-15-23 days Sig: TAKE ONE AND ONE-HALF Refills: 2 Last:03-04-24 TABLETS BY MOUTH ONCE A DAY FOR Expr:12-15-24 BIPOLAR DISORDER 3) BUPROPION 90MG/NALTREXONE HCL 8MG SA TAB ACTIVE Issu:05-10-24 Qty: 120 for 30 days Sig: TAKE 1 Refills: 2 Last:05-17-24 TABLET BY MOUTH ONCE A DAY FOR 7 DAYS, Expr:05-11-25 THEN TAKE 1 TABLET TWICE A DAY FOR 7 DAYS, THEN TAKE 2 TABLETS EVERY MORNING AND TAKE 1 TABLET EVERY EVENING FOR 7 DAYS, THEN TAKE 2 TABLETS TWICE A DAY FOR WEIGHT LOSS 4) BUSPIRONE HCL 15MG TAB Qty: 360 for 90 ACTIVE Issu:12-15-23 days Sig: TAKE TWO TABLETS BY MOUTH Refills: 2 Last:05-15-24 TWICE A DAY FOR ANXIETY DO NOT TAKE Expr:12-15-24 WITH GRAPEFRUIT JUICE 5) DULOXETINE HCL 60MG EC CAP Qty: 180 for ACTIVE Issu:02-02-24 90 days Sig: TAKE TWO CAPSULES BY Refills: 3 Last:04-15-24 MOUTH AT BEDTIME FOR MOOD, ANXIETY AND Expr:02-02-25 PAIN 6) FAMOTIDINE 40MG TAB Qty: 90 for 90 days ACTIVE Issu:08-17-23 Sig: TAKE ONE TABLET BY MOUTH ONCE A Refills: 0 Last:05-15-24 DAY TO LOWER STOMACH ACID Expr:08-17-24 7) FERROUS SULFATE 325MG TAB Qty: 100 for ACTIVE Issu:06-12-23 90 days Sig: TAKE ONE TABLET BY MOUTH Refills: 0 Last:02-28-24 ONCE A DAY FOR IRON SUPPLEMENTATION. Expr:06-12-24 8) FINASTERIDE 5MG TAB Qty: 90 for 90 days ACTIVE Issu:08-17-23 Sig: TAKE ONE TABLET BY MOUTH ONCE A Refills: 0 Last:05-15-24 DAY FOR PROSTATE. SWALLOW WHOLE, DO Expr:08-17-24 NOT CRUSH, SPLIT, OR CHEW. 9) HYDROXYZINE HCL 50MG TAB Qty: 180 for ACTIVE Issu:02-02-24 90 days Sig: TAKE 1-2 TABLETS BY Refills: 3 Last:03-31-24 MOUTH AT BEDTIME NEEDED FOR MIDDLE Expr:02-02-25 INSOMNIA *MAY CAUSE DROWSINESS* OK TO TAKE ADDITIONAL 50MG DOSE LATER IN THE NIGHT IF INSOMNIA PERSISTS 10) MODAFINIL 200MG TAB Qty: 60 for 30 days ACTIVE Issu:02-02-24 Sig: TAKE ONE TABLET BY MOUTH TWICE A Refills: 2 Last:03-02-24 DAY FOR ALERTNESS Expr:08-04-24 11) PRAZOSIN HCL 2MG CAP Qty: 90 for 90 ACTIVE Issu:02-02-24 days Sig: TAKE ONE CAPSULE BY MOUTH Refills: 2 Last:05-23-24 AT BEDTIME FOR NIGHTMARES MAY CAUSE Expr:02-02-25 DIZZINESS OR DROWSINESS. 12) QUETIAPINE FUMARATE 400MG TAB Qty: 45 ACTIVE Issu:02-03-24 for 90 days Sig: TAKE ONE-HALF TABLET Refills: 2 Last:04-25-24 BY MOUTH AT BEDTIME FOR BIPOLAR Expr:02-03-25 DISORDER 13) ROSUVASTATIN CA 20MG TAB Qty: 45 for 90 ACTIVE Issu:01-27-24 days Sig: TAKE ONE-HALF TABLET BY Refills: 0 Last:04-18-24 MOUTH EVERY EVENING FOR HIGH Expr:01-27-25 CHOLESTEROL Start Date Active Non-VA Medications Refills Expiration 1) Non-VA ALBUTEROL 90MCG (CFC-F) 200D ORAL ACTIVE INHL Si PUFFS ORAL INHALATION EVERY 4 HOURS DIRECTED 2) Non-VA APIXABAN 5MG TAB SiMG BY ACTIVE MOUTH TWICE A DAY 3) Non-VA ATENOLOL 100MG TAB SiMG BY ACTIVE MOUTH ONCE A DAY 4) Non-VA BREZTRI 160/9/4.8MCG/ACT 120D ACTIVE ORAL INHL Si PUFFS INHALATION TWICE A DAY DIRECTED 5) Non-VA CHOLECALCIF 125MCG (D3-5,000UNIT) ACTIVE CAP SiUNIT BY MOUTH ONCE A DAY 6) Non-VA CLOMIPHENE CITRATE 50MG TAB Sig: ACTIVE 50MG BY MOUTH EVERY OTHER DAY 7) Non-VA CYANOCOBALAMIN 1000MCG TAB Sig: ACTIVE 1000MCG BY MOUTH ONCE A DAY 8) Non-VA PANTOPRAZOLE NA 40MG EC TAB Sig: ACTIVE 40MG BY MOUTH EVERY MORNING BEFORE A MEAL 9) Non-VA PRAMIPEXOLE DIHYDROCHLORIDE 0.5MG ACTIVE TAB Si.25MG BY MOUTH AT BEDTIME 10) Non-VA SPIRONOLACTONE 25MG TAB Sig: ACTIVE 25MG BY MOUTH ONCE A DAY 11) Non-VA TADALAFIL 5MG TAB SiMG BY ACTIVE MOUTH EVERY WEEK 12) Non-VA TAMSULOSIN HCL 0.4MG CAP Sig: ACTIVE 0.4MG BY MOUTH EVERY EVENING 25 Total Medications I reviewed medications and reconciled any that were incorrect PROBLEM LIST: 1) Benign essential hypertension (SNOMED CT 3353915) 2) Hyperlipidemia (SNOMED CT 15852947) 3) TIA (SNOMED CT 582687335) 4) Hearing loss (SCT 71965415) - Unspecified hearing loss (ICD-9-CM 389.9) 5) [...] 25) Generalized anxiety disorder 26) Cough (SCT 55934990) 27) Chronic post-traumatic stress disorder 28) Exposure to potentially hazardous substance ([facility] [id number]) VITAL SIGNS: Deferred 2/2 [facility] Patient Weight History - Last Four 1. 279.3 lbs. / 126.7 kg. on MAY 03, 2024@14:56:51 2. 271.8 lbs. / 123.3 kg. on DEC 11, 2023@08:19:41 3. 285.5 lbs. / 129.5 kg. on JUN 12, 2023@14:44:03 4. 292.3 lbs. / 132.6 kg. on OCT 17, 2022@08:27:35 LAB VALUES: LAB CHEMISTRY & HEMATOLOGY No data available LAB MICROBIOLOGY No data available REVIEW OF SYSTEMS: Negative 13 system review except as noted below or detailed in the HPI/interval history above. Constitutional...........No Eyes.....................No Ears/Nose/Mouth/Throat...No Cardiovascular...........No Respiratory..............No Gastrointestinal.........No Genitourinary............No Muscular.................No Integumentary............No Neurological.............No Endocrine................No Hematologic/Lymphatic....No Allergies/Immune.........No BRIEF SUMMARY OF PREVIOUS MH HISTORY: Mr. Owen is a 61 year old Givey with a history of PTSD 2/2 MST and childhood trauma, BPAD (h/o TRD), Social Anxiety Disorder, MIROSLAVA, Insomnia, and PD NOS with borderline traits who has been seen in [facility] by Dr. Carvajal since 2014. No previous inpatient admissions however has history of suicidal behavior in 2010 and 1997. Previous medication trials have included, per chart: * modafinil -- increased to 200mg bid by sleep medicine dr, effective for daytime alertness; * prazosin -- 2mg effective for suppressing NM * abilify--7.5mg effective; previous 5mg was adequately effective until 10/2020 workplace conflicts increased distress; * duloxetine--effective x 10 yrs, mostly 90 mg, inc to 120 mg ~ 01/2015 * trazodone--150 mg bedtime for sleep * buspirone--30mg bid for anxiety * propranolol -- DC, on metoprolol; 10mg bid was effective for anxiety * effexor--no ASE but PCP rec'd switch to duloxetine & not certain why was last seen in [facility] 01/23 and was ok at that visit but did report further work stress and conflict. He was able to navigate the situation but it did cause some distress. He presents today for routine follow up. SUBSTANCE USE: ETOH: None TOBACCO: None DRUGS: None Last [facility] visit 04/05/24: got a new job at [employer] since our last visit, really likes it and is surprised by how much he is enjoying it. Has filed an EEO claim against his prior work for firing him due to what he perceives as his disabilities, waiting to hear back. Loves working in the [employer] department at [employer], is learning how to do background checks. Reviewed meds, still feels he needs them all despite polypharmacy. Denies SI. and continue to spend time together, he has a very positive attitude. HPI/COMPLAINTS/PROBLEMS got 100% disability since last visit so he stopped working at [employer] and is very happy to be officially retired. Has been staying busy with [employer] do lists, working on dedrick, working outdoors. Mood has been great however sleep hasn't been good despite getting Inspire, tells me he has to turn it off half way through the night because he feels like his mouth is getting shocked. Will f/u soon with Inspire doc to see what's going on. Still taking sleep meds, feels they are very helpful. Has been fully med compliant. Denies SI, tells me overall everything is going really well for him. ANY MEDICATION SIDE EFFECT....No APPETITE..................... .Good SLEEP........................ .Poor 2/2 inspire Physical Exam: Gait/Station/Muscle Tone.... No tremor MENTAL STATUS: General Appearance and Behavior Well groomed, calm, cooperative, good eye contact ALERT & ORIENTED X3 WITH GOOD CONCENTRATION........Yes Attention...................N ormal Recent and Remote Memory....Normal Language...............approp riate Speech..Regular amount, volume, tone Intelligence............avera ge Thought Process.....logical,goal directed Associations...........intact MOOD/AFFECT.................N ormal/Euthymic DELUSIONS/HALLUCINATIONS....A bsent SUICIDAL/AGGRESSIVE.........A bsent Judgment/Insight.........fair to good SUPPORTIVE PSYCHOTHERAPY......Yes provided 20 min SAFETY RISK ASSESSMENT RISK FACTORS FOR SUICIDE: Chronic mental illness History of suicidal behavior PROTECTIVE FACTORS: No current/recent SI/HI No inpatient admissions No access to firearms Exhibits future planning Med compliant Engaged in treatment HISTORY OF VIOLENCE: H/o aggression towards objects Current risk of harm to self or others is low. jail risk of harm to self or others is low. Pt does not meet criteria for involuntary committment. Pt will benefit from ongoing outpatient mental health treatment. Pt provided w/contact information for junior copywriter, clinic and crisis line. Advised to call crisis line, 911/ER if concerned for safety of self/others. DIAGNOSES: 1. PTSD 2/2 MST 2. Insomnia 3. Generalized Anxiety Disorder 4. BPAD Unspecified 5. Personality Disorder NOS with borderline traits TREATMENT PLAN: 1. Continue with current treatment plan 2. Medication Management- * continue duloxetine EC 120 mg po bedtime--mood, anxiety, sleep, pain * continue aripiprazole 7.5 mg po pm for mood * continue buspirone 30 mg po bid for anxiety * continue Seroquel 200mg po qhs for sleep * continue prazosin 2 mg po bedtime for NM * continue modafinil 200 mg po bid (early am and early pm) for daytime alertness * continue vistaril 50mg 1-2 tabs po qhs prn for middle insomnia CONSENT: We discussed alternatives to treatment, including no treatment, as well as risks, benefits, side effects of prescribed medications. The patient understood and consented to treatment provided. 3. Safety- is currently stable for outpatient care 4. Follow up- with me in 3 months INSTRUCTIONS GIVEN TO PATIENT/FAMILY: -Report medication side effects promptly -No alcohol/illicit drug use with medication -Needs to be cautious with driving/use of machinery -Avoid night-time driving -If symptoms get worse, call clinic or Emergency Room as appropriate -RTC in 3 months Last [place] Suicide Screen Performed: 06/12/23 Last MH Treatment plan created/renewed: 02/02/24 Last AIMS performed: 06/12/23 Homelessness/Food Insecurity Screen - DI,L,N,P,PH,PS,S,U: In the past 2 months, have you been living in stable housing that you own, rent, or stay in as part of a household? Yes - Living in stable housing. Are you worried or concerned that in the next 2 months you may NOT have stable housing that you own, rent, or stay in as part of a household? No - Not worried about housing near future The reports the following: Within the past 12 months, you worried whether your food would run out before you got money to buy more. Never true Within the past 12 months, the food you bought just didn't last and you didn't have money to get more. Never true Atypical Antipsychotic Meds STL: OTHER Comment: will follow with non-VA PCP /fabien/ JORDAN CESPEDES Staff Psychiatrist, PhD [facility] Signed: 07/08/2024 11:01 JORDAN CESPEDES [facility]
--- OUTSIDE RECORDS SUMMARY | 2024-12-07 18:32 | XMS_ITS ---
Author Name [facility] Address [address] [place] [address] Care Team Providers Care Manager Wind Name Role Phone ANGELINE GARCIA Primary Care [...] YEIMI KAUFMAN HEALT H Jul 06, 2019 [id number] [phone] MIHIR OWEN PATIENT [facility] ([facility]) PRESCRIPT ION RX PLAN Jul 06, 2019 [id number] MIHIR OWEN PATIENT [facility] HC[facility] Jul 06, 2016 [id number] MIHIR OWEN PATIENT MED[facility] RX PRESCRIPT ION MHM SUPPO RT SERVI IJEOMA Jul 06, 2019 [id number] MIHIR OWEN PATIENT [facility] [place] GORAN KAUR NGE May 06, 2024 ILONEX [id number] [phone] MIHIR OWEN PATIENT Selected Encounter This section includes the information on record at [place] for the Encounter. Date/Time Encounter Type Encounter Description Reason Provider Source November 30, 2024 07:23 AM NQHP OL DIG ASSMT&MGMT 5-10 CLINICAL PHARMACY ICD-10-CM F51.02 Adjustment insomnia STEPHANIE BUCKNER Aneta Encounter Template Text not used by [place] Assessments - Encounter Diagnoses This section includes the primary and secondary diagnoses documented for the Encounter. Date/Time Primary/Secondary Diagnosis Diagnosis Name Provider Source November 30, 2024 07:44 AM PRIMARY Adjustment insomnia STEPHANIE BUCKNER [facility] Plan of Treatment: Future Appointments (+ 6 months) and Future Tests (+/- 45 days) The Plan of Treatment section includes future care activities for the patient from all [place] treatmentfacilities. This section includes future appointments and future orders which are active, pending or scheduled. Future Appointments This section includes appointments that were scheduled to occur 6 months from the date of the Encounter, up to a maximum of 20 appointments. The data comes from all [place] treatment facilities. Appointment Date/Time Appointment Type Appointme nt Facility Name December 02, 2024 09:00 AM AMBULATORY - REHAB MEDICIN E [facility] Dec 05, 2024 09:15 AM AMBULATORY - MEDICINE [facility] Dec 08, 2024 09:40 AM AMBULATORY - SURGERY [facility] Jan 05, 2025 08:00 AM AMBULATORY - MEDICINE [facility] Jan 19, 2025 01:00 PM AMBULATORY - NONE [facility] Feb 06, 2025 08:00 AM AMBULATORY - PSYCHIATRY [facility] Mar 07, 2025 03:30 PM AMBULATORY - REHAB MEDICIN E [facility] Social History: Smoking Status (Most current) and Tobacco Use (All prior to encounter date) This section includes the most current, and the historical, smoking and tobacco- related health factors from the [facility] facility where the Encounter took place. Current Smoking Status This section includes the most current smoking, or tobacco-related health factor, from the [place] facility where the Encounter took place. Date/Time Current Smoking Status Comment Romelia ity November 11, 2017 01:35 AM QUIT TOBACCO >7 YEARS AGO [facility] Tobacco Use History This section includes a history of the smoking, or tobacco-related health factors, that were collected on or before the date of the Encounter. The data comes from the [place] facility where the Encounter took place. Date/Time Smoking Status/Tobacco Use Comment F acility Dec 13, 2015 09:47 AM QUIT TOBACCO >7 YEARS AGO [facility] Mar 01, 2015 10:15 AM QUIT TOBACCO >7 YEARS AGO [facility] Oct 24, 2011 09:33 AM QUIT TOBACCO >7 YEARS AGO [facility] Aug 07, 2000 12:59 PM CURRENT NON-TOBACC O USER-HX OF USE quit 3 yrs. ago. [facility] Jun 04, 2000 08:44 AM CURRENT NON-TOBACC O USER-HX OF USE STOPPED 3 YEARS AGO [facility] Mar 05, 2000 08:49 AM CURRENT NON-TOBACC O USER-HX OF USE QUIT 3 YEARS AGO. [facility] Jun 24, 1999 10:05 AM PREVIOUS SMOKER Severity= MINIMAL [facility] Advance Directives: All historical and current Section Date Range: From patient's date of to the date document was created. This section includes ALL of a patient's completed or amended [place] Advance and Rescinded Directives. The entries below indicate that a directive exists for the patient, but an actual copy is not included with this document. The data comes from all [facility]. Date Advance Directives Provider Source Aug 15, 1997 ADVANCE DIRECTIVE DESIRAE WILKERSON [facility] Encounter Notes: All associated encounter notes This section contains the clinical notes associated to the Encounter. Date/Time Encounter Note(s) Provider Source November 30, 2024 07:23 AM PHARMACY CONSULT: LOCAL TITLE: PHARMACY PRIOR APPROVAL CONSULT ST STANDARD TITLE: PHARMACY CONSULT DATE OF NOTE: NOVEMBER 30, 2024@07:23 ENTRY DATE: NOVEMBER 30, 2024@07:24:09 AUTHOR: STEPHANIE BUCKNER EXP COSIGNER: URGENCY: STATUS: COMPLETED The medical record has been reviewed with regard to this prior authorization drug request. Medication requested: RAMELTEON 8MG TAB Medication indication: Insomnia Medication requested: Medication: Ramelteon Strength: 8mg Sig: take 8mg po qhs for sleep Quantity: 30 Refills: 5 Medical history relevant to this request: Patient is a 64yo with PMH s/f PTSD and insomnia who follows with [facility]. Has trialed several medications for insomnia including quetiapine, trazodone, hydroxyzine, diphenhydramine, and melatonin. Most recently, patient experiencing akathisia with quetiapine. Provider requesting trial of ramelteon instead. Appropriate for indication at dose requested. Recommend monitoring for excess [employer] depression with concomitant hydroxyzine, trazodone and ramelteon use. Will enter DC order for quetiapine for provider signature and process ramelteon as requested for mail. The request is approved - A documented adverse reaction occurred with the preferred formulary alternative(s) TIME REVIEWING CHART:9. (minutes) /fabien/ Ron MattD, BCIDP Clinical Environmental Studies Program Director Signed: 11/30/2024 07:44 STEPHANIE BUCKNER [facility]
--- OUTSIDE RECORDS SUMMARY | 2024-12-07 18:32 | XMS_ITS | Encounter Summary ---
Author Organization [facility] Facility Care Team Providers Care Senior Project Manager Name Role Phone Hope Mauro MD Unavailable [phone] Francoise Cruz OT Unavailable [phone] Jayshree Salinas OT Unavailable [phone] Barry Mcmillan DPT Unavailable Unavail able Nitin Martinez WELDING MACHINE OPERATOR [employer]TRAS[employer] Unavailable + Miguelito Bergeron MD Primary Care Provider [phone] Marian Myrick WELDING MACHINE OPERATOR [employer]TRASONIC Unavailable + Sheryl Hightower MD Primary Care [...] Bren Lopez MD Primary Care Provider [phone] Encounter Details Date Type Department Care Team (Latest Contact Info) Description 03/26/2018 Orders Only [facility] CLINCONV ProviderJames MD [address] [place] [id number] Social History Tobacco Use Types Packs/Day Years Used Date Smoking Tobacco: Former Smokeless Tobacco: Former Comments:quit 1999 Alcohol Use Standard Drinks/Week Comments Not Asked 0 (1 standard drink = 0.6 oz pur e alcohol) quit 2003 Sex and Gender Information Value Date Recorded Sex Assigned at Not on file 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 Historical Provider CV CARDIAC SERVICES PROCE DURES Final Result * CARDIOLOGY REPORT (03/26/2018 12:00 AM CDT) Anatomical Region Laterality Modality Other Narrative 03/26/2018 12:00 AM CDT Ordered by an unspecified provider. Historical Provider CV CARDIAC SERVICES PROCE DURES Final Result documented in this encounter Visit Diagnoses Not on filedocumented in this encounter Care Teams Senior Project Manager Relationship Specialty Start Date End Date Miguelito Bergeron MD [address] [place] [address] PCP - General 02/13/18 05/11/18 Sheryl Hightower MD [address] [place] [id number] PCP - General Internal Medicine 05/12/18 08/12/18 Sabrina Meade PA [address] [place] [id number] PCP - General 10/04/18 12/02/18 Bren Lopez MD [address] [place] [id number] PCP - General 12/03/18 12/06/18 Sabrina Meade PA [address] [place] [id number] PCP - General 12/07/18 01/13/19 Bren Lopez MD [address] [place] [id number] PCP - General 01/14/19 04/19/19 Sabrina Meade PA [address] [place] [id number] PCP - General Internal Medicine 04/20/19 04/21/19 Bren Lopez MD [address] [place] [id number] PCP - General 08/13/18 10/03/18 Bren Lopez MD [address] [place] [id number] PCP - General 04/22/19 Hope Mauro MD Consulting Physician Trauma Surgery 12/17/17 Francoise Cruz, OT [address] [facility] [address] [place] [address] Occupational Therapist Occupational Therapy 12/18/17 Jayshree Salinas OT [address] [facility] [address] [place] [address] Occupational Therapist Occupational Therapy 12/18/17 Barry Mcmillan, DPT Physical Therapist Physical Therapy 01/18/18 06/29/18 Nitin Martinez, WELDING MACHINE OPERATOR ULTRASONIC [address] [facility] [address] [place] [address] Matrix Supervisor Physical Therapy 01/22/18 08/17/18 Marian Myrick, WELDING MACHINE OPERATOR [employer]TRASONIC [address] [facility] [address] [facility] [address] [place] [address] Matrix Supervisor Physical Therapy 02/19/18 08/17/18 Lynsey Chavez, DPT [address] [facility] [place] [id number] Physical Therapist Physical Therapy 06/30/18 08/17/18 Sultan Cristo Flores MD [address] [facility] [address] Specialty Foods Cook Cardiology 03/02/19 documented as of this encounter
--- OUTSIDE RECORDS SUMMARY | 2024-12-07 18:32 | XMS_ITS | Patient Health Record ---
Author Organization [facility]ene Address [address] [facility] [address] [place] [address] Support Name Relationship Address Phone Alexis Barnes Emergency Contact Unknown Guicho Barnes Guarantor Unknown [phone] Reason For Referral No Information Medications Medication SIG (Take, Route, Frequency, Duration) Notes Start Date End Date Status Cialis 5 MG take 1 tablet (5 mg) by oral route once daily Oral 1 Active Cymbalta 30 MG take 120 s by oral r oute daily Oral 1 Active Provigil 100 MG take 2 tablets (200 mg) by oral route once daily in the morning Oral 1 Active Aspirin 81 81 MG Oral Act lety Prazosin HCl 2 MG take 2 capsules by o ral route daily Oral 1 Active amLODIPine Besylate 10 MG take 1 tablet (10 mg) by oral route once daily Oral 1 Active Atorvastatin Calcium 80 MG take 1 tablet (80 mg) by oral route once daily Oral 1 Active Abilify 5 MG take 1 tablet (5 mg) by oral route once daily Oral 1 Active Plan Of Treatment No Information Insurance Providers Payer Name Payer Address Payer Phone Subscriber Number Group Number Insured Name Patient Relationship to Insured Coverage Start Date [facility] End [facility] [address] [place] [address] [id number] Guicho Barnes Self - patient is the insured Medical (General) History Surgical History Surgery Date(Month/Year) Leg Surgery, Date of Procedure: 23-01-16 NOSE SURGERY, Date of Procedure: 97; 2020-01-19 Foot surgery, Date of Procedure: 2005; Knee surgery, Date of Procedure: 83; 2020-01-19 prostate, Date of Procedure: 2018; 01-18 Toe Surgery, Date of Procedure: 2018; 23-01-16
--- OUTSIDE RECORDS SUMMARY | 2024-12-07 18:32 | XMS_ITS ---
Author Name [facility] [place] [facility] [place] Address [address] [place] [address] Care Team Providers Care Accounting Systems Manager Name Role Phone RADHAJOLEENChary Primary Care Provider [...] Name Patient's Relationship to Policy Mary BCBS HI EXCLUSIVE PROVIDER ORGANIZAT YEIMI [facility] H Jul 06, 2019 [id number] [phone] MIHIR OWEN PATIENT CAREMARK (INGENIO RX) PRESCRIPT ION RX PLAN Jul 06, 2019 [id number] MIHIR OWEN PATIENT [employer] [facility]IOR[facility] HE[employer] [facility]ENTAL [facility]ALT HCARE Jul 06, 2016 [id number] MIHIR OWEN PATIENT MEDIMPACT RX PRESCRIPT ION MHM SUPPO RT SERVI IJEOMA Jul 06, 2019 [id number] [phone] MIHIR OWEN PATIENT [employer] [facility] [place] GORAN KAUR NGE May 06, 2024 ILONEX [id number] [phone] MIHIR OWEN PATIENT Selected Encounter This section includes the information on record at [place] for the Encounter. Date/Time Encounter Type Encounter Description Reason Provider Source Sep 29, 2024 08:00 AM OFFICE O/P EST MOD 30 MIN ENDOCRINOLOGY ICD-10-CM E66.9 Obesity, unspecified CHARISSA,HDIA IHE Encounter Template Text not used by [place] Assessments - Encounter Diagnoses This section includes the primary and secondary diagnoses documented for the Encounter. Date/Time Primary/Secondary Diagnosis Diagnosis Name Provider Source Sep 29, 2024 08:52 AM PRIMARY Obesity, unspecified CHARISSAKATARZYNAIA [facility] Plan of Treatment: Future Appointments (+ [...] 08:00 AM AMBULATORY - PSYCHIATRY [facility] Oct 24, 2024 01:00 PM AMBULATORY - NONE [facility] November 25, 2024 01:00 PM AMBULATORY - MEDICINE [facility] December 02, 2024 09:00 AM [facility] Dec 05, 2024 09:15 AM AMBULATORY - MEDICINE [facility] Dec 08, 2024 09:40 AM [facility] Jan 05, 2025 08:00 AM AMBULATORY - MEDICINE [facility] Jan 19, 2025 01:00 PM AMBULATORY - NONE [facility] Feb 06, 2025 08:00 AM AMBULATORY - PSYCHIATRY [facility] Mar 07, 2025 03:30 PM AMBULATORY - REHAB MEDICIN E [facility] Active, Pending, and Scheduled Orders This [...] Sep 06, 2024 08:57 AM Consult Order [facility] ENT SURGERY Cons Hospital Monitor's Choice [facility] Vital Signs: All taken on the encounter date This section contains inpatient and outpatient Vital Signs collected on the date of the Encounter. Date/Time Temperature Pulse Blood Pressure Respiratory Rate SP02 Pain Height Weight Body Mass Index Source Sep 29, 2024 08:16 AM 97.9 82 126/70 20 96 7 78 293.4 34 [facility] Social History: Smoking Status (Most [...] 01:35 AM QUIT TOBACCO >7 YEARS AGO [facility] Tobacco Use History This section includes a history of the smoking, or tobacco-related health factors, that were collected on or before the date of the Encounter. The data comes from the [place] facility where the Encounter took place. Date/Time Smoking Status/Tobacco Use Comment F acility Dec 13, 2015 09:47 AM QUIT TOBACCO >7 YEARS AGO [facility] Mar 01, 2015 10:15 AM QUIT TOBACCO >7 YEARS AGO [facility] Oct 24, 2011 09:33 AM QUIT TOBACCO >7 YEARS AGO [facility] Aug 07, 2000 12:59 PM CURRENT NON-TOBACC O USER-HX OF USE quit 3 yrs. ago. [facility] Jun 04, 2000 08:44 AM CURRENT NON-TOBACC O USER-HX OF USE STOPPED 3 YEARS AGO [facility] Mar 05, 2000 08:49 AM CURRENT NON-TOBACC O USER-HX OF USE QUIT 3 YEARS AGO. [facility] Jun 24, 1999 10:05 AM PREVIOUS SMOKER Severity= MINIMAL [facility] Advance Directives: All historical and current Section Date Range: From patient's date of to the date document was created. This section includes ALL of a patient's completed or amended [place] Advance and Rescinded Directives. The entries below indicate that a directive exists for the patient, but an actual copy is not included with this document. The data comes from all [place] facilities. Date Advance Directives Provider Source Aug 15, 1997 ADVANCE DIRECTIVE WILKERSONDESIRAE [place] Wayne [facility] Radiology Reports: +/- [...] SOFT TISSU E, PERCUTANEOUS NEEDLE: MIHIR OWEN [id number] -1960 M Ex Date: SEP 06, 2024@11:08 Req Phys: YESSY CARRINGTON Loc: [facility]-IR E-CONSULT (Req'g Loc) Img Loc: [facility]-ANGIO/INTERVENTIONAL Service: Unknown [facility] [address] [place] [address] (Case [id number] COMPLETE) BIOPSY,THYROID(CORE)(SURGI MALA COD(ANI Detailed) CPT:49560 CPT Modifiers : 53 DISCONTINUED PROCEDURE Reason for Study: Right Side Neck Mass Clinical History: see econsult Report Status: Verified Date Reported: SEP 08, 2024 Date Verified: SEP 08, 2024 Photographer'S Assistant E-Sig:/ES/GONZALO DAMICO Report: CASE: [id number] INDICATION: Patient with suspicious right submandibular palpable [...] Primary Interpreting Staff: GONZALO DAMICO, INTERVENTIONAL RADIOLOGIST (Photographer'S Assistant) /XRP GONZALO DAMICO [facility] Sep 01, 2024 09:[address] NECK SOFT TISSU E W/CONT: MIHIR OWEN ELIZABETH [id number] -1960 M Exm Date: SEP 01, 2024@09:57 Req Phys: YESSY CARRINGTON Loc: [facility]-ENDOCRINOLOGY 1 (Req'g L Img Loc: [facility]-CT IMAGING [facility]ICKI Service: Unknown [facility] [address] [place] [address] (Case [id number] COMPLETE) CT NECK SOFT TISSUE W/CONT (CT Detailed) CPT:23681 Contrast Media : Non-ionic Iodinated Reason for Study: evaluate 3.6 cm right sided neck mass found on US neck Clinical History: Responsible Attending: Charsisa Attending Contact Number: [phone] Resident Contact Number: 64 year old male [...] 01, 2024 Date Verified: SEP 01, 2024 Photographer'S Assistant E-Sig:/FABIEN/ANDREA MACHADO MD Report: Spiral axial imaging through [...] Primary Interpreting Staff: ANDREA MACHADO MD, Radiologist (Photographer'S Assistant) /ANDREA OLEA [facility] Encounter Notes: All associated encounter notes This section contains the clinical notes associated to the Encounter. Date/Time Encounter Note(s) Provider Source Oct 21, 2024 08:45 AM ADDENDUM: LOCAL TITLE: Addendum STANDARD TITLE: ADDENDUM DATE OF NOTE: OCT 21, 2024@08:45:15 ENTRY DATE: OCT 21, 2024@08:45:16 AUTHOR: AMNA IKRBY EXP COSIGNER: URGENCY: STATUS: COMPLETED 844: left vm with current weight 284 lbs /fabien/ AMNA KIRBY MSN RN REGISTERED NURSE Signed: 10/21/2024 08:45 Receipt Acknowledged By: 10/24/2024 11:59 /fabien/ Yessy Carrington MD STAFF COMMERCIAL LINES UNDERWRITER --- Original Document --- 09/29/24 ENDOCRINOLOGY OUTPATIENT FOLLOW UP STL: Follow up: HPI: 64 year old male with a medical history of heart disease, prior MT 2018, prior stroke around 2009, obesity, depression, hld, ptsd who presents for follow up for weight management. has stopped taking contrave due to no results. has been working out at [facility]. has made dietary and lifestyle changes. has a submandibular mass for which he has an upcoming ENT appt. No acute complaints 1. Obesity - with prior history of MT 2017, prior CVA around 2009 and heart failure (followed by [facility] cardiology) - started on contrave in 04/2024, tolerating well however gained 20 lbs on it. - current Bmi 34 - current weight is 293 lbs - follows up with cardiology at [facility] - follows with nutrition - has implemented dietary and lifestyle changes - has nikko, has the inspire device - no mtc or pancreatitis 2. Evaluation for hypogonadism - reports that he was told he has a low testosterone. - on clomid x 1 year through outside provider - main symptom is fatigue 3. Hypothyroidism - on levothyroxine 150 mcg daily through outside provider - [facility] ROS: 10 point ros done and negative except as per HPI Allergies: PENICILLIN, BACTRIM, LISINOPRIL, PRAVASTATIN, ATORVASTATIN Medications: Active Outpatient Medications (excluding Supplies): Issue Date Status Last Fill Active Outpatient Medications Refills Expiration 1) ALBUTEROL 90MCG (CFC-F) 200D ORAL INHL Qty: ACTIVE (S) Issue: 06/08/24 3 for 90 days Sig: INHALE 2 PUFFS BY ORAL Refills: 1 Last : 05/23/25 INHALATION FOUR TIMES A DAY NEEDED SHAKE Expr : 06/09/25 WELL. RINSE MOUTHPIECE FREQUENTLY TO PREVENT CLOGGING. Indication: FOR ASTHMA 2) AMLODIPINE BESYLATE 10MG TAB Qty: 90 for 90 ACTIVE (S) Issue: 06/08/24 days Sig: TAKE ONE TABLET BY MOUTH ONCE A Refills: 2 Last : 11/04/24 DAY FOR HEART/BLOOD PRESSURE Expr : 06/09/25 3) ARIPIPRAZOLE 5MG TAB Qty: 135 for 90 days ACTIVE (S) Issue: 07/08/24 Sig: TAKE ONE AND ONE-HALF TABLETS BY MOUTH Refills: 2 Last : 11/22/24 ONCE A DAY Expr : 07/09/25 Indication: FOR BIPOLAR DISORDER 4) ATORVASTATIN CALCIUM 40MG TAB Qty: 45 for 90 ACTIVE (S) Issue: 06/08/24 days Sig: TAKE ONE-HALF TABLET BY MOUTH Refills: 1 Last : 11/25/24 EVERY EVENING Expr : 06/09/25 Indication: FOR HIGH CHOLESTEROL 5) BUPROPION 90MG/NALTREXONE HCL 8MG SA TAB ACTIVE Issue: 05/10/24 Qty: 120 for 30 days Sig: TAKE 2 TABLETS BY Refills: 0 Last : 09/13/24 MOUTH TWICE A DAY Expr : 05/11/25 Indication: FOR WEIGHT LOSS 6) BUSPIRONE HCL 15MG TAB Qty: 360 for 90 days ACTIVE (S) Issue: 12/15/23 Sig: TAKE TWO TABLETS BY MOUTH TWICE A DAY Refills: 0 Last : 11/11/24 FOR ANXIETY DO NOT TAKE WITH GRAPEFRUIT Expr : 12/15/24 JUICE 7) DULOXETINE HCL 60MG EC CAP Qty: 180 for 90 ACTIVE (S) Issue: 02/02/24 days Sig: TAKE TWO CAPSULES BY MOUTH AT Refills: 0 Last : 12/31/24 BEDTIME FOR MOOD, ANXIETY AND PAIN Expr : 02/02/25 8) FAMOTIDINE 40MG TAB Qty: 90 for 90 days Sig: ACTIVE (S) Issue: 06/08/24 TAKE ONE TABLET BY MOUTH ONCE A DAY TO LOWER Refills: 2 Last : 11/01/24 STOMACH ACID Expr : 06/09/25 9) FERROUS SULFATE 325MG TAB Qty: 100 for 90 ACTIVE (S) Issue: 06/08/24 days Sig: TAKE ONE TABLET BY MOUTH ONCE A Refills: 1 Last : 11/25/24 DAY FOR IRON SUPPLEMENTATION. Expr : 06/09/25 10) FINASTERIDE 5MG TAB Qty: 90 for 90 days Sig: ACTIVE (S) Issue: 06/08/24 TAKE ONE TABLET BY MOUTH ONCE A DAY FOR Refills: 2 Last : 11/01/24 PROSTATE. SWALLOW WHOLE, DO NOT CRUSH, Expr : 06/09/25 SPLIT, OR CHEW. 11) HYDROXYZINE HCL 50MG TAB Qty: 180 for 90 ACTIVE (S) Issue: 02/02/24 days Sig: TAKE 1-2 TABLETS BY MOUTH AT Refills: 0 Last : 12/16/24 BEDTIME NEEDED FOR MIDDLE INSOMNIA *MAY Expr : 02/02/25 CAUSE DROWSINESS* OK TO TAKE ADDITIONAL 50MG DOSE LATER IN THE NIGHT IF INSOMNIA PERSISTS 12) LIDOCAINE 5% PATCH Qty: 30 for 30 days Sig: ACTIVE Issue: 09/13/24 APPLY 1 PATCH TO SKIN SITE ONCE A DAY APPLY Refills: 11 Last : 09/13/24 PATCH AND PRESS FIRMLY FOR 10-15 SECONDS. Expr : 09/14/25 KEEP ON FOR 12 HOURS THEN REMOVE PATCH FOR 12 HOURS. Indication: FOR LOCAL ANESTHESIA 13) MODAFINIL 200MG TAB Qty: 60 for 30 days Sig: ACTIVE (S) Issue: 07/08/24 TAKE ONE TABLET BY MOUTH TWICE A DAY Refills: 0 Last : 10/13/24 Indication: FOR ALERTNESS Expr : 01/08/25 14) OLOPATADINE HCL 0.2% OPH SOLN Qty: 7.5 for ACTIVE (S) Issue: 08/05/24 90 days Sig: INSTILL 1 DROP IN BOTH EYES Refills: 2 Last : 10/24/24 ONCE A DAY Expr : 08/06/25 Indication: FOR ALLERGIC CONJUNCTIVITIS 15) PRAZOSIN HCL 2MG CAP Qty: 90 for 90 days ACTIVE (S) Issue: 02/02/24 Sig: TAKE ONE CAPSULE BY MOUTH AT BEDTIME Refills: 0 Last : 11/19/24 FOR NIGHTMARES MAY CAUSE DIZZINESS OR Expr : 02/02/25 DROWSINESS. 16) QUETIAPINE FUMARATE 400MG TAB Qty: 45 for 90 ACTIVE (S) Issue: 02/03/24 days Sig: TAKE ONE-HALF TABLET BY MOUTH AT Refills: 0 Last : 10/28/24 BEDTIME Expr : 02/03/25 Indication: FOR BIPOLAR [...] EVERY EVENING Indication: FOR BENIGN PROSTATIC HYPERPLASIA 27 Total Medications Past Medical History: 1) Benign essential hypertension (SNOMED CT 1553664) 2) Hyperlipidemia (SNOMED CT 75559937) 3) TIA (SNOMED CT 563270135) 4) Hearing loss (SCT 53700293) - Unspecified hearing loss (ICD-9-CM 389.9) 5) [...] sinusitis 25) Generalized anxiety disorder 26) Cough ([facility] 08876248) 27) Chronic post-traumatic stress disorder 28) Exposure to potentially hazardous substance ([facility] 873529836775120) 29) History of repair of rotator cuff 30) History of repair of inguinal hernia 31) Sensorineural hearing loss of bilateral ears PHYSICAL EXAM: Vital Signs: Temperature: 97.9 F [36.6 C] (09/29/2024 08:16) Blood Pressure: 126/70 (09/29/2024 08:16) Pulse: 82 (09/29/2024 08:16) Respirations: 20 (09/29/2024 08:16) Weight: 293.4 lb [133.08 kg] (09/29/2024 08:16) Patient Weight History - Last Four 1. 293.4 lbs. / 133.1 kg. on SEP 29, 2024@08:16:32 2. 293.6 lbs. / 133.2 kg. on SEP 13, 2024@14:13:55 3. 295.2 lbs. / 133.9 kg. on AUG 02, 2024@08:41:35 4. 273.0 lbs. / 123.8 kg. on JUN 08, 2024@09:37 BMI: 34.0 GENERAL: No acute distress, Well developed, well nourished HEENT: EOMI, PERRL, sclera anicteric NECK: Supple, no cervical LAD, no thyromegaly, 2cm palpable mass right submandibular area CV: RRR, S1 S2, no S3, S4, murmur, no edema bilaterally RESP: regular, unlabored, clear to auscultation bilaterally GI: soft, non-tender, non-distended, +BS NEURO: strength equal bilaterally, patellar & Achilles reflex 2+ bilaterally PSYCH: pleasant, appropriate LABS: Comprehensive Metabolic Panel Results: SODIUM 142 mEq/L 08/03/2024 11:01 POTASSIUM 4.2 mEq/L 08/03/2024 11:01 CHLORIDE 110 H mEq/L 08/03/2024 11:01 UREA NITROGEN 16.1 mg/dL 08/03/2024 11:01 CREATININE 1.25 mg/dL 08/03/2024 11:01 CALCIUM 9.1 mg/dL 08/03/2024 11:01 PROTEIN 6.0 g/dL 08/03/2024 11:01 ALBUMIN 4.1 g/dL 08/03/2024 11:01 ALKALINE PHOSPHATASE 79 U/L 08/03/2024 11:01 ALT/SGPT 19 U/L 08/03/2024 11:01 AST/SGOT 22 U/L 08/03/2024 11:01 TOTAL BILIRUBIN 0.4 mg/dL 08/03/2024 11:01 CARBON DIOXIDE 23 mEq/L 08/03/2024 11:01 GLUCOSE 119 H mg/dL 08/03/2024 11:01 EGFR (CKD-EPI 2020) 65.11 08/03/2024 11:01 Hemoglobin: HGB 12.0 L g/dL 05/17/2024 09:03 Hematocrit: HCT 37.3 L % 05/17/2024 09:03 Vitamin D: VITAMIN D, 25-HYDROXY 36.7 ng/mL 10/17/2022 09:25 Phosphorus: No PHOSPHOROUS data found TSH: TSH 0.754 uIU/mL 08/03/2024 11:01 ____ Total T3: 0 ng/dl PSA: PROST. SPECIFIC AG.(PB-STL) 0.106 ng/mL 05/17/2024 09:03 ALBUMIN (PB-sendout) 4.0 g/dL 07/08/2024 11:15 TESTOSTERONE,BIOAVAILABLE (MA-PB-SO 79.2 L ng/dL 07/08/2024 11:15 TESTOSTERONE,FREE (sendout) 43.1 L pg/mL 07/08/2024 11:15 SEX HORMONE BINDING GLOBULIN 56 nmol/L 07/08/2024 11:15 TESTOSTERONE, TOTAL 499 ng/dL 07/08/2024 11:15 No PROLACTIN EO data found LH: ____ Glucose: GLUCOSE 119 H mg/dL 08/03/2024 11:01 Hemoglobin A1C: HGA1C 5.3 % 08/03/2024 11:01 HGA1C 5.2 % 10/17/2022 09:25 Microalb/creat ratio: No MICRAL/CREAT RATIO (STL) data found Lipid Panel: TRIGLYCERIDE 90 mg/dL 10/17/2022 09:25 CHOLESTEROL 85 mg/dL 10/17/2022 09:25 HDL(New) 26 L mg/dL 10/17/2022 09:25 CALCULATED LDL 41 mg/dL 10/17/2022 09:25 Assessment and plan: 64 year old male with a medical history of heart disease, prior MT 2018, prior stroke around 2009, obesity, depression, hld, ptsd who presents for follow up for weight management. has stopped taking contrave due to no results. has been working out at [employer]. has made dietary and lifestyle changes. has a submandibular mass for which he has an upcoming ENT appt. No acute complaints 1. Obesity - with prior history of MT 2017, prior CVA around 2009 and heart failure (followed by [facility] cardiology) - started on contrave in 04/2024, tolerating well however gained 20 lbs on it. - current Bmi 34 - current weight is 293 lbs - follows up with cardiology at [facility] - follows with nutrition - has [...] after 1 month was 499 P: - clomid held since beginning of september. repeat total T in 3 months, if low, then work up for hypogonadism 3. Hypothyroidism - on levothyroxine 150 mcg daily through outside provider - T[facility] 1.4 [facility] - repeat in 3 months Questions answered. Verbalizes understanding. RTC 3 months /yamil Carrington MD STAFF COMMERCIAL LINES UNDERWRITER Signed: 09/29/2024 08:52 09/30/2024 ADDENDUM STATUS: COMPLETED instructions provided on how to taper off contrave safely. /yamil Carrington MD STAFF COMMERCIAL LINES UNDERWRITER Signed: 09/30/2024 11:55 10/12/2024 ADDENDUM STATUS: COMPLETED 1024: reports no s/e of medication; injection day is Wednesdays; current weight is 288 lbs; /yamil GRANADO RN REGISTERED NURSE Signed: 10/12/2024 10:29 Receipt Acknowledged By: 10/12/2024 13:44 /yamil Carrington MD STAFF COMMERCIAL LINES UNDERWRITER AMNA FAUSTIN [facility] Oct 12, 2024 10:25 AM ADDENDUM: LOCAL TITLE: Addendum STANDARD TITLE: ADDENDUM DATE OF NOTE: OCT 12, 2024@10:25:42 ENTRY DATE: OCT 12, 2024@10:25:43 AUTHOR: AMNA KIRBY EXP COSIGNER: URGENCY: STATUS: COMPLETED 1024: reports no s/e of medication; injection day is Wednesdays; current weight is 288 lbs; /yamil GRANADO RN REGISTERED NURSE Signed: 10/12/2024 10:29 Receipt Acknowledged By: 10/12/2024 13:44 /yamil Carrington MD STAFF COMMERCIAL LINES UNDERWRITER --- Original Document --- 09/29/24 ENDOCRINOLOGY OUTPATIENT FOLLOW UP STL: Follow up: HPI: 64 year old male with a medical history of heart disease, prior MT 2018, prior stroke around 2009, obesity, depression, hld, ptsd who presents for follow up for weight management. has stopped taking contrave due to no results. has been working out at [employer]. has made dietary and lifestyle changes. has a submandibular mass for which he has an upcoming ENT appt. No acute complaints 1. Obesity - with prior history of MT 2018, prior CVA around 2009 and heart failure (followed by [facility] cardiology) - started on contrave in 04/2024, tolerating well however gained 20 lbs on it. - current Bmi 34 - current weight is 293 lbs - follows up with cardiology at [facility] - follows with nutrition - has implemented dietary and lifestyle changes - has nikko, has the inspire device - no mtc or pancreatitis 2. Evaluation for hypogonadism - reports that he was told he has a low testosterone. - on clomid x 1 year through outside provider - main symptom is fatigue 3. Hypothyroidism - on levothyroxine 150 mcg daily through outside provider - [facility] ROS: 10 point ros done and negative except as per HPI Allergies: PENICILLIN, BACTRIM, LISINOPRIL, PRAVASTATIN, ATORVASTATIN Medications: Active Outpatient Medications (excluding Supplies): Issue Date Status Last Fill Active Outpatient Medications Refills Expiration 1) ALBUTEROL 90MCG (CFC-F) 200D ORAL INHL Qty: ACTIVE (S) Issue: 06/08/24 3 for 90 days Sig: INHALE 2 PUFFS BY ORAL Refills: 1 Last : 11/25/24 INHALATION FOUR TIMES A DAY NEEDED SHAKE Expr : 06/09/25 WELL. RINSE MOUTHPIECE FREQUENTLY TO PREVENT CLOGGING. Indication: FOR ASTHMA 2) AMLODIPINE BESYLATE 10MG TAB Qty: 90 for 90 ACTIVE (S) Issue: 06/08/24 days Sig: TAKE ONE TABLET BY MOUTH ONCE A Refills: 2 Last : 11/04/24 DAY FOR HEART/BLOOD PRESSURE Expr : 06/09/25 3) ARIPIPRAZOLE 5MG TAB Qty: 135 for 90 days ACTIVE (S) Issue: 07/08/24 Sig: TAKE ONE AND ONE-HALF TABLETS BY MOUTH Refills: 2 Last : 11/22/24 ONCE A DAY Expr : 07/09/25 Indication: FOR BIPOLAR DISORDER 4) ATORVASTATIN CALCIUM 40MG TAB Qty: 45 for 90 ACTIVE (S) Issue: 06/08/24 days Sig: TAKE ONE-HALF TABLET BY MOUTH Refills: 1 Last : 11/25/24 EVERY EVENING Expr : 06/09/25 Indication: FOR HIGH CHOLESTEROL 5) BUPROPION 90MG/NALTREXONE HCL 8MG SA TAB ACTIVE Issue: 05/10/24 Qty: 120 for 30 days Sig: TAKE 2 TABLETS BY Refills: 0 Last : 09/13/24 MOUTH TWICE A DAY Expr : 05/11/25 Indication: FOR WEIGHT LOSS 6) BUSPIRONE HCL 15MG TAB Qty: 360 for 90 days ACTIVE (S) Issue: 12/15/23 Sig: TAKE TWO TABLETS BY MOUTH TWICE A DAY Refills: 0 Last : 11/11/24 FOR ANXIETY DO NOT TAKE WITH GRAPEFRUIT Expr : 12/15/24 JUICE 7) DULOXETINE HCL 60MG EC CAP Qty: 180 for 90 ACTIVE (S) Issue: 02/02/24 days Sig: TAKE TWO CAPSULES BY MOUTH AT Refills: 0 Last : 12/31/24 BEDTIME FOR MOOD, ANXIETY AND PAIN Expr : 02/02/25 8) FAMOTIDINE 40MG TAB Qty: 90 for 90 days Sig: ACTIVE (S) Issue: 06/08/24 TAKE ONE TABLET BY MOUTH ONCE A DAY TO LOWER Refills: 2 Last : 11/01/24 STOMACH ACID Expr : 06/09/25 9) FERROUS SULFATE 325MG TAB Qty: 100 for 90 ACTIVE (S) Issue: 06/08/24 days Sig: TAKE ONE TABLET BY MOUTH ONCE A Refills: 1 Last : 11/25/24 DAY FOR IRON SUPPLEMENTATION. Expr : 06/09/25 10) FINASTERIDE 5MG TAB Qty: 90 for 90 days Sig: ACTIVE (S) Issue: 06/08/24 TAKE ONE TABLET BY MOUTH ONCE A DAY FOR Refills: 2 Last : 11/01/24 PROSTATE. SWALLOW WHOLE, DO NOT CRUSH, Expr : 06/09/25 SPLIT, OR CHEW. 11) HYDROXYZINE HCL 50MG TAB Qty: 180 for 90 ACTIVE (S) Issue: 02/02/24 days Sig: TAKE 1-2 TABLETS BY MOUTH AT Refills: 0 Last : 12/16/24 BEDTIME NEEDED FOR MIDDLE INSOMNIA *MAY Expr : 02/02/25 CAUSE DROWSINESS* OK TO TAKE ADDITIONAL 50MG DOSE LATER IN THE NIGHT IF INSOMNIA PERSISTS 12) LIDOCAINE 5% PATCH Qty: 30 for 30 days Sig: ACTIVE Issue: 09/13/24 APPLY 1 PATCH TO SKIN SITE ONCE A DAY APPLY Refills: 11 Last : 09/13/24 PATCH AND PRESS FIRMLY FOR 10-15 SECONDS. Expr : 09/14/25 KEEP ON FOR 12 HOURS THEN REMOVE PATCH FOR 12 HOURS. Indication: FOR LOCAL ANESTHESIA 13) MODAFINIL 200MG TAB Qty: 60 for 30 days Sig: ACTIVE (S) Issue: 07/08/24 TAKE ONE TABLET BY MOUTH TWICE A DAY Refills: 0 Last : 10/13/24 Indication: FOR ALERTNESS Expr : 01/08/25 14) OLOPATADINE HCL 0.2% OPH SOLN Qty: 7.5 for ACTIVE (S) Issue: 08/05/24 90 days Sig: INSTILL 1 DROP IN BOTH EYES Refills: 2 Last : 10/24/24 ONCE A DAY Expr : 08/06/25 Indication: FOR ALLERGIC CONJUNCTIVITIS 15) PRAZOSIN HCL 2MG CAP Qty: 90 for 90 days ACTIVE (S) Issue: 02/02/24 Sig: TAKE ONE CAPSULE BY MOUTH AT BEDTIME Refills: 0 Last : 11/19/24 FOR NIGHTMARES MAY CAUSE DIZZINESS OR Expr : 02/02/25 DROWSINESS. 16) QUETIAPINE FUMARATE 400MG TAB Qty: 45 for 90 ACTIVE (S) Issue: 02/03/24 days Sig: TAKE ONE-HALF TABLET BY MOUTH AT Refills: 0 Last : 10/28/24 BEDTIME Expr : 02/03/25 Indication: FOR BIPOLAR [...] EVERY EVENING Indication: FOR BENIGN PROSTATIC HYPERPLASIA 27 Total Medications Past Medical History: 1) Benign essential hypertension (SNOMED CT 6304214) 2) Hyperlipidemia (SNOMED CT 96869025) 3) TIA (SNOMED CT 500018929) 4) Hearing loss (SCT 45324088) - Unspecified hearing loss (ICD-9-CM 389.9) 5) [...] 25) Generalized anxiety disorder 26) Cough (SCT 42094296) 27) Chronic post-traumatic stress disorder 28) Exposure to potentially hazardous substance (SCT 437948847859764) 29) History of repair of rotator cuff 30) History of repair of inguinal hernia 31) Sensorineural hearing loss of bilateral ears PHYSICAL EXAM: Vital Signs: Temperature: 97.9 F [36.6 C] (09/29/2024 08:16) Blood Pressure: 126/70 (09/29/2024 08:16) Pulse: 82 (09/29/2024 08:16) Respirations: 20 (09/29/2024 08:16) Weight: 293.4 lb [133.08 kg] (09/29/2024 08:16) Patient Weight History - Last Four 1. 293.4 lbs. / 133.1 kg. on SEP 29, 2024@08:16:32 2. 293.6 lbs. / 133.2 kg. on SEP 13, 2024@14:13:55 3. 295.2 lbs. / 133.9 kg. on AUG 02, 2024@08:41:35 4. 273.0 lbs. / 123.8 kg. on JUN 08, 2024@09:37 BMI: 34.0 GENERAL: No acute distress, Well developed, well nourished HEENT: EOMI, PERRL, sclera anicteric NECK: Supple, no cervical LAD, no thyromegaly, 2cm palpable mass right submandibular area CV: RRR, S1 S2, no S3, S4, murmur, no edema bilaterally RESP: regular, unlabored, clear to auscultation bilaterally GI: soft, non-tender, non-distended, +BS NEURO: strength equal bilaterally, patellar & Achilles reflex 2+ bilaterally PSYCH: pleasant, appropriate LABS: Comprehensive Metabolic Panel Results: SODIUM 142 mEq/L 08/03/2024 11:01 POTASSIUM 4.2 mEq/L 08/03/2024 11:01 CHLORIDE 110 H mEq/L 08/03/2024 11:01 UREA NITROGEN 16.1 mg/dL 08/03/2024 11:01 CREATININE 1.25 mg/dL 08/03/2024 11:01 CALCIUM 9.1 mg/dL 08/03/2024 11:01 PROTEIN 6.0 g/dL 08/03/2024 11:01 ALBUMIN 4.1 g/dL 08/03/2024 11:01 ALKALINE PHOSPHATASE 79 U/L 08/03/2024 11:01 ALT/SGPT 19 U/L 08/03/2024 11:01 AST/SGOT 22 U/L 08/03/2024 11:01 TOTAL BILIRUBIN 0.4 mg/dL 08/03/2024 11:01 CARBON DIOXIDE 23 mEq/L 08/03/2024 11:01 GLUCOSE 119 H mg/dL 08/03/2024 11:01 EGFR (CKD-EPI 2020) 65.11 08/03/2024 11:01 Hemoglobin: HGB 12.0 L g/dL 05/17/2024 09:03 Hematocrit: HCT 37.3 L % 05/17/2024 09:03 Vitamin D: VITAMIN D, 25-HYDROXY 36.7 ng/mL 10/17/2022 09:25 Phosphorus: No PHOSPHOROUS data found TSH: TSH 0.754 uIU/mL 08/03/2024 11:01 ____ Total T3: 0 ng/dl PSA: PROST. SPECIFIC AG.(PB-STL) 0.106 ng/mL 05/17/2024 09:03 ALBUMIN (PB-sendout) 4.0 g/dL 07/08/2024 11:15 TESTOSTERONE,BIOAVAILABLE (MA-PB-SO 79.2 L ng/dL 07/08/2024 11:15 TESTOSTERONE,FREE (sendout) 43.1 L pg/mL 07/08/2024 11:15 SEX HORMONE BINDING GLOBULIN 56 nmol/L 07/08/2024 11:15 TESTOSTERONE, TOTAL 499 ng/dL 07/08/2024 11:15 No PROLACTIN EO data found LH: ____ Glucose: GLUCOSE 119 H mg/dL 08/03/2024 11:01 Hemoglobin A1C: HGA1C 5.3 % 08/03/2024 11:01 HGA1C 5.2 % 10/17/2022 09:25 Microalb/creat ratio: No MICRAL/CREAT RATIO (STL) data found Lipid Panel: TRIGLYCERIDE 90 mg/dL 10/17/2022 09:25 CHOLESTEROL 85 mg/dL 10/17/2022 09:25 HDL(New) 26 L mg/dL 10/17/2022 09:25 CALCULATED LDL 41 mg/dL 10/17/2022 09:25 Assessment and plan: 64 year old male with a medical history of heart disease, prior MT 2017, prior stroke around 2009, obesity, depression, hld, ptsd who presents for follow up for weight management. has stopped taking contrave due to no results. has been working out at [employer] and home gym. has made dietary and lifestyle changes. has a submandibular mass for which he has an upcoming ENT appt. No acute complaints 1. Obesity - with prior history of MT 2017, prior CVA around 2009 and heart failure (followed by [facility] cardiology) - started on contrave in 04/2024, tolerating well however gained 20 lbs on it. - current Bmi 34 - current weight is 293 lbs - follows up with cardiology at [facility] - follows with nutrition - has [...] after 1 month was 499 P: - clomid held since beginning september. repeat total T in 3 months, if low, then work up for hypogonadism 3. Hypothyroidism - on levothyroxine 150 mcg daily through outside provider - [facility] - repeat in 3 months Questions answered. Verbalizes understanding. RTC 3 months /fabien/ Yessy Carrington MD STAFF COMMERCIAL LINES UNDERWRITER Signed: 09/29/2024 08:52 09/30/2024 ADDENDUM STATUS: COMPLETED instructions provided on how to taper off contrave safely. /fabien/ Yessy Carrington MD STAFF COMMERCIAL LINES UNDERWRITER MD Signed: 09/30/2024 11:55 AMNA KIRBY [facility] Sep 29, 2024 08:58 AM ACCOUNTING OF DISC LOSURES NOTE: LOCAL TITLE: STATE PRESCRIPTION DRUG MONITORING PROGRAM STANDARD TITLE: ACCOUNTING OF DISCLOSURES NOTE DATE OF NOTE: SEP 29, 2024@08:58:23 ENTRY DATE: SEP 29, 2024@08:58:23 AUTHOR: YESSY CARRINGTON EXP COSIGNER: URGENCY: STATUS: COMPLETED This PDMP query was submitted by Yessy Carrington MD. The clinical justification for this PDMP query is to review controlled substances prescribed outside of the [facility], and any additional information that may become available, as an important component of standard clinical care, and in accordance with [facility] policy. Patient information was shared with the PDMP [place]. No prescription(s) for controlled substances outside the [facility] were found in the last 90 days. /fabien/ Yessy Carrington MD STAFF COMMERCIAL LINES UNDERWRITER Signed: 09/29/2024 08:58 YESSY CARRINGTON [facility] Sep 29, 2024 08:26 AM ENDOCRINOLOGY OUTP ATIENT NOTE: LOCAL TITLE: ENDOCRINOLOGY OUTPATIENT FOLLOW UP ST STANDARD TITLE: ENDOCRINOLOGY OUTPATIENT NOTE DATE OF NOTE: SEP 29, 2024@08:26 ENTRY DATE: SEP 29, 2024@08:26:08 AUTHOR: YESSY CARRINGTON EXP COSIGNER: URGENCY: STATUS: COMPLETED ENDOCRINOLOGY OUTPATIENT FOLLOW UP STL Has ADDENDA Follow up: HPI: 64 year old male with a medical history of heart disease, prior MT 2018, prior stroke around 2009, obesity, depression, hld, ptsd who presents for follow up for weight management. has stopped taking contrave due to no results. has been working out at [employer] and home gym. has made dietary and lifestyle changes. has a submandibular mass for which he has an upcoming ENT appt. No acute complaints 1. Obesity - with prior history of MT 2017, prior CVA around 2009 and heart failure (followed by [facility] cardiology) - started on contrave in 04/2024, tolerating well however gained 20 lbs on it. - current Bmi 34 - current weight is 293 lbs - follows up with cardiology at [facility] - follows with nutrition - has implemented dietary and lifestyle changes - has nikko, has the inspire device - no mtc or pancreatitis 2. Evaluation for hypogonadism - reports that he was told he has a low testosterone. - on clomid x 1 year through outside provider - main symptom is fatigue 3. Hypothyroidism - on levothyroxine 150 mcg daily through outside provider - T[facility] 1.4 [facility] ROS: 10 point ros done and negative except as per HPI Allergies: PENICILLIN, BACTRIM, LISINOPRIL, PRAVASTATIN, ATORVASTATIN Medications: Active Outpatient Medications (excluding Supplies): Issue Date Status Last Fill Active Outpatient Medications Refills Expiration 1) ALBUTEROL 90MCG (CFC-F) 200D ORAL INHL Qty: ACTIVE (S) Issue: 06/08/24 3 for 90 days Sig: INHALE 2 PUFFS BY ORAL Refills: 1 Last : 11/25/24 INHALATION FOUR TIMES A DAY NEEDED SHAKE Expr : 06/09/25 WELL. RINSE MOUTHPIECE FREQUENTLY TO PREVENT CLOGGING. Indication: FOR ASTHMA 2) AMLODIPINE BESYLATE 10MG TAB Qty: 90 for 90 ACTIVE (S) Issue: 06/08/24 days Sig: TAKE ONE TABLET BY MOUTH ONCE A Refills: 2 Last : 11/04/24 DAY FOR HEART/BLOOD PRESSURE Expr : 06/09/25 3) ARIPIPRAZOLE 5MG TAB Qty: 135 for 90 days ACTIVE (S) Issue: 07/08/24 Sig: TAKE ONE AND ONE-HALF TABLETS BY MOUTH Refills: 2 Last : 11/22/24 ONCE A DAY Expr : 07/09/25 Indication: FOR BIPOLAR DISORDER 4) ATORVASTATIN CALCIUM 40MG TAB Qty: 45 for 90 ACTIVE (S) Issue: 06/08/24 days Sig: TAKE ONE-HALF TABLET BY MOUTH Refills: 1 Last : 11/25/24 EVERY EVENING Expr : 06/09/25 Indication: FOR HIGH CHOLESTEROL 5) BUPROPION 90MG/NALTREXONE HCL 8MG SA TAB ACTIVE Issue: 05/10/24 Qty: 120 for 30 days Sig: TAKE 2 TABLETS BY Refills: 0 Last : 09/13/24 MOUTH TWICE A DAY Expr : 05/11/25 Indication: FOR WEIGHT LOSS 6) BUSPIRONE HCL 15MG TAB Qty: 360 for 90 days ACTIVE (S) Issue: 12/15/23 Sig: TAKE TWO TABLETS BY MOUTH TWICE A DAY Refills: 0 Last : 11/11/24 FOR ANXIETY DO NOT TAKE WITH GRAPEFRUIT Expr : 12/15/24 JUICE 7) DULOXETINE HCL 60MG EC CAP Qty: 180 for 90 ACTIVE (S) Issue: 02/02/24 days Sig: TAKE TWO CAPSULES BY MOUTH AT Refills: 0 Last : 12/31/24 BEDTIME FOR MOOD, ANXIETY AND PAIN Expr : 02/02/25 8) FAMOTIDINE 40MG TAB Qty: 90 for 90 days Sig: ACTIVE (S) Issue: 06/08/24 TAKE ONE TABLET BY MOUTH ONCE A DAY TO LOWER Refills: 2 Last : 11/01/24 STOMACH ACID Expr : 06/09/25 9) FERROUS SULFATE 325MG TAB Qty: 100 for 90 ACTIVE (S) Issue: 06/08/24 days Sig: TAKE ONE TABLET BY MOUTH ONCE A Refills: 1 Last : 11/25/24 DAY FOR IRON SUPPLEMENTATION. Expr : 06/09/25 10) FINASTERIDE 5MG TAB Qty: 90 for 90 days Sig: ACTIVE (S) Issue: 06/08/24 TAKE ONE TABLET BY MOUTH ONCE A DAY FOR Refills: 2 Last : 11/01/24 PROSTATE. SWALLOW WHOLE, DO NOT CRUSH, Expr : 06/09/25 SPLIT, OR CHEW. 11) HYDROXYZINE HCL 50MG TAB Qty: 180 for 90 ACTIVE (S) Issue: 02/02/24 days Sig: TAKE 1-2 TABLETS BY MOUTH AT Refills: 0 Last : 12/16/24 BEDTIME NEEDED FOR MIDDLE INSOMNIA *MAY Expr : 02/02/25 CAUSE DROWSINESS* OK TO TAKE ADDITIONAL 50MG DOSE LATER IN THE NIGHT IF INSOMNIA PERSISTS 12) LIDOCAINE 5% PATCH Qty: 30 for 30 days Sig: ACTIVE Issue: 09/13/24 APPLY 1 PATCH TO SKIN SITE ONCE A DAY APPLY Refills: 11 Last : 09/13/24 PATCH AND PRESS FIRMLY FOR 10-15 SECONDS. Expr : 09/14/25 KEEP ON FOR 12 HOURS THEN REMOVE PATCH FOR 12 HOURS. Indication: FOR LOCAL ANESTHESIA 13) MODAFINIL 200MG TAB Qty: 60 for 30 days Sig: ACTIVE (S) Issue: 07/08/24 TAKE ONE TABLET BY MOUTH TWICE A DAY Refills: 0 Last : 10/13/24 Indication: FOR ALERTNESS Expr : 01/08/25 14) OLOPATADINE HCL 0.2% OPH SOLN Qty: 7.5 for ACTIVE (S) Issue: 08/05/24 90 days Sig: INSTILL 1 DROP IN BOTH EYES Refills: 2 Last : 10/24/24 ONCE A DAY Expr : 08/06/25 Indication: FOR ALLERGIC CONJUNCTIVITIS 15) PRAZOSIN HCL 2MG CAP Qty: 90 for 90 days ACTIVE (S) Issue: 02/02/24 Sig: TAKE ONE CAPSULE BY MOUTH AT BEDTIME Refills: 0 Last : 11/19/24 FOR NIGHTMARES MAY CAUSE DIZZINESS OR Expr : 02/02/25 DROWSINESS. 16) QUETIAPINE FUMARATE 400MG TAB Qty: 45 for 90 ACTIVE (S) Issue: 02/03/24 days Sig: TAKE ONE-HALF TABLET BY MOUTH AT Refills: 0 Last : 10/28/24 BEDTIME Expr : 02/03/25 Indication: FOR BIPOLAR [...] EVERY EVENING Indication: FOR BENIGN PROSTATIC HYPERPLASIA 27 Total Medications Past Medical History: 1) Benign essential hypertension (SNOMED CT 6558507) 2) Hyperlipidemia (SNOMED CT 45244406) 3) TIA (SNOMED CT 995411919) 4) Hearing loss (SCT 84087407) - Unspecified hearing loss (ICD-9-CM 389.9) 5) [...] 25) Generalized anxiety disorder 26) Cough (SCT 13775132) 27) Chronic post-traumatic stress disorder 28) Exposure to potentially hazardous substance (SCT 934110140125280) 29) History of repair of rotator cuff 30) History of repair of inguinal hernia 31) Sensorineural hearing loss of bilateral ears PHYSICAL EXAM: Vital Signs: Temperature: 97.9 F [36.6 C] (09/29/2024 08:16) Blood Pressure: 126/70 (09/29/2024 08:16) Pulse: 82 (09/29/2024 08:16) Respirations: 20 (09/29/2024 08:16) Weight: 293.4 lb [133.08 kg] (09/29/2024 08:16) Patient Weight History - Last Four 1. 293.4 lbs. / 133.1 kg. on SEP 29, 2024@08:16:32 2. 293.6 lbs. / 133.2 kg. on SEP 13, 2024@14:13:55 3. 295.2 lbs. / 133.9 kg. on AUG 02, 2024@08:41:35 4. 273.0 lbs. / 123.8 kg. on JUN 08, 2024@09:37 BMI: 34.0 GENERAL: No acute distress, Well developed, well nourished HEENT: EOMI, PERRL, sclera anicteric NECK: Supple, no cervical LAD, no thyromegaly, 2cm palpable mass right submandibular area CV: RRR, S1 S2, no S3, S4, murmur, no edema bilaterally RESP: regular, unlabored, clear to auscultation bilaterally GI: soft, non-tender, non-distended, +BS NEURO: strength equal bilaterally, patellar & Achilles reflex 2+ bilaterally PSYCH: pleasant, appropriate LABS: Comprehensive Metabolic Panel Results: SODIUM 142 mEq/L 08/03/2024 11:01 POTASSIUM 4.2 mEq/L 08/03/2024 11:01 CHLORIDE 110 H mEq/L 08/03/2024 11:01 UREA NITROGEN 16.1 mg/dL 08/03/2024 11:01 CREATININE 1.25 mg/dL 08/03/2024 11:01 CALCIUM 9.1 mg/dL 08/03/2024 11:01 PROTEIN 6.0 g/dL 08/03/2024 11:01 ALBUMIN 4.1 g/dL 08/03/2024 11:01 ALKALINE PHOSPHATASE 79 U/L 08/03/2024 11:01 ALT/SGPT 19 U/L 08/03/2024 11:01 AST/SGOT 22 U/L 08/03/2024 11:01 TOTAL BILIRUBIN 0.4 mg/dL 08/03/2024 11:01 CARBON DIOXIDE 23 mEq/L 08/03/2024 11:01 GLUCOSE 119 H mg/dL 08/03/2024 11:01 EGFR (CKD-EPI 2020) 65.11 08/03/2024 11:01 Hemoglobin: HGB 12.0 L g/dL 05/17/2024 09:03 Hematocrit: HCT 37.3 L % 05/17/2024 09:03 Vitamin D: VITAMIN D, 25-HYDROXY 36.7 ng/mL 10/17/2022 09:25 Phosphorus: No PHOSPHOROUS data found TSH: TSH 0.754 uIU/mL 08/03/2024 11:01 ____ Total T3: 0 ng/dl PSA: PROST. SPECIFIC AG.(PB-STL) 0.106 ng/mL 05/17/2024 09:03 ALBUMIN (PB-sendout) 4.0 g/dL 07/08/2024 11:15 TESTOSTERONE,BIOAVAILABLE (MA-PB-SO 79.2 L ng/dL 07/08/2024 11:15 TESTOSTERONE,FREE (sendout) 43.1 L pg/mL 07/08/2024 11:15 SEX HORMONE BINDING GLOBULIN 56 nmol/L 07/08/2024 11:15 TESTOSTERONE, TOTAL 499 ng/dL 07/08/2024 11:15 No PROLACTIN EO data found LH: ____ Glucose: GLUCOSE 119 H mg/dL 08/03/2024 11:01 Hemoglobin A1C: HGA1C 5.3 % 08/03/2024 11:01 HGA1C 5.2 % 10/17/2022 09:25 Microalb/creat ratio: No MICRAL/CREAT RATIO (STL) data found Lipid Panel: TRIGLYCERIDE 90 mg/dL 10/17/2022 09:25 CHOLESTEROL 85 mg/dL 10/17/2022 09:25 HDL(New) 26 L mg/dL 10/17/2022 09:25 CALCULATED LDL 41 mg/dL 10/17/2022 09:25 Assessment and plan: 64 year old male with a medical history of heart disease, prior MT 2018, prior stroke around 2009, obesity, depression, hld, ptsd who presents for follow up for weight management. has stopped taking contrave due to no results. has been working out at [employer] and home gym. has made dietary and lifestyle changes. has a submandibular mass for which he has an upcoming ENT appt. No acute complaints 1. Obesity - with prior history of MT 2017, prior CVA around 2009 and heart failure (followed by [facility] cardiology) - started on contrave in 04/2024, tolerating well however gained 20 lbs on it. - current Bmi 34 - current weight is 293 lbs - follows up with cardiology at [facility] - follows with nutrition - has [...] after 1 month was 499 P: - clomid held since beginning september. repeat total T in 3 months, if low, then work up for hypogonadism 3. Hypothyroidism - on levothyroxine 150 mcg daily through outside provider - [facility] - repeat in 3 months Questions answered. Verbalizes understanding. RTC 3 months /yamil Carrington MD STAFF COMMERCIAL LINES UNDERWRITER Signed: 09/29/2024 08:52 09/30/2024 ADDENDUM STATUS: COMPLETED instructions provided on how to taper off contrave safely. /yamil Carrington MD STAFF COMMERCIAL LINES UNDERWRITER Signed: 09/30/2024 11:55 10/12/2024 ADDENDUM STATUS: COMPLETED 1025: reports no s/e of medication; injection day is Wednesdays; current weight is 288 lbs; /fabien/ AMNA GRANADO RN REGISTERED NURSE Signed: 10/12/2024 10:29 Receipt Acknowledged By: 10/12/2024 13:44 /yamil Carrington MD STAFF COMMERCIAL LINES UNDERWRITER 10/21/2024 ADDENDUM STATUS: COMPLETED 45: left vm with current weight 284 lbs /fabien/ AMNA KIRBY MSN RN REGISTERED NURSE Signed: 10/21/2024 08:45 Receipt Acknowledged By: * AWAITING SIGNATURE * YESSY CARRINGTON [facility]
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
--- OUTSIDE RECORDS SUMMARY | 2024-12-07 18:32 | XMS_ITS | Encounter Summary ---
Author Name [facility] [place] Organization [facility] [place] Address [address] [place] [address] Care Team Providers Care Helper Teacher Name Role Phone ANGELINE GARCIA Primary Care [...] Name Patient's Relationship to Policy Mary BCBS ME EXCLUSIVE PROVIDER ORGANIZAT YEIMI SPENCERY HEALMarcy H Jul 06, 2019 [id number] [phone] MIHIR OWEN PATIENT CAREMARK (INGENIO RX) PRESCRIPT ION RX PLAN Jul 06, 2019 [id number] [phone] SHERRIEGEORGIAMIHIR PATIENT [facility] MENTAL HEALTH [facility] HEALT HCARE Jul 06, 2016 [id number] [phone] SHERRIEGEORGIAMIHIR PATIENT MEDIMPACT RX PRESCRIPT ION MHM SUPPO RT SERVI IJEOMA Jul 06, 2019 [id number] [phone] MIHIR OWEN PATIENT [facility] MENTAL HEALTH [place] GORAN EXCHA NGE May 06, 2024 ILONEX [id number] [phone] MIHIR OWEN PATIENT Selected Encounter This section includes the information on record at MD for the Encounter. Date/Time Encounter Type Encounter Description Reason Pro vider Source Dec 07, 2024 01:22 PM Outpatient Encounter TELEPHONE/ANCILLARY IHE Encounter Template Text not used by MD Plan of Treatment: Future Appointments (+ 6 [...] 09:40 AM AMBULATORY - SURGERY [facility] Jan 05, 2025 08:00 AM AMBULATORY - MEDICINE [facility] Jan 19, 2025 01:00 PM [facility] Feb 06, 2025 08:00 AM AMBULATORY - PSYCHIATRY [facility] Mar 07, 2025 03:30 PM AMBULATORY - REHAB MEDICIN E [facility] Social History: Smoking Status (Most [...] Facil ity Jul 08, 2018 09:04 AM VA-TOBACCO FORMER USER [facility] Tobacco Use History This section includes a history of the smoking, or tobacco-related health factors, that were collected on or before the date of the Encounter. The data comes from the MD facility where the Encounter took place. Date/Time Smoking Status/Tobacco Use Comment F acility Jul 08, 2018 09:04 AM MD-TOBACCO QUIT 15 YRS OR MORE [facility] Advance Directives: All historical and [...] Aug 15, 1997 ADVANCE DIRECTIVE DESIRAE WILKERSON [facility] Encounter Notes: All associated encounter notes This section contains the clinical notes associated to the Encounter. Date/Time Encounter Note(s) Provider Source Dec 07, 2024 01:22 PM NURSING OUTPATIENT TRIAGE NOTE: LOCAL TITLE: [facility] MENTAL HEALTH OUTPATIENT TRIAGE ST STANDARD TITLE: NURSING OUTPATIENT TRIAGE NOTE DATE OF NOTE: DEC 07, 2024@13:22 ENTRY DATE: DEC 07, 2024@13:22:57 AUTHOR: RAGHAV AVILA EXP COSIGNER: URGENCY: STATUS: COMPLETED Received voicemail in cross coverage of [facility] from that he took ramelteon at 2130, went to bed at 2210, was awake and restless most of the night and got up at 4a finally, went to bed a little bit on the couch this morning and has since felt hungover and has had a headache since and cannot function. Requesting help with sleep medications. CC TC and covering provider, Dr. Sullivan for follow up. /fabien/ RAGHAV AVILA CORRECTIONS COUNSELOR Registered Nurse Signed: 12/07/2024 13:25 Receipt Acknowledged By: * AWAITING SIGNATURE * RENAN IZAGUIRRE * AWAITING SIGNATURE * GEOVANNY SULLIVAN LAUREN A [facility]
--- OUTSIDE RECORDS SUMMARY | 2024-12-07 18:32 | XMS_ITS | Encounter Summary ---
Author Organization [facility] Facility Care Team Providers Care Event Planner Name Role Phone Hope Mauro MD Unavailable [phone] Francoise Cruz OT Unavailable [phone] Jayshree Salinas OT Unavailable [phone] Barry Mcmillan DPT Unavailable Unavail able Nitin Martinez BRIDGE DESIGN ENGINEER Unavailable + Miguelito Bergeron MD Primary Care Provider [phone] Marian Myrick BRIDGE DESIGN ENGINEER Unavailable + Sheryl Hightower MD Primary [...] Bren Lopez MD Primary Care Provider [phone] Encounter Details Date Type Department Care Team (Latest Contact Info) Description 03/25/2018 Orders Only [facility] CLINCONV Provider, MD James [address] [place] [id number] Social History Tobacco Use Types Packs/Day Years Used Date Smoking Tobacco: Former Smokeless Tobacco: Former Comments:quit 1999 Alcohol Use Standard Drinks/Week Comments Not Asked 0 (1 standard drink = 0.6 oz pur e alcohol) quit 2003 Sex and Gender Information Value Date Recorded Sex Assigned at Not on file 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 Historical Provider CV CARDIAC SERVICES [facility] RADHA Final Result documented in this encounter Visit Diagnoses Not on filedocumented in this encounter Care Teams Event Planner Relationship Specialty Start Date End Date Miguelito Bergeron MD [address] [facility] [address] [place] [address] PCP - General 02/13/18 05/11/18 Sheryl Hightower MD [address] [address] PCP - General Internal Medicine 05/12/18 08/12/18 Sabrina Meade PA [facility] [address] PCP - General 10/04/18 12/02/18 Bren Lopez MD [address] [place] [address] PCP - General 12/03/18 12/06/18 Sabrina Meade PA [address] [place] [address] PCP - General 12/07/18 01/13/19 Bren Lopez MD [address] [place] [address] PCP - General 01/14/19 04/19/19 Sabrina Meade PA [address] [place] [address] PCP - General Internal Medicine 04/20/19 04/21/19 Bren Lopez MD [address] [place] [address] PCP - General 08/13/18 10/03/18 Bren Lopez MD [address] [place] [address] PCP - General 04/22/19 Hope Mauro MD Consulting Physician Trauma Surgery 12/17/17 Francoise Cruz, OT [address] [address] Occupational Therapist Occupational Therapy 12/18/17 Jayshree Salinas OT [address] [facility] [address] [place] [address] Occupational Therapist Occupational Therapy 12/18/17 Barry Mcmillan, DPT Physical Therapist Physical Therapy 01/18/18 06/29/18 Nitin Martinez, BRIDGE DESIGN ENGINEER [address] [place] [address] Wood Lathe Operator Physical Therapy 01/22/18 08/17/18 Marian Myrick, BRIDGE DESIGN ENGINEER [address] [facility] [address] [place] [address] Wood Lathe Operator Physical Therapy 02/19/18 08/17/18 Lynsey Chavez DPT [address] [facility] [address] [place] [address] [place] [address] Physical Therapist Physical Therapy 06/30/18 08/17/18 Sultan Cristo Flores MD [address] [facility] [address] [address] Senior Environmental Technician Cardiology 03/02/19 documented as of this encounter
--- OUTSIDE RECORDS SUMMARY | 2024-12-07 18:32 | XMS_ITS | Encounter Summary ---
Author Name [facility] [place] Address [address] [place] [address] Care Team Providers Care Clerical Office Worker Name Role Phone ANGELINE GARCIA Primary Care [...] Name Patient's Relationship to Policy Mary BCBS PA EXCLUSIVE PROVIDER ORGANIZAT YEIMI SPENCERY HEALMarcy H Jul 06, 2019 [id number] [phone] MIHIR OWEN PATIENT CAREMARK (INGENIO RX) PRESCRIPT ION RX PLAN Jul 06, 2019 [id number] SHERRIEGEORGIAMIHIR PATIENT [facility] MENTAL HEALTH [facility] HEALT HCARE Jul 06, 2016 [id number] [phone] SHERRIEGEORGIAMIHIR PATIENT MEDIMPACT RX PRESCRIPT ION MHM SUPPO RT SERVI IJEOMA Jul 06, 2019 [id number] [phone] MIHIR OWEN PATIENT [facility] MENTAL HE[facility] [place] GORAN KAUR NGE May 06, 2024 ILONEX [id number] [phone] MIHIR OWEN PATIENT Selected Encounter This section includes the information on record at [place] for the Encounter. Date/Time Encounter Type Encounter Description Reason Provider Source Sep 12, 2024 08:45 AM Outpatient Encounter COMMUNITY CARE CONSULT JASON REA Encounter Template Text not used by [place] Plan of Treatment: Future Appointments (+ 6 months) and Future Tests (+/- 45 days) The Plan of Treatment section includes future care activities for the patient from [facility] [place] [facility] This section includes future appointments and future orders which are active, pending or scheduled. Future Appointments This section includes appointments that were scheduled to occur 6 months from the date of the Encounter, up to a maximum of 20 appointments. The data comes from all [place] treatment facilities. Appointment Date/Time Appointment Type Appointme nt Facility Name Sep 13, 2024 02:30 PM [facility]ULATORY [facility]IC[facility] Sep 29, 2024 07:30 AM AMBULATORY - SURGERY . [facility] Sep 29, 2024 08:00 AM AMBULATORY - MEDICINE [facility] Oct 06, 2024 08:00 AM AMBULATORY - PSYCHIATRY [facility] Oct 24, 2024 01:00 PM AMBULATORY - NONE [facility] November 25, 2024 01:00 PM AMBULATORY - MEDICINE [facility] December 02, 2024 09:00 AM AMBULATORY - REHAB [facility] Dec 05, 2024 09:15 AM AMBULATORY - MEDICINE [facility] Dec 08, 2024 09:40 AM AMBULATORY - SURGERY . [facility] Jan 05, 2025 08:00 AM AMBULATORY - MEDICINE [facility] Jan 19, 2025 01:00 PM AMBULATORY - NONE [facility] Feb 06, 2025 08:00 AM AMBULATORY - PSYCHIATRY [facility] Mar 07, 2025 03:30 PM AMBULATORY - REHAB MED[facility] Active, Pending, and Scheduled Orders This section includes a listing of several types of active, pending, and scheduled orders, including clinic medications orders, diagnostic test orders, procedure orders and consult orders; where the start date of the order is 45 days before the date of the Encounter or 45 days after the date of theEncounter. The data comes from all [place] treatment facilities. Test Date/Time Test Type Test Details Facility Name Sep 06, 2024 08:57 AM Consult Order [facility] ENT SURGERY Cons Spoke Maker's Choice [facility] Social History: Smoking Status (Most current) and Tobacco Use (All prior to encounter date) This section includes the most current, and the historical, smoking and tobacco- related health factors from the [place] facility where the Encounter took place. Current Smoking Status This section includes the most current smoking, or tobacco-related health factor, from the [place] facility where the Encounter took place. Date/Time Current Smoking Status Comment Facil ity November 11, 2017 01:35 AM QUIT TOBACCO >7 YEARS AGO [facility] Tobacco Use History This section includes a history of the smoking, or tobacco-related health factors, that were collected on or before the date of the Encounter. The data comes from the [place] facility where the Encounter took place. Date/Time Smoking Status/Tobacco Use Comment F acility Dec 13, 2015 09:47 AM QUIT TOBACCO >7 YEARS AGO [facility] Mar 01, 2015 10:15 AM QUIT TOBACCO >7 YEARS AGO [facility] Oct 24, 2011 09:33 AM QUIT TOBACCO >7 YEARS AGO [facility] Aug 07, 2000 12:59 PM CURRENT NON-TOBACC O USER-HX OF USE quit 3 yrs. ago. [facility] Jun 04, 2000 08:44 AM CURRENT NON-TOBACC O USER-HX OF USE STOPPED 3 YEARS AGO [facility] Mar 05, 2000 08:49 AM CURRENT NON-TOBACC O USER-HX OF USE QUIT 3 YEARS AGO. [facility] Jun 24, 1999 10:05 AM PREVIOUS SMOKER Severity= MINIMAL [facility] Advance Directives: All historical and current Section Date Range: From patient's date of to the date document was created. This section includes ALL of a patient's completed or amended [place] Advance and Rescinded Directives. The entries below indicate that a directive exists for the patient, but an actual copy is not included with this document. The data comes from all [place] facilities. Date Advance Directives Provider Source Aug 15, 1997 ADVANCE DIRECTIVE DESIRAE WILKERSONWayne GRAHAM [facility] Radiology Reports: +/- 30 [...] the Encounter. The data comes from all [place] treatment facilities. Date/Time Radiology Report Provider Source Sep 06, 2024 11:08 AM BIOPSY, SOFT TISSU E, PERCUTANEOUS NEEDLE: MIHIR OWEN ELIZABETH [id number] -1960 M Ex Date: SEP 06, 2024@11:08 Req Phys: FERMIN DECKER Loc: [facility]-IR E-CONSULT (Req'g Loc) Img Loc: [facility]-ANGIO/INTERVENTIONAL Service: Unknown [address] [address] (Case [id number] COMPLETE) BIOPSY,THYROID(CORE)(SURGI MALA COD(ANI Detailed) CPT:79205 CPT Modifiers : 53 DISCONTINUED PROCEDURE Reason for Study: Right Side Neck Mass Clinical History: see econsult Report Status: Verified Date Reported: SEP 08, 2024 Date Verified: SEP 08, 2024 Bone Tender E-Sig:/ES/GONZALO DAMICO Report: CASE: [id number] INDICATION: Patient with suspicious right submandibular palpable [...] Primary Interpreting Staff: GONZALO DAMICO, INTERVENTIONAL RADIOLOGIST (Bone Tender) /XRP GONZALO DAMICO [facility] Sep 01, 2024 09:[address] NECK SOFT TISSU E W/CONT: MIHIR OWEN [id number] -1960 M Exm Date: SEP 01, 2024@09:57 Req Phys: FERMIN DECKER Loc: [facility]-ENDOCRINOLOGY 1 (Req'g L Img Loc: [facility]-CT IMAGING [facility] Service: [facility], [facility] [address] [place] [address] (Case [id number] COMPLETE) CT NECK SOFT TISSUE W/CONT (CT Detailed) CPT:23102 Contrast Media : Non-ionic Iodinated Reason for Study: evaluate 3.6 cm right sided neck mass found on US neck Clinical History: Responsible Attending: Charissa Attending Contact Number: [id number] Resident Contact Number: 64 year old male [...] 01, 2024 Date Verified: SEP 01, 2024 Bone Tender E-Sig:/ES/ANDREA MACHADO MD Report: Spiral axial imaging [...] Primary Interpreting Staff: ANDREA MACHADO MD, Radiologist (Bone Tender) /ANDREA OLEA [facility] Aug 23, 2024 07:03 AM US THYROID (NECK SOFT-TISSUE): MIHIR OWEN ELIZABETH [id number] -1960 M Exm Date: AUG 23, 2024@07:03 Req Phys: FERMIN DECKER Loc: [facility]-ENDOCRINOLOGY 1 (Diana'mauricio Dudley Img Loc: [facility]-ULTRASOUND Service: Unknown [facility], [address] [address] (Case [id number] COMPLETE) US THYROID (NECK SOFT-TISSUE) (US Detailed) CPT:41882 Reason for Study: lymphadenopathy x 2 month Clinical History: has right sided submandibular lymphadenopahy x 2 months, feels lymph node is enlarging Report Status: Verified Date Reported: AUG 23, 2024 Date Verified: AUG 23, 2024 Bone Tender E-Sig:/ES/TERRI PATTERSON Report: Exam: US THYROID (NECK SOFT-TISSUE) Case: [id number] History:Lymphadenopathy x2 months Focused ultrasound in the [...] recommended. Primary Interpreting Staff: TERRI PATTERSON, RADIOLOGIST (Bone Tender) /TERRI KIM [facility] Encounter Notes: All associated encounter notes This section contains the clinical notes associated to the Encounter. Date/Time Encounter Note(s) Provider Source Sep 12, 2024 08:45 AM NONVA NOTE: LOCAL TITLE: COMMUNITY CARE-CARE COORDINATION PLAN NOTE [facility] STANDARD TITLE: NONVA NOTE DATE OF NOTE: SEP 12, 2024@08:45 ENTRY DATE: SEP 12, 2024@08:47:56 AUTHOR: TIKI REA EXP COSIGNER: URGENCY: STATUS: COMPLETED COMMUNITY CARE-CARE COORDINATION PLAN NOTE [address] ADDENDA Community Care Consult: [facility]NT SURGERY Consult No: [id number] [facility] Referral #: [id number] Chief Complaint: has a 2 months history of right sided submandibular pain and enlargement. Neck US showed a 3.4 x 1.5 x 3.[address] scan was read as tubular radiopaque foreign body in the right neck vs normal submandibular gland. Would appreciate your input regarding this mass and surgical removal if it is a foreign body. Thank you Patient Admitted? No Level of Care Coordination Complex/Chronic Care Coordination was determined from: Chart Review, Phone call to /Family/Caregiver Facility Community Care Office Contact Care Coordination Point of Contact: Tiki Rea RN Services: Moderate Care Coordination Services Case Management, if appropriate Direct communications with interdisciplinary team Plan: Called to explain the process of care in the community. Call went to [facility]. Will f/u throughout this episode of care. Also, coordinate care between him and providers. Letter sent via [facility]. Will Call back after his first initial appt or sooner. /fabien/ TIKI URRUTIAN RN REGISTERED NURSE Signed: 09/12/2024 09:10 09/13/2024 ADDENDUM STATUS: COMPLETED Care Coordination Follow Up Level of Care Coordination Complex/Chronic Care Coordination was determined from: Chart Review, Phone call to [place]/Family/Caregiver Services: Moderate Care Coordination Services Case Management, if appropriate Direct communications with interdisciplinary team Plan: Spoke with who would like to visit the same MD that performed his Inspire. Dr. Nestor Maria Otolaryngology. [place] been informed that his referral will be unloaded and sent. prefer to communicate via [facility]. Advised this RN will f/u after his first visit and throughout his episode of care. Offered additional need, decline at this time. was pleased with this call. /fabien/ TIKI URRUTIAN RN REGISTERED NURSE Signed: 09/13/2024 09:40 TIKI REA [facility]
--- OUTSIDE RECORDS SUMMARY | 2024-12-07 18:32 | XMS_ITS | Encounter Summary ---
Author Name [facility] [place] [facility] [place] Address [address] [place] [address] Care Team Providers Care Field Operations Manager Name Role Phone INGRID GARCIA Primary Care [...] [place] EXCLUSIVE PROVIDER ORGANIZAT YEIMI SPENCERY HEALT H Jul 06, 2019 [id number] [phone] MIHIR OWEN PATIENT CAREMARK (INGENIO RX) PRESCRIPT ION RX PLAN Jul 06, 2019 [id number] MIHIR OWEN PATIENT CIGNA BEHAVIORAL HEALTH MENTAL HEALTH [facility] HEALT HCARE Jul 06, 2016 [id number] [phone] MIHIR OWEN PATIENT MEDIMPACT RX PRESCRIPT ION MHM SUPPO RT SERVI IJEOMA Jul 06, 2019 [id number] [phone] MIHIR OWEN PATIENT OPTUM BEHAVIORAL HEALTH MENTAL HEALTH [place] GORAN PRINCEA NGE May 06, 2024 ILONEX [id number] [phone] MIHIR OWEN PATIENT Selected Encounter This section includes the information on record at [place] for the Encounter. Date/Time Encounter Type Encounter Description Reason Provider Source Oct 10, 2024 09:30 AM EDU&TRN PT SELF-MGMT NQHP 1 RECREATION THERAPY SERVICE ICD-10-CM I10 Essential (primary) hypertension WILLFLAKO Aneta Encounter Template Text not used by [place] Assessments - Encounter Diagnoses This section includes the primary and secondary diagnoses documented for the Encounter. Date/Time Primary/Secondary Diagnosis Diagnosis Name Provider Source Oct 11, 2024 08:59 PM PRIMARY Essential (primary) hypertension FLAKO MARINO [facility] Plan of Treatment: Future Appointments (+ 6 months) and Future Tests (+/- 45 days) The Plan of Treatment section includes future care activities for the patient from all [place] treatmentfacilities. This section includes future appointments and future orders which are active, pending or scheduled. Future Appointments This section includes appointments that were scheduled to occur 6 months from the date of the Encounter, up to a maximum of 20 appointments. The data comes from all [place] treatment facilities. Appointment Date/Time Appointment Type Appointme nt Facility Name Oct 24, 2024 01:00 PM [facility] November 25, 2024 01:00 PM [facility]INE [facility] December 02, 2024 09:00 AM [facility] Dec 05, 2024 09:15 AM AMBULATORY - MEDICINE [facility] Dec 08, 2024 09:40 AM AMBULATORY - SURGERY [facility] Jan 05, 2025 08:00 AM AMBULATORY - MEDICINE [facility] Jan 19, 2025 01:00 PM [facility] Feb 06, 2025 08:00 AM AMBULATORY - PSYCHIATRY [facility] Mar 07, 2025 03:30 PM AMBULATORY - RE[facility]AB [facility]ICIN [facility] Active, Pending, and Scheduled Orders This section includes a listing of several types of active, pending, and scheduled orders, including clinic medications orders, diagnostic test orders, procedure orders and consult orders; where the start date of the order is 45 days before the date of the Encounter or 45 days after the date of theEncounter. The data comes from all [place] treatment facilities. Test Date/Time Test Type Test Details Facility Name Sep 06, 2024 08:57 AM Consult Order [facility] ENT SURGERY Cons Sec[facility] Choice [facility] Social History: Smoking Status (Most current) and Tobacco Use (All prior to encounter date) This section includes the most current, and the historical, smoking and tobacco- related health factors from the [place] facility where the Encounter took place. Current Smoking Status This section includes the most current smoking, or tobacco-related health factor, from the [place] facility where the Encounter took place. Date/Time Current Smoking Status Comment Romelia ity Jul 08, 2018 09:04 AM [place]-TOBACCO FORMER USER [facility] Tobacco Use History This section includes a history of the smoking, or tobacco-related health factors, that were collected on or before the date of the Encounter. The data comes from the [place] facility where the Encounter took place. Date/Time Smoking Status/Tobacco Use Comment F acility Jul 08, 2018 09:04 AM [place]-TOBACCO QUIT 15 YRS OR MORE [facility] Advance Directives: All historical and current Section Date Range: From patient's date of to the date document was created. This section includes ALL of a patient's completed or amended [place] Advance and Rescinded Directives. The entries below indicate that a directive exists for the patient, but an actual copy is not included with this document. The data comes from all [place] facilities. Date Advance Directives Provider Source Aug 15, 1997 ADVANCE DIRECTIVE DESIRAE WILKERSON Wayne [facility] Encounter Notes: All associated encounter notes This section contains the clinical notes associated to the Encounter. Date/Time Encounter Note(s) Provider Source Oct 10, 2024 03:01 PM RECREATIONAL THERA PY CONSULT: LOCAL TITLE: RT OPT EXERCISE AQUATIC CLINIC CONSULT [facility] STANDARD TITLE: RECREATIONAL THERAPY CONSULT DATE OF NOTE: OCT 10, 2024@15:01 ENTRY DATE: OCT 10, 2024@15:02:06 AUTHOR: FLAKO MARINO COSIGNER: INGRID GARCIA URGENCY: STATUS: COMPLETED Name:Mihir Coronado Last 4:4915 Referring Provider:Choco Garcia Referring Diagnosis:I10. 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 has demonstrated understanding of the rules listed below through appropriate use of facilities in past appointments. [place] has stated intent to use the facilities to: _x_ Improve Cardiovascular Fitness _x Reduce body fat and lose weight _x Re-shape or tone body _x Improve flexibility/ROM _x Increase strength _x Decrease pain _x Improve psychological health and increase energy levels _x_ has demonstrated safe use of desired gym equipment. _x_ has demonstrated safe use of desired pool equipment. 1. [place] was given Hours of Operation handout and reminded to enter day sessions through front entrance of [place] [id number], evening and weekend sessions through side door to gym, and pool exterior door for evening and weekend sessions. 2. How to use scale; be sure and power down when finished to save battery life - DO NOT CHANGE SETTINGS! 3. How to complete 6 min warm up walk and benefits of warm up walk. 4. Proper use of Nautilus Equipment; BE SURE TO ONLY SWITCH OVER ONE WEIGHT PREFERANCE TO GREEN, click back to RED once finished. CLICKING 2 TO GREEN AT SAME TIME WILL JAM MACHINE! 5. Proper use of Treadmill 6. Proper use of Elliptical 7. Proper use of Recumbent Bicycles 8. Location and use of locker room/shower facilities 9. Emergency exits and procedure 10. [place] use 11. UNDERSTANDS THAT IT IS HIS/HER RESPONSIBILITY TO BRING OWN LOCK FOR LOCKERS AND THAT [facility] IS NOT RESPONSIBLE FOR LOST OR STOLEN ITEMS 12. Is aware that they must adhere to CODE OF CONDUCT which stated they must be courteous, kind, and respectful to all fellow Veterans, Staff and Volunteers 13. [place] understands this it is their responsibility to maintain updated RT Personal Exercise clearance consult which will require recertification from provider after 1 year. 14. [place] is aware that they may not use [facility] recreation facilities without active consult. 15. [place] is aware that if they have any changes to health (physically or mentally) that it is their obligation to alert provider for reassessment. 16. [place] may have gym privileges revoked if he/she fails to alert staff regarding any significant health concerns that could affect safety while exercising. (i.e., cardio, pulmonary, ortho). This consult also provides clearance for the athletes of the [place] to participate in all training and conditioning clinics. Short-term Goals: 1. will be cleared or renewed for Phase 3 program. 2. verbalized understanding of the above items/Code of Conduct. 3. completed verbal agreement during orientation session. Long-term Goals: 1. [place] will be self-sufficient in their exercise program and receive ongoing training regarding fitness routine. 2. will use facilities for self-directed exercise for the upcoming year. /fabien/ CAROLYN Mayes Recreation Therapist Signed: 10/10/2024 15:03 /fabien/ Ingrid Garcia MD PhD Staff Physician Cosigned: 10/12/2024 14:34 FLAKO MARINO [facility]
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
[2024-12-07 18:48] VITALS: BP 147/76; PULSE 90; RESP 15; O2SAT 98
--- NOTE | 2024-12-07 19:01 | ED_ITS ---
HPI - General Adult General Chief complaint: Dental/Oral Stated complaint: dental issues Time Seen by Provider: 12/07/24 18:48 History of Present Illness HPI narrative: 62-year-old male present emergency department for evaluation for left upper dental pain. Patient did have a filling fall out approximately 7 days ago. Patient began having left facial swelling yesterday. Patient does have follow- up with his dentist tomorrow morning at 7:00 a.m.. Patient does report that he has gout at a allergy to penicillins but can take Augmentin. Patient did take OxyContin at home with minimal pain control. Related Data Home Medications ?Medication ?Instructions ?Recorded ?Confirmed ?Last Taken ?Type Abilify 12/07/24 Unknown History Airsupra 12/07/24 Unknown History BuSpar 12/07/24 Unknown History Cialis 12/07/24 Unknown History Provigil 12/07/24 Unknown History Seroquel 12/07/24 Unknown History Wegovy 12/07/24 Unknown History albuterol 12/07/24 Unknown History amlodipine 12/07/24 Unknown History apixaban 5 mg tablet (Eliquis) 5 mg PO BID 12/07/24 Unknown History atenolol 12/07/24 Unknown History atorvastatin 40 mg tablet (Lipitor) 40 mg PO DAILY 12/07/24 Unknown History bretzi 12/07/24 Unknown History duloxetine 12/07/24 Unknown History famotidine 40 mg tablet 40 mg PO DAILY 12/07/24 Unknown History finasteride 12/07/24 Unknown History gabapentin 300 mg capsule 300 mg PO HS 12/07/24 Unknown History hydroxyzine HCl 12/07/24 Unknown History levothyroxine 150 mcg tablet 150 mcg PO DAILY 12/07/24 Unknown History (Levo-T) pantoprazole 40 mg tablet,delayed 40 mg PO QAM 12/07/24 Unknown History release prazosin 12/07/24 Unknown History sertraline 12/07/24 Unknown History tamsulosin 0.4 mg capsule 0.4 mg PO HS 12/07/24 Unknown History Allergies Allergy/AdvReac Type Severity Reaction Status Date / Time doxycycline Allergy Unknown Unknown Verified 12/07/24 18:55 Penicillins Allergy Unknown Unknown Verified 12/07/24 18:55 Sulfa (Sulfonamide Allergy Unknown Unknown Verified 12/07/24 18:55 Antibiotics) lisinopril AdvReac Mild Cough Verified 12/07/24 18:55 TAPE AdvReac Unknown Rash Uncoded 12/07/24 18:55 Review of Systems Review of Systems: All systems reviewed & are unremarkable except as noted in HPI and below PMFSH Family History Family History Father Malignant neoplasm of prostate Grandparent Family history of heart disease in male family member before age 55 Social History Social History Smoking status: Former smoker Smoking end date: 07/06/96 Alcohol intake: never Exam Narrative: APPEARANCE: Well appearing, no pain, no distress, well-nourished. HEAD: normocephalic, atraumatic. Left facial swelling EYES: PERRLA/EOMI, conjunctivae clear. NOSE: Normal no drainage Mouth: No dental abscess amenable to drainage EARS:TMS clear with good light reflex. THROAT: Pharynx clear, no exudate. NECK: Supple. No adenopathy, no masses. RESPIRATORY: Airway patent, respirations nonlabored. Clear to auscultation bilaterally, no rales, rhonchi, wheezing. CARDIOVASCULAR: Regular rate and rhythm without murmurs rubs or gallops. ABDOMINAL: Soft, nontender, nondistended, normal bowel sounds MUSCULOSKELETAL: Moves all extremities. Strength/ROM intact, No edema, No calf tenderness. NEURO: Alert. Cranial nerves II through XII intact. Good gait. Good coordination SKIN: Warm, dry. Normal Color Course Vital Signs Vital signs: Vital Signs Temperature 98.2 F 12/07/24 18:31 Pulse Rate 101 H 12/07/24 18:31 Respiratory Rate 16 12/07/24 18:31 Blood Pressure 174/86 H 12/07/24 18:31 Pulse Oximetry 97 12/07/24 18:31 Oxygen Delivery Room Air 12/07/24 18:31 Temperature 98.2 F 12/07/24 18:31 Pulse Rate 93 12/07/24 19:37 Respiratory Rate 15 12/07/24 19:37 Blood Pressure 153/78 H 12/07/24 19:37 Pulse Oximetry 98 12/07/24 19:37 Oxygen Delivery Room Air 12/07/24 18:31 Medical Decision Making MDM Narrative Medical decision making narrative: 64-year-old male present to the emergency department for evaluation for left- sided facial swelling. Patient will be started on antibiotics. Patient does have a penicillin allergy but has tolerated Augmentin. Patient does have follow-up scheduled with his dentist tomorrow. Patient had no evidence of trismus on exam and no abscess amenable to drainage, no evidence of a facial cellulitis. Patient was provided medication for pain control and started on antibiotics in the emergency department. Differential Diagnosis Differential Diagnosis: Dental abscess, facial cellulitis, dental fracture Vital Signs Vital Signs: Vital Signs Temperature 98.2 F 12/07/24 18:31 Pulse Rate 101 H 12/07/24 18:31 Respiratory Rate 16 12/07/24 18:31 Blood Pressure 174/86 H 12/07/24 18:31 Pulse Oximetry 97 12/07/24 18:31 Oxygen Delivery Room Air 12/07/24 18:31 Temperature 98.2 F 12/07/24 18:31 Pulse Rate 93 12/07/24 19:37 Respiratory Rate 15 12/07/24 19:37 Blood Pressure 153/78 H 12/07/24 19:37 Pulse Oximetry 98 12/07/24 19:37 Oxygen Delivery Room Air 12/07/24 18:31 Discharge Plan Discharge Clinical Impression: Dental caries Patient Disposition: Home Condition: Stable Instructions: Antibiotic Form, Toothache (ED) Additional Instructions: Antibiotic as directed until completed. Ibuprofen for pain control. [place] as needed for additional pain control. Have follow-up with your dentist as s cheduled at 7:00 a.m.. If you have any worsening symptoms then please call or return to the emergency department Patient Language: Bruneian Prescriptions: New hydrocodone-acetaminophen 5-325 mg tablet 1 tablet PO Q12H PRN (Reason: pain) 7 Days Qty: 14 0RF amoxicillin-pot clavulanate 875-125 mg tablet 1 tablet PO Q12H 7 Days Qty: 14 0RF No Action pantoprazole 40 mg tablet,delayed release (DR/EC) 40 mg PO QAM gabapentin 300 mg capsule 300 mg PO HS Eliquis 5 mg tablet 5 mg PO BID tamsulosin 0.4 mg capsule 0.4 mg PO HS levothyroxine [Levo-T] 150 mcg tablet 150 mcg PO DAILY atorvastatin [Lipitor] 40 mg tablet 40 mg PO DAILY famotidine 40 mg tablet 40 mg PO DAILY Abilify Wegovy finasteride BuSpar prazosin bretzi hydroxyzine HCl Provigil Seroquel sertraline atenolol Airsupra Cialis albuterol amlodipine duloxetine Follow-up/Referrals: UNKNOWN,DOCTOR [Primary Care Provider] - Stand Alone Forms: Work/School Release IP
--- OUTSIDE RECORDS SUMMARY | 2024-12-07 19:12 | XMS_ITS | Encounter Summary ---
Author Organization [facility] Facility Care Team Providers Care International Project Manager Name Role Phone Hope Mauro MD Unavailable [phone] Francoise Cruz OT Unavailable + [phone] Jayshree Salinas OT Unavailable [phone] Barry Mcmillan DPT Unavailable Unavail able Nitin Martinez OUTSIDE PLANT CABLE ENGINEER Unavailable + Miguelito Bergeron MD Primary Care Provider + [phone] Marian Myrick OUTSIDE PLANT CABLE ENGINEER Unavailable + Sheryl Hightower MD Primary [...] Bren Lopez MD Primary Care Provider [phone] Encounter Details Date Type Department Care Team (Latest Contact Info) Description 04/14/2018 Orders Only [facility]G CLINCONV Provider, MD James [address] [place] [address] Social History Tobacco Use Types Packs/Day Years Used Date Smoking Tobacco: Former Smokeless Tobacco: Former Comments:quit 1999 Alcohol Use Standard Drinks/Week Comments Not Asked 0 (1 standard drink = 0.6 oz pur e alcohol) quit 2003 Sex and Gender Information Value Date Recorded Sex Assigned at Not on file 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 Historical Provider [facility] RADHA Final Result documented in this encounter Visit Diagnoses Not on filedocumented in this encounter Care Teams International Project Manager Relationship Specialty Start Date End Date Miguelito Bergeron MD 300[address] [facility] [address] [place] [address] PCP - General 02/13/18 05/11/18 Sheryl Hightower MD [address] [address] PCP - General Internal Medicine 05/12/18 08/12/18 Sabrina Meade PA [facility] [address] PCP - General 10/04/18 12/02/18 Bren Lopez MD [address] [place] [address] PCP - General 12/03/18 12/06/18 Sabrina Meade PA [address] [place] [address] PCP - General 12/07/18 01/13/19 Bren Lopez MD [address] [place] [address] PCP - General 01/14/19 04/19/19 Sabrina Meade PA [address] [place] [address] PCP - General Internal Medicine 04/20/19 04/21/19 Bren Lopez MD [address] [place] [address] PCP - General 08/13/18 10/03/18 Bren Lopez MD [address] [place] [address] PCP - General 04/22/19 Hope Mauro MD Consulting Physician Trauma Surgery 12/17/17 Francoise Cruz, OT [address] [address] Occupational Therapist Occupational Therapy 12/18/17 Jayshree Salinas OT [address] [facility] [address] [place] [address] Occupational Therapist Occupational Therapy 12/18/17 Barry Mcmillan, DPT Physical Therapist Physical Therapy 01/18/18 06/29/18 Nitin Martinez, OUTSIDE PLANT CABLE ENGINEER [address] [place] [address] Fabric Separator Operator Physical Therapy 01/22/18 08/17/18 Marian Myrick, OUTSIDE PLANT CABLE ENGINEER [address] [facility] [address] [place] [address] Fabric Separator Operator Physical Therapy 02/19/18 08/17/18 Lynsey Chavez DPT [address] [facility] [address] [place] [address] Physical Therapist Physical Therapy 06/30/18 08/17/18 Sultan Cristo Flores MD [address] [facility] [address] [address] Tire Design Engineer Cardiology 03/02/19 documented as of this encounter
--- OUTSIDE RECORDS SUMMARY | 2024-12-07 19:12 | XMS_ITS | Referral Summary ---
Author Organization [facility] Address [address] [place] [address] Care Team Providers Care Managing Partner Digital Content Marketing [place] Name Role Phone Hope Mauro MD Unavailable [phone] Francoise Cruz OT Unavailable [phone] Sultan Cristo Flores MD Unavailable [phone] Bren Lopez MD Primary Care Provider [phone] Allergies Active Allergy Reactions Criticality Noted Date [...] Acute non-STEMI November 2017. Went to the [facility]. Cardiac catheterization showed normal coronary arteries. Assessment & Plan (10/22/2018 1:02 PM CDT): Acute non-STEMI November 2017. Went to the [facility]. Cardiac catheterization showed normal coronary arteries. Coronary artery disease 10/21/2018 Assessment & Plan (03/10/2019 4:14 PM CDT): Acute non-STEMI November 2017. Went to the [facility]. Cardiac catheterization 11/11/2017 showed normal coronary arteries. No intervention. Assessment & Plan (10/22/2018 12:56 PM CDT): Acute non-STEMI November 2017. Went to the [facility]. Cardiac catheterization 11/11/2017 showed normal [...] Overview (10/19/2018): November 2017. Went to the [facility]. 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 Use sequential testing to confirm baseline if assay method changed during patient monitoring. 12/07/2018 8:56 AM CDT 12/07/2018 9:49 AM CDT Narrative Resulting Agency Comment CLI Miguelito Helton MD LAB BLOOD ORDERABLES Mare salguero Result [facility] [address] [phone] * COLONOSCOPY (12/29/2015) HM Colonoscopy Unknown James Provider HEALTH MAINTENANCE Final Result from Last 3 Months or Most Recently Relevant to Health Maintenance Insurance [employer] Address: [facility] [address] [place] [address] HEALTH [employer]IC EMPLOYEE HE[employer] PLANS Address: [facility] [address] [place] [address] BUREAU OF DISABILITY Advance Directives For more information, please contact: [phone] * Full Code (Latest Code Status on File) Date Activated Date Inactivated Comments 02/11/2018 7:10 PM 02/13/2018 3:56 PM Care Teams Managing Partner Digital Content Marketing [place] Relationship Specialty Start Date End Date Bren Lopez MD [address] [place] [address] PCP - General 04/22/19 Hope Mauro MD Consulting Physician Trauma Surgery 12/17/17 Francoise Cruz OT [address] [address] Occupational Therapist Occupational Therapy 12/18/17 Sultan Cristo Flores MD [address] [facility] [address] [address] Law Office Receptionist Cardiology 03/02/19
--- OUTSIDE RECORDS SUMMARY | 2024-12-07 19:12 | XMS_ITS | Encounter Summary ---
Author Organization [facility] Facility Care Team Providers Care Plate Setter Name Role Phone Hope Mauro MD Unavailable [phone] Francoise Cruz OT Unavailable + [phone] Jayshree Salinas OT Unavailable [phone] Barry Mcmillan DPT Unavailable Unavail able Nitin Martinez RADIO AERIAL INSTALLER Unavailable + Miguelito Bergeron MD Primary Care Provider + [phone] Marian Myrick RADIO AERIAL INSTALLER Unavailable + Sheryl Hightower MD Primary Care [...] Bren Lopez MD Primary Care Provider [phone] Encounter Details Date Type Department Care Team (Latest Contact Info) Description 04/18/2018 Orders Only MMG CLINCONV Provider, MD James [address] [place] [address] Social History Tobacco Use Types Packs/Day Years Used Date Smoking Tobacco: Former Smokeless Tobacco: Former Comments:quit 1999 Alcohol Use Standard Drinks/Week Comments Not Asked 0 (1 standard drink = 0.6 oz pur e alcohol) quit 2003 Sex and Gender Information Value Date Recorded Sex Assigned at Not on file 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 Historical Provider [facility] RADHA Final Result documented in this encounter Visit Diagnoses Not on filedocumented in this encounter Care Teams Plate Setter Relationship Specialty Start Date End Date Miguelito Bergeron MD 3009 [facility] [address] [place] [address] PCP - General 02/13/18 05/11/18 Sheryl Hightower MD [address] [address] PCP - General Internal Medicine 05/12/18 08/12/18 Sabrina Meade PA [facility] [address] PCP - General 10/04/18 12/02/18 Bren Lopez MD [address] [place] [address] PCP - General 12/03/18 12/06/18 Sabrina Meade PA [address] [place] [address] PCP - General 12/07/18 01/13/19 Bren Lopez MD [address] [place] [address] PCP - General 01/14/19 04/19/19 Sabrina Meade PA [address] [place] [address] PCP - General Internal Medicine 04/20/19 04/21/19 Bren Lopez MD [address] [place] [address] PCP - General 08/13/18 10/03/18 Bren Lopez MD [address] [place] [address] PCP - General 04/22/19 Hope Mauro MD Consulting Physician Trauma Surgery 12/17/17 Francoise Cruz, OT [address] [address] Occupational Therapist Occupational Therapy 12/18/17 Jayshree Salinas OT [address] [facility] [address] [place] [address] Occupational Therapist Occupational Therapy 12/18/17 Barry Mcmillan, DPT Physical Therapist Physical Therapy 01/18/18 06/29/18 Nitin Martinez, RADIO AERIAL INSTALLER [address] [place] [address] Anesthesiology Tech Physical Therapy 01/22/18 08/17/18 Marian Myrick, RADIO AERIAL INSTALLER [address] [facility] [address] [place] [address] Anesthesiology Tech Physical Therapy 02/19/18 08/17/18 Lynsey Chavez DPT [address] [facility] [address] [place] [address] Physical Therapist Physical Therapy 06/30/18 08/17/18 Sultan Cristo Flores MD [address] [facility] [address] [address] Park Recreation Manager Cardiology 03/02/19 documented as of this encounter
--- OUTSIDE RECORDS SUMMARY | 2024-12-07 19:12 | XMS_ITS | Encounter Summary ---
Author Organization [facility] Facility Care Team Providers Care Business Executive Name Role Phone Hope Mauro MD Unavailable [phone] Francoise Cruz OT Unavailable + [phone] Jayshree Salinas OT Unavailable [phone] Barry Mcmillan DPT Unavailable Unavail able Nitin Martinez DESIGN CENTER CONSULTANT Unavailable + Miguelito Bergeron MD Primary Care Provider + [phone] Marian Myrick DESIGN CENTER CONSULTANT Unavailable + Sheryl Hightower MD Primary Care Provider + Lynsey Chavez DPT Unavailable + Sabrina Meade Primary Care Provider + Bren Lopez MD Primary Care Provider + Sabrina Meade Primary Care Provider + Bren Lopez MD Primary Care Provider + [phone] Sultan Critso Flores MD Unavailable [phone] Sabrina Meade Primary Care Provider + Bren Lopez MD Primary Care Provider + Bren Lopez MD Primary Care Provider [phone] Encounter Details Date Type Department Care Team (Latest Contact Info) Description 04/13/2018 Orders Only MMG CLINCONV Provider, MD James [address] [place] [address] Social History Tobacco Use Types Packs/Day Years Used Date Smoking Tobacco: Former Smokeless Tobacco: Former Comments:quit 1999 Alcohol Use Standard Drinks/Week Comments Not Asked 0 (1 standard drink = 0.6 oz pur e alcohol) quit 2003 Sex and Gender Information Value Date Recorded Sex Assigned at Not on file 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 Historical Provider [facility] RADHA Final Result documented in this encounter Visit Diagnoses Not on filedocumented in this encounter Care Teams Business Executive Relationship Specialty Start Date End Date Miguelito Bergeron MD 3009 [facility] [address] [place] [address] PCP - General 02/13/18 05/11/18 Sheryl Hightower MD [address] [address] PCP - General Internal Medicine 05/12/18 08/12/18 Sabrina Meade PA [facility] [address] PCP - General 10/04/18 12/02/18 Bren Lopez MD [address] [place] [address] PCP - General 12/03/18 12/06/18 Sabrina Meade PA [address] [place] [address] PCP - General 12/07/18 01/13/19 Bren Lopez MD [address] [place] [address] PCP - General 01/14/19 04/19/19 Sabrina Meade PA [address] [place] [address] PCP - General Internal Medicine 04/20/19 04/21/19 Bren Lopez MD [address] [place] [address] PCP - General 08/13/18 10/03/18 Bren Lopez MD [address] [place] [address] PCP - General 04/22/19 Hope Mauro MD Consulting Physician Trauma Surgery 12/17/17 Francoise Cruz, OT [address] [address] Occupational Therapist Occupational Therapy 12/18/17 Jayshree Salinas OT 49[address] [facility] [address] [place] [address] Occupational Therapist Occupational Therapy 12/18/17 Barry Mcmillan, DPT Physical Therapist Physical Therapy 01/18/18 06/29/18 Nitin Martinez, DESIGN CENTER CONSULTANT [address] [place] [address] Home Care And Home Health Aides Teacher Physical Therapy 01/22/18 08/17/18 Marian Myrick, DESIGN CENTER CONSULTANT [address] [facility] [address] [place] [address] Home Care And Home Health Aides Teacher Physical Therapy 02/19/18 08/17/18 Lynsey Chavez DPT [address] [facility] [address] [place] [address] Physical Therapist Physical Therapy 06/30/18 08/17/18 Sultan Cristo Flores MD [address] [facility] [address] [address] Accounts Payable Accountant Cardiology 03/02/19 documented as of this encounter
--- OUTSIDE RECORDS SUMMARY | 2024-12-07 19:12 | XMS_ITS | Continuity of Care Document ---
Author Organization [facility] Address [address] [place] [address] [address] [place] [address] Phone Care Team Providers Care Banking Attorney Name Role Phone Juan Leblanc Unavailable Unavailable Procedures Procedure Date Eye Exam, New Patient Advance Directives Directive Yes / No Effective Date File Name No Information Encounters Encounter Description Practice Location Reason(s) For Visit Diagnoses Date Provider Providers Copied on Encounter [facility], [address] [place] [address] [address], [place], [place], [id number], [place] tel:[phone] SEC [facility] No Information 7-200 7 Benji Martinez. [address] [facility] , [address], [place], [address], [place]. tel:[phone] Family History Family Member Type Diagnosis Age At Onset No Information Payers Payer name Insurance type Covered constitution party ID Authoriza tion(s) [employer] [id number] Social History Type Description Quantity Date Captured [...]
--- OUTSIDE RECORDS SUMMARY | 2024-12-07 19:12 | XMS_ITS | Encounter Summary ---
Author Organization [facility] Facility Care Team Providers Care Renal Dietitian Name Role Phone Hope Mauro MD Unavailable [phone] Francoise Cruz OT Unavailable + [phone] Jayshree Salinas OT Unavailable +[phone] Barry Mcmillan DPT Unavailable Unavail able Nitin Martinez CREDIT NEGOTIATOR Unavailable + Miguelito Bergeron MD Primary Care Provider + [phone] Marian Myrick CREDIT NEGOTIATOR Unavailable + Sheryl Hightower MD Primary Care [...] Bren Lopez MD Primary Care Provider [phone] Encounter Details Date Type Department Care Team (Latest Contact Info) Description 04/17/2018 Orders Only MMG CLINCONV Provider, MD James [address] [place] [address] Social History Tobacco Use Types Packs/Day Years Used Date Smoking Tobacco: Former Smokeless Tobacco: Former Comments:quit 1999 Alcohol Use Standard Drinks/Week Comments Not Asked 0 (1 standard drink = 0.6 oz pur e alcohol) quit 2003 Sex and Gender Information Value Date Recorded Sex Assigned at Not on file 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 Historical Provider [facility] RADHA Final Result documented in this encounter Visit Diagnoses Not on filedocumented in this encounter Care Teams Renal Dietitian Relationship Specialty Start Date End Date Miguelito Bergeron MD 3009 [facility] [address] [place] [address] PCP - General 02/13/18 05/11/18 Sheryl Hightower MD [address] [address] PCP - General Internal Medicine 05/12/18 08/12/18 Sabrina Meade PA [facility] [address] PCP - General 10/04/18 12/02/18 Bren Lopez MD [address] [place] [address] PCP - General 12/03/18 12/06/18 Sabrina Meade PA [address] [place] [address] PCP - General 12/07/18 01/13/19 Bren Lopez MD [address] [place] [address] PCP - General 01/14/19 04/19/19 Sabrina Meade PA [address] [place] [address] PCP - General Internal Medicine 04/20/19 04/21/19 Bren Lopez MD [address] [place] [address] PCP - General 08/13/18 10/03/18 Bren Lopez MD [address] [place] [address] PCP - General 04/22/19 Hope Mauro MD Consulting Physician Trauma Surgery 12/17/17 Francoise Cruz, OT [address] [address] Occupational Therapist Occupational Therapy 12/18/17 Jayshree Salinas OT [address] [facility] [address] [place] [address] Occupational Therapist Occupational Therapy 12/18/17 Barry Mcmillan, DPT Physical Therapist Physical Therapy 01/18/18 06/29/18 Nitin Martinez, CREDIT NEGOTIATOR [address] [place] [address] Museum Service Scheduler Physical Therapy 01/22/18 08/17/18 Marian Myrick, CREDIT NEGOTIATOR 4240 [facility] [address] [place] [address] Museum Service Scheduler Physical Therapy 02/19/18 08/17/18 Lynsey Chavez DPT [address] [facility] [address] [place] [address] Physical Therapist Physical Therapy 06/30/18 08/17/18 Sultan Cristo Flores MD [address] [facility] [address] [address] Brake Shoe Rebuilder Cardiology 03/02/19 documented as of this encounter
--- OUTSIDE RECORDS SUMMARY | 2024-12-07 19:12 | XMS_ITS | Encounter Summary ---
Author Organization [facility] Facility Care Team Providers Care Assembly Line Leader Name Role Phone Hope Mauro MD Unavailable +[phone] Francoise Cruz OT Unavailable + [phone] Jayshree Salinas OT Unavailable +[phone] Barry Mcmillan DPT Unavailable Unavail able Nitin Martinez RESTORATIVE COORDINATOR Unavailable + Miguelito Bergeron MD Primary Care Provider + [phone] Marian Myrick RESTORATIVE COORDINATOR Unavailable + Sheryl Hightower MD Primary Care [...] Bren Lopez MD Primary Care Provider [phone] Encounter Details Date Type Department Care Team (Latest Contact Info) Description 04/07/2018 Orders Only MMG CLINCONV Provider, MD James [address] [place] [address] Social History Tobacco Use Types Packs/Day Years Used Date Smoking Tobacco: Former Smokeless Tobacco: Former Comments:quit 1999 Alcohol Use Standard Drinks/Week Comments Not Asked 0 (1 standard drink = 0.6 oz pur e alcohol) quit 2003 Sex and Gender Information Value Date Recorded Sex Assigned at Not on file 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 Gender Identity Not on file Sexual Orientation [...] Provider CV CARDIAC SERVICES [facility] RAD[facility] Final Result documented in this encounter Visit Diagnoses Not on filedocumented in this encounter Care Teams Assembly Line Leader Relationship Specialty Start Date End Date Miguelito Bergeron MD 3009 [facility] 102 [place] [address] PCP - General 02/13/18 05/11/18 Sheryl Hightower MD [address] [address] PCP - General Internal Medicine 05/12/18 08/12/18 Sabrina Meade PA [facility] [address] PCP - General 10/04/18 12/02/18 Bren Lopez MD [address] [place] [address] PCP - General 12/03/18 12/06/18 Sabrina Meade PA [address] [place] [address] PCP - General 12/07/18 01/13/19 Bren Lopez MD [address] [place] [address] PCP - General 01/14/19 04/19/19 Sabrina Meade PA [address] [place] [address] PCP - General Internal Medicine 04/20/19 04/21/19 Bren Lopez MD [address] [place] [address] PCP - General 08/13/18 10/03/18 Bren Lopez MD [address] [place] [address] PCP - General 04/22/19 Hope Mauro MD Consulting Physician Trauma Surgery 12/17/17 Francoise Cruz, OT [address] [address] Occupational Therapist Occupational Therapy 12/18/17 Jayshree Salinas OT 4921 [facility] [address] [place] [address] Occupational Therapist Occupational Therapy 12/18/17 Barry Mcmillan, DPT Physical Therapist Physical Therapy 01/18/18 06/29/18 Nitin Martinez, RESTORATIVE COORDINATOR [address] [place] [address] Mobile Homes Repairer Physical Therapy 01/22/18 08/17/18 Marian Myrick, RESTORATIVE COORDINATOR [facility]240 [facility] [address] [place] [address] Mobile Homes Repairer Physical Therapy 02/19/18 08/17/18 Lynsey Chavez DPT [address] [facility] [address] [place] [address] Physical Therapist Physical Therapy 06/30/18 08/17/18 Sultan Cristo Flores MD [address] [facility] [address] [address] Director Of Corporate Sales Cardiology 03/02/19 documented as of this encounter
--- OUTSIDE RECORDS SUMMARY | 2024-12-07 19:12 | XMS_ITS | Encounter Summary ---
Author Organization [facility] Facility Care Team Providers Care Vending Attendant Name Role Phone Hope Muaro MD Unavailable [phone] Francoise Cruz OT Unavailable + [phone] Jayshree Salinas OT Unavailable +[phone] Barry Mcmillan DPT Unavailable Unavail able Nitin Martinez STICK PULLER Unavailable + Miguelito Bergeron MD Primary Care Provider + [phone] Marian Myrick STICK PULLER Unavailable + Sheryl Hightower MD Primary Care Provider + Lynsey Chavez DPT Unavailable + Sabrina Meade Primary Care Provider + Bren Lopez MD Primary Care Provider + Sabrina Meade Primary Care Provider + Bren Lopez MD Primary Care Provider + [phone] Sultan Cristo Flores MD Unavailable [phone] Sabirna Meade Primary Care Provider + Bren Lopez MD Primary Care Provider + Bren Lopez MD Primary Care Provider [phone] Encounter Details Date Type Department Care Team (Latest Contact Info) Description 04/16/2018 Orders Only MMG CLINCONV Provider, MD James [address] [place] [address] Social History Tobacco Use Types Packs/Day Years Used Date Smoking Tobacco: Former Smokeless Tobacco: Former Comments:quit 1999 Alcohol Use Standard Drinks/Week Comments Not Asked 0 (1 standard drink = 0.6 oz pur e alcohol) quit 2003 Sex and Gender Information Value Date Recorded Sex Assigned at Not on file 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 Gender Identity Not on file Sexual Orientation [...] on filedocumented in this encounter Care Teams Vending Attendant Relationship Specialty Start Date End Date Miguelito Bergeron MD 3009 [facility] 102 [place] [address] PCP - General 02/13/18 05/11/18 Sheryl Hightower MD [address] [address] PCP - General Internal Medicine 05/12/18 08/12/18 Sabrina Meade PA [facility] [address] PCP - General 10/04/18 12/02/18 Bren Lopez MD [address] [place] [address] PCP - General 12/03/18 12/06/18 Sabrina Meade PA [address] [place] [address] PCP - General 12/07/18 01/13/19 Bren Lopez MD [address] [place] [address] PCP - General 01/14/19 04/19/19 Sabrina Meade PA [address] [place] [address] PCP - General Internal Medicine 04/20/19 04/21/19 Bren Lopez MD [address] [place] [address] PCP - General 08/13/18 10/03/18 Bren Lopez MD [address] [place] [address] PCP - General 04/22/19 Hope Mauro MD Consulting Physician Trauma Surgery 12/17/17 Francoise Cruz, OT [address] [address] Occupational Therapist Occupational Therapy 12/18/17 Jayshree Salinas OT 4921 [facility] [address] [place] [address] Occupational Therapist Occupational Therapy 12/18/17 Barry Mcmillan, DPT Physical Therapist Physical Therapy 01/18/18 06/29/18 Nitin Martinez, STICK PULLER [address] [place] [address] Airport Maintenance Laborer Physical Therapy 01/22/18 08/17/18 Marian Myrick, STICK PULLER 4240 [facility] [address] [place] [address] Airport Maintenance Laborer Physical Therapy 02/19/18 08/17/18 Lynsey Chavez DPT [address] [facility] [address] [place] [address] Physical Therapist Physical Therapy 06/30/18 08/17/18 Sultan Cristo Flores MD [address] [facility] [address] [address] Meat Selector Cardiology 03/02/19 documented as of this encounter
--- OUTSIDE RECORDS SUMMARY | 2024-12-07 19:12 | XMS_ITS | Encounter Summary ---
Author Organization [facility] Facility Care Team Providers Care Maint Mechanic Name Role Phone Hope Mauro MD Unavailable [phone] Francoise Cruz OT Unavailable + [phone] Jayshree Salinas OT Unavailable +[phone] Barry Mcmillan DPT Unavailable Unavail able Nitin Martinez TELEVISION ANNOUNCER Unavailable + Miguelito Bergeron MD Primary Care Provider + [phone] Marian Myrick TELEVISION ANNOUNCER Unavailable + Sheryl Hightower MD Primary Care [...] Bren Lopez MD Primary Care Provider [phone] Encounter Details Date Type Department Care Team (Latest Contact Info) Description 04/15/2018 Orders Only MMG CLINCONV Provider, MD James [address] [place] [address] Social History Tobacco Use Types Packs/Day Years Used Date Smoking Tobacco: Former Smokeless Tobacco: Former Comments:quit 1999 Alcohol Use Standard Drinks/Week Comments Not Asked 0 (1 standard drink = 0.6 oz pur e alcohol) quit 2003 Sex and Gender Information Value Date Recorded Sex Assigned at Not on file 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 Historical Provider CV CARDIAC SERVICES [facility] RADHA Final Result documented in this encounter Visit Diagnoses Not on filedocumented in this encounter Care Teams Maint Mechanic Relationship Specialty Start Date End Date Miguelito Bergeron MD 3009 [facility] 102 [place] [address] PCP - General 02/13/18 05/11/18 Sheryl Hightower MD [address] [address] PCP - General Internal Medicine 05/12/18 08/12/18 Sabrina Meade PA [facility] [address] PCP - General 10/04/18 12/02/18 Bren Lopez MD [address] [place] [address] PCP - General 12/03/18 12/06/18 Sabrina Meade PA [address] [place] [address] PCP - General 12/07/18 01/13/19 Bren Lopez MD [address] [place] [place] [address] PCP - General 01/14/19 04/19/19 Sabrina Meade PA [address] [place] [place] [address] PCP - General Internal Medicine 04/20/19 04/21/19 Bren Lopez MD [address] [place] [place] [address] PCP - General 08/13/18 10/03/18 Bren Lopez MD [address] [place] [place] [address] PCP - General 04/22/19 Hope Mauro MD Consulting Physician Trauma Surgery 12/17/17 Francoise Cruz, OT [address] [address] Occupational Therapist Occupational Therapy 12/18/17 Jayshree Salinas OT 4921 [facility] [address] [place] [address] Occupational Therapist Occupational Therapy 12/18/17 Barry Mcmillan, DPT Physical Therapist Physical Therapy 01/18/18 06/29/18 Nitin Martinez, TELEVISION ANNOUNCER [address] [place] [address] Water Resource Consultant Physical Therapy 01/22/18 08/17/18 Marian Myrick, TELEVISION ANNOUNCER 4240 [facility] [address] [place] [address] Water Resource Consultant Physical Therapy 02/19/18 08/17/18 Lynsey Chavez DPT [address] [facility] [address] [place] [address] Physical Therapist Physical Therapy 06/30/18 08/17/18 Sultan Cristo Flores MD [address] [facility] [address] [address] Editing Intern Cardiology 03/02/19 documented as of this encounter
--- OUTSIDE RECORDS SUMMARY | 2024-12-07 19:12 | XMS_ITS | Encounter Summary ---
Author Organization [facility] Facility Care Team Providers Care Airline Station Agent Name Role Phone Hope Mauro MD Unavailable [phone] Francoise Cruz OT Unavailable + [phone] Jayshree Salinas OT Unavailable +[phone] Barry Mcmillan DPT Unavailable Unavail able Nitin Martinez SPOT MAN Unavailable + Miguelito Bergeron MD Primary Care Provider + [phone] Marian Myrick SPOT MAN Unavailable + Sheryl Hightower MD Primary Care [...] Bren Lopez MD Primary Care Provider [phone] Encounter Details Date Type Department Care Team (Latest Contact Info) Description 04/11/2018 Orders Only MMG CLINCONV Provider, MD James [address] [place] [address] Social History Tobacco Use Types Packs/Day Years Used Date Smoking Tobacco: Former Smokeless Tobacco: Former Comments:quit 1999 Alcohol Use Standard Drinks/Week Comments Not Asked 0 (1 standard drink = 0.6 oz pur e alcohol) quit 2003 Sex and Gender Information Value Date Recorded Sex Assigned at Not on file 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 Gender Identity Not on file Sexual [...] Historical Provider CV CARDIAC SERVICES [facility] RADHA Final Result documented in this encounter Visit Diagnoses Not on filedocumented in this encounter Care Teams Airline Station Agent Relationship Specialty Start Date End Date Miguelito Bergeron MD 3009 [facility] 102 [place] [address] PCP - General 02/13/18 05/11/18 Sheryl Hightower MD [address] [address] PCP - General Internal Medicine 05/12/18 08/12/18 Sabrina Meade PA [facility] [address] [address] PCP - General 10/04/18 12/02/18 Bren Lopez MD [address] [place] [address] PCP - General 12/03/18 12/06/18 Sabrina Meade PA [address] [place] [address] PCP - General 12/07/18 01/13/19 Bren Lopez MD [address] [place] [address] PCP - General 01/14/19 04/19/19 Sabrina Meade PA [address] [place] [address] PCP - General Internal Medicine 04/20/19 04/21/19 Bren Lopez MD [address] [place] [address] PCP - General 08/13/18 10/03/18 Bren Lopez MD [address] [place] [address] PCP - General 04/22/19 Hope Mauro MD Consulting Physician Trauma Surgery 12/17/17 Francoise Cruz, OT [address] [address] Occupational Therapist Occupational Therapy 12/18/17 Jayshree Salinas OT 4921 [facility] [address] [place] [address] Occupational Therapist Occupational Therapy 12/18/17 Barry Mcmillan, DPT Physical Therapist Physical Therapy 01/18/18 06/29/18 Nitin Martinez, SPOT MAN [address] [place] [address] Field Service Coordinator Physical Therapy 01/22/18 08/17/18 Marian Myrick, SPOT MAN 4240 [facility] [address] [place] [address] Field Service Coordinator Physical Therapy 02/19/18 08/17/18 Lynsey Chavez DPT [address] [facility] [address] [place] [address] Physical Therapist Physical Therapy 06/30/18 08/17/18 Sultan Cristo Flores MD [address] [facility] [address] [address] Head Miller Cardiology 03/02/19 documented as of this encounter
--- OUTSIDE RECORDS SUMMARY | 2024-12-07 19:12 | XMS_ITS | Encounter Summary ---
Author Organization [facility] Facility Care Team Providers Care Clinical Systems Analyst Name Role Phone Hope Mauro MD Unavailable [phone] Francoise Cruz OT Unavailable + [phone] Jayshree Salinas OT Unavailable +[phone] Barry Mcmillan DPT Unavailable Unavail able Nitin Martinez STAMPING PRESS OPERATOR Unavailable + Miguelito Bergeron MD Primary Care Provider + [phone] Marian Myrick STAMPING PRESS OPERATOR Unavailable + Sheryl Hightower MD Primary Care Provider + Lynsey Chavez DPT Unavailable + Sabrina Meade Primary Care Provider + Bren Lopez MD Primary Care Provider + Sabrina Meade Primary Care Provider + Bren Lopez MD Primary Care Provider + [phone] Sultan Cristo Flores MD Unavailable [phone] Sabrina Meade Primary Care Provider + Bren Lopez MD Primary Care Provider + Bren Loepz MD Primary Care Provider [phone] Encounter Details Date Type Department Care Team (Latest Contact Info) Description 04/09/2018 Orders Only MMG CLINCONV Provider, MD James [address] [place] [address] Social History Tobacco Use Types Packs/Day Years Used Date Smoking Tobacco: Former Smokeless Tobacco: Former Comments:quit 1999 Alcohol Use Standard Drinks/Week Comments Not Asked 0 (1 standard drink = 0.6 oz pur e alcohol) quit 2003 Sex and Gender Information Value Date Recorded Sex Assigned at Not on file 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 102 [place] [address] PCP - General 02/13/18 05/11/18 Sheryl Hightower MD [address] [address] PCP - General Internal Medicine 05/12/18 08/12/18 Sabrina Meade PA [facility] [address] PCP - General 10/04/18 12/02/18 Bren Lopez MD [address] [place] [address] PCP - General 12/03/18 12/06/18 Sabrina Meade PA [address] [place] [address] PCP - General 12/07/18 01/13/19 Bren Lopez MD [address] [place] [address] PCP - General 01/14/19 04/19/19 Sabrina Meade PA [address] [place] [address] PCP - General Internal Medicine 04/20/19 04/21/19 Bren Lopez MD [address] [place] [address] PCP - General 08/13/18 10/03/18 Bren Lopez MD [address] [place] [address] PCP - General 04/22/19 Hope Mauro MD Consulting Physician Trauma Surgery 12/17/17 Francoise Cruz, OT [address] [address] Occupational Therapist Occupational Therapy 12/18/17 Jayshree Salinas OT [address] [facility] [address] [place] [address] Occupational Therapist Occupational Therapy 12/18/17 Barry Mcmillan, DPT Physical Therapist Physical Therapy 01/18/18 06/29/18 Nitin Martinez, STAMPING PRESS OPERATOR [address] [place] [address] Accounts Payable Manager Physical Therapy 01/22/18 08/17/18 Marian Myrick, STAMPING PRESS OPERATOR 4[address] [facility] [address] [place] [address] Accounts Payable Manager Physical Therapy 02/19/18 08/17/18 Lynsey Chavez DPT [address] [facility] [address] [place] [address] Physical Therapist Physical Therapy 06/30/18 08/17/18 Sultan Cristo Flores MD [address] [facility] [address] [address] Anthropological Linguist Cardiology 03/02/19 documented as of this encounter
--- OUTSIDE RECORDS SUMMARY | 2024-12-07 19:12 | XMS_ITS | Encounter Summary ---
Author Organization [facility] Facility Care Team Providers Care Pitch Flaker Name Role Phone Hope Mauro MD Unavailable [phone] Francoise Cruz OT Unavailable + [phone] Jayshree Salinas OT Unavailable +[phone] Barry Mcmillan DPT Unavailable Unavail able Nitin Martinez ORAL AND MAXILLOFACIAL SURGERY Unavailable + Miguelito Bergeron MD Primary Care Provider + [phone] Marian Myrick ORAL AND MAXILLOFACIAL SURGERY Unavailable + Sheryl Hightower MD Primary Care [...] Bren Lopez MD Primary Care Provider [phone] Encounter Details Date Type Department Care Team (Latest Contact Info) Description 04/20/2018 Orders Only MMG CLINCONV Provider, MD James [address] [place] [address] Social History Tobacco Use Types Packs/Day Years Used Date Smoking Tobacco: Former Smokeless Tobacco: Former Comments:quit 1999 Alcohol Use Standard Drinks/Week Comments Not Asked 0 (1 standard drink = 0.6 oz pur e alcohol) quit 2003 Sex and Gender Information Value Date Recorded Sex Assigned at Not on file 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 Historical Provider CV CARDIAC SERVICES [facility] RADHA Final Result documented in this encounter Visit Diagnoses Not on filedocumented in this encounter Care Teams Pitch Flaker Relationship Specialty Start Date End Date Miguelito Bergeron MD 3009 [facility] 102 [place] [address] PCP - General 02/13/18 05/11/18 Sheryl Hightower MD [address] [address] PCP - General Internal Medicine 05/12/18 08/12/18 Sabrina Meade PA [facility] [address] PCP - General 10/04/18 12/02/18 Bren Lopez MD [address] [place] [address] PCP - General 12/03/18 12/06/18 Sabrina Meade PA [address] [place] [address] PCP - General 12/07/18 01/13/19 Bren Lopez MD [address] [place] [address] PCP - General 01/14/19 04/19/19 Sabrina Meade PA [address] [place] [address] PCP - General Internal Medicine 04/20/19 04/21/19 Bren Lopez MD [address] [place] [address] PCP - General 08/13/18 10/03/18 Bren Lopez MD [address] [place] [address] PCP - General 04/22/19 Hope Mauro MD Consulting Physician Trauma Surgery 12/17/17 Francoise Cruz, OT [address] [address] Occupational Therapist Occupational Therapy 12/18/17 Jayshree Salinas OT 4921 [facility] [address] [place] [address] Occupational Therapist Occupational Therapy 12/18/17 Barry Mcmillan, DPT Physical Therapist Physical Therapy 01/18/18 06/29/18 Nitin Martinez, ORAL AND MAXILLOFACIAL SURGERY [address] [place] [address] Residential Collections Physical Therapy 01/22/18 08/17/18 Marian Myrick, ORAL AND MAXILLOFACIAL SURGERY 4240 [facility] [address] [place] [address] Residential Collections Physical Therapy 02/19/18 08/17/18 Lynsey Chavez DPT [address] [facility] [address] [place] [address] Physical Therapist Physical Therapy 06/30/18 08/17/18 Sultan Cristo Flores MD [address] [facility] [address] [address] Director Global Intelligence Cardiology 03/02/19 documented as of this encounter
--- OUTSIDE RECORDS SUMMARY | 2024-12-07 19:12 | XMS_ITS | CONTINUITY OF CARE DOCUMENT ---
Author Name lupis baugh Address Unknown Organization [facility] Address [address] [place] [address] Phone [phone] Care Team Providers Care Show Host Name Role Phone Mahesh FERGUSON, Gamal Unavailable WILBUR FERGUSON, RUNDA Unavailable WILBUR FERGUSON, RUNDA [...] In-person encounter Office Visit Gamal Aragon MD [facility] CHEST PAIN-05/12 RT STRESS NEGCAD-09/11 NUC NEGObstructive sleep apnea - On CPAPRestless leg syndrome - In-person encounter Office Visit Josr Jon MD [facility] TIA-09/11 CAROTID NEGCHEST PAIN-05/12 CATH NEGPALPITATIONS-09/11 [...] Agudelo blood pressure, systolic 130 mm[Hg] [place] Agudelo pulse rate 76 /min Pau Agudelo oxygen [...] MG active one tablet twice daily [place] [place] HYDROCHLOROTHIAZIDE 12.5 MG ORAL TABLET active one tablet by mouth once daily [place] [place] VITAMIN D 3 5000 IU active one tablet b y mouth once daily [place] B-12 2500 MCG ORAL TABLET active one tablet by mouth once daily [facility] [place] CALCIUM 600 MG active twice daily Pau [...] cess ation, patient education and counseling yes Gmaal Aragon MD smoking status Current every day smoker M venkat Aragon MD social history reviewed E&M revi [...] Policy type / Coverage type Karan red libertarian ID [facility] [id number] TREATMENT PLAN Date Name Performer Cardiology:On Statin [...] BP today: 138/86 Prior BP: / () Josr Jon MD chest pain: H is updated medication list for this problem includes: Lisinopril 10 Mg Tabs (Lisinopril) ..... One tab. daily Aspirin 81 Mg Tabs (Aspirin) ..... One tab. daily BP today: 138/86 Prior BP: / () Orders: E KG ([id number]) S tress Test - Nuclear (39428) Josr Jon MD chest pain: H is updated medication list for this problem includes: Aspirin 81 Mg Tabs (Aspirin) ..... One tab. daily Orders: C arotid Duplex Bilateral ([id number]) Josr Jon MD Date Name Mobile Cardiac Tele Carotid Duplex Bilat eral Holter Monitor 24 Hr Stress Test - Nuclea r Complete Echo HISTORY OF PROCEDURES Procedure Date Procedure Name Provider Procedure Notes S tatus SNOMED-CT: 394794908 Smoking Cessation Counseling Gamal Aragon MD completed SNOMED-CT: 91152226 Physical Exam, Performed: Pulse Exam of Foot Gamal Aragon MD completed EKG Gamal Aragon MD complet ed SNOMED-CT: 009502254 836369 Current Medications Documented Gamal Aragon MD completed EKG Josr Jon MD completed
--- OUTSIDE RECORDS SUMMARY | 2024-12-07 19:12 | XMS_ITS | Encounter Summary ---
Author Organization [facility] Facility Care Team Providers Care Tandem Operator Name Role Phone Hope Mauro MD Unavailable [phone] Francoise Cruz OT Unavailable + [phone] Jayshree Salinas OT Unavailable +[phone] Barry Mcmillan DPT Unavailable Unavail able Nitin Martinez AUTOMOTIVE PARTS INTERPRETER Unavailable + Miguelito Bergeron MD Primary Care Provider + [phone] Marian Myrick AUTOMOTIVE PARTS INTERPRETER Unavailable + Sheryl Hightower MD Primary Care [...] Bren Lopez MD Primary Care Provider [phone] Encounter Details Date Type Department Care Team (Latest Contact Info) Description 04/19/2018 Orders Only MMG CLINCONV Provider, MD James [address] [place] [address] Social History Tobacco Use Types Packs/Day Years Used Date Smoking Tobacco: Former Smokeless Tobacco: Former Comments:quit 1999 Alcohol Use Standard Drinks/Week Comments Not Asked 0 (1 standard drink = 0.6 oz pur e alcohol) quit 2003 Sex and Gender Information Value Date Recorded Sex Assigned at Not on file 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 Historical Provider CV CARDIAC SERVICES [facility] RADHA Final Result documented in this encounter Visit Diagnoses Not on filedocumented in this encounter Care Teams Tandem Operator Relationship Specialty Start Date End Date Miguelito Bergeron MD [address] [facility] [address] [place] [address] PCP - General 02/13/18 05/11/18 Sheryl Hightower MD [address] [address] PCP - General Internal Medicine 05/12/18 08/12/18 Sabrina Meade PA [facility] [address] PCP - General 10/04/18 12/02/18 Bren Lopez MD [address] [place] [address] PCP - General 12/03/18 12/06/18 Sabrina Meade PA [address] [place] [address] PCP - General 12/07/18 01/13/19 Bren Lopez MD [address] [place] [address] PCP - General 01/14/19 04/19/19 Sabrina Meade PA [address] [place] [address] PCP - General Internal Medicine 04/20/19 04/21/19 Bren Lopez MD [address] [place] [address] PCP - General 08/13/18 10/03/18 Bren Lopez MD [address] [place] [address] PCP - General 04/22/19 Hope Mauro MD Consulting Physician Trauma Surgery 12/17/17 Francoise Cruz, OT [address] [address] Occupational Therapist Occupational Therapy 12/18/17 Jayshree Salinas OT 49[address] [facility] [address] [place] [address] Occupational Therapist Occupational Therapy 12/18/17 Barry Mcmillan, DPT Physical Therapist Physical Therapy 01/18/18 06/29/18 Nitin Martinez, AUTOMOTIVE PARTS INTERPRETER [address] [place] [address] Hot Oiler Physical Therapy 01/22/18 08/17/18 Marian Myrick, AUTOMOTIVE PARTS INTERPRETER [facility] [facility] [address] [place] [address] Hot Oiler Physical Therapy 02/19/18 08/17/18 Lynsey Chavez DPT [address] [facility] [address] [place] [address] Physical Therapist Physical Therapy 06/30/18 08/17/18 Sultan Cristo Flores MD [address] [facility] [address] [address] Range Operator Cardiology 03/02/19 documented as of this encounter
--- OUTSIDE RECORDS SUMMARY | 2024-12-07 19:12 | XMS_ITS | Clinical Summary ---
Author Organization [facility] al Address [address] [place] [address] Care Team Providers Care Assembly Riveter Name Role Phone Hope Mauro MD Unavailable [phone] Francoise Cruz OT Unavailable [phone] Sultan Cristo Flores MD Unavailable [phone] Bren Lopez MD Primary Care Provider [phone] Allergies Active Allergy Reactions Criticality Noted Date [...] Acute non-STEMI November 2017. Went to the [facility]. Cardiac catheterization showed normal coronary arteries. Assessment & Plan (10/22/2018 1:02 PM CDT): Acute non-STEMI November 2017. Went to the [facility]. Cardiac catheterization showed normal coronary arteries. Coronary artery disease 10/21/2018 Assessment & Plan (03/10/2019 4:14 PM CDT): Acute non-STEMI November 2017. Went to the [facility]. Cardiac catheterization 11/11/2017 showed normal coronary arteries. No intervention. Assessment & Plan (10/22/2018 12:56 PM CDT): Acute non-STEMI November 2017. Went to the [facility]. Cardiac catheterization 11/11/2017 showed normal coronaries. No [...] Overview (10/19/2018): November 2017. Went to the [facility]. No significant coronary artery disease by cath. [...] post myocardial infarction 03/25/2018. Went to the [facility]. No significant coronary artery disease by cath. 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 Use sequential testing to confirm baseline if assay method changed during patient monitoring. 12/07/2018 8:56 AM CDT 12/07/2018 9:49 AM CDT Narrative Resulting Agency Comment CLI us Miguelito Helton MD LAB BLOOD ORDERABLES Mare salguero Result [facility] [address] [place] [address], [facility] [phone] * COLONOSCOPY (12/29/2015) [facility] Colonoscopy Unknown us Historical Provider HEALTH MAINTENANCE Final Result from Last 3 Months or Most Recently Relevant to Health Maintenance Insurance [employer] Address: [facility] [id number] [place] [id number] [employer] Address: [facility] [id number] [place] [phone] [place] [employer] Advance Directives For more information, please contact: [phone] * Full Code (Latest Code Status on File) Date Activated Date Inactivated Comments 02/11/2018 7:10 PM 02/13/2018 3:56 PM Care Teams Assembly Riveter Relationship Specialty Start Date End Date Bren Lopez MD [address] [place] [address] PCP - General 04/22/19 Hope Mauro MD Consulting Physician Trauma Surgery 12/17/17 Francoise Cruz OT [address] [address] Occupational Therapist Occupational Therapy 12/18/17 Sultan Cristo Flores MD [address] [address] Consumer Insight Analyst Cardiology 03/02/19
--- OUTSIDE RECORDS SUMMARY | 2024-12-07 19:12 | XMS_ITS | Encounter Summary ---
Author Organization [facility] Facility Care Team Providers Care Cleaner And Presser Name Role Phone Hope Mauro MD Unavailable [phone] Francoise Cruz OT Unavailable + [phone] Jayshree Salinas OT Unavailable +[phone] Barry Mcmillan DPT Unavailable Unavail able Nitin Martinez RUBBER GOODS CUTTER FINISHER Unavailable + Miguelito Bergeron MD Primary Care Provider + [phone] Marian Myrick RUBBER GOODS CUTTER FINISHER Unavailable + Sheryl Hightower MD Primary Care [...] Bren Lopez MD Primary Care Provider [phone] Encounter Details Date Type Department Care Team (Latest Contact Info) Description 04/08/2018 Orders Only MMG CLINCONV Provider, MD James [address] [place] [address] Social History Tobacco Use Types Packs/Day Years Used Date Smoking Tobacco: Former Smokeless Tobacco: Former Comments:quit 1999 Alcohol Use Standard Drinks/Week Comments Not Asked 0 (1 standard drink = 0.6 oz pur e alcohol) quit 2003 Sex and Gender Information Value Date Recorded Sex Assigned at Not on file 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 Historical Provider CV CARDIAC SERVICES [facility] RADHA Final Result documented in this encounter Visit Diagnoses Not on filedocumented in this encounter Care Teams Cleaner And Presser Relationship Specialty Start Date End Date Miguelito Bergeron MD 3009 [facility] [address] [place] [address] PCP - General 02/13/18 05/11/18 Sheryl Hightower MD [address] [address] PCP - General Internal Medicine 05/12/18 08/12/18 Sabrina Meade PA [facility] [address] PCP - General 10/04/18 12/02/18 Bren Lopez MD [address] [place] [address] PCP - General 12/03/18 12/06/18 Sabrina Meade PA [address] [place] [address] PCP - General 12/07/18 01/13/19 Bren Lopez MD [address] [place] [address] PCP - General 01/14/19 04/19/19 Sabrina Meade PA [address] [place] [address] PCP - General Internal Medicine 04/20/19 04/21/19 Bren Lopez MD [address] [place] [address] PCP - General 08/13/18 10/03/18 Bren Lopez MD [address] [place] [address] PCP - General 04/22/19 Hope Mauro MD Consulting Physician Trauma Surgery 12/17/17 Francoise Cruz, OT [address] [address] Occupational Therapist Occupational Therapy 12/18/17 Jayshree Salinas OT 4921 [facility] [address] [place] [address] Occupational Therapist Occupational Therapy 12/18/17 Barry Mcmillan, DPT Physical Therapist Physical Therapy 01/18/18 06/29/18 Nitin Martinez, RUBBER GOODS CUTTER FINISHER [address] [place] [address] Physician Asst Physical Therapy 01/22/18 08/17/18 Marian Myrick, RUBBER GOODS CUTTER FINISHER [address] [facility] [address] [place] [address] Physician Asst Physical Therapy 02/19/18 08/17/18 Lynsey Chavez DPT [address] [facility] [address] [place] [address] Physical Therapist Physical Therapy 06/30/18 08/17/18 Sultan Cristo Flores MD [address] [facility] [address] [address] Center Lead Consultant Cardiology 03/02/19 documented as of this encounter
--- OUTSIDE RECORDS SUMMARY | 2024-12-07 19:12 | XMS_ITS | Encounter Summary ---
Author Organization [facility] Facility Care Team Providers Care Deputy City Clerk Name Role Phone Hope Mauro MD Unavailable [phone] Francoise Cruz OT Unavailable + [phone] Jayshree Salinas OT Unavailable +[phone] Barry Mcmillan DPT Unavailable Unavail able Nitin Martinez ENTRY LEVEL SALES REPRESENTATIVE Unavailable + Miguelito Bergeron MD Primary Care Provider + [phone] Marian Myrick ENTRY LEVEL SALES REPRESENTATIVE Unavailable + Sheryl Hightower MD Primary Care [...] Bren Lopez MD Primary Care Provider [phone] Encounter Details Date Type Department Care Team (Latest Contact Info) Description 04/26/2018 Orders Only MMG CLINCONV Provider, MD James [address] [place] [address] Social History Tobacco Use Types Packs/Day Years Used Date Smoking Tobacco: Former Smokeless Tobacco: Former Comments:quit 1999 Alcohol Use Standard Drinks/Week Comments Not Asked 0 (1 standard drink = 0.6 oz pur e alcohol) quit 2003 Sex and Gender Information Value Date Recorded Sex Assigned at Not on file 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 Historical Provider CV CARDIAC SERVICES [facility] RADHA Final Result documented in this encounter Visit Diagnoses Not on filedocumented in this encounter Care Teams Deputy City Clerk Relationship Specialty Start Date End Date Miguelito Bergeron MD 3009 [facility] [address] [place] [address] PCP - General 02/13/18 05/11/18 Sheryl Hightower MD [address] [address] PCP - General Internal Medicine 05/12/18 08/12/18 Sabrina Meade PA [facility] [address] PCP - General 10/04/18 12/02/18 Bren Lopez MD [address] [place] [address] PCP - General 12/03/18 12/06/18 Sabrina Meade PA [address] [place] [address] PCP - General 12/07/18 01/13/19 Bren Lopez MD [address] [place] [address] PCP - General 01/14/19 04/19/19 Sabrina Meade PA [address] [place] [address] PCP - General Internal Medicine 04/20/19 04/21/19 Bren Lopez MD [address] [place] [address] PCP - General 08/13/18 10/03/18 Bren Lopez MD [address] [place] [address] PCP - General 04/22/19 Hope Mauro MD Consulting Physician Trauma Surgery 12/17/17 Francoise rCuz, OT [address] [address] Occupational Therapist Occupational Therapy 12/18/17 Jayshree Salinas OT [address] [facility] [address] [place] [address] Occupational Therapist Occupational Therapy 12/18/17 Barry Mcmillan, DPT Physical Therapist Physical Therapy 01/18/18 06/29/18 Nitin Martinez, ENTRY LEVEL SALES REPRESENTATIVE [address] [place] [address] Geodesy Teacher Physical Therapy 01/22/18 08/17/18 Marian Myrick, ENTRY LEVEL SALES REPRESENTATIVE [address] [facility] [address] [place] [address] Geodesy Teacher Physical Therapy 02/19/18 08/17/18 Lynsey Chavez DPT [address] [facility] [address] [place] [address] Physical Therapist Physical Therapy 06/30/18 08/17/18 Sultan Cristo Flores MD [address] [facility] [address] [address] Pipelines Superintendent Cardiology 03/02/19 documented as of this encounter
--- OUTSIDE RECORDS SUMMARY | 2024-12-07 19:12 | XMS_ITS | Encounter Summary ---
Author Organization [facility] Facility Care Team Providers Care National Insurance Officer Name Role Phone Hope Mauro MD Unavailable [phone] Francoise Cruz OT Unavailable + [phone] Jayshree Salinas OT Unavailable +[phone] Barry Mcmillan DPT Unavailable Unavail able Nitin Martinez OFFSET PRESSMAN Unavailable + Miguelito Bergeron MD Primary Care Provider + [phone] Marian Myrick OFFSET PRESSMAN Unavailable + Sheryl Hightower MD Primary Care [...] Bren Lopez MD Primary Care Provider [phone] Encounter Details Date Type Department Care Team (Latest Contact Info) Description 04/12/2018 Orders Only MMG CLINCONV Provider, MD James [address] [place] [address] Social History Tobacco Use Types Packs/Day Years Used Date Smoking Tobacco: Former Smokeless Tobacco: Former Comments:quit 1999 Alcohol Use Standard Drinks/Week Comments Not Asked 0 (1 standard drink = 0.6 oz pur e alcohol) quit 2003 Sex and Gender Information Value Date Recorded Sex Assigned at Not on file 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 Gender Identity Not on file Sexual [...] Provider CV [facility] RADHA Final Result documented in this encounter Visit Diagnoses Not on filedocumented in this encounter Care Teams National Insurance Officer Relationship Specialty Start Date End Date Miguelito Bergeron MD 3009 [facility] [address] [place] [address] PCP - General 02/13/18 05/11/18 Sheryl Hightower MD [address] [address] PCP - General Internal Medicine 05/12/18 08/12/18 Sabrina Meade PA [facility] [address] [address] PCP - General 10/04/18 12/02/18 Bren Lopez MD [address] [place] [address] PCP - General 12/03/18 12/06/18 Sabrina Meade PA [address] [place] [address] PCP - General 12/07/18 01/13/19 Bren Lopez MD [address] [place] [address] PCP - General 01/14/19 04/19/19 Sabrina Meade PA [address] [place] [address] PCP - General Internal Medicine 04/20/19 04/21/19 Bren Lopez MD [address] [place] [address] PCP - General 08/13/18 10/03/18 Bren Lopez MD [address] [place] [address] PCP - General 04/22/19 Hope Mauro MD Consulting Physician Trauma Surgery 12/17/17 Francoise Cruz, OT [address] [address] Occupational Therapist Occupational Therapy 12/18/17 Jayshree Salinas OT 4921 [facility] [address] [place] [address] Occupational Therapist Occupational Therapy 12/18/17 Barry Mcmillan, DPT Physical Therapist Physical Therapy 01/18/18 06/29/18 Nitin Martinez, OFFSET PRESSMAN [address] [place] [address] Warehouse And Receiving Supervisor Physical Therapy 01/22/18 08/17/18 Marian Myrick, OFFSET PRESSMAN 4240 [facility] [address] [place] [address] Warehouse And Receiving Supervisor Physical Therapy 02/19/18 08/17/18 Lynsey Chavez DPT [address] [facility] [address] [place] [address] Physical Therapist Physical Therapy 06/30/18 08/17/18 Sultan Cristo Flores MD [address] [facility] [address] [address] Bar Attendant Cardiology 03/02/19 documented as of this encounter
--- OUTSIDE RECORDS SUMMARY | 2024-12-07 19:12 | XMS_ITS | Encounter Summary ---
Author Organization [facility] Facility Care Team Providers Care Yard Supervisor Name Role Phone Hope Mauro MD Unavailable [phone] Francoise Cruz OT Unavailable + [phone] Jayshree Salinas OT Unavailable +[phone] Barry Mcmillan DPT Unavailable Unavail able Nitin Martinez THREAD TRIMMER Unavailable + Miguelito Bergeron MD Primary Care Provider + [phone] Marian Myrick THREAD TRIMMER Unavailable + Sheryl Hightower MD Primary Care [...] Bren Lopez MD Primary Care Provider [phone] Encounter Details Date Type Department Care Team (Latest Contact Info) Description 04/01/2018 Orders Only MMG CLINCONV Provider, MD James [address] [place] [address] Social History Tobacco Use Types Packs/Day Years Used Date Smoking Tobacco: Former Smokeless Tobacco: Former Comments:quit 1999 Alcohol Use Standard Drinks/Week Comments Not Asked 0 (1 standard drink = 0.6 oz pur e alcohol) quit 2003 Sex and Gender Information Value Date Recorded Sex Assigned at Not on file 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 Gender Identity Not on file Sexual Orientation [...] Historical Provider CV CARDIAC SERVICES [facility] RADHA Final Result documented in this encounter Visit Diagnoses Not on filedocumented in this encounter Care Teams Yard Supervisor Relationship Specialty Start Date End Date Miguelito Bergeron MD 3009 [facility] [address] [place] [address] PCP - General 02/13/18 05/11/18 Sheryl Hightower MD [address] [address] PCP - General Internal Medicine 05/12/18 08/12/18 Sabrina Meade PA [facility] [address] PCP - General 10/04/18 12/02/18 Bren Lopez MD [address] [place] [address] PCP - General 12/03/18 12/06/18 Sabrina Meade PA [address] [place] [address] PCP - General 12/07/18 01/13/19 Bren Lopez MD [address] [place] [address] PCP - General 01/14/19 04/19/19 Sabrina Meade PA [address] [place] [address] PCP - General Internal Medicine 04/20/19 04/21/19 Bren Lopez MD [address] [place] [address] PCP - General 08/13/18 10/03/18 Bren Lopez MD [address] [place] [address] PCP - General 04/22/19 Hope Mauro MD Consulting Physician Trauma Surgery 12/17/17 Francoise Cruz, OT [address] [address] Occupational Therapist Occupational Therapy 12/18/17 Jayshree Salinas OT 4921 [facility] [address] [place] [address] Occupational Therapist Occupational Therapy 12/18/17 Barry Mcmillan, DPT Physical Therapist Physical Therapy 01/18/18 06/29/18 Nitin Martinez, THREAD TRIMMER [address] [place] [address] Airport Shuttle Driver Physical Therapy 01/22/18 08/17/18 Marian Myrick, THREAD TRIMMER 4240 [facility] [address] [place] [address] Airport Shuttle Driver Physical Therapy 02/19/18 08/17/18 Lynsey Chavez DPT [address] [facility] [address] [place] [address] Physical Therapist Physical Therapy 06/30/18 08/17/18 Sultan Cristo Flores MD [address] [facility] [address] [address] Nutrition Instructor Cardiology 03/02/19 documented as of this encounter
--- OUTSIDE RECORDS SUMMARY | 2024-12-07 19:12 | XMS_ITS | Encounter Summary ---
Author Organization [facility] Facility Care Team Providers Care Sales Agent Business Services Name Role Phone Hope Mauro MD Unavailable [phone] Francoise Cruz OT Unavailable + [phone] Jayshree Salinas OT Unavailable +[phone] Barry Mcmillan DPT Unavailable Unavail able Nitin Martinez MEDICAL TRANSPORT SPECIALIST Unavailable + Miguelito Bergeron MD Primary Care Provider + [phone] Marian Myrick MEDICAL TRANSPORT SPECIALIST Unavailable + Sheryl Hightower MD Primary Care [...] Bren Lopez MD Primary Care Provider [phone] Encounter Details Date Type Department Care Team (Latest Contact Info) Description 03/31/2018 Orders Only MMG CLINCONV Provider, MD James [address] [place] [address] Social History Tobacco Use Types Packs/Day Years Used Date Smoking Tobacco: Former Smokeless Tobacco: Former Comments:quit 1999 Alcohol Use Standard Drinks/Week Comments Not Asked 0 (1 standard drink = 0.6 oz pur e alcohol) quit 2003 Sex and Gender Information Value Date Recorded Sex Assigned at Not on file 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 Gender Identity Not on file Sexual Orientation [...] on filedocumented in this encounter Care Teams Sales Agent Business Services Relationship Specialty Start Date End Date Miguelito Bergeron MD 3009 [facility] [address] [place] [address] PCP - General 02/13/18 05/11/18 Sheryl Hightower MD [address] [address] PCP - General Internal Medicine 05/12/18 08/12/18 Sabrina Meade PA [facility] [address] PCP - General 10/04/18 12/02/18 Bren Lopez MD [address] [place] [address] PCP - General 12/03/18 12/06/18 Sabrina Meade PA [address] [place] [address] PCP - General 12/07/18 01/13/19 Bren Lopez MD [address] [place] [address] PCP - General 01/14/19 04/19/19 Sabrina Meade PA [address] [place] [address] PCP - General Internal Medicine 04/20/19 04/21/19 Bren Lopez MD [address] [place] [address] PCP - General 08/13/18 10/03/18 Bren Lopez MD [address] [place] [address] PCP - General 04/22/19 Hope Mauro MD Consulting Physician Trauma Surgery 12/17/17 Francoise Cruz, OT [address] [address] Occupational Therapist Occupational Therapy 12/18/17 Jayshree Salinas OT 4921 [facility] [address] [place] [address] Occupational Therapist Occupational Therapy 12/18/17 Barry Mcmillan, DPT Physical Therapist Physical Therapy 01/18/18 06/29/18 Nitin Martinez, MEDICAL TRANSPORT SPECIALIST [address] [place] [address] Active Directory Administrator Physical Therapy 01/22/18 08/17/18 Marian Myrick, MEDICAL TRANSPORT SPECIALIST 4240 [facility] [address] [place] [address] Active Directory Administrator Physical Therapy 02/19/18 08/17/18 Lynsey Chavez DPT [address] [facility] [address] [place] [address] Physical Therapist Physical Therapy 06/30/18 08/17/18 Sultan Cristo Flores MD [address] [facility] [address] [address] Timber Framer Cardiology 03/02/19 documented as of this encounter
--- OUTSIDE RECORDS SUMMARY | 2024-12-07 19:12 | XMS_ITS | Encounter Summary ---
Author Organization [employer]/[facility] Facility Care Team Providers Care Visual Education Director Name Role Phone Hope Mauro MD Unavailable [phone] Francoise Cruz OT Unavailable + [phone] Jayshree Salinas OT Unavailable [phone] Barry Mcmillan DPT Unavailable Unavail able Nitin Martinez BUGGY OPERATOR Unavailable + Miguelito Bergeron MD Primary Care Provider + [phone] Marian Myrick BUGGY OPERATOR Unavailable + Sheryl Hightower MD Primary [...] Bren Lopez MD Primary Care Provider [phone] Encounter Details Date Type Department Care Team (Latest Contact Info) Description 04/23/2018 Orders Only [facility] CLINCONV Provider, MD James [address] [place] [address] Social History Tobacco Use Types Packs/Day Years Used Date Smoking Tobacco: Former Smokeless Tobacco: Former Comments:quit 1999 Alcohol Use Standard Drinks/Week Comments Not Asked 0 (1 standard drink = 0.6 oz pur e alcohol) quit 2003 Sex and Gender Information Value Date Recorded Sex Assigned at Not on file 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 Gender Identity Not on file Sexual Orientation [...] on filedocumented in this encounter Care Teams Visual Education Director Relationship Specialty Start Date End Date Miguelito Bergeron MD 300[address] [facility] [address] [place] [address] PCP - General 02/13/18 05/11/18 Sheryl Hightower MD [address] [address] PCP - General Internal Medicine 05/12/18 08/12/18 Sabrina Meade PA [facility] [address] PCP - General 10/04/18 12/02/18 Bren Lopez MD [address] [place] [address] PCP - General 12/03/18 12/06/18 Sabrina Meade PA [address] [place] [address] PCP - General 12/07/18 01/13/19 Bren Lopez MD [address] [place] [address] PCP - General 01/14/19 04/19/19 Sabrina Meade PA [address] [place] [address] PCP - General Internal Medicine 04/20/19 04/21/19 Bren Lopez MD [address] [place] [address] PCP - General 08/13/18 10/03/18 Bren Lopez MD [address] [place] [address] PCP - General 04/22/19 Hope Mauro MD Consulting Physician Trauma Surgery 12/17/17 Francoise Cruz, OT [address] [address] Occupational Therapist Occupational Therapy 12/18/17 Jayshree Salinas OT 4921 [facility] [address] [place] [address] Occupational Therapist Occupational Therapy 12/18/17 Barry Mcmillan, DPT Physical Therapist Physical Therapy 01/18/18 06/29/18 Nitin Martinez, BUGGY OPERATOR [address] [place] [address] Flight Test Shop Mechanic Physical Therapy 01/22/18 08/17/18 Marian Myrick, BUGGY OPERATOR [address] [facility] [address] [place] [address] Flight Test Shop Mechanic Physical Therapy 02/19/18 08/17/18 Lynsey Chavez DPT [address] [facility] [address] [place] [address] Physical Therapist Physical Therapy 06/30/18 08/17/18 Sultan Cristo Flores MD [address] [facility] [address] [address] Welder Apprentice Gas Cardiology 03/02/19 documented as of this encounter
--- OUTSIDE RECORDS SUMMARY | 2024-12-07 19:12 | XMS_ITS | Encounter Summary ---
Author Organization [facility] Facility Care Team Providers Care Waistline Joiner Name Role Phone Miguelito Bergeron MD Primary Care Provider + [phone] Hope Mauro MD Unavailable [phone] Francoise Cruz OT Unavailable + Jayshree Salinas OT Unavailable + Diandra Easley DPT Unavailable +[phone] Barry Mcmillan DPT Unavailable Unavail able Nitin Martinez COOKER LOADER Unavailable + No, Physician Primary Care Provider + Miguelito Bergeron MD Primary Care Provider + [phone] Marian Myrick COOKER LOADER Unavailable + Sheryl Hightower MD Primary Care Provider + Lynsey Chavez DPT Unavailable + Sabrina Meade Primary Care Provider + Bren Lopez MD Primary Care Provider + Sabrina Meade Primary Care Provider + Bren Lopez MD Primary Care Provider + Sultan Cristo Flores MD Unavailable [phone] Sabrina Meade Primary Care Provider [phone] Bren Lopez MD Primary Care Provider [phone] Bren Lopez MD Primary Care Provider + Encounter Details Date Type Department Care Team (Latest Contact Info) Description 2018 Orders Only [facility] CLINCONV ProviderJames MD [facility] [place] [address] Social History Tobacco Use Types Packs/Day Years Used Date Smoking Tobacco: Former Smokeless Tobacco: Former Alcohol Use Standard Drinks/Week Comments No 0 (1 standard drink = 0.6 oz pur e alcohol) Sex and Gender Information Value Date Recorded Sex Assigned at Not on file 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 Gender Identity Not on file Sexual Orientation [...] on filedocumented in this encounter Care Teams Waistline Joiner Relationship Specialty Start Date End Date Miguelito Bergeron MD [address] [address] PCP - General Neurology 12/02/17 02/11/18 No, Physician PCP - General 02/12/18 02/12/18 Miguelito Bergeron MD [address] [address] PCP - General 02/13/18 05/11/18 Sheryl Hightower MD [address] [address] PCP - General Internal Medicine 05/12/18 08/12/18 Sabrina Meade PA [address] [place] [address] PCP - General 10/04/18 12/02/18 Bren Lopez MD [facility] [address] PCP - General 12/03/18 12/06/18 Sbarina Meade PA [address] [place] [address] PCP - General 12/07/18 01/13/19 Bren Lopez MD [address] [place] [address] PCP - General 01/14/19 04/19/19 Sabrina Meade PA [address] [place] [address] PCP - General Internal Medicine 04/20/19 04/21/19 Bren Lopez MD [facility] [address] PCP - General 08/13/18 10/03/18 Bren Lopez MD [facility] [address] PCP - General 04/22/19 Hope Mauro MD [address] [facility] [address] [place], [place] [address] Consulting Physician Trauma Surgery 12/17/17 Francoise Cruz, OT 4921 [facility] [address] [place] [address] Occupational Therapist Occupational Therapy 12/18/17 Jayshree Salinas, OT 49[address] [facility] [address] [place] [address] Occupational Therapist Occupational Therapy 12/18/17 Diandra Easley, DPT 49[address] [facility] [address] [place] [address] Physical Therapist Physical Therapy 12/28/17 03/24/18 Barry Mcmillan, DPT Physical Therapist Physical Therapy 01/18/18 06/29/18 Nitin Martinez, COOKER LOADER [address] [facility] [address] [place] [address] Cognos Bi Administrator Physical Therapy 01/22/18 08/17/18 Marian Myrick, COOKER LOADER 4240 [facility] 120 [facility] 120 [place] [address] Cognos Bi Administrator Physical Therapy 02/19/18 08/17/18 Lynsey Chavez, DPT [address] [facility] [address] [place] [address] Physical Therapist Physical Therapy 06/30/18 08/17/18 Sultan Cristo Flores MD [address] [facility] [address] [place] [address] Security Specialist Cardiology 03/02/19 documented as of this encounter
--- OUTSIDE RECORDS SUMMARY | 2024-12-07 19:12 | XMS_ITS | Encounter Summary ---
Author Organization [facility] Facility Care Team Providers Care Administrator Name Role Phone Hope Mauro MD Unavailable [phone] Francoise Cruz OT Unavailable + [phone] Jayshree Salinas OT Unavailable [phone] Barry Mcmillan DPT Unavailable Unavail able Nitin Martinez BAR MANAGER Unavailable + Miguelito Bergeron MD Primary Care Provider + [phone] Marian Myrick BAR MANAGER Unavailable + Sheryl Hightower MD Primary [...] Bren Lopez MD Primary Care Provider [phone] Encounter Details Date Type Department Care Team (Latest Contact Info) Description 04/10/2018 Orders Only [facility]G CLINCONV Provider, MD James [address] [place] [address] Social History Tobacco Use Types Packs/Day Years Used Date Smoking Tobacco: Former Smokeless Tobacco: Former Comments:quit 1999 Alcohol Use Standard Drinks/Week Comments Not Asked 0 (1 standard drink = 0.6 oz pur e alcohol) quit 2003 Sex and Gender Information Value Date Recorded Sex Assigned at Not on file 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 Historical Provider [facility] Final Result documented in this encounter Visit Diagnoses Not on filedocumented in this encounter Care Teams Administrator Relationship Specialty Start Date End Date Miguelito Bergeron MD 3009 [facility] [address] [place] [address] PCP - General 02/13/18 05/11/18 Sheryl Hightower MD [address] [address] PCP - General Internal Medicine 05/12/18 08/12/18 Sabrina Meade PA [facility] [address] PCP - General 10/04/18 12/02/18 Bren Lopez MD [address] [place] [address] PCP - General 12/03/18 12/06/18 Sabrina Meade PA [address] [place] [address] PCP - General 12/07/18 01/13/19 Bren Lopez MD [address] [place] [address] PCP - General 01/14/19 04/19/19 Sabrina Meade PA [address] [place] [address] PCP - General Internal Medicine 04/20/19 04/21/19 Bren Lopez MD [address] [place] [address] PCP - General 08/13/18 10/03/18 Bren Lopez MD [address] [place] [address] PCP - General 04/22/19 Hope Mauro MD Consulting Physician Trauma Surgery 12/17/17 Francoise Cruz, OT [address] [address] Occupational Therapist Occupational Therapy 12/18/17 Jayshree Salinas OT [address] [facility] [address] [place] [address] Occupational Therapist Occupational Therapy 12/18/17 Barry Mcmillan, DPT Physical Therapist Physical Therapy 01/18/18 06/29/18 Nitin Martinez, BAR MANAGER [address] [place] [address] Bindery Helper Physical Therapy 01/22/18 08/17/18 Marian Myrick, BAR MANAGER 4[address] [facility] [address] [place] [address] Bindery Helper Physical Therapy 02/19/18 08/17/18 Lynsey Chavez DPT [address] [facility] [address] [place] [address] Physical Therapist Physical Therapy 06/30/18 08/17/18 Sultan Cristo Flores MD [address] [facility] [address] [address] Data Security Coordinator Cardiology 03/02/19 documented as of this encounter
--- OUTSIDE RECORDS SUMMARY | 2024-12-07 19:12 | XMS_ITS | Continuity of Care Document ---
Author Name [facility] Organization [facility] Care Team Providers Care Relief Map Modeler Name Role Phone [facility] Unavailable Unavailable Problems Combined list of problems from Department of Defense and [facility] Affairs facilities. It does not include entries that were removed or entered in error. Problem Status Onset Date Problem Type Date of Resolution Comments Source Acute non-ST segment elevation myocardial infarction Active Condition [facility] Anxiety disorder Active Condition Feb 26, 2016 Entered By: TANESHA GARCIA Comment: May complicate management [facility] Benign essential hypertension (SNOMED CT [id number]) Active Condition Feb 26, 2016 Entered By: TANESHA GARCIA Comment: CV risk factor. May complicate management [facility] Cerebral arteriosclerosis Active Condition Feb 25 6 Entered By: TANESHA GARCIA Comment: CV risk factor. May complicate management [facility] Chronic bipolar II disorder, most recent episode major depressive Active Condition [facility] Chronic pain Active Condition Feb 26, 2016 Entered By: TANESHA GARCIA Comment: Multiple sites. May be multifactorial. May complicate management [facility] Chronic post-traumatic stress disorder Active Condition [facility] Chronic sinusitis Active Condition [facility] Cough (SCT [id number]) Active Condition [facility] Erectile dysfunction Active Condition Feb 26, 2016 Entered By: TANESHA GARCIA Comment: May be multifactorial. CV risk factor. May complicate management [facility] Ex-tobacco user Active Condition Feb 26, 2016 Entered By: TANESHA GARCIA Comment: CV risk factor. May complicate management [facility] Exposure to potentially hazardous substance (SCT [id number]) Active Condition Oct 20 4 Entered By: CARRIE NAPOLES Comment: Entered automatically through [employer] Problem List documentation program [facility] Gastroesophageal reflux disease Active Condition Feb 26, 2016 Entered By: TANESHA GARCIA Comment: May complicate management [facility] Generalized anxiety disorder Active Condition [facility] Hearing loss ([facility] [place] [id number]) - Unspecified hearing loss (ICD-9-CM 389.9) Active Condition Feb 26, 2016 Entered By: TANESHA GARCIA Comment: May complicate management [facility] History of alcohol abuse Active Condition Feb 26, 2016 Entered By: TANESHA GARCIA Comment: CV risk factor. May complicate management [facility] History of repair of inguinal hernia Active Condition [facility] History of repair of rotator cuff Active Condition [facility] Hyperlipidemia (SNOMED CT [id number]) Active Condition Feb 26, 2016 Entered By: TANESHA GARCIA Comment: CV risk factor. May complicate management [facility] Hypersomnia Active Condition Feb 26, 2016 Entered By: TANESHA GARCIA Comment: May complicate management [facility] Insomnia Active Condition Feb 25 16 Entered By: TANESHA GARCIA Comment: May complicate management [facility] Lack of exercise Active Condition Feb 26, 2016 Entered By: TANESHA GARCIA Comment: CV risk factor. May complicate management [facility] Obesity Active Condition Feb 25 Entered By: TANESHA GARCIA Comment: CV risk factor. May complicate management [facility] Obstructive sleep apnea syndrome Active Condition Feb 26, 2016 Entered By: TANESHA GARCIA Comment: CV risk factor. May complicate management [facility] Patellofemoral osteoarthritis Active Condition [facility] Recurrent major depression Active Condition Feb 26, 2016 Entered By: TANESHA GARCIA Comment: CV risk factor. May complicate management [facility] Sensorineural hearing loss of bilateral ears Active Condition [facility] Sensory symptoms Active Condition Feb 26, 2016 Entered By: TANESHA GARCIA Comment: Chanell. TIA v conversion disorder v factitious disorder v m [facility] Social anxiety disorder Active Condition Feb 26, 2016 Entered By: MITHEN,TANESHA A Comment: May complicate management [facility] Stereotypic movement disorder Active Condition Feb 25 Entered By: TANESHA GARCIA Comment: Told he has RLS, but he has no symptoms consistent with RLS [facility] TIA (SNOMED CT [id number]) Active Condition Oct 24, 2011 Entered By: PHILLIP CASTELLON Comment: Had 3 episodes in 2005, no residual symptomsFeb 26, 2016 Entered By: TANESHA GARCIA Comment: Possible. CV risk factor. May complicate management [facility] Vitamin D deficiency Active Condition Feb 26, 2016 Entered By: TANESHA GARCIA Comment: CV risk factor. May complicate management [facility] ACQ NOSE DEFORMITY Inactive Condition 10/24/2011 [facility] Allergic rhinitis due to other allergen (ICD-9-CM 477.8) Inactive Condition 02/25/2016 [facility] Cellulitis and abscess of unspecified sites (ICD-9-CM 682.9) Inactive Condition 10/24/2011 [facility] Diarrhea * (ICD-9-CM 787.91) Inactive Condition 10/24/2011 [facility] FOREIGN BODY HEAD Inactive Condition 10/24/2011 [facility] HEADACHE Inactive Condition 10/24/2011 [facility] JAW DISEASE NOS Inactive Condition 10/24/2011 [facility] [place] Inactive Condition 02/25/2016 [facility] NASAL SINUS DIS NEC Inactive Condition 10/24/2011 [facility] NON-HEALING SURGICAL WOUND Inactive Condition 10/24/2011 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 ORAL SOFT TISSUE DIS NEC Inactive Condition 10/24/2011 [facility] Other and unspecified disc disorder of lumbar region (ICD-9-CM 722.93) Inactive Condition 02/25/2016 Aug 28, 2011 Entered By: AUSTYN ANSARI Comment: HX OF SURGERY [facility] OTHER SP. PRE-OP EXAM Inactive Condition 10/24/2011 [facility] Personal History of Tobacco Use (ICD-9-CM V15.82) Inactive Condition 02/25/2016 Oct 23 Entered By: PHILLIP CASTELLON Comment: quit [address] [facility] Prostatitis * (ICD-9-CM 601.9) Inactive Condition 02/25/2016 [facility] SKIN DISORDER NOS Inactive Condition 10/24/2011 [facility] Upper Respiratory Infections (ICD-9-CM 465.9) Inactive Condition 10/24/2011 [facility] Diagnosis: ICD-10-CM L82.1 Other seborrheic keratosis Active Diagnosis [facility] Diagnosis: ICD-10-CM M79.2 Neuralgia and neuritis, unspecified Active Diagnosis [facility] Diagnosis: ICD-10-CM Z02.9 Encounter for administrative examinations, unspecified Active Diagnosis [facility] Diagnosis: ICD-10-CM F51.02 Adjustment insomnia Active Diagnosis [facility] Diagnosis: ICD-10-CM R06.00 Dyspnea, unspecified Active Diagnosis [facility] Diagnosis: ICD-10-CM E66.9 Obesity, unspecified Active Diagnosis [facility] Diagnosis: ICD-10-CM I10 Essential (primary) hypertension Active Diagnosis [facility] Diagnosis: ICD-10-CM F33.41 Major depressive disorder, recurrent, in partial remission Active Diagnosis [facility] Diagnosis: ICD-10-CM L60.2 Onychogryphosis Active Diagnosis [facility] Diagnosis: ICD-10-CM Z56.9 Unspecified problems related to employment Active Diagnosis [facility] Diagnosis: ICD-10-CM L60.0 Ingrowing nail Active Diagnosis [facility] Diagnosis: ICD-10-CM I26.99 Other pulmonary embolism without acute cor pulmonale Active Diagnosis [facility] Diagnosis: ICD-10-CM Z01.818 Encounter for other preprocedural examination Active Diagnosis [facility] Diagnosis: ICD-10-CM Z71.2 Person consulting for explanation of exam or test findings Active Diagnosis [facility] Diagnosis: ICD-10-CM R22.1 Localized swelling, mass and lump, neck Active Diagnosis [facility] Luis Enrique [facility] Diagnosis: ICD-10-CM R29.898 Oth symptoms and signs involving the musculoskeletal system Active Diagnosis [facility] Diagnosis: ICD-10-CM G45.3 Amaurosis fugax Active Diagnosis [facility] Diagnosis: ICD-10-CM Z13.5 Encounter for screening for eye and ear disorders Active Diagnosis [facility] NATALIO [facility] Diagnosis: ICD-10-CM E66.811 Obesity, class 1 Active Diagnosis [facility] Diagnosis: ICD-10-CM H90.3 Sensorineural hearing loss, bilateral Active Diagnosis [facility] Diagnosis: ICD-10-CM J20.9 Acute bronchitis, unspecified Active Diagnosis [facility] Diagnosis: ICD-10-CM Z85.828 Personal history of other malignant neoplasm of skin Active Diagnosis [facility] Diagnosis: ICD-10-CM E78.5 Hyperlipidemia, unspecified Active Diagnosis [facility] Diagnosis: ICD-10-CM F40.10 Social phobia, unspecified Active Diagnosis [facility] Diagnosis: ICD-10-CM E66.8 Other obesity Active Diagnosis [facility] Diagnosis: ICD-10-CM D23.5 Other benign neoplasm of skin of trunk Active Diagnosis [facility] Medications Combined list of outpatient medications from Department of Defense and [facility] Affairs facilities.Medications provided include 1) outpatient medications [...] ATION) DISCONT INUED BY PROVIDE R 06/09/2025 [id number] 5 REJI LERMA 2023 3 [facility] AMLODIPINE BESYLATE 10MG TAB TAKE ONE TABLET BY MOUTH ONCE A DAY FOR HEART/BL OOD PRESSURE ORAL SUSPEND ED 06/09/2025 [id number] 5 REJI LERMA 2024 90 [facility] AMLODIPINE BESYLATE 10MG TAB TAKE ONE TABLET BY MOUTH ONCE A DAY FOR HEART/BL OOD PRESSURE ORAL DISCONT INUED 08/17/2024 [id number] 4 RODRIGO MOJICA 2023 90 [facility] APIXABAN 5MG TAB TAKE ONE TABLET BY MOUTH TWICE A DAY ORAL ACTIVE GAVIN MOLINA 2022 [facility] ARIPIPRAZOL E 5MG TAB TAKE ONE AND ONE-HALF TABLETS BY MOUTH ONCE A DAY FOR BIPOLAR DISORDER ORAL ACTIVE 10/07/2025 [id number] 5 MARIA GUADALUPE CESPEDES FRACISCO 2024 135 [facility] ARIPIPRAZOL E 5MG TAB TAKE ONE AND ONE-HALF TABLETS BY MOUTH ONCE A DAY FOR BIPOLAR DISORDER ORAL DISCONT INUED 07/09/2025 [id number] 5 MARIA GUADALUPE CESPEDES FRACISCO 2024 135 [facility] N ARIPIPRAZOL E 5MG TAB TAKE ONE AND ONE-HALF TABLETS BY MOUTH ONCE A DAY FOR BIPOLAR DISORDER ORAL DISCONT INUED 12/15/2024 [id number] 4 MARIA GUADALUPE CESPEDES 2023 135 [facility] ATENOLOL 100MG TAB TAKE ONE-HALF TABLET BY MOUTH ONCE A DAY ORAL ACTIVE REJI LERMA 2023 [facility] ATORVASTATI N CA 40MG TAB TAKE ONE-HALF TABLET BY MOUTH EVERY EVENING ORAL ACTIVE 06/09/2025 [id number] 5 REJI LERMA 2023 45 [facility] AZITHROMYCI N 500MG TAB TAKE ONE TABLET BY MOUTH ONCE A DAY FOR COPD EXACERBA TION TAKE UNTIL GONE. DO NOT TAKE WITH ALUMINUM OR MAGNESIU M ANTACIDS . ORAL ACTIVE 12/25/2024 [id number] 5 JARAGEOVANNA Mercado M 2024 3 [facility] BENZONATATE 200MG CAP TAKE ONE CAPSULE BY MOUTH THREE TIMES A DAY NEEDED ORAL 07/18/2024 [id number] 4 REJI LERMA 2023 120 [facility] BUDESONIDE 160/GLYCOPY R 9/FORMOTER 4.8MCG/ACT INHL,ORAL,1 0.7GM INHALE 2 PUFFS INHALATI ON TWICE A DAY DIRECTED INHALA TION ACTIVE REJI LERMA 2023 [facility] BUPROPION 90MG/NALTRE XONE HCL 8MG TAB,SA TAKE 2 TABLETS BY MOUTH TWICE A DAY FOR WEIGHT LOSS ORAL DISCONT INUED BY PROVIDE R 05/11/2025 [id number] 5 HOLDEN DECKER IGNACIO 2024 120 [facility] BUPROPION 90MG/NALTRE XONE HCL 8MG TAB,SA TAKE 1 TABLET BY MOUTH ONCE A DAY FOR 7 DAYS, THEN TAKE 1 TABLET TWICE A DAY FOR 7 DAYS, THEN TAKE 2 TABLETS EVERY MORNING AND TAKE 1 TABLET EVERY EVENING FOR 7 DAYS, THEN TAKE 2 TABLETS TWICE A DAY FOR WEIGHT LOSS ORAL DISCONT INUED 05/11/2025 [id number] 4 HOLDEN DECKER IGNACIO 2023 120 [facility] BUSPIRONE HCL 15MG TAB TAKE TWO TABLETS BY MOUTH TWICE A DAY FOR ANXIETY DO NOT TAKE WITH GRAPEFRU IT JUICE ORAL ACTIVE 10/07/2025 [id number] 5 MARIA GUADALUPE CESPEDES 2024 360 [facility] DIV[facility] N BUSPIRONE HCL 15MG TAB TAKE TWO TABLETS BY MOUTH TWICE A DAY FOR ANXIETY DO NOT TAKE WITH GRAPEFRU IT JUICE ORAL DISCONT INUED 12/15/2024 [id number] 5 MARIA GUADALUPE CESPEDES 2023 360 [facility] BUSPIRONE HCL 15MG TAB TAKE TWO TABLETS BY MOUTH THREE TIMES A DAY FOR ANXIETY DO NOT TAKE WITH GRAPEFRU IT JUICE ORAL DISCONT INUED (EDIT) 12/08/2024 [id number] 4 MARIA GUADALUPE CESPEDES 2023 540 [facility] BUSPIRONE HCL 15MG TAB TAKE TWO TABLETS BY MOUTH THREE TIMES A DAY FOR ANXIETY FOR ANXIETY DO NOT TAKE WITH GRAPEFRU IT JUICE ORAL DISCONT INUED 12/08/2024 [id number] 4 MARIA GUADALUPE CESPEDES 2023 180 [facility] CHOLECALCIF FAUSTINO 125MCG (5,000UNIT) CAP,ORAL TAKE 1 CAPSULE BY MOUTH ONCE A DAY ORAL ACTIVE MARYANN ALBRIGHT 2014 [facility] CLOMIPHENE CITRATE 50MG TAB TAKE ONE TABLET BY MOUTH EVERY OTHER DAY ORAL ACTIVE GAVIN MOLINA 2022 [facility] CPD-NALTREX ONE 4.5MG (LOW DOSE) CAP TAKE 1 CAPSULE BY MOUTH ONCE A DAY FOR NEUROPAT HY ORAL ACTIVE 12/03/2025 [id number] 5 KEARA ROSE 2024 30 [facility] CYANOCOBALA MIN 1000MCG TAB TAKE ONE TABLET BY MOUTH ONCE A DAY ORAL ACTIVE REJI LERMA 2023 [facility] DULOXETINE HCL 60MG CAP,EC TAKE TWO CAPSULES BY MOUTH AT BEDTIME FOR MOOD, ANXIETY AND PAIN ORAL SUSPEND ED 10/07/2025 [id number] 5 MARIA GUADALUPE CESPEDES 2024 180 [facility] DULOXETINE HCL 60MG CAP,EC TAKE TWO CAPSULES BY MOUTH AT BEDTIME FOR MOOD, ANXIETY AND PAIN ORAL DISCONT INUED 02/02/2025 [id number] 5 MARIA GUADALUPE CESPEDES 2023 180 [facility] N DULOXETINE HCL 60MG CAP,EC TAKE TWO CAPSULES BY MOUTH AT BEDTIME FOR MOOD, ANXIETY AND PAIN ORAL DISCONT INUED 02/07/2024 [id number] 4 MARIA GUADALUPE CESPEDES 2022 180 [facility] DIVLISA N FAMOTIDINE 40MG TAB TAKE ONE TABLET BY MOUTH ONCE A DAY TO LOWER STOMACH ACID ORAL ACTIVE 06/09/2025 [id number] 5 REJI LERMA 2024 90 [facility] FAMOTIDINE 40MG TAB TAKE ONE TABLET BY MOUTH ONCE A DAY TO LOWER STOMACH ACID ORAL DISCONT INUED 08/17/2024 [id number] 4 RODRIGO MOJICA 2023 90 [facility] FERROUS SO4 325MG TAB TAKE ONE TABLET BY MOUTH ONCE A DAY FOR IRON SUPPLEME NTATION. ORAL SUSPEND ED 06/09/2025 [id number] 5 REJI LERMA 2023 100 [facility] FERROUS SO4 325MG TAB TAKE ONE TABLET BY MOUTH ONCE A DAY FOR IRON SUPPLEME NTATION. ORAL DISCONT INUED 06/12/2024 [id number] GAVIN MOLINA 2022 100 [facility] FINASTERIDE 5MG TAB TAKE ONE TABLET BY MOUTH ONCE A DAY FOR PROSTATE . SWALLOW WHOLE, DO NOT CRUSH, SPLIT, OR CHEW. ORAL ACTIVE 06/09/2025 [id number] 5 REJI LERMA 2024 90 [facility] FINASTERIDE 5MG TAB TAKE ONE TABLET BY MOUTH ONCE A DAY FOR PROSTATE . SWALLOW WHOLE, DO NOT CRUSH, SPLIT, OR CHEW. ORAL DISCONT INUED 08/17/2024 [id number] 4 RODRIGO MOJICA 2023 90 [facility] GABAPENTIN 100MG CAP TAKE 1 CAPSULE BY MOUTH EVERY EVENING ORAL ACTIVE GEOVANNA JARA M 2024 [facility] HYDROXYZINE HCL 50MG TAB TAKE 1-2 TABLETS BY MOUTH AT BEDTIME NEEDED FOR MIDDLE INSOMNIA *MAY CAUSE DROWSINE SS* OK TO TAKE ADDITION AL 50MG DOSE LATER IN THE NIGHT IF INSOMNIA PERSISTS ORAL ACTIVE 10/07/2025 [id number] 5 MARIA GUADALUPE CESPEDES 2024 180 [facility] HYDROXYZINE HCL 50MG TAB TAKE 1-2 TABLETS BY MOUTH AT BEDTIME NEEDED FOR MIDDLE INSOMNIA *MAY CAUSE DROWSINE SS* OK TO TAKE ADDITION AL 50MG DOSE LATER IN THE NIGHT IF INSOMNIA PERSISTS ORAL DISCONT INUED 02/02/2025 [id number] 5 MARIA GUADALUPE CESPEDES 2023 180 [facility] N HYDROXYZINE HCL 50MG TAB TAKE 1-2 TABLETS BY MOUTH AT BEDTIME NEEDED FOR MIDDLE INSOMNIA *MAY CAUSE DROWSINE SS* OK TO TAKE ADDITION AL 50MG DOSE LATER IN THE NIGHT IF INSOMNIA PERSISTS ORAL DISCONT INUED 04/10/2024 [id number] 4 MARIA GUADALUPE CESPEDES 2023 180 [facility] HYDROXYZINE HCL 50MG TAB TAKE 1-2 TABLETS BY MOUTH AT BEDTIME NEEDED FOR MIDDLE INSOMNIA *MAY CAUSE DROWSINE SS* OK TO TAKE ADDITION AL 50MG DOSE LATER IN THE NIGHT IF INSOMNIA PERSISTS ORAL DISCONT INUED 08/27/2024 [id number] 4 MARIA GUADALUPE CESPEDES 2023 60 [facility] LIDOCAINE 5% PATCH APPLY 1 PATCH TO SKIN SITE ONCE A DAY APPLY PATCH AND PRESS FIRMLY FOR 10-15 SECONDS. KEEP ON FOR 12 HOURS THEN REMOVE PATCH FOR 12 HOURS. TRANSD ERMAL ACTIVE 09/14/2025 [id number] 5 BRENDA AGRCIA EI 2024 30 [facility] MODAFINIL 200MG TAB TAKE ONE TABLET BY MOUTH TWICE A DAY FOR ALERTNES S ORAL ACTIVE 04/08/2025 [id number] 5 MARIA GUADALUPE CESPEDES 2024 60 [facility] MODAFINIL 200MG TAB TAKE ONE TABLET BY MOUTH TWICE A DAY FOR ALERTNES S ORAL DISCONT INUED 01/08/2025 [id number] 5 MARIA GUADALUPE CESPEDES 2024 60 [facility] DIVIS[facility] N MODAFINIL 200MG TAB TAKE ONE TABLET BY MOUTH TWICE A DAY FOR ALERTNES S ORAL DISCONT INUED 08/04/2024 [id number] 4 MARIA GUADALUPE CESPEDES 2023 60 [facility] N MODAFINIL 200MG TAB TAKE ONE TABLET BY MOUTH TWICE A DAY FOR ALERTNES S ORAL 12/13/2023 [id number] 4 MARIA GUADALUPE CESPEDES 2022 60 [facility] OLOPATADINE HCL 0.2% SOLN,OPH INSTILL 1 DROP IN BOTH EYES ONCE A DAY FOR ALLERGIC CONJUNCT IVITIS OPHTHA LMIC ACTIVE 08/06/2025 [id number] 5 TARAH PATRICIA 2024 7.5 [facility] PANTOPRAZOL E NA 40MG TAB,EC TAKE ONE TABLET BY MOUTH EVERY MORNING BEFORE A MEAL ORAL ACTIVE REJI LERMA 2023 [facility] PRAVASTATIN NA 40MG TAB TAKE ONE TABLET BY MOUTH EVERY EVENING FOR HIGH CHOLESTE ROL ORAL DISCONT INUED BY PROVIDE R 12/11/2024 [id number] REJI LERMA 2023 90 [facility] PRAZOSIN HCL 2MG CAP TAKE ONE CAPSULE BY MOUTH AT BEDTIME FOR NIGHTMAR ES MAY CAUSE DIZZINES S OR DROWSINE SS. ORAL ACTIVE 10/07/2025 [id number] 5 MARIA GUADALUPE CESPEDES 2024 90 [facility] PRAZOSIN HCL 2MG CAP TAKE ONE CAPSULE BY MOUTH AT BEDTIME FOR NIGHTMAR ES MAY CAUSE DIZZINES S OR DROWSINE SS. ORAL DISCONT INUED 02/02/2025 [id number] 5 MARIA GUADALUPE CESPEDES 2023 90 [facility] N PRAZOSIN HCL 2MG CAP TAKE ONE CAPSULE BY MOUTH AT BEDTIME FOR NIGHTMAR ES MAY CAUSE DIZZINES S OR DROWSINE SS. ORAL DISCONT INUED 02/07/2024 [id number] 4 MARIA GUADALUPE CESPEDES 2022 90 [facility] PREDNISONE 20MG TAB TAKE TWO TABLETS BY MOUTH EVERY MORNING FOR COPD EXACERBA TION TAKE WITH FOOD OR MILK. ORAL ACTIVE 12/25/2024 [id number] 5 GEOVANNA JARA M 2024 5 [facility] QUETIAPINE FUMARATE 100MG TAB TAKE TWO AND ONE-HALF TABLETS BY MOUTH AT BEDTIME ORAL DISCONT INUED BY PROVIDE R 11/23/2025 [id number] 5 MARIA GUADALUPE CESPEDES 2024 225 [facility] N QUETIAPINE FUMARATE 100MG TAB TAKE ONE TABLET BY MOUTH AT BEDTIME ORAL DISCONT INUED (EDIT) 09/22/2024 [id number] 4 MARIA GUADALUPE CESPEDES 2023 30 [facility] QUETIAPINE FUMARATE 200MG TAB TAKE ONE-HALF TABLET BY MOUTH AT BEDTIME ORAL DISCONT INUED (EDIT) 09/18/2024 [id number] 4 MARIA GUADALUPE CESPEDES 2023 15 [facility] QUETIAPINE FUMARATE 400MG TAB TAKE ONE-HALF TABLET BY MOUTH AT BEDTIME FOR BIPOLAR DISORDER ORAL DISCONT INUED (EDIT) 10/07/2025 [id number] 5 MARIA GUADALUPE CESPEDES 2024 45 [facility] QUETIAPINE FUMARATE 400MG TAB TAKE ONE-HALF TABLET BY MOUTH AT BEDTIME FOR BIPOLAR DISORDER ORAL DISCONT INUED 02/03/2025 [id number] 5 MARIA GUADALUPE CESPEDES 2023 45 [facility] QUETIAPINE FUMARATE 400MG TAB TAKE ONE-HALF TABLET BY MOUTH AT BEDTIME ORAL DISCONT INUED (EDIT) 11/03/2024 [id number] 4 MARIA GUADALUPE CESPEDES 2023 15 [facility] QUETIAPINE FUMARATE 400MG TAB TAKE ONE-HALF TABLET BY MOUTH AT BEDTIME ORAL DISCONT INUED (EDIT) 09/15/2024 [id number] 4 MARIA GUADALUPE CESPEDES 2023 15 [facility] DIVIS[facility] N RAMELTEON 8MG TAB TAKE ONE TABLET BY MOUTH EVERY EVENING FOR INSOMNIA 30 MINUTES PRIOR TO BEDTIME ORAL ACTIVE 12/01/2025 [id number] 5 MARIA GUADALUPE CESPEDES 2024 30 [facility] ROSUVASTATI N CA 20MG TAB TAKE ONE-HALF TABLET BY MOUTH EVERY EVENING FOR HIGH CHOLESTE ROL ORAL DISCONT INUED BY THEO R 01/27/2025 [id number] 4 BRENDA GARCIA EI 2023 45 [facility] SEMAGLUTIDE (WT LOSS) 0.25MG/0.5M L INJ,SOLN,PE N,0.5ML INJECT 0.25MG UNDER THE SKIN EVERY WEEK FOR WEIGHT LOSS SUBCUT ANEOUS ACTIVE 11/12/2025 [id number] 5 HOLDEN DECEKR IGNACIO 2024 4 [facility] SEMAGLUTIDE (WT LOSS) 0.25MG/0.5M L INJ,SOLN,PE N,0.5ML INJECT 0.25MG UNDER THE SKIN EVERY WEEK FOR WEIGHT LOSS SUBCUT ANEOUS DISCONT INUED 10/30/2024 [id number] 5 HOLDEN DECKER IGNACIO 2024 4 [facility] SEMAGLUTIDE (WT LOSS) 0.5MG/0.5ML INJ,SOLN,PE N,0.5ML INJECT 0.5MG UNDER THE SKIN EVERY WEEK FOR WEIGHT LOSS AFTER COMPLETI NG 0.25MG DOSE. CONTACT PROVIDER NEEDED FOR DOSE INCREASE SUBCUT ANEOUS DISCONT INUED (EDIT) 10/01/2025 [id number] 5 HOLDEN DECKER IGNACIO 2024 4 [facility] N SEMAGLUTIDE (WT LOSS) 1MG/0.5ML INJ,SOLN,PE N,0.5ML INJECT 1MG UNDER THE SKIN EVERY WEEK FOR WEIGHT LOSS CONTAC T PROVIDER NEEDED FOR DOSE INCREASE SUBCUT ANEOUS DISCONT INUED BY PROVIDE R 11/11/2025 [id number] 5 HOLDEN DECKER IGNACIO 2024 4 [facility] DIVIS[facility] N SPIRONOLACT ONE 25MG TAB TAKE ONE TABLET BY MOUTH ONCE A DAY ORAL ACTIVE GAVIN MOLINA 2022 [facility] TADALAFIL 5MG TAB TAKE ONE TABLET BY MOUTH EVERY WEEK ORAL ACTIVE REJI LERMA 2023 [facility] TAMSULOSIN HCL 0.4MG CAP TAKE 1 CAPSULE BY MOUTH EVERY EVENING ORAL ACTIVE GAVIN MOLINA 2022 [facility] TRAZODONE HCL 100MG TAB TAKE THREE TABLETS BY MOUTH AT BEDTIME FOR MOOD OR SLEEP. ORAL DISCONT INUED BY PROVIDE R 08/13/2024 [id number] 4 MARIA GUADALUPE CESPEDES 2023 270 [facility] Allergies, Adverse Reactions, Alerts Combined list of allergies from Department of Defense and Veterans Affairs facilities. It does not include entries that were removed or entered in error. Substance Category Reaction Severity Reaction type Status Date Reported Comments Source ATORVASTATIN Propensity to adverse reactions to drug (finding) Joint pain active 4 [facility] BACTRIM Propensity to adverse reactions to drug (finding) Swelling, Itching active 9 [facility] LISINOPRIL Propensity to adverse reactions to drug (finding) Cough active 9 [facility] PENICILLIN Propensity to adverse reactions to drug (finding) SWELLING (NON-SPEC IFIC) active 6 [facility] PRAVASTATIN Propensity to adverse reactions to drug (finding) active 4 [facility] Immunizations Combined list of available immunizations from the Department of [facility] and [facility] Affairs facilities. Immunization Series Date Given Administered By Site Reaction Lot Number CVX Code Drug Tractor Operator Battery Status Comments Source COVID-19 (PFIZER), MRNA, LNP-S, PF, ROMEL-SUCROSE, 30 MCG/0.3 ML (AGES 12+ YEARS) 2023 WILIAM JOHNSON LEFT DELTO ID [id number] 309 complet ed ADMINISTE RED AT [place], [facility] INFLUENZA, SPLIT VIRUS, TRIVALENT, PF 1 2023 140 complet ed HISTORICA L INFORMATI ON - FROM OTHER REGISTRY, [facility] HEP A, ADULT 2 2022 52 complet ed HISTORICA L INFORMATI ON - FROM OTHER REGISTRY, [facility] INFLUENZA, UNSPECIFIED FORMULATION 2022 88 complet ed HISTORICA L INFORMATI ON - SOURCE UNSPECIFI ED, [facility] MMR 2 2022 03 complet ed HISTORICA L INFORMATI ON - FROM OTHER REGISTRY, [facility] VARICELLA 2 2022 21 complet ed HISTORICA L INFORMATI ON - [facility] OTHER [facility]ISTRY, [facility], [facility] 2022 52 complet ed HISTORICA L INFORMATI ON - FROM OTHER REGISTRY, [facility] HEP B, ADULT 1 2022 43 complet ed HISTORICA L INFORMATI ON - FROM OTHER REGISTRY, [facility] 2022 03 complet ed HISTORICA L INFORMATI ON - FROM OTHER REGISTRY, [facility] VARICELLA 1 2022 21 complet ed HISTORICA L INFORMATI ON - FROM OTHER REGISTRY, [facility] PNEUMOCOCCAL CONJUGATE PCV20, POLYSACCHARID E [id number] CONJUGATE, ADJUVANT, PF 1 2021 216 complet ed HISTORICA L INFORMATI ON - FROM OTHER REGISTRY, [facility] N COVID-19 (PFIZER), MRNA, LNP-S, PF, 30 MCG/0.3 ML DOSE 3 2020 208 complet ed PFR; [id number]; 2 [facility] INFLUENZA, UNSPECIFIED FORMULATION 2020 88 complet ed SHAE TD (ADULT), 2 LF TETANUS TOXOID, PRESERVATIVE FREE, ADSORBED 2020 09 complet ed [facility] COVID-19 (PFIZER), MRNA, LNP-S, PF, 30 MCG/0.3 ML DOSE 2 2020 208 complet ed SHAE COVID-19 (PFIZER), MRNA, LNP-S, PF, 30 MCG/0.3 ML DOSE 1 2019 208 complet ed SHAE ZOSTER RECOMBINANT 2 2018 187 complet ed [facility] INFLUENZA, UNSPECIFIED FORMULATION 2017 88 complet ed [facility] ZOSTER RECOMBINANT 1 2017 187 complet ed [facility] INFLUENZA, UNSPECIFIED FORMULATION 2016 88 complet ed [facility] INFLUENZA, UNSPECIFIED FORMULATION 2015 88 complet ed [facility] PNEUMOCOCCAL POLYSACCHARID E [id number] 2015 33 complet ed [facility] INFLUENZA, UNSPECIFIED FORMULATION 2014 88 complet ed [facility] INFLUENZA, UNSPECIFIED FORMULATION 2013 88 complet ed Records Pending [facility] HEP B, ADULT 2011 43 complet ed 2ND IN SERIES OF 3 INNOC [facility] HEP B, ADULT 2011 43 complet ed [facility] INFLUENZA, UNSPECIFIED FORMULATION 2010 88 complet ed [facility] TDAP [address] [facility] OUTSIDE TETANUS (HISTORICAL) 1999 112 complet ed [facility] Results Combined list [...] Jul 21, 2024 06:47 PM Reporting Lab: [facility] [address] Performing Lab: [facility] [id number] COMPREHEN SIVE METABOLIC PANEL CREATININE [MASS/VOLUM E] IN SERUM OR PLASMA 1.25 mg/dL 0.70 - 1.30 08/03 Specimen Type: PLASMA Comment: No hemolysis noted. Ordering Provider: ANGELINE GARCIA Report Released Date/Time: Jul 21, 2024 06:47 PM Reporting Lab: [facility] [address] Performing Lab: [facility] COMPREHEN SIVE METABOLIC PANEL UREA NITROGEN [MASS/VOLUM E] IN SERUM OR PLASMA 16.1 mg/dL 9.0 - 25.0 08/03 Specimen Type: PLASMA Comment: No hemolysis noted. Ordering Provider: ANGELINE GARCIA Report Released Date/Time: Jul 21, 2024 06:47 PM Reporting Lab: [facility] [address] Performing Lab: [facility]1 [place] [phone] COMPREHEN SIVE METABOLIC PANEL GLUCOSE [MASS/VOLUM E] IN SERUM OR PLASMA 119 mg/dL 72 - 99 08/03 H Specimen Type: PLASMA Comment: No hemolysis noted. Ordering Provider: ANGELINE GARCIA Report Released Date/Time: Jul 21, 2024 06:47 PM Reporting Lab: [facility] [address] Performing Lab: [facility] [address] [place] [address] COMPREHEN SIVE METABOLIC PANEL SODIUM [MOLES/VOLU ME] IN SERUM OR PLASMA 142 meq/L 136 - 145 08/03 Specimen Type: PLASMA Comment: No hemolysis noted. Ordering Provider: ANGELINE GARCIA Report Released Date/Time: Jul 21, 2024 06:47 PM Reporting Lab: [facility] [address] Performing Lab: [facility] [address] COMPREHEN SIVE METABOLIC PANEL POTASSIUM [MOLES/VOLU ME] IN SERUM OR PLASMA 4.2 meq/L 3.5 - 5.0 08/03 Specimen Type: PLASMA Comment: No hemolysis noted. Ordering Provider: ANGELINE GARCIA Report Released Date/Time: Jul 21, 2024 06:47 PM Reporting Lab: [facility] [address] Performing Lab: [facility] COMPREHEN SIVE METABOLIC PANEL CHLORIDE [MOLES/VOLU ME] IN SERUM OR PLASMA 110 meq/L 98 - 107 08/03 H Specimen Type: PLASMA Comment: No hemolysis noted. Ordering Provider: ANGELINE GARCIA Report Released Date/Time: Jul 21, 2024 06:47 PM Reporting Lab: [facility] [address] Performing Lab: [facility] [phone] COMPREHEN SIVE METABOLIC PANEL CARBON DIOXIDE, TOTAL [MOLES/VOLU ME] IN SERUM OR PLASMA 23 meq/L 22 - 31 08/03 Specimen Type: PLASMA Comment: No hemolysis noted. Ordering Provider: ANGELINE GARCIA Report Released Date/Time: Jul 21, 2024 06:47 PM Reporting Lab: [facility] [address] Performing Lab: [facility] [phone] [place] [address] COMPREHEN SIVE METABOLIC PANEL CALCIUM [MASS/VOLUM E] IN SERUM OR PLASMA 9.1 mg/dL 8.4 - 10.4 01/29 /2025 Specimen Type: PLASMA Comment: No hemolysis noted. Ordering Provider: ANGELINE GARCIA Report Released Date/Time: Jul 21, 2024 06:47 PM Reporting Lab: [facility] [address] Performing Lab: [facility] COMPREHEN SIVE METABOLIC PANEL PROTEIN [MASS/VOLUM E] IN SERUM OR PLASMA 6.0 g/dL 6.0 - 8.6 08/03 Specimen Type: PLASMA Comment: No hemolysis noted. Ordering Provider: ANGELINE GARCIA Report Released Date/Time: Jul 21, 2024 06:47 PM Reporting Lab: [facility] [address] Performing Lab: [facility] COMPREHEN SIVE METABOLIC PANEL ALBUMIN [MASS/VOLUM E] IN SERUM OR PLASMA 4.1 g/dL 3.4 - 5.0 08/03 Specimen Type: PLASMA Comment: No hemolysis noted. Ordering Provider: ANGELINE GARCIA Report Released Date/Time: Jul 21, 2024 06:47 PM Reporting Lab: [facility] [address] Performing Lab: [facility] COMPREHEN SIVE METABOLIC PANEL BILIRUBIN.T OTAL [MASS/VOLUM E] IN SERUM OR PLASMA 0.4 mg/dL 0.2 - 1.2 08/03 Specimen Type: PLASMA Comment: No hemolysis noted. Ordering Provider: ANGELINE GARCIA Report Released Date/Time: Jul 21, 2024 06:47 PM Reporting Lab: [facility] [address] Performing Lab: [facility] [facility] COMPREHEN SIVE METABOLIC PANEL ALKALINE PHOSPHATASE [ENZYMATIC ACTIVITY/VO LUME] IN SERUM OR PLASMA 79 U/L 40 - 150 08/03 Specimen Type: PLASMA Comment: No hemolysis noted. Ordering Provider: ANGELINE GARCIA Report Released Date/Time: Jul 21, 2024 06:47 PM Reporting Lab: [facility] [address] Performing Lab: [facility] [phone] COMPREHEN SIVE METABOLIC PANEL ASPARTATE AMINOTRANSF ERASE [ENZYMATIC ACTIVITY/VO LUME] IN SERUM OR PLASMA 22 U/L 5 - 34 08/03 Specimen Type: PLASMA Comment: No hemolysis noted. Ordering Provider: ANGELINE GARCIA Report Released Date/Time: Jul 21, 2024 06:47 PM Reporting Lab: [facility] [address] Performing Lab: [facility] [phone] [place] [address] COMPREHEN SIVE METABOLIC PANEL ALANINE AMINOTRANSF ERASE [ENZYMATIC ACTIVITY/VO LUME] IN SERUM OR PLASMA 19 U/L 8 - 40 08/03 Specimen Type: PLASMA Comment: No hemolysis noted. Ordering Provider: ANGELINE GARCIA Report Released Date/Time: Jul 21, 2024 06:47 PM Reporting Lab: [facility] [address] Performing Lab: [facility] [phone] [place] [address] COMPREHEN SIVE METABOLIC PANEL GLOMERULAR FILTRATION RATE/1.73 SQ M.PREDICTED [VOLUME RATE/AREA] IN SERUM, PLASMA OR BLOOD BY CREATININE- BASED FORMULA (CKD-EPI 2020) 65.11 60 08/03 Specimen Type: PLASMA Comment: No hemolysis noted. Ordering Provider: ANGELINE GARCIA Report Released Date/Time: Jul 21, 2024 06:47 PM Reporting Lab: [facility] [address] Performing Lab: [facility] [phone] [place] [address] FOLATE (STL-MA) FOLATE [MASS/VOLUM E] IN SERUM OR PLASMA 12.6 ng/mL 7 - 20 08/03 Specimen Type: SERUM No comment entered. Ordering Provider: ANGELINE GARCIA Report Released Date/Time: Jul 21, 2024 06:47 PM Reporting Lab: [facility] [address] Performing Lab: [facility] [address] HGA1C HEMOGLOBIN A1C/HEMOGLO BIN.TOTAL IN BLOOD 5.3 4.0 - 6.0 08/03 Specimen Type: BLOOD No comment entered. Ordering Provider: ANGELINE GARCIA Report Released Date/Time: Jul 21, 2024 06:47 PM Reporting Lab: [facility] [address] Performing Lab: [facility] [phone] [place] [address] TSH (MA-PB) THYROTROPIN [UNITS/VOLU ME] IN SERUM OR PLASMA 0.754 u[IU]/ mL 0.470 - 5.000 08/03 Specimen Type: SERUM No comment entered. Ordering Provider: ANGELINE GARCIA Report Released Date/Time: Jul 21, 2024 06:47 PM Reporting Lab: [facility] [address] Performing Lab: [facility] [phone] [place] [address] TESTOSTER ONE, FREE PANEL TESTOSTERON E [MASS/VOLUM E] IN SERUM OR PLASMA 499 ng/dL 250 - 1100 07/08 Specimen Type: SERUM Comment: Men with clinically significant hypogonadal symptoms and testosteron e values repeatedly in the range of the 200-300 ng/dL or less, may benefit from testosteron e treatment after adequate risk and benefits counseling. For additional information , please refer to http://McK[employer]ekl[employer]/faq/ TotalTestos teroneLCMSM [id number] (This link is being provided for information al/ educational purposes only.) This test was developed and its analytical performance characteris tics have been determined by [facility], [place]. It has not been cleared or approved by the U.S. Food and Drug Administrat ion. This assay has been validated pursuant to the CLIA regulations and is used for clinical purposes. Test Performed by [employer], [address] [place] [address] Alexis Kuo M.D., Ph.D., Director of Laboratorie s , CLIA [id number] Ordering Provider: SANTOSH DECKER Report Released Date/Time: May 31, 2024 01:48 PM Reporting Lab: [facility] [address] [facility] [address] Performing Lab: [facility] [id number] [place] [address] [facility] TESTOSTER ONE, FREE PANEL ALBUMIN [MASS/VOLUM E] IN SERUM OR PLASMA 4.0 g/dL 3.6 - 5.1 07/08 Specimen Type: SERUM Comment: Men with clinically significant hypogonadal symptoms and testosteron e values repeatedly in the range of the 200-300 ng/dL or less, may benefit from testosteron e treatment after adequate risk and benefits counseling. For additional information , please refer to http://McK[employer]eklaim/faq/ TotalTestos teroneLCMSM [id number] (This link is being provided for information al/ educational purposes only.) This test was developed and its analytical performance characteris tics have been determined by [facility] [place]. It has not been cleared or approved by the U.S. Food and Drug Administrat ion. This assay has been validated pursuant to the CLIA regulations and is used for clinical purposes. Test Performed by [facility], [address] [place] [address] Alexis Kuo M.D., Ph.D., Director of Laboratorie s , CLIA [id number] Ordering Provider: SANTOSH DECKER Report Released Date/Time: May 31, 2024 01:48 PM Reporting Lab: [address] [address] Performing Lab: [address] [facility] TESTOSTER ONE, FREE PANEL TESTOSTERON E FREE [...] additional information , please refer to http://educ ation.[employer] .Allied Fiber/faq/ TotalTestos teroneLCMSM [id number] (This link is being provided for information al/ educational purposes only.) This test was developed and its analytical performance characteris tics have been determined by [employer] [place]. It has not been cleared or approved by the U.S. Food and Drug Administrat ion. This assay has been validated pursuant to the CLIA regulations and is used for clinical purposes. Test Performed by [facility], [employer] [facility] [place], [address] [place] [address] Alexis Kuo M.D., Ph.D., Director of Laboratorie s , CLIA [id number] Ordering Provider: SANTOSH DECKER Report Released Date/Time: May 31, 2024 01:48 PM Reporting Lab: [address] [address] Performing Lab: [address] [facility] TESTOSTER ONE, FREE PANEL TESTOSTERON E.FREE+WEAK [...] For additional information , please refer to http://McK[employer]eklaim/faq/ TotalTestos teroneLCMSM [email or web address] (This link is being provided for information al/ educational purposes only.) This test was developed and its analytical performance characteris tics have been determined by [employer] [place]. It has not been cleared or approved by the U.S. Food and Drug Administrat ion. This assay has been validated pursuant to the CLIA regulations and is used for clinical purposes. Test Performed by [facility], [facility], [address] [place] [address] Alexis Kuo M.D., Ph.D., Director of Laboratorie s , CLIA [id number] Ordering Provider: SANTOSH DECKER Report Released Date/Time: May 31, 2024 01:48 PM Reporting Lab: [facility] [address] [place] [phone] Performing Lab: [facility] [id number] [place] [address] [facility] TESTOSTER ONE, FREE PANEL SEX HORMONE BINDING GLOBULIN [MOLES/VOLU ME] IN SERUM OR PLASMA 56 nmol/L 22 - 77 07/08 Specimen Type: SERUM Comment: Men with clinically significant hypogonadal symptoms and testosteron e values repeatedly in the range of the 200-300 ng/dL or less, may benefit from testosteron e treatment after adequate risk and benefits counseling. For additional information , please refer to http://[employer] .[employer]/faq/ TotalTestos teroneLCMSM [id number] (This link is being provided for information al/ educational purposes only.) This test was developed and its analytical performance characteris tics have been determined by [employer] [place]. It has not been cleared or approved by the U.S. Food and Drug Administrat ion. This assay has been validated pursuant to the CLIA regulations and is used for clinical purposes. Test Performed by [facility], [facility], [address] [place], [place] Alexis Kuo M.D., Ph.D., Director of Laboratorie s , CLIA [id number] Ordering Provider: SANTOSH DECKER Report Released Date/Time: May 31, 2024 01:48 PM Reporting Lab: [facility] [address] [place] [phone] Performing Lab: [facility] [address] [facility] CBC LEUKOCYTES [#/VOLUME] IN BLOOD BY AUTOMATED COUNT 6.7 10*3/u L 3.6 - 11.2 05/17 Specimen Type: BLOOD No comment entered. Ordering Provider: SANTOSH DECKER Report Released Date/Time: May 10, 2024 01:15 PM Reporting Lab: [facility] [address] Performing Lab: [facility] [phone] [place] [address] CBC ERYTHROCYTE S [#/VOLUME] IN BLOOD BY AUTOMATED COUNT 4.20 10*6/u L 4.10 - 5.70 05/17 Specimen Type: BLOOD No comment entered. Ordering Provider: SANTOSH DECKER Report Released Date/Time: May 10, 2024 01:15 PM Reporting Lab: [facility] [address] Performing Lab: [facility] [phone] [place] [address] CBC HEMOGLOBIN [MASS/VOLUM E] IN BLOOD 12.0 g/dL 13.1 - 16.8 05/17 L Specimen Type: BLOOD No comment entered. Ordering Provider: SANTOSH DECKER Report Released Date/Time: May 10, 2024 01:15 PM Reporting Lab: [facility] [place] [address] Performing Lab: [facility] CBC HEMATOCRIT [VOLUME FRACTION] OF BLOOD 37.3 38.2 - 48.4 05/17 L Specimen Type: BLOOD No comment entered. Ordering Provider: SANTOSH DECKER Report Released Date/Time: May 10, 2024 01:15 PM Reporting Lab: [facility] [place] [address] Performing Lab: [facility] CBC MCV [ENTITIC VOLUME] BY AUTOMATED COUNT 88.8 fL 80.0 - 100.0 05/17 Specimen Type: BLOOD No comment entered. Ordering Provider: SANTOSH DECKER Report Released Date/Time: May 10, 2024 01:15 PM Reporting Lab: [facility] [place] [address] Performing Lab: [facility] CBC MCH [ENTITIC MASS] BY AUTOMATED COUNT 28.6 pg 27.0 - 34.0 05/17 Specimen Type: BLOOD No comment entered. Ordering Provider: SANTOSH DECKER Report Released Date/Time: May 10, 2024 01:15 PM Reporting Lab: [facility] [place] [address] Performing Lab: [facility] CBC MCHC [MASS/VOLUM E] BY AUTOMATED COUNT 32.2 g/dL 33.0 - 36.0 05/17 L Specimen Type: BLOOD No comment entered. Ordering Provider: SANTOSH DECKER Report Released Date/Time: May 10, 2024 01:15 PM Reporting Lab: [facility] [place] [address] Performing Lab: [facility] CBC PLATELETS [#/VOLUME] IN BLOOD BY AUTOMATED COUNT 497 10*3/u L 150 - 400 05/17 H Specimen Type: BLOOD No comment entered. Ordering Provider: SANTOSH DECKER Report Released Date/Time: May 10, 2024 01:15 PM Reporting Lab: [facility] [place] [address] Performing Lab: [facility] CBC PLATELET MEAN VOLUME [ENTITIC VOLUME] IN BLOOD BY AUTOMATED COUNT 9.2 fL 7.5 - 11.2 05/17 Specimen Type: BLOOD No comment entered. Ordering Provider: SANTOSH DECKER Report Released Date/Time: May 10, 2024 01:15 PM Reporting Lab: [facility] [place] [address] Performing Lab: [facility] CBC ERYTHROCYTE DISTRIBUTIO N WIDTH [RATIO] BY AUTOMATED COUNT 15.2 11.8 - 15.1 05/17 H Specimen Type: BLOOD No comment entered. Ordering Provider: SANTOSH DECKER Report Released Date/Time: May 10, 2024 01:15 PM Reporting Lab: [facility] [place] [address] Performing Lab: [facility] CBC LYMPHOCYTES /100 LEUKOCYTES IN BLOOD BY AUTOMATED COUNT 18 05/17 Specimen Type: BLOOD No comment entered. Ordering Provider: SANTOSH DECKER Report Released Date/Time: May 10, 2024 01:15 PM Reporting Lab: [facility] [place] [address] Performing Lab: [facility] [facility] CBC MONOCYTES/1 00 LEUKOCYTES IN BLOOD BY AUTOMATED COUNT 7 05/17 Specimen Type: BLOOD No comment entered. Ordering Provider: SANTOSH DECKER Report Released Date/Time: May 10, 2024 01:15 PM Reporting Lab: [facility] [place] [address] Performing Lab: [facility] [facility] CBC NEUTROPHILS /100 LEUKOCYTES IN BLOOD BY AUTOMATED COUNT 69 05/17 Specimen Type: BLOOD No comment entered. Ordering Provider: SANTOSH DECKER Report Released Date/Time: May 10, 2024 01:15 PM Reporting Lab: [facility] [place] [address] Performing Lab: [facility] [facility] CBC EOSINOPHILS /100 LEUKOCYTES IN BLOOD BY AUTOMATED COUNT 4 05/17 Specimen Type: BLOOD No comment entered. Ordering Provider: SANTOSH DECKER Report Released Date/Time: May 10, 2024 01:15 PM Reporting Lab: [facility] [place] [address] Performing Lab: [facility] [facility] CBC BASOPHILS/1 00 LEUKOCYTES IN BLOOD BY AUTOMATED COUNT 1 05/17 Specimen Type: BLOOD No comment entered. Ordering Provider: SANTOSH DECKER Report Released Date/Time: May 10, 2024 01:15 PM Reporting Lab: [facility] [place] [address] Performing Lab: [facility] [facility] CBC LYMPHOCYTES [#/VOLUME] IN BLOOD BY AUTOMATED COUNT 1.24 10*3/u L 0.77 - 4.50 05/17 Specimen Type: BLOOD No comment entered. Ordering Provider: SANTOSH DECKER Report Released Date/Time: May 10, 2024 01:15 PM Reporting Lab: [facility] [place] [address] Performing Lab: [facility] CBC MONOCYTES [#/VOLUME] IN BLOOD BY AUTOMATED COUNT 0.50 10*3/u L 0.19 - 0.80 05/17 Specimen Type: BLOOD No comment entered. Ordering Provider: SANTOSH DECKER Report Released Date/Time: May 10, 2024 01:15 PM Reporting Lab: [facility] [place] [id number] Performing Lab: [facility] DIVISION CBC NEUTROPHILS [#/VOLUME] IN BLOOD BY AUTOMATED COUNT 4.62 10*3/u L 2.10 - 8.00 05/17 Specimen Type: BLOOD No comment entered. Ordering Provider: SANTOSH DECKER Report Released Date/Time: May 10, 2024 01:15 PM Reporting Lab: [facility] [facility] [place] [address] Performing Lab: [facility] DIVISION CBC EOSINOPHILS [#/VOLUME] IN BLOOD BY AUTOMATED COUNT 0.25 10*3/u L 0.00 - 0.60 05/17 Specimen Type: BLOOD No comment entered. Ordering Provider: SANTOSH DECKER Report Released Date/Time: May 10, 2024 01:15 PM Reporting Lab: [facility] [place] [address] Performing Lab: [facility] [address] CBC BASOPHILS [#/VOLUME] IN BLOOD BY AUTOMATED COUNT 0.08 10*3/u L 0.00 - 0.20 05/17 Specimen Type: BLOOD No comment entered. Ordering Provider: SANTOSH DECKER Report Released Date/Time: May 10, 2024 01:15 PM Reporting Lab: [facility] [place] [address] Performing Lab: [facility] [address] PROST. SPECIFIC AG.(PB-ST L) PROSTATE SPECIFIC AG [...] May 10, 2024 01:15 PM Reporting Lab: [facility]1 [place] [address] Performing Lab: [facility] DIVISION TESTOSTER ONE, FREE PANEL TESTOSTERON E [MASS/VOLUM E] IN SERUM OR PLASMA 574 ng/dL 250 - 1100 05/17 Specimen Type: SERUM Comment: Men with clinically significant hypogonadal symptoms and testosteron e values repeatedly in the range of the 200-300 ng/dL or less, may benefit from testosteron e treatment after adequate risk and benefits counseling. For additional information , please refer to http://educ [employer] .Allied Fiber/faq/ TotalTestos teroneLCMSM [id number] (This link is being provided for information al/ educational purposes only.) This test was developed and its analytical performance characteris tics have been determined by [employer] [place], [place]. It has not been cleared or approved by the U.S. Food and Drug Administrat ion. This assay has been validated pursuant to the CLIA regulations and is used for clinical purposes. Test Performed by [facility] [employer] [place], [address] [place] [address] Alexis Kuo M.D., Ph.D., Director of Laboratorie s , CLIA [id number] Ordering Provider: SANTOSH DECKER Report Released Date/Time: May 10, 2024 01:15 PM Reporting Lab: [facility] [address] [place] [phone] Performing Lab: [facility] [id number] [place] [address] [facility] TESTOSTER ONE, FREE PANEL ALBUMIN [MASS/VOLUM E] IN SERUM OR PLASMA 4.2 g/dL 3.6 - 5.1 05/17 Specimen Type: SERUM Comment: Men with clinically significant hypogonadal symptoms and testosteron e values repeatedly in the range of the 200-300 ng/dL or less, may benefit from testosteron e treatment after adequate risk and benefits counseling. For additional information , please refer to http://[employer] .Allied Fiber/faq/ TotalTestos teroneLCMSM [id number] (This link is being provided for information al/ educational purposes only.) This test was developed and its analytical performance characteris tics have been determined by [employer] [place], [place]. It has not been cleared or approved by the U.S. Food and Drug Administrat ion. This assay has been validated pursuant to the CLIA regulations and is used for clinical purposes. Test Performed by [facility] [employer] [place], [address] [place], [place] Alexis Kuo M.D., Ph.D., Director of Laboratorie s , CLIA [id number] Ordering Provider: SANTOSH DECKER Report Released Date/Time: May 10, 2024 01:15 PM Reporting Lab: [facility] [address] [address] Performing Lab: [address] [facility] TESTOSTER ONE, FREE PANEL TESTOSTERON E FREE [MOLES/VOLU ME] IN SERUM OR PLASMA 47.6 pg/mL 46.0 - 224.0 05/17 Specimen Type: SERUM Comment: Men with clinically significant hypogonadal symptoms and testosteron e values repeatedly in the range of the 200-300 ng/dL or less, may benefit from testosteron e treatment after adequate risk and benefits counseling. For additional information , please refer to http://educ ation.[employer] .com/faq/ TotalTestos teroneLCMSM [email or web address] (This link is being provided for information al/ educational purposes only.) This test was developed and its analytical performance characteris tics have been determined by [employer] [place], [place]. It has not been cleared or approved by the U.S. Food and Drug Administrat ion. This assay has been validated pursuant to the CLIA regulations and is used for clinical purposes. Test Performed by [facility], [employer] [facility], [address] [place] [address] Alexis Kuo M.D., Ph.D., Director of Laboratorie s , CLIA [id number] Ordering Provider: SANTOSH DECKER Report Released Date/Time: May 10, 2024 01:15 PM Reporting Lab: [address] [address] Performing Lab: [address] [facility] TESTOSTER ONE, FREE PANEL TESTOSTERON E.FREE+WEAK LY [...] For additional information , please refer to http://[employer]/faq/ TotalTestos teroneLCMSM [email or web address] (This link is being provided for information al/ educational purposes only.) This test was developed and its analytical performance characteris tics have been determined by [employer] [place], [place]. It has not been cleared or approved by the U.S. Food and Drug Administrat ion. This assay has been validated pursuant to the CLIA regulations and is used for clinical purposes. Test Performed by [facility], [employer] [place], [address] [place] [address] Alexis Kuo M.D., Ph.D., Director of Laboratorie s , CLIA [id number] Ordering Provider: SANTOSH DECKER Report Released Date/Time: May 10, 2024 01:15 PM Reporting Lab: [facility] [address] [place] [phone] Performing Lab: [facility] [address] [place] [address] [facility] TESTOSTER ONE, FREE PANEL SEX HORMONE [...] For additional information , please refer to http://[employer]/faq/ TotalTestos teroneLCMSM [email or web address] (This link is being provided for information al/ educational purposes only.) This test was developed and its analytical performance characteris tics have been determined by [employer] [place], [place]. It has not been cleared or approved by the U.S. Food and Drug Administrat ion. This assay has been validated pursuant to the CLIA regulations and is used for clinical purposes. Test Performed by [employer], [employer] [facility], [address] [place], [place] Alexis Kuo M.D., Ph.D., Director of Laboratorie s , CLIA [id number] Ordering Provider: SANTOSH DECKER Report Released Date/Time: May 10, 2024 01:15 PM Reporting Lab: [facility] [address] [address] Performing Lab: [facility] [address] [facility] Vital Signs Combined list of inpatient and outpatient Vital Signs from Department of Defense and Veterans Affairs, ranging from 12 months to all on record, depending upon the facility. Vital Sign Value Date Comments Source WEIGHT 278.4 12/05/2024 09:30:17 [facility] BMI 32 kg/m2 12/05/2024 09:30:17 [facility] SYSTOLIC BLOOD PRESSURE 133 12/03/19 25 09:02:29 [facility] DIASTOLIC BLOOD PRESSURE 72 025 09:02:29 [facility] PULSE OXIMETRY 95 12/02/2024 09:02:29 [facility] PAIN 8 12/02/2024 09:02:29 [facility] TEMPERATURE 98.5 12/02/2024 09:02:29 [facility] PULSE 80 12/02/2024 09:02:29 [facility] RESPIRATION 20 12/02/2024 09:02:29 [facility] SYSTOLIC BLOOD PRESSURE 132 11/26/19 25 13:06:08 [facility] DIASTOLIC BLOOD PRESSURE 60 025 13:06:08 [facility] PULSE OXIMETRY 95 11/25/2024 13:06:08 [facility] WEIGHT 283.4 11/25/2024 13:06:08 [facility] BMI 33 kg/m2 11/25/2024 13:06:08 [facility] PAIN 8 11/25/2024 13:06:08 [facility] TEMPERATURE 98.4 11/25/2024 13:06:08 [facility] PULSE 75 11/25/2024 13:06:08 [facility] RESPIRATION 18 11/25/2024 13:06:08 [facility] WEIGHT 273 11/16/2024 10:32:45 [facility] BMI 32 kg/m2 11/16/2024 10:32:45 [facility] WEIGHT 283 11/09/2024 14:16:14 [facility] BMI 33 kg/m2 11/09/2024 14:16:14 [facility] Encounters Combined list of: 1) Encounters from Department of Veterans Affairs facilities going backup to the last 18 months, not all [place] inpatient encounters are included; 2) Encounters from the Department of Defense facilities going backup to 280 months. 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 DEVONMATTI Hernandez 06/30 [facility] Outpatient Encounter [id number] [id number] RADHAJOLEEN Diez 07/01 [facility] [place] [id number] [id number] Diagnos is: ICD-10- CM E66.8 Other obesity ALICJA CASTRO 07/07 [facility] Outpatient Encounter [id number] RENAN IZAGUIRRE 08/13 [facility] Encounter [id number] [id number] GERHARD LUJAN 08/17 [facility] Outpatient Encounter [id number] [id number] GERHARD LUJAN 08/18 [facility] N [facility] Outpatient Encounter [id number] RENAN IZAGUIRRE 08/27 [facility] O[facility]P EST MOD 30 MIN [id number] [id number] Diagnos is: ICD-10- CM F40.10 Social phobia, unspeci fied ANNA CESPEDES 09/14 [facility] Out[facility] Encounter [id number] [id number] 09/15 [facility] Out[facility] Encounter [id number] [id number] RENAN IZAGUIRRE 09/17 [facility] Outpatient Encounter [id number] 09/20 [facility] Outpatient Encounter [id number] ALICJA CASTRO R 09/24 [facility] NUTRITION INDIV SUBSEQ [id number] [id number] Diagnos is: ICD-10- CM E66.9 Obesity , unspeci fied ALICJA CASTRO R 09/24 [facility] Outpatient Encounter [id number] [id number] RENAN IZAGUIRRE 10/04 [facility] OFFICE O/P EST MOD 30 MIN 50343-8.65 [id number] Diagnos is: ICD-10- CM F40.10 Social phobia, unspeci fied WALKER,ANNA IE 11/02 [facility] Outpatient Encounter [id number] [id number] RENAN IZAGUIRRE 12/02 [facility] Outpatient Encounter [id number] [id number] RENAN IZAGUIRRE 12/07 [facility] Outpatient Encounter [id number] [id number] JESSICA JOHNSON I 12/08 [facility] OFFICE O/P EST HI 40 MIN [id number] [id number] Diagnos is: ICD-10- CM E78.5 Hyperli pidemia , unspeci fied JOLEEN GARCIA I 12/10 [facility] NUTRITION INDIV SUBSEQ [id number] [id number] Diagnos is: ICD-10- CM E66.9 Obesity , unspeci fied MATTHEWJAYNE FIGUEROAEdelmira Y R 12/10 [facility] Outpatient Encounter [id number] [id number] 12/20 [facility] Outpatient Encounter [id number] [id number] 01/03 [facility] OFFICE O/P EST LOW 20 MIN 82014-0.65 [id number] Diagnos is: ICD-10- CM L82.1 Other seborrh eic keratos is Chary EDWARDS 01/04 [facility] DIV[facility] Outpatient Encounter [id number] [id number] EDUARDO,SHE LBY L 01/04 [facility] Outpatient Encounter [id number] [id number] 01/04 [facility] NUTRITION INDIV SUBSEQ [id number] [id number] Diagnos is: ICD-10- CM E66.9 Obesity , unspeci fied ALICJA CASTRO Y R 01/21 [facility] Outpatient Encounter [id number] [id number] GERHARD LUJAN M 01/25 [facility] N [facility] Outpatient Encounter [id number] [id number] GERHARD LUJAN M 01/26 [facility] PSYTX W PT 30 MINUTES [id number] [id number] Diagnos is: ICD-10- CM F33.41 Major depress lety disorde r, recurre nt, in partial remissi on EDUARDO,SHE LBY L 01/27 [facility] OFFICE O/P EST MOD 30 MIN [id number] [id number] Diagnos is: ICD-10- CM F33.41 Major depress lety disorde r, recurre nt, in partial remissi on WALKER,MAR IE 02/01 [facility] PSYCHOTHER APY [id number] [id number] Diagnos is: ICD-10- CM F33.41 Major depress lety disorde r, recurre nt, in partial remissi on EDUARDO,SHE LBY L 02/02 [facility] Outpatient Encounter [id number] [id number] UTE AVILA A 02/02 [facility] HC PRO PHONE CALL 11-20 MIN [id number] [id number] Diagnos is: ICD-10- CM Z56.9 Unspeci fied problem s related to employm ent THOMAS MADRID EN 02/03 [facility] PSYCHOTHER APY [id number] [id number] Diagnos is: ICD-10- CM F33.41 Major depress lety disorde r, recurre nt, in partial remissi on EDUARDO,SHE LBY L 02/09 [facility] PSYCHOTHER APY [id number] [id number] Diagnos is: ICD-10- CM F33.41 Major depress lety disorde r, recurre nt, in partial remissi on EDUARDO,SHE LBY L 02/16 [facility] SUPPORTED EMPLOY, PER 15 MIN 75311-0. [id number] Diagnos is: ICD-10- CM Z56.9 Unspeci fied problem s related to employm THOMAS Glover EN 02/17 [facility] GROUP PSYCHOTHER APY 16995-965 [id number] Diagnos is: ICD-10- CM F33.41 Major depress lety disorde r, recurre nt, in partial remissi on EDUARDO,SHE LBY L 02/23 [facility] PSYCHOTHER APY 76486-9 [id number] Diagnos is: ICD-10- CM F33.41 Major depress lety disorde r, recurre nt, in partial remissi on EDUARDO,SHE LBY L 03/09 [facility] CASE MANAGEMENT [id number] Diagnos is: ICD-10- CM F33.41 Major depress lety disorde r, recurre nt, in partial remissi on EDUARDO,SHE LBY L 03/16 [facility] Outpatient Encounter [id number] 03/22 [facility] Outpatient Encounter [id number] 03/30 [facility] Outpatient Encounter [id number] 03/30 [facility] OFFICE O/P EST MOD 30 MIN [id number] Diagnos is: ICD-10- CM F33.41 Major depress lety disorde r, recurre nt, in partial remissi on WALKER,MAR IE 04/05 [facility] Outpatient Encounter [id number] [id number] 04/06 [facility] R E [facility] MED NUTRITION INDIV SUBSEQ [id number] Diagnos is: ICD-10- CM E66.811 Obesity , class 1 MATTHEW,STAC Y R 04/14 [facility] Outpatient Encounter [id number] [id number] 04/15 [facility] HEARING AID REPAIR/MOD IFYING [id number] [id number] Diagnos is: ICD-10- CM H90.3 Sensori neural hearing loss, bilater SHEILA Burks E 04/29 [facility] OFF/OP CNSLTJ NEW/EST MOD 40 [id number] [id number] Diagnos is: ICD-10- CM E66.9 Obesity , unspeci fied JERONIMO,MEHD IA 05/03 [facility] QNHP OL DIG ASSMT&MGMT 5-10 [id number] [id number] Diagnos is: ICD-10- CM E66.9 Obesity , unspeci fied RONNIE,CLA RE R 05/10 [facility] OFFICE O/P EST SF 10 MIN [id number] [id number] Diagnos is: ICD-10- CM E66.9 Obesity , unspeci fied JERONIMO,MEHD IA 05/10 [facility] Encounter [id number] [id number] LEGERHARD Mercado 05/13 [facility] QNHP OL DIG ASSMT&MGMT 5-10 [id number] [id number] Diagnos is: ICD-10- CM E66.9 Obesity , unspeci fied SCHMEES,NA NCY GEENA 05/17 [facility] OFFICE O/P EST LOW 20 MIN [id number] [id number] Diagnos is: ICD-10- CM Z85.828 Persona l history of other maligna nt neoplas m of skin Chary EDWARDS 06/06 [facility] Outpatient Encounter [id number] [id number] JESSICA JOHNSON I 06/07 [facility] Outpatient Encounter [id number] [id number] 06/08 [facility] OFFICE O/P EST HI 40 MIN [id number] [id number] Diagnos is: ICD-10- CM J20.9 Acute bronchi tis, unspeci fied RADHAKIRSTENSAVANA I 06/08 [facility] HEARING AID REPAIR/MOD IFYING [id number] [id number] Diagnos is: ICD-10- CM H90.3 Sensori neural hearing loss, bilater al LAM BLOOM 06/15 [facility] Outpatient Encounter [id number] [id number] LEGERHARD Mercado 07/07 [facility] Outpatient Encounter [id number] [id number] 07/08 [facility] O/P EST MOD 30 MIN [id number] [id number] Diagnos is: ICD-10- CM F33.41 Major depress lety disorde r, recurre nt, in partial remissi on ANNA CESPEDES IE 07/08 [facility] Outpatient Encounter [id number] [id number] GERHARD LUJAN M 07/21 [facility] Outpatient Encounter [id number] [id number] GERHARD LUJAN M 07/22 [facility] NUTRITION INDIV SUBSEQ [id number] [id number] Diagnos is: ICD-10- CM E66.811 Obesity , class 1 MATTHEW,STAC Y R 07/29 [facility] OFFICE O/P EST MOD 30 MIN [id number] [id number] Diagnos is: ICD-10- CM E66.9 Obesity , unspeci fied JERONIMO,MEHD IA 08/02 [facility] Outpatient Encounter [id number] [id number] 08/02 [facility] IMG RTA DETCJ/MNTR DS STAFF [id number] [id number] Diagnos is: ICD-10- CM Z13.5 Encount er for screeni ng for eye and ear disorde SA LEANDER Raza 08/02 [facility] Outpatient Encounter [id number] [id number] Diagnos is: ICD-10- CM Z13.5 Encount er for screeni ng for eye and ear disorde rs Rogelio PATRICIARICIA 08/02 [facility] OFFICE O/P NEW MOD 45 MIN [id number] [id number] Diagnos is: ICD-10- CM G45.3 Amauros is fugRogelio DeniseRICIA 08/05 [facility] Outpatient Encounter [id number] [id number] Rogelio PATRICIARICIA 08/17 [facility] OFF/OP EST NOVEMBER X REQ PHY/QHP [id number] [id number] Diagnos is: ICD-10- CM R29.898 Oth symptom s and signs involvi ng the musculo skeleta l system GERHARD LUJAN 08/23 [facility] [place] [id number] [id number] Diagnos is: ICD-10- CM I26.99 Other pulmona ry embolis m without acute cor pulmona brandie JAMILAFLAKO 08/24 [facility] OFFICE O/P EST MOD 30 MIN [id number] [id number] Diagnos is: ICD-10- CM E66.9 Obesity , unspeci fied JERONIMO,MEHD IA 08/24 [facility] Outpatient Encounter [id number] [id number] Diagnos is: ICD-10- CM R22.1 Localiz ed swellin g, mass and lump, neck SERBAN,RAD U 08/25 [facility] PH1 ASSMT&MGMT NQHP 5-10 [id number] [id number] Diagnos is: ICD-10- CM Z71.2 Person consult ing for explana tion of exam or test finding NEYMAR Rojas A 08/25 [facility] Outpatient Encounter [id number] GERHARD LUJAN M 08/26 [facility] THERAPEUTI C EXERCISES [id number] [id number] Diagnos is: ICD-10- CM I26.99 Other pulmona ry embolis m without acute cor pulmona FLAKO Stern 08/29 [facility] THERAPEUTI C EXERCISES 47195-2.65 [id number] Diagnos is: ICD-10- CM I26.99 Other pulmona ry embolis m without acute cor pulmona FLAKO Stern 09/02 [facility] THERAPEUTI C EXERCISES 51199-6.65 [id number] 490 Diagnos is: ICD-10- CM I26.99 Other pulmona ry embolis m without acute cor pulmona FLAKO Stern 09/05 [facility] PH1 ASSMT&MGMT NQHP 5-10 [id number] [id number] Diagnos is: ICD-10- CM Z01.818 Encount er for other preproc edural examina tion LILIAITZEL Rogelio 09/05 [facility] THERAPEUTI C EXERCISES 00723-3.65 [id number] Diagnos is: ICD-10- CM I26.99 Other pulmona ry embolis m without acute cor pulmona FLAKO Stern 09/07 [facility] En[facility] [id number] [id number] EL REA 09/12 [facility] Outpatient Encounter [id number] [id number] GERHARD LUJAN 09/12 [facility] OFFICE O/P EST LOW 20 MIN 08370-9.65 [id number] Diagnos is: ICD-10- CM L60.0 Ingrowi ng nail JOLEEN GARCIA I 09/13 [facility] OFF/OP EST MAY X REQ PHY/QHP 58829-8.65 [id number] Diagnos is: ICD-10- CM L60.0 Ingrowi ng GERHARD Lowry 09/14 [facility] PH1 ASSMT&MGMT NQHP 11-20 14139-9.65 [id number] Diagnos is: ICD-10- CM Z56.9 Unspeci fied problem s related to employm THOMAS Glover 09/15 [facility] Outpatient Encounter [id number] [id number] 09/29 [facility] OFF/OP CNSLTJ NEW/EST MOD 40 70425-2.65 [id number] Diagnos is: ICD-10- CM L60.2 Onychog ryphosi s OCTAVIANO GALVEZ 09/29 [facility] OFFICE O/P EST MOD 30 MIN 78118-3.65 [id number] Diagnos is: ICD-10- CM E66.9 Obesity , unspeci fied JERONIMO,MEHD IA 09/29 [facility] NQHP OL DIG ASSMT&MGMT 5-10 [id number] [id number] Diagnos is: ICD-10- CM E66.9 Obesity , unspeci fied DAVIDSON LARA 09/30 [facility] OFF[facility] O/P EST MOD 30 MIN 24980-1.65 [id number] Diagnos is: ICD-10- CM F33.41 Major depress lety disorde r, recurre nt, in partial remissi on WALKER,MAR IE 10/06 [facility] EDU&TRN PT SELF-MGMT NQHP 1 71450-2.65 [id number] 318 Diagnos is: ICD-10- CM I10 Essenti al (primar y) hyperte FLAKO Gonzalez 10/10 [facility] PH1 ASSMT&MGMT NQHP 5-10 77311-8.65 [id number] Diagnos is: ICD-10- CM E66.9 Obesity , unspeci fied KIRBY,SHAZIA ADLER M 10/12 [facility] MED NUTRITION INDIV SUBSEQ 32299-2.65 [id number] Diagnos is: ICD-10- CM E66.9 Obesity , unspeci fied ZENY,WHI TNEY N 10/24 [facility] PH1 ASSMT&MGMT NQHP 5-10 64985-8.65 [id number] Diagnos is: ICD-10- CM E66.9 Obesity , unspeci fied KIRBY,SHAZIA ADLER M 11[facility]04 [facility] Outpatient Encounter 70452-0.65 [id number] GERHARD LUJAN 11/04 [facility] Outpatient Encounter 08547-7.65 [id number] [id number] RENAN IZAGUIRRE 11/07 [facility] Outpatient Encounter 62869-5.65 [id number] JANENE BRUNNER AM H 11/11 [facility] Outpatient Encounter 73203-0.65 [id number] JESSICA JOHNSON I 11/22 [facility] Outpatient Encounter 30261-2.65 [id number] 11/25 [facility] O/P EST MOD 30 MIN 86592-0.65 [id number] Diagnos is: ICD-10- CM R06.00 Dyspnea , unspeci fied JOLEEN GARCIA I 11/25 [facility] Outpatient Encounter 51446-6.65 [id number] [facility] PEARL A 11/29 [facility] Outpatient Encounter [id number] AUSTINJOSHUAPio KANG A 11/29 [facility] N[facility] OL DIG ASSMT&MGMT 5-10 [id number] Diagnos is: ICD-10- CM F51.02 Adjustm ent insomni a ROBERT BUCKNER 11/30 [facility] OL DIG ASSMT&MGMT 5-10 [id number] Diagnos is: ICD-10- CM Z02.9 Encount er for adminis trative examina tions, unspeci fied JANENE BRUNNER AM H 11/30 [facility] OFFICE O/P NEW MOD 45 MIN [id number] Diagnos is: ICD-10- CM M79.2 Neuralg ia and neuriti s, unspeci fied MANJULA ROSE J 12/02 [facility] NQHP OL DIG ASSMT&MGMT 5-10 [id number] Diagnos is: ICD-10- CM M79.2 Neuralg ia and neuriti s, unspeci fied ASHLYSYLVIA HY D 12/02 [facility] OFF[facility] O/P EST LOW 20 MIN [id number] Diagnos is: ICD-10- CM L82.1 Other seborrh eic keratos is JULITA EDEN 12/05 [facility] Outpatient Encounter [id number] 12/07 [facility] Social History Combined list of available smoking, tobacco, and other social history from Department of Defense and Veterans Affairs facilities. Social History Type Response Date Comment Source Tobacco smoking status AZIS VA-TOBACCO USE FORMER CIGARETTES 11/25/2024 [facility] History of tobacco use VA-TOBACCO NEVER USED OTHER TYPE 11/25/2024 [facility] History of tobacco use VA-TOBACCO QUIT 15 YRS OR MORE 12/11/2023 [facility] History of tobacco use VA-TOBACCO FORMER USER 10/17/2022 [facility] History of tobacco use VA-TOBACCO FORMER USER 09/06/2021 [facility] History of tobacco use VA-TOBACCO NEVER USED 08/28/2020 [facility] History of tobacco use VA-TOBACCO NEVER USED 03/28/2019 [facility] History of tobacco use VA-TOBACCO FORMER USER 07/08/2018 [facility] History of tobacco use QUIT TOBACCO >7 YEARS AGO 11/11/2017 [facility] History of tobacco use QUIT TOBACCO >7 YEARS AGO 07/27/2017 [facility] History of tobacco use QUIT TOBACCO >7 YEARS AGO 02/11/2017 [facility] History of tobacco use QUIT TOBACCO >7 YEARS AGO 09/30/2016 [facility] History of tobacco use QUIT TOBACCO >7 YEARS AGO 12/13/2015 [facility] History of tobacco use QUIT TOBACCO >7 YEARS AGO 03/01/2015 [facility] History of tobacco use QUIT TOBACCO >7 YEARS AGO 10/24/2011 [facility] History of tobacco use CURRENT NON-TOBACCO USER-HX OF USE 08/07/[address] [facility] History of tobacco use CURRENT NON-TOBACCO USER-HX OF USE 06/04/[address] [facility] History of tobacco use CURRENT NON-TOBACCO USER-HX OF USE 03/05/[address] [facility] History of tobacco use PREVIOUS SMOKER 06/24/1999 [facility] Plan of Care List of future care activities from [facility] facilities. Additional future care activities may be listed in the Assessment and Plan section. Date/Time Care Activity Care Activity Detail Facili ty 12/08/2024 AMBULATORY - SURGERY AMBULATORY - SURGERY [facility] Advance Directives List of completed, amended, or rescinded Advance Directives on record at [facility] facilities. An actual copy of the Directive is not included. Date Advance Directive Provider Source 08/15/1997 ADVANCE DIRECTIVE DESIRAE WILKERSON [facility]
--- OUTSIDE RECORDS SUMMARY | 2024-12-07 19:12 | XMS_ITS | Encounter Summary ---
Author Organization [facility] Facility Care Team Providers Care Analyst Food And Beverage Name Role Phone Hope Mauro MD Unavailable [phone] Francoise Cruz OT Unavailable + [phone] Jayshree Salinas OT Unavailable +[phone] Barry Mcmillan DPT Unavailable Unavail able Nitin Martinez DESIGN DRAFTSMAN Unavailable + Miguelito Bergeron MD Primary Care Provider + [phone] Marian Myrick DESIGN DRAFTSMAN Unavailable + Sheryl Hightower MD Primary Care [...] Bren Lopez MD Primary Care Provider [phone] Encounter Details Date Type Department Care Team (Latest Contact Info) Description 04/03/2018 Orders Only [facility] CLINCONV Provider, MD James [address] [place] [address] Social History Tobacco Use Types Packs/Day Years Used Date Smoking Tobacco: Former Smokeless Tobacco: Former Comments:quit 1999 Alcohol Use Standard Drinks/Week Comments Not Asked 0 (1 standard drink = 0.6 oz pur e alcohol) quit 2003 Sex and Gender Information Value Date Recorded Sex Assigned at Not on file 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 Gender Identity Not on file Sexual [...] on filedocumented in this encounter Care Teams Analyst Food And Beverage Relationship Specialty Start Date End Date Miguelito Bergeron MD 300[address] [facility] [address] [place] [address] PCP - General 02/13/18 05/11/18 Sheryl Hightower MD [address] [address] PCP - General Internal Medicine 05/12/18 08/12/18 Sabrina Meade PA [facility] [address] PCP - General 10/04/18 12/02/18 Bren Lopez MD [address] [place] [address] PCP - General 12/03/18 12/06/18 Sabrina Meade PA [address] [place] [address] PCP - General 12/07/18 01/13/19 Bren Lopez MD [address] [place] [address] PCP - General 01/14/19 04/19/19 Sabrina Meade PA [address] [place] [address] PCP - General Internal Medicine 04/20/19 04/21/19 Bren Lopez MD [address] [place] [address] PCP - General 08/13/18 10/03/18 Bren Lopez MD [address] [place] [address] PCP - General 04/22/19 Hope Mauro MD Consulting Physician Trauma Surgery 12/17/17 Francoise Cruz, OT [address] [address] Occupational Therapist Occupational Therapy 12/18/17 Jayshree Salinas OT [address] [facility] [address] [place] [address] Occupational Therapist Occupational Therapy 12/18/17 Barry Mcmillan, DPT Physical Therapist Physical Therapy 01/18/18 06/29/18 Nitin Martinez, DESIGN DRAFTSMAN [address] [place] [address] Welder Production Line Arc Physical Therapy 01/22/18 08/17/18 Marian Myrick, DESIGN DRAFTSMAN [address] [facility] [address] [place] [address] Welder Production Line Arc Physical Therapy 02/19/18 08/17/18 Lynsey Chavez DPT [address] [facility] [address] [place] [address] Physical Therapist Physical Therapy 06/30/18 08/17/18 Sultan Cristo Flores MD [address] [facility] [address] [address] Automatic Cigar Wrapper Tender Cardiology 03/02/19 documented as of this encounter
--- OUTSIDE RECORDS SUMMARY | 2024-12-07 19:13 | XMS_ITS | Clinical Summary ---
Author Organization [facility] Address [address] [place] [address] Care Team Providers Care Tie Maker Name Role Phone Ashley Perdue MD Primary Care Provider [phone] Source Comments [facility],non-owned Affiliates and Associated Physician Practices is amultiple site organization consisting of ambulatory clinics and hospital sitesin [place], [place], [place] and [place]. This disclosure is being madepursuant to the Care Everywhere program and may not contain all information available regarding this patient. Last updated 18.[facility] Allergies Active Allergy Reactions Criticality Noted Date [...] fluticasone propionate (FLONASE) 50 MCG/ACT nasal spray Stanford 1 Stanford into each nostril 2 times daily Active [...] age to complete this topic Insurance [facility] Address: [facility] [id number] [place] [address] Advance Directives * Full Code (Latest Code Status on File) Date Activated Date Inactivated Comments 11/15/2015 5:29 PM 11/16/2015 6:06 PM Care Teams Tie Maker Relationship Specialty Start Date End Date Ashley Perdue MD [address] [place] [address] [address] [place] [address] PCP - General Family Medicine 11/15/15
--- OUTSIDE RECORDS SUMMARY | 2024-12-07 19:13 | XMS_ITS | Encounter Summary ---
Author Organization [facility] Facility Care Team Providers Care Driver'S Education Instructor Name Role Phone Hope Mauro MD Unavailable [phone] Francoise Cruz OT Unavailable + [phone] Jayshree Salinas OT Unavailable [phone] Barry Mcmillan DPT Unavailable Unavail able Nitin Martinez BOTTOM STEEP TENDER Unavailable + Miguelito Bergeron MD Primary Care Provider + [phone] Marian Myrick BOTTOM STEEP TENDER Unavailable + Sheryl Hightower MD Primary Care [...] Bren Lopez MD Primary Care Provider [phone] Encounter Details Date Type Department Care Team (Latest Contact Info) Description 03/27/2018 Orders Only MMG CLINCONV Provider, MD James [address] [place] [address] Social History Tobacco Use Types Packs/Day Years Used Date Smoking Tobacco: Former Smokeless Tobacco: Former Comments:quit 1999 Alcohol Use Standard Drinks/Week Comments Not Asked 0 (1 standard drink = 0.6 oz pur e alcohol) quit 2003 Sex and Gender Information Value Date Recorded Sex Assigned at Not on file 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 Historical Provider CV CARDIAC SERVICES [facility] RADHA Final Result documented in this encounter Visit Diagnoses Not on filedocumented in this encounter Care Teams Driver'S Education Instructor Relationship Specialty Start Date End Date Miguelito Bergeron MD 300[address] [facility] 102 [place] [address] PCP - General 02/13/18 05/11/18 Sheryl Hightower MD [address] [address] PCP - General Internal Medicine 05/12/18 08/12/18 Sabrina Meade PA [facility] [address] PCP - General 10/04/18 12/02/18 Bren Lopez MD [address] [place] [address] PCP - General 12/03/18 12/06/18 Sabrina Meade PA [address] [place] [address] PCP - General 12/07/18 01/13/19 Bren Lopez MD [address] [place] [address] PCP - General 01/14/19 04/19/19 Sabrina Meade PA [address] [place] [address] PCP - General Internal Medicine 04/20/19 04/21/19 Bren Lopez MD [address] [place] [address] PCP - General 08/13/18 10/03/18 Bren Lopez MD [address] [place] [address] PCP - General 04/22/19 Hope Mauro MD Consulting Physician Trauma Surgery 12/17/17 Francoise Cruz, OT [address] [address] Occupational Therapist Occupational Therapy 12/18/17 Jayshree Salinas OT 49[address] [facility] [address] [place] [address] Occupational Therapist Occupational Therapy 12/18/17 Barry Mcmillan, DPT Physical Therapist Physical Therapy 01/18/18 06/29/18 Nitin Martinez, BOTTOM STEEP TENDER [address] [place] [address] Workforce Specialist Physical Therapy 01/22/18 08/17/18 Marian Myrick, BOTTOM STEEP TENDER 4[address] [facility] [address] [place] [address] Workforce Specialist Physical Therapy 02/19/18 08/17/18 Lynsey Chavez DPT [address] [facility] [address] [place] [address] Physical Therapist Physical Therapy 06/30/18 08/17/18 Sultan Cristo Flores MD [address] [facility] [address] [address] Manager Of Environmental Services Cardiology 03/02/19 documented as of this encounter
--- OUTSIDE RECORDS SUMMARY | 2024-12-07 19:13 | XMS_ITS | Continuity of Care Document ---
Author Organization [facility] Address [address] [place] [address] Phone Care Team Providers Care Sales And Marketing Agent Name Role Phone Unavailable Unavailable Unavailable Procedures [...] Diagnoses Date Provider Providers Copied on Encounter [address], [address], [place], [place], [id number] , tel: [phone] [facility] Encounter for dental exam and cleaning w abnormal findings 0 No Information Referring Provider: Jose Juan French, [address], [place], [address] . tel:[phone] [address], [address], [place], [place], [address] , tel: [phone] [facility] Encounter for dental exam and cleaning w abnormal findingsEncounter for dental exam and cleaning w/o abnormal findings 0 No Information [address], [address], [place], [place], [address] , tel: [phone] [facility] Encounter for dental exam and cleaning w abnormal findings 0 No Information Family History Family Member Type Diagnosis Age At Onset No Information Payers Payer name Insurance type Covered democrat ID Rubi moreno(s) D [facility] Dental Claims [id number] Social History Type Description Quantity Date Captured [...]
--- OUTSIDE RECORDS SUMMARY | 2024-12-07 19:13 | XMS_ITS | Encounter Summary ---
Author Organization [facility] Facility Care Team Providers Care Custom Frame Assembler Name Role Phone Hope Mauro MD Unavailable [phone] Francoise Cruz OT Unavailable + [phone] Jayshree Salinas OT Unavailable [phone] Barry Mcmillan DPT Unavailable Unavail able Nitin Martinez SLOT SUPERVISOR Unavailable + Miguelito Bergeron MD Primary Care Provider + [phone] Marian Myrick SLOT SUPERVISOR Unavailable + Sheryl Hightower MD Primary [...] Bren Lopez MD Primary Care Provider [phone] Encounter Details Date Type Department Care Team (Latest Contact Info) Description 03/25/2018 Orders Only MMG CLINCONV Provider, MD James [address] [place] [address] Social History Tobacco Use Types Packs/Day Years Used Date Smoking Tobacco: Former Smokeless Tobacco: Former Comments:quit 1999 Alcohol Use Standard Drinks/Week Comments Not Asked 0 (1 standard drink = 0.6 oz pur e alcohol) quit 2003 Sex and Gender Information Value Date Recorded Sex Assigned at Not on file 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 CHANGE ADVISOR Gender Identity Not on file Sexual [...] unspecified provider. Historical Provider CV CARDIAC SERVICES [facility] RADHA Final Result documented in this encounter Visit Diagnoses Not on filedocumented in this encounter Care Teams Custom Frame Assembler Relationship Specialty Start Date End Date Miguelito Bergeron MD [address] [facility] [address] [place] [address] PCP - General 02/13/18 05/11/18 Sheryl Hightower MD [address] [address] PCP - General Internal Medicine 05/12/18 08/12/18 Sabrina Meade PA [facility] [address] PCP - General 10/04/18 12/02/18 Bren Lopez MD [address] [place] [address] PCP - General 12/03/18 12/06/18 Sabrina Meade PA [address] [place] [address] PCP - General 12/07/18 01/13/19 Bren Lopez MD [address] [place] [address] PCP - General 01/14/19 04/19/19 Sabrina Meade PA [address] [place] [address] PCP - General Internal Medicine 04/20/19 04/21/19 Bren Lopez MD [address] [place] [address] PCP - General 08/13/18 10/03/18 Bren Lopez MD [address] [place] [address] PCP - General 04/22/19 Hope Mauro MD Consulting Physician Trauma Surgery 12/17/17 Francoise Cruz, OT [address] [address] Occupational Therapist Occupational Therapy 12/18/17 Jayshree Salinas OT 4921 [facility] [address] [place] [address] Occupational Therapist Occupational Therapy 12/18/17 Barry Mcmillan, DPT Physical Therapist Physical Therapy 01/18/18 06/29/18 Nitin Martinez, SLOT SUPERVISOR [address] [place] [address] Drafter Electrical Physical Therapy 01/22/18 08/17/18 Marian Myrick, SLOT SUPERVISOR 4240 [facility] [address] [place] [address] Drafter Electrical Physical Therapy 02/19/18 08/17/18 Lynsey Chavez DPT 4600 [facility] [address] [place] [address] Physical Therapist Physical Therapy 06/30/18 08/17/18 Sultan Cristo Flores MD 4600 [facility] [address] [address] Resident Care Coordinator Cardiology 03/02/19 documented as of this encounter
--- OUTSIDE RECORDS SUMMARY | 2024-12-07 19:13 | XMS_ITS | Encounter Summary ---
Author Organization [facility] Facility Care Team Providers Care Radiology Aide Name Role Phone Hope Mauro MD Unavailable [phone] Francoise Cruz OT Unavailable + [phone] Jayshree Salians OT Unavailable +[phone] Barry Mcmillan DPT Unavailable Unavail able Nitin Martinez FISH STRINGER ASSEMBLER Unavailable + Miguelito Bergeron MD Primary Care Provider + [phone] Marian Myrick FISH STRINGER ASSEMBLER Unavailable + Sheryl Hightower MD Primary Care [...] Bren Lopez MD Primary Care Provider [phone] Encounter Details Date Type Department Care Team (Latest Contact Info) Description 03/30/2018 Orders Only MMG CLINCONV Provider, MD James [address] [place] [address] Social History Tobacco Use Types Packs/Day Years Used Date Smoking Tobacco: Former Smokeless Tobacco: Former Comments:quit 1999 Alcohol Use Standard Drinks/Week Comments Not Asked 0 (1 standard drink = 0.6 oz pur e alcohol) quit 2003 Sex and Gender Information Value Date Recorded Sex Assigned at Not on file 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 Historical Provider CV CARDIAC SERVICES [facility] RADHA Final Result documented in this encounter Visit Diagnoses Not on filedocumented in this encounter Care Teams Radiology Aide Relationship Specialty Start Date End Date Miguelito Bergeron MD 3009 [facility] 102 [place] [address] PCP - General 02/13/18 05/11/18 Sheryl Hightower MD [address] [address] PCP - General Internal Medicine 05/12/18 08/12/18 Sabrina Meade PA [facility] [address] PCP - General 10/04/18 12/02/18 Bren Lopez MD [address] [place] [address] PCP - General 12/03/18 12/06/18 Sabrina Meade PA [address] [place] [address] PCP - General 12/07/18 01/13/19 Bren Lopez MD [address] [place] [address] PCP - General 01/14/19 04/19/19 Sabrina Meade PA [address] [place] [address] PCP - General Internal Medicine 04/20/19 04/21/19 Bren Lopez MD [address] [place] [address] PCP - General 08/13/18 10/03/18 Bren Lopez MD [address] [place] [address] PCP - General 04/22/19 Hope Mauro MD Consulting Physician Trauma Surgery 12/17/17 Francoise Cruz, OT [address] [address] Occupational Therapist Occupational Therapy 12/18/17 Jayshree Salinas OT [address] [facility] [address] [place] [address] Occupational Therapist Occupational Therapy 12/18/17 Barry Mcmillan, DPT Physical Therapist Physical Therapy 01/18/18 06/29/18 Nitin Martinez, FISH STRINGER ASSEMBLER [address] [place] [address] Commodity Industry Analyst Physical Therapy 01/22/18 08/17/18 Marian Myrick, FISH STRINGER ASSEMBLER 4[address] [facility] [address] [place] [address] Commodity Industry Analyst Physical Therapy 02/19/18 08/17/18 Lynsey Chavez DPT 46[address] [facility] [address] [place] [address] Physical Therapist Physical Therapy 06/30/18 08/17/18 Sultan Cristo Flores MD [address] [facility] [address] [address] Vending Enterprises Supervisor Cardiology 03/02/19 documented as of this encounter
--- OUTSIDE RECORDS SUMMARY | 2024-12-07 19:13 | XMS_ITS | Encounter Summary ---
Author Organization [facility] Facility Care Team Providers Care First Aid Trainer Name Role Phone Hope Mauro MD Unavailable [phone] Francoise Cruz OT Unavailable + [phone] Jayshree Salinas OT Unavailable +[phone] Barry Mcmillan DPT Unavailable Unavail able Nitin Martinez AIRCRAFT ELECTRICIAN Unavailable + Miguelito Bergeron MD Primary Care Provider + [phone] Marian Myrick AIRCRAFT ELECTRICIAN Unavailable + Sheryl Hightower MD Primary Care [...] Bren Lopez MD Primary Care Provider [phone] Encounter Details Date Type Department Care Team (Latest Contact Info) Description 03/28/2018 Orders Only MMG CLINCONV Provider, MD James [address] [place] [address] Social History Tobacco Use Types Packs/Day Years Used Date Smoking Tobacco: Former Smokeless Tobacco: Former Comments:quit 1999 Alcohol Use Standard Drinks/Week Comments Not Asked 0 (1 standard drink = 0.6 oz pur e alcohol) quit 2003 Sex and Gender Information Value Date Recorded Sex Assigned at Not on file 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 Historical Provider CV [facility] RADHA Final Result documented in this encounter Visit Diagnoses Not on filedocumented in this encounter Care Teams First Aid Trainer Relationship Specialty Start Date End Date Miguelito Bergeron MD 3009 [facility] 102 [place] [address] PCP - General 02/13/18 05/11/18 Sheryl Hightower MD [address] [address] PCP - General Internal Medicine 05/12/18 08/12/18 Sabrina Meade PA [facility] [address] PCP - General 10/04/18 12/02/18 Bren Lopez MD [address] [place] [address] PCP - General 12/03/18 12/06/18 Sabrina Meade PA [address] [place] [address] PCP - General 12/07/18 01/13/19 Bren Lopez MD [address] [place] [address] PCP - General 01/14/19 04/19/19 Sabrina Meade PA [address] [place] [address] PCP - General Internal Medicine 04/20/19 04/21/19 Bren Lopez MD [address] [place] [address] PCP - General 08/13/18 10/03/18 Bren Lopez MD [address] [place] [address] PCP - General 04/22/19 Hope Mauro MD Consulting Physician Trauma Surgery 12/17/17 Francoise Cruz, OT [address] [address] Occupational Therapist Occupational Therapy 12/18/17 Jayshree Salinas OT 49[address] [facility] [address] [place] [address] Occupational Therapist Occupational Therapy 12/18/17 Barry Mcmillan, DPT Physical Therapist Physical Therapy 01/18/18 06/29/18 Nitin Martinez, AIRCRAFT ELECTRICIAN [address] [place] [address] Aegis Console Operator Track Physical Therapy 01/22/18 08/17/18 Marian Myrick, AIRCRAFT ELECTRICIAN 4240 [facility] [address] [place] [address] Aegis Console Operator Track Physical Therapy 02/19/18 08/17/18 Lynsey Chavez DPT 46[address] [facility] [address] [place] [address] Physical Therapist Physical Therapy 06/30/18 08/17/18 Sultan Cristo Flores MD [address] [facility] [address] [address] Yardage Caller Cardiology 03/02/19 documented as of this encounter
--- OUTSIDE RECORDS SUMMARY | 2024-12-07 19:13 | XMS_ITS | Encounter Summary ---
Author Organization [facility] Facility Care Team Providers Care Food And Nutrition Supervisor Name Role Phone Hope Mauro MD Unavailable [phone] Francoise Cruz OT Unavailable + [phone] Jayshree Salinas OT Unavailable [phone] Barry Mcmillan DPT Unavailable Unavail able Nitin Martinez PUMP TECHNICIAN Unavailable + Miguelito Bergeron MD Primary Care Provider + [phone] Marian Myrick PUMP TECHNICIAN Unavailable + Sheryl Hightower MD Primary Care [...] Bren Lopez MD Primary Care Provider [phone] Encounter Details Date Type Department Care Team (Latest Contact Info) Description 04/05/2018 Orders Only [facility] CLINCONV Provider, MD James [address] [place] [id number] Social History Tobacco Use Types Packs/Day Years Used Date Smoking Tobacco: Former Smokeless Tobacco: Former Comments:quit 1999 Alcohol Use Standard Drinks/Week Comments Not Asked 0 (1 standard drink = 0.6 oz pur e alcohol) quit 2003 Sex and Gender Information Value Date Recorded Sex Assigned at Not on file 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 Gender Identity Not on file Sexual Orientation [...] Provider CV CARDIAC SERVICES [facility] Final Result documented in this encounter Visit Diagnoses Not on filedocumented in this encounter Care Teams Food And Nutrition Supervisor Relationship Specialty Start Date End Date Miguelito Bergeron MD [address] [facility] [address] [place] [address] PCP - General 02/13/18 05/11/18 Sheryl Hightower MD [address] [address] PCP - General Internal Medicine 05/12/18 08/12/18 Sabrina Meade PA [facility] [address] PCP - General 10/04/18 12/02/18 Bren Lopez MD [address] [place] [address] PCP - General 12/03/18 12/06/18 Sabrina Meade PA [address] [place] [address] PCP - General 12/07/18 01/13/19 Bren Lopez MD [address] [place] [address] PCP - General 01/14/19 04/19/19 Sabrina Meade PA [address] [place] [address] PCP - General Internal Medicine 04/20/19 04/21/19 Bren Lopez MD [address] [place] [address] PCP - General 08/13/18 10/03/18 Bren Lopez MD [address] [place] [address] PCP - General 04/22/19 Hope Mauro MD Consulting Physician Trauma Surgery 12/17/17 Francoise Cruz, OT [address] [address] Occupational Therapist Occupational Therapy 12/18/17 Jayshree Salinas OT 49[address] [facility] [address] [place] [address] Occupational Therapist Occupational Therapy 12/18/17 Barry Mcmillan, DPT Physical Therapist Physical Therapy 01/18/18 06/29/18 Nitin Martinez, PUMP TECHNICIAN [address] [place] [address] Retirement Specialist Physical Therapy 01/22/18 08/17/18 Marian Myrick, PUMP TECHNICIAN [address] [facility] [address] [place] [address] Retirement Specialist Physical Therapy 02/19/18 08/17/18 Lynsey Chavez DPT [address] [facility] [address] [place] [address] Physical Therapist Physical Therapy 06/30/18 08/17/18 Sultan Cristo Flores MD [address] [facility] [address] [address] Corridor Redevelopment Manager Cardiology 03/02/19 documented as of this encounter
--- OUTSIDE RECORDS SUMMARY | 2024-12-07 19:13 | XMS_ITS | Encounter Summary ---
Author Organization [facility] Facility Care Team Providers Care Business Transformation Manager Name Role Phone Hope Mauro MD Unavailable [phone] Francoise Cruz OT Unavailable + [phone] Jayshree Salinas OT Unavailable +[phone] Barry Mcmillan DPT Unavailable Unavail able Nitin Martinez ENROLLED NURSE Unavailable + Miguelito Bergeron MD Primary Care Provider + [phone] Marian Myrick ENROLLED NURSE Unavailable + Sheryl Hightower MD Primary Care [...] Bren Lopez MD Primary Care Provider [phone] Encounter Details Date Type Department Care Team (Latest Contact Info) Description 03/29/2018 Orders Only [facility] CLINCONV Provider, MD James [address] [place] [address] Social History Tobacco Use Types Packs/Day Years Used Date Smoking Tobacco: Former Smokeless Tobacco: Former Comments:quit 1999 Alcohol Use Standard Drinks/Week Comments Not Asked 0 (1 standard drink = 0.6 oz pur e alcohol) quit 2003 Sex and Gender Information Value Date Recorded Sex Assigned at Not on file 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 Gender Identity Not on file Sexual Orientation [...] filedocumented in this encounter Care Teams Business Transformation Manager Relationship Specialty Start Date End Date Miguelito Bergeron MD [address] [facility] [address] [place] [address] PCP - General 02/13/18 05/11/18 Sheryl Hightower MD [address] [address] PCP - General Internal Medicine 05/12/18 08/12/18 Sabrina Meade PA [facility] [address] PCP - General 10/04/18 12/02/18 Bren Lopez MD [address] [place] [address] PCP - General 12/03/18 12/06/18 Sabrina Meade PA [address] [place] [address] PCP - General 12/07/18 01/13/19 Bren Lopez MD [address] [place] [address] PCP - General 01/14/19 04/19/19 Sabrina Meade PA [address] [place] [address] PCP - General Internal Medicine 04/20/19 04/21/19 Bren Lopez MD [address] [place] [address] PCP - General 08/13/18 10/03/18 Bren Lopez MD [address] [place] [address] PCP - General 04/22/19 Hope Mauro MD Consulting Physician Trauma Surgery 12/17/17 Francoise Cruz, OT [address] [address] Occupational Therapist Occupational Therapy 12/18/17 Jayshree Salinas OT [address] [facility] [address] [place] [address] Occupational Therapist Occupational Therapy 12/18/17 Barry Mcmillan, DPT Physical Therapist Physical Therapy 01/18/18 06/29/18 Nitin Martinez, ENROLLED NURSE [address] [place] [address] Fur Repairer Physical Therapy 01/22/18 08/17/18 Marian Myrick, ENROLLED NURSE [address] [facility] [address] [place] [address] Fur Repairer Physical Therapy 02/19/18 08/17/18 Lynsey Chavez DPT [address] [facility] [address] [place] [address] Physical Therapist Physical Therapy 06/30/18 08/17/18 Sultan Cristo Flores MD [address] [facility] [address] [address] Radar Operator Cardiology 03/02/19 documented as of this encounter
--- OUTSIDE RECORDS SUMMARY | 2024-12-07 19:13 | XMS_ITS | Encounter Summary ---
Author Organization [facility] Facility Care Team Providers Care Steel Division Supervisor Name Role Phone Hope Mauro MD Unavailable [phone] Francoise Cruz OT Unavailable + [phone] Jayshree Salinas OT Unavailable +[phone] Barry Mcmillan DPT Unavailable Unavail able Nitin Martinez NURSE LDR Unavailable + Miguelito Bergeron MD Primary Care Provider + [phone] Marian Myrick NURSE LDR Unavailable + Sheryl Hightower MD Primary Care [...] Bren Lopez MD Primary Care Provider [phone] Encounter Details Date Type Department Care Team (Latest Contact Info) Description 03/26/2018 Orders Only [facility] CLINCONV ProviderJames MD [address] [place] [id number] Social History Tobacco Use Types Packs/Day Years Used Date Smoking Tobacco: Former Smokeless Tobacco: Former Comments:quit 1999 Alcohol Use Standard Drinks/Week Comments Not Asked 0 (1 standard drink = 0.6 oz pur e alcohol) quit 2003 Sex and Gender Information Value Date Recorded Sex Assigned at Not on file 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 TOOL 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 Gender Identity Not on file Sexual Orientation [...] on filedocumented in this encounter Care Teams Steel Division Supervisor Relationship Specialty Start Date End Date Miguelito Bergeron MD [address] [place] [address] PCP - General 02/13/18 05/11/18 Sheryl Hightower MD [address] [facility] [address] [place] [address] PCP - General Internal Medicine 05/12/18 08/12/18 Sabrina Meade PA [address] [place] [address] PCP - General 10/04/18 12/02/18 Bren Lopez MD [address] [place] [address] PCP - General 12/03/18 12/06/18 Sabrina Meade PA [address] [place] [address] PCP - General 12/07/18 01/13/19 Bren Lopez MD [address] [place] [address] PCP - General 01/14/19 04/19/19 Sabrina Meade PA [address] [place] [address] PCP - General Internal Medicine 04/20/19 04/21/19 Bren Lopez MD [address] [place] [address] PCP - General 08/13/18 10/03/18 Bren Lopez MD [address] [place] [address] PCP - General 04/22/19 Hope Mauro MD Consulting Physician Trauma Surgery 12/17/17 Francoise Cruz, OT [address] [facility] [address] [place] [address] Occupational Therapist Occupational Therapy 12/18/17 Jayshree Salinas OT [address] [facility] [address] [place] [address] Occupational Therapist Occupational Therapy 12/18/17 Barry Mcmillan, DPT Physical Therapist Physical Therapy 01/18/18 06/29/18 Nitin Martinez, NURSE LDR 4[address] [facility] [address] [place] [address] Automobile Upholstery Trim Installer Physical Therapy 01/22/18 08/17/18 Marian Myrick, NURSE LDR 4240 [facility] [address] [facility] [address] [place] [address] Automobile Upholstery Trim Installer Physical Therapy 02/19/18 08/17/18 Lynsey Chavez, DPT [address] [facility] [address] [place] [address] Physical Therapist Physical Therapy 06/30/18 08/17/18 Sultan Cristo Flores MD [address] [facility] [address] [address] Residential Finish Carpenter Cardiology 03/02/19 documented as of this encounter
[2024-12-07] MEDS: HYDROcodone/acetaminophen (*CRX) 10-325 MG TABLET 1 TAB PO (19:32)
[2024-12-07] MEDS: KETOROLAC 30 MG/ML VIAL (*BKC) IM (19:32)
[2024-12-07] MEDS: AMOXICILLIN/CLAVULANATE K 875-125 MG TAB 1 TABLET PO (19:32)
[2024-12-07 19:37] VITALS: BP 153/78; PULSE 93; RESP 15; O2SAT 98
== END 2024-12-07 19:39 | disposition home or self-care (01) ==
LOC: ANHED 19:10
PROVIDERS: Emergency Provider Emergency Medicine
DX: K02.9 Dental caries, unspecified (principal); M10.9 Gout, unspecified; Z88.0 Allergy status to penicillin; Z87.891 Personal history of nicotine dependence
CPT/HCPCS: 96372; 99283; A9270; J1885